=== PATIENT | female | born 1960 | race African-American/Black ===

== ENCOUNTER 2017-09-14 09:40 | Inpatient (IN) | payer OTHER ==
[2017-09-14 10:24] VITALS: BMI 33.5
[2017-09-14] MEDS ORDERED: MENTHOL/PHENOL 1 EACH UD MM PRN (11:03)
[2017-09-14] MEDS ORDERED: MAGNESIUM HYDROX 2400MG/30ML ORAL SUSPENSION 30 ML CUP PO PRN (11:03)
[2017-09-14] MEDS ORDERED: MAGNESIUM CITRATE 300 ML BOTTLE PO PRN (11:03)
[2017-09-14] MEDS ORDERED: LOPERAMIDE HCL 2 MG CAPSULE PO PRN (11:03)
[2017-09-14] MEDS ORDERED: MAG HYDROX/AL HYDROX/SIMETH 30 ML UNIT-DOSE CUP PO PRN (11:03)
[2017-09-14] MEDS ORDERED: guaiFENesin/D-METHORPHAN HB 10 ML UNIT-DOSE CUPS PO PRN (11:03)
[2017-09-14] MEDS ORDERED: P-EPHED 60MG/TRIPROLIDI 2.5MG TABLET PO PRN (11:03)
[2017-09-14] MEDS ORDERED: ALBUTEROL SO4 18 GM HFA INHALER IH PRN (11:06)
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
[2017-09-14] MEDS: DIVALPROEX SODIUM 500 MG TABLET E.C. PO SCH (21:57)
[2017-09-14] MEDS: risperiDONE 1 MG TABLET (FP) PO SCH (21:57)
[2017-09-14] MEDS: THIAMINE HCL 100 MG TABLET (FP) PO SCH (21:57)
[2017-09-14] MEDS: diphenhydrAMINE HCL 25 MG CAPSULE (FP) PO SCH (21:57)
[2017-09-14] MEDS: traZODone HCL 50 MG TABLET (FP) PO SCH (21:58)
[2017-09-15] MEDS: DIVALPROEX SODIUM 500 MG TABLET E.C. PO SCH ×2 (10:02→22:03)
[2017-09-15] MEDS: risperiDONE 1 MG TABLET (FP) PO SCH ×2 (10:02→22:03)
[2017-09-15] MEDS: diphenhydrAMINE HCL 25 MG CAPSULE (FP) PO SCH ×2 (10:02→22:03)
[2017-09-15] MEDS: PRENATAL VITAMINS W/ FOLIC ACID TABLET (FP) PO SCH (10:02)
[2017-09-15] MEDS: NICOTINE 21 MG/24 HOURS TOPICAL PATCH TD SCH (10:03)
[2017-09-15] MEDS: EMTRICITAB/RILPIVIRI/TENOF ALA (ODEFSEY) TABLET PO SCH (10:04)
[2017-09-15] MEDS: traZODone HCL 50 MG TABLET (FP) PO SCH (22:03)
[2017-09-15] MEDS: THIAMINE HCL 100 MG TABLET (FP) PO SCH (22:03)
[2017-09-16] MEDS: NICOTINE 21 MG/24 HOURS TOPICAL PATCH TD SCH (10:21)
[2017-09-16] MEDS: risperiDONE 1 MG TABLET (FP) PO SCH ×2 (10:22→21:58)
[2017-09-16] MEDS: EMTRICITAB/RILPIVIRI/TENOF ALA (ODEFSEY) TABLET PO SCH (10:22)
[2017-09-16] MEDS: diphenhydrAMINE HCL 25 MG CAPSULE (FP) PO SCH ×2 (10:22→21:58)
[2017-09-16] MEDS: DIVALPROEX SODIUM 500 MG TABLET E.C. PO SCH ×2 (10:22→21:58)
[2017-09-16] MEDS: PRENATAL VITAMINS W/ FOLIC ACID TABLET (FP) PO SCH (10:22)
[2017-09-16] MEDS: ACETAMINOPHEN 325 MG TABLET (FP) PO PRN (11:38)
--- NOTE | 2017-09-16 12:42 | PN ---
[facility] Progress Note Note: PATIENT REPORTED TO NURSE THAT SHE HAD UNWITNESSED FALL ON Sunday09/14/17 BETWEEN 6 PM TO 7 PM NO HEAD INJURY COMPLAINT OF PAIN IN THE LOWER BACK ALERT,NO HEAD INJURY,AMBULATION WITHOUT DIFFICULTY NO NECK PAIN HEENT NORMAL HEAT NORMAL HEART SOUND LUNG CLEAR ABDOMEN NO PAIN OR TENDERNESS PAIN IN THE LOWER BACK WITH PAIN ON DEEP PALPATION EXTREMITIES NO PAIN OR TENDERNESS IMPRESSION UNWITNESSED FALL LOWER BACK PAIN ALCOHOL DEPENDENCE COCAINE DEPENDENCE HIV ASTHMA SCHIZOAFFECTIVE DISORDER BIPOLAR DISODER TREATMENT INITIATE FALL PROTOCOL 1 FALL PRECAUTION TO ER FOR EVALUATION AND TREATMENT ,SPOKE WITH DR HARRISON, TO BE TRANSPORTED BY [facility] BP 109/75,P91,R17,T 98
[2017-09-16] MEDS: traZODone HCL 50 MG TABLET (FP) PO SCH (21:58)
[2017-09-16] MEDS: THIAMINE HCL 100 MG TABLET (FP) PO SCH (21:58)
[2017-09-17] MEDS ORDERED: PT OWN MED DRAWER 7, Y5N ONE (08:55)
[2017-09-17] MEDS: EMTRICITAB/RILPIVIRI/TENOF ALA (ODEFSEY) TABLET PO SCH (10:30)
[2017-09-17] MEDS: diphenhydrAMINE HCL 25 MG CAPSULE (FP) PO SCH ×2 (10:30→21:37)
[2017-09-17] MEDS: PRENATAL VITAMINS W/ FOLIC ACID TABLET (FP) PO SCH (10:30)
[2017-09-17] MEDS: DIVALPROEX SODIUM 500 MG TABLET E.C. PO SCH ×2 (10:30→21:37)
[2017-09-17] MEDS: risperiDONE 1 MG TABLET (FP) PO SCH ×2 (10:30→21:37)
[2017-09-17] MEDS: NICOTINE 21 MG/24 HOURS TOPICAL PATCH TD SCH (10:30)
[2017-09-17] MEDS: traZODone HCL 50 MG TABLET (FP) PO SCH (21:37)
[2017-09-17] MEDS: THIAMINE HCL 100 MG TABLET (FP) PO SCH (21:37)
[2017-09-18] MEDS: ACETAMINOPHEN 325 MG TABLET (FP) PO PRN (02:06)
[2017-09-18] MEDS: DIVALPROEX SODIUM 500 MG TABLET E.C. PO SCH ×2 (10:13→21:41)
[2017-09-18] MEDS: EMTRICITAB/RILPIVIRI/TENOF ALA (ODEFSEY) TABLET PO SCH (10:13)
[2017-09-18] MEDS: risperiDONE 1 MG TABLET (FP) PO SCH ×2 (10:14→21:41)
[2017-09-18] MEDS: PRENATAL VITAMINS W/ FOLIC ACID TABLET (FP) PO SCH (10:14)
[2017-09-18] MEDS: diphenhydrAMINE HCL 25 MG CAPSULE (FP) PO SCH ×2 (10:14→21:41)
[2017-09-18] MEDS: NICOTINE 21 MG/24 HOURS TOPICAL PATCH TD SCH (10:14)
[2017-09-18] MEDS: traZODone HCL 50 MG TABLET (FP) PO SCH (21:41)
[2017-09-18] MEDS: THIAMINE HCL 100 MG TABLET (FP) PO SCH (21:41)
[2017-09-19] MEDS ORDERED: PT OWN MED DRAWER 7, Y5N ONE (08:50)
[2017-09-19] MEDS: PRENATAL VITAMINS W/ FOLIC ACID TABLET (FP) PO SCH (09:58)
[2017-09-19] MEDS: EMTRICITAB/RILPIVIRI/TENOF ALA (ODEFSEY) TABLET PO SCH (09:58)
[2017-09-19] MEDS: DIVALPROEX SODIUM 500 MG TABLET E.C. PO SCH ×2 (09:58→21:54)
[2017-09-19] MEDS: diphenhydrAMINE HCL 25 MG CAPSULE (FP) PO SCH ×2 (09:58→21:31)
[2017-09-19] MEDS: risperiDONE 1 MG TABLET (FP) PO SCH ×2 (09:58→21:31)
[2017-09-19] MEDS: NICOTINE 21 MG/24 HOURS TOPICAL PATCH TD SCH (09:59)
[2017-09-19] MEDS: NICOTINE POLACRILEX 4 MG GUM BUC PRN ×2 (09:59→21:32)
--- NOTE | 2017-09-19 11:01 | PN ---
Psychiatric Progress Note Vital Signs: Vital Signs Period Temp Pulse Resp BP Sys/Taylor Pulse Ox Last 24 Hr 97.9 F 96 18-18 89/62 Date of Session: 09/19/17 Chief Complaint:: Propgress update. HPI: Patient addressed Alcohol ,Cocaine dependence comorbid with Schizoalffective disorder. ROS: Significant for HIV+,AIDS,BA,Seizures. Current Medications: Active Medications Generic Name Dose Route Start Last Admin Trade Name Freq PRN Reason Stop Dose Admin Acetaminophen 650 mg 09/14/17 11:03 09/18/17 02:06 Tylenol - PO 650 mg Q4H PRN Administration FEVER Al Hydroxide/Mg Hydroxide 30 ml 09/14/17 11:03 Mylanta Oral Suspension - PO Q6H PRN DYSPEPSIA Albuterol Sulfate 2 puff 09/14/17 11:06 Ventolin Hfa Inhaler - IH Q4H PRN ASTHMA Diphenhydramine HCl 25 mg 09/14/17 22:00 09/19/17 09:58 Benadryl - PO 25 mg BID CHRISTAL Administration Divalproex Sodium 500 mg 09/14/17 22:00 09/19/17 09:58 Depakote - PO 500 mg BID CHRISTAL Administration Eucalyptus/Menthol/Phenol/Sorbitol 1 each 09/14/17 11:03 Cepastat Lozenge - MM Q4H PRN SORE THROAT Guaifenesin 10 ml 09/14/17 11:03 Robitussin Dm - PO Q6H PRN COUGH Loperamide HCl 4 mg 09/14/17 11:03 Imodium - PO Q6H PRN DIARRHEA Magnesium Citrate 300 ml 09/14/17 11:03 Citroma - PO Q48H PRN CONSTIPATION Magnesium Hydroxide 30 ml 09/14/17 11:03 Milk Of Magnesia - PO DAILY PRN CONSTIPATION Nicotine 21 mg 09/15/17 10:00 09/19/17 09:59 Nicoderm Patch - TD Not Given DAILY CHRISTAL Nicotine Polacrilex 4 mg 09/14/17 11:03 09/19/17 09:59 Nicorette Gum - BUC 4 mg Q2H PRN Administration NICOTINE REPLACEMENT RX Multivit/Folic Acid/Iron 1 tab 09/15/17 10:00 09/19/17 09:58 Vitamins (Sjr) - PO 1 tab DAILY CHRISTAL Administration Pseudoephedrine/Triprolidine 1 combo 09/14/17 11:03 Actifed - PO TID PRN NASAL CONGESTION Risperidone 1 mg 09/14/17 22:00 09/19/17 09:58 Risperdal - PO 1 mg BID CHRISTAL Administration Thiamine HCl 100 mg 09/14/17 22:00 09/18/17 21:41 Vitamin B1 - PO 100 mg HS CHRISTAL Administration Trazodone HCl 50 mg 09/14/17 22:00 09/18/17 21:41 Desyrel - PO 50 mg HS CHRISTAL Administration Current Side Effect: No Lab tests ordered: No Lab tests reviewed: Yes Provider note:: Patient decided to sign out today,stating that she wants to get high.Patient was seen by senior underwriter,then by counselour and nurse to convince her to continue stablization in inpatient .Patient changed her mond and decided to stay and use the opportunity to maintain recovery while in our facility.Supportive therapy provided focusing on coping skills,support utilization as well as other resourses for relapse prevention. Continue current medications as per plan. Total face to face time:: 35 Mental Status Exam - Mental Status Exam Alert and Oriented to: Time, Place, Person Cognitive Function: Grossly Intact Patient Appearance: Unkempt Mood: Euthymic Affect: Mood Congruent Patient Behavior: Passive Speech Pattern: Clear Voice Loudness: Normal Thought Process: Goal Oriented Thought Disorder: Not Present Hallucinations: Denies Suicidal Ideation: Denies Homicidal Ideation: Denies Insight/Judgement: Fair Sleep: Fair Appetite: Good Muscle strength/Tone: Normal Gait/Station: Normal Psychiatric Treatment Plan - Problem List (1) Alcohol dependence Current Visit: Yes (2) Nicotine dependence Current Visit: Yes Qualifiers: Nicotine product type: cigarettes Substance use status: uncomplicated Qualified Code(s): F17.210 - Nicotine dependence, cigarettes, uncomplicated (3) Acquired immune deficiency syndrome (AIDS) Current Visit: Yes (4) Asthma Current Visit: Yes (5) Cocaine dependence Current Visit: Yes Qualifiers: Substance use status: uncomplicated Qualified Code(s): F14.20 - Cocaine dependence, uncomplicated (6) HIV (human immunodeficiency virus infection) Current Visit: Yes (7) Schizoaffective disorder, bipolar type Current Visit: Yes (8) Seizure Current Visit: Yes
[2017-09-19] MEDS: THIAMINE HCL 100 MG TABLET (FP) PO SCH (21:31)
[2017-09-19] MEDS: traZODone HCL 50 MG TABLET (FP) PO SCH (21:31)
[2017-09-20 06:48] VITALS: BP 106/74; PULSE 94; TEMP 97.5
[2017-09-20] MEDS ORDERED: PT OWN MED DRAWER 7, Y5N ONE (08:39)
[2017-09-20] MEDS: diphenhydrAMINE HCL 25 MG CAPSULE (FP) PO SCH (09:53)
[2017-09-20] MEDS: EMTRICITAB/RILPIVIRI/TENOF ALA (ODEFSEY) TABLET PO SCH (09:53)
[2017-09-20] MEDS: NICOTINE 21 MG/24 HOURS TOPICAL PATCH TD SCH (09:53)
[2017-09-20] MEDS: DIVALPROEX SODIUM 500 MG TABLET E.C. PO SCH (09:53)
[2017-09-20] MEDS: risperiDONE 1 MG TABLET (FP) PO SCH (09:54)
[2017-09-20] MEDS: NICOTINE POLACRILEX 4 MG GUM BUC PRN (09:54)
[2017-09-20] MEDS: PRENATAL VITAMINS W/ FOLIC ACID TABLET (FP) PO SCH (09:54)
== END 2017-09-20 15:00 | disposition left against medical advice (07) | DRG 770 ==
LOC: YASAS 09:40 → Y3E 09:41
PROVIDERS: ADMIT Psychiatry & Neurology Psychiatry; ATTEND Psychiatry & Neurology Psychiatry
PROC: HZ42ZZZ Group Counseling for Substance Abuse Treatment, Cognitive-Behavioral (ICD-10-PCS; principal; 2017-09-14)
DX: F10.20 Alcohol dependence, uncomplicated (principal); F14.20 Cocaine dependence, uncomplicated; F17.210 Nicotine dependence, cigarettes, uncomplicated; F25.0 Schizoaffective disorder, bipolar type; B20 Human immunodeficiency virus [HIV] disease; R56.9 Unspecified convulsions
CPT/HCPCS: J2794

== ENCOUNTER 2018-03-13 14:11 | Inpatient (IN) | payer OTHER ==
[2018-03-13 14:56] VITALS: BMI 33.7
--- NOTE | 2018-03-13 15:40 | HP ---
CIWA Score - CIWA Score Nausea/Vomitin Muscle Tremors: 3 Anxiety: 2 Agitation: 2 Paroxysmal Sweats: 2 Orientation: 0-Oriented Tacttile Disturbances: 2-Mild Itch/Numbness/Burn Auditory Disturbances: 0-None Visual Disturbances: 0-None Headache: 0-None Present CIWA-Ar Total Score: 13 Admission ROS S - HPI Chief Complaint: I am drinking too much and need detox and rehab . Allergies/Adverse Reactions: Allergies Allergy/AdvReac Type Severity Reaction Status Date / Time benztropine mesylate Allergy Severe Hives Verified 03/13/18 14:57 [From Cogentin] ibuprofen Allergy Severe Hives Verified 03/13/18 14:57 Penicillins Allergy Severe Swelling Verified 03/13/18 14:57 prednisone Allergy Severe Hives Verified 03/13/18 14:57 tomato Allergy Severe Hives Verified 03/13/18 14:57 haloperidol [From Haldol] Allergy Hives Verified 03/13/18 14:57 aripiprazole [From Abilify] AdvReac Severe Swelling Verified 03/13/18 14:57 History of Present Illness: 57 y/o f pt who has been using alcohol since age 23 seeking detox. - Ebola screening Have you traveled outside of the country in the last 21 days: No Have you had contact with anyone from an Ebola affected area: No Have you been sick,other than usual withdrawal symptoms: No Do you have a fever: No - Review of Systems Constitutional: Night Sweats EENT: reports: Other (reading glasses not with pt.) Respiratory: reports: No Symptoms reported Cardiac: reports: Palpitations, Other (murmur) GI: reports: Nausea : reports: Frequency Musculoskeletal: reports: Muscle Pain Integumentary: reports: No Symptoms Reported Neuro: reports: Numbness, Paresthesia (feet - neuropathy.), Tingling Endocrine: reports: No Symptoms Reported Hematology: reports: No Symptoms Reported Psychiatric: reports: Agitated, Anxious, Depressed Other Systems: Reviewed and Negative Patient History - Patient Medical History Hx Anemia: Yes (Not on medication) Hx Asthma: Yes Hx Chronic Obstructive Pulmonary Disease (COPD): No Hx Cancer: No Hx Cardiac Disorders: No Hx Congestive Heart Failure: No Hx Hypertension: No Hx Hypercholesterolemia: No Hx Pacemaker: No HX Cerebrovascular Accident: No Hx Seizures: No Hx Dementia: No Hx Diabetes: No Hx Gastrointestinal Disorders: No Hx Liver Disease: No Hx Genitourinary Disorders: No Hx Sexually Transmitted Disorders: No Hx Renal Disease (ESRD): No Hx Thyroid Disease: No Hx Human Immunodeficiency Virus (HIV): Yes (On [place]. Diagnosed 1985 ) Hx Hepatitis C: No Hx Depression: Yes Hx Suicide Attempt: Yes (last attempt in 2002. ) Hx Bipolar Disorder: Yes Hx Schizophrenia: Yes - Patient Surgical History Past Surgical History: Yes Hx Neurologic Surgery: No Hx Cataract Extraction: No Hx Cardiac Surgery: No Hx Lung Surgery: No Hx Breast Surgery: No Hx Breast Biopsy: No Hx Abdominal Surgery: No Hx Appendectomy: No Hx Cholecystectomy: No Hx Genitourinary Surgery: No Hx Section: No Hx Orthopedic Surgery: Yes (fx of left forearm in 1991) Hx Hysterectomy: No Other Surgical History: rt ear surgery, cut ear lobe Anesthesia Reaction: No - PPD History Previous Implant?: Yes Documented Results: Positive w/proof Implanted On Prior [facility] Admission?: No PPD to be Administered?: No - Reproductive History Patient is a Female of Child Bearing Age (11 -55 yrs old): No Last Menstrual Period: 08/20/14 Patient : No - Smoking Cessation Smoking history: Current every day smoker Have you smoked in the past 12 months: Yes Aproximately how many cigarettes per day: 5 If you are a former smoker, when did you quit?: 09/14/17 Cigars Per Day: 0 Hx Chewing Tobacco Use: No Initiated information on smoking cessation: Yes 'Breaking Loose' booklet given: 03/13/18 - Substance & Tx. History Hx Alcohol Use: Yes Hx Substance Use: Yes Substance Use Type: Alcohol, Cocaine Hx Substance Use Treatment: Yes ( [facility]) - Substances Abused Alcohol Route: Oral Frequency: Daily Amount used: 1 PINT 6PK BEER Age of first use: 23 Date of Last Use: 03/13/18 Crack Route: Smoking Frequency: Daily Amount used: $50 Age of first use: 23 Date of Last Use: 03/13/18 Family Disease History - Family Disease History Family Disease History: Heart Disease: Mother (SCHIZOPHRENIA, asthma,etoh/ cocaine), Other: Father (TB), Mother, Brother (SEIZURE), Sister (cocaine, crack) Admission Physical Exam [facility] - Vital Signs Vital Signs: Vital Signs - 24 hr 03/13/18 14:54 Temperature 98.4 F Pulse Rate 98 H Respiratory 20 Rate Blood Pressure 102/70 57 y/o f pt aox3 in nad ambulating and cooperative with exam. - Physical General Appearance: Yes: No Apparent Distress, Disheveled, Alcohol on Breath, Obese, Tremorous HEENTM: Yes: EOMI, Hearing grossly Normal, JUANITO (pt with larhe pupils) Respiratory: Yes: Chest Non-Tender, Lungs Clear, Normal Breath Sounds, No Respiratory Distress Neck: Yes: Supple, Trachea in good position Breast: Yes: Breast Exam Deferred Cardiology: Yes: Regular Rhythm, Regular Rate, S1, S2 Abdominal: Yes: Non Tender, Soft, Increased Bowel Sounds, Protuberent Genitourinary: Yes: Within Normal Limits Back: Yes: Decreased Range of Motion Musculoskeletal: Yes: Back pain Extremities: Yes: Tremors, Other (left forearm scar) 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 NML intact, Fully Oriented, Alert, Normal Response Integumentary: Yes: Moist Lymphatic: Yes: Within Normal Limits - Diagnostic (1) Cocaine dependence in remission Current Visit: No Status: Chronic (2) Schizophrenia Current Visit: No Status: Chronic Qualifiers: Schizophrenia type: unspecified Qualified Code(s): F20.9 - Schizophrenia, unspecified (3) Acquired immune deficiency syndrome (AIDS) Current Visit: Yes Status: Chronic (4) Alcohol dependence with uncomplicated withdrawal Current Visit: Yes Status: Chronic (5) Asthma Current Visit: No Status: Chronic Cleared for Admission [facility] - Detox or Rehab [facility] Level of Care: Medically Managed Detox Regimen/Protocol: Librium [facility] Breath Alcohol Content Breath Alcohol Content: 0.065 Urine Pregancy Test - Result Urine Test Results: Negative- NO Line Present Urine Drug Screen - Results Drug Screen Negative: No Urine Drug Screen Results: XENIA-Cocaine
[2018-03-13] MEDS ORDERED: MAGNESIUM HYDROX 2400MG/30ML ORAL SUSPENSION 30 ML CUP PO PRN (15:57)
[2018-03-13] MEDS ORDERED: IBUPROFEN 400 MG TABLET (FP) PO PRN (15:57)
[2018-03-13] MEDS ORDERED: ACETAMINOPHEN 325 MG TABLET (FP) PO PRN (15:57)
[2018-03-13] MEDS ORDERED: hydrOXYzine PAMOATE 25 MG CAPSULE (FP) PO PRN (15:57)
[2018-03-13] MEDS ORDERED: MAGNESIUM CITRATE 300 ML BOTTLE PO PRN (15:57)
[2018-03-13] MEDS ORDERED: chlordiazePOXIDE HCL 25 MG CAPSULE PO PRN (15:57)
[2018-03-13] MEDS ORDERED: MAG HYDROX/AL HYDROX/SIMETH 30 ML UNIT-DOSE CUP PO PRN (15:57)
[2018-03-13] MEDS ORDERED: P-EPHED 60MG/TRIPROLIDI 2.5MG TABLET PO PRN (15:57)
[2018-03-13] MEDS ORDERED: LOPERAMIDE HCL 2 MG CAPSULE PO PRN (15:57)
[2018-03-13] MEDS ORDERED: NICOTINE POLACRILEX 2 MG GUM BUC PRN (16:03)
--- NOTE | 2018-03-13 17:52 | PN ---
[facility] Progress Note Note: Vital Signs Temperature 96.3 F L 03/13/18 17:40 Pulse Rate 72 03/13/18 17:40 Respiratory Rate 18 03/13/18 17:40 Blood Pressure 110/68 03/13/18 17:40 O2 Sat by Pulse Oximetry (%) asthmatic with ongoing cough duo neb prn singualr hs increase fluids continue to monitor
[2018-03-13] MEDS: ALBUTEROL SO4 2.5/IPRATROPIUM 0.5 INH SOL 3 ML VIAL.NEB. NEB PRN (18:07)
[2018-03-13] MEDS: guaiFENesin/D-METHORPHAN HB 10 ML UNIT-DOSE CUPS PO PRN (18:46)
[2018-03-13] MEDS: MENTHOL/PHENOL 1 EACH UD MM PRN (18:47)
[2018-03-13] MEDS ORDERED: MELATONIN 5 MG TABLETS PO PRN (22:00)
[2018-03-13] MEDS: THIAMINE HCL 100 MG TABLET (FP) PO SCH (22:34)
[2018-03-13] MEDS: DIVALPROEX SODIUM 250 MG TABLET E.C. PO SCH (22:35)
[2018-03-13] MEDS: chlordiazePOXIDE HCL 25 MG CAPSULE PO SCH (22:35)
[2018-03-13] MEDS: MONTELUKAST NA 10 MG TABLET PO SCH (22:35)
[2018-03-14 00:04] LABS: URINE APPEARANCE CLEAR; URINE BILIRUBIN NEGATIVE (<2.0 mg/dL); URINE COLOR STRAW; URINE GLUCOSE (UA) NEGATIVE (NEGATIVE); URINE KETONE NEGATIVE (NEGATIVE); URINE NITRITE NEGATIVE (NEGATIVE); URINE PROTEIN NEGATIVE (NEGATIVE); URINE UROBILINOGEN NEGATIVE mg/dL (0.2-1.0)
[2018-03-14 00:28] LABS: URINE LEUK ESTERASE 2+ (NEGATIVE)
[2018-03-14] MEDS: ALBUTEROL SO4 2.5/IPRATROPIUM 0.5 INH SOL 3 ML VIAL.NEB. NEB PRN ×3 (00:33→20:09)
[2018-03-14 00:57] LABS: EPI CELLS RARE /HPF (FEW); URINE BACTERIA RARE /hpf (NONE SEEN); URINE MUCUS RARE
[2018-03-14] MEDS: chlordiazePOXIDE HCL 25 MG CAPSULE PO SCH ×4 (06:15→22:52)
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
[2018-03-14] MEDS ORDERED: DIVALPROEX SODIUM 250 MG TABLET E.C. PO SCH (10:00)
[2018-03-14 10:36] LABS: HEMATOCRIT 41.8 % (32.4-45.2); HEMOGLOBIN 13.6 GM/dL (10.7-15.3); MCH 29.1 pg (25.7-33.7); MCHC 32.5 g/dl (32.0-36.0); MEAN CELL VOLUME 89.6 fl (80-96); MEAN PLT VOLUME 12.1 fl (7.5-11.1); PLATELET COUNT 215 K/MM3 (134-434); RBC 4.66 M/mm3 (3.60-5.2); RDW 18.6 % (11.6-15.6); WHITE BLOOD COUNT 7.4 K/mm3 (4.0-10.0)
[2018-03-14 10:48] LABS: ALBUMIN 3.4 g/dl (3.4-5.0); ANION GAP 10 MMOL/L (8-16); BILIRUBIN,TOTAL 0.2 mg/dL (0.2-1.0); BLOOD UREA NITROGEN 10 mg/dL (7-18); CALCIUM 8.9 mg/dL (8.5-10.1); CHLORIDE 107 mmol/L (98-107); CO2 29 mmol/L (21-32); CREATININE 1.2 mg/dL (0.55-1.02); GLUCOSE,RANDOM 66 mg/dL (74-106); SGOT/AST 11 U/L (15-37); SGPT/ALT 14 U/L (13-61); SODIUM 146 mmol/L (136-145); TOT PROT 7.4 g/dl (6.4-8.2)
[2018-03-14 10:49] LABS: ALK PHOS 88 U/L (45-117)
[2018-03-14] MEDS: DIVALPROEX SODIUM 250 MG TABLET E.C. PO SCH ×2 (11:03→22:50)
[2018-03-14] MEDS: NICOTINE 7 MG/24 HOURS TOPICAL PATCH TD SCH (11:04)
[2018-03-14] MEDS: PRENATAL VITAMINS W/ FOLIC ACID TABLET (FP) PO SCH (11:04)
[2018-03-14] MEDS: risperiDONE 2 MG TABLET PO SCH ×2 (11:04→22:52)
[2018-03-14 11:39] LABS: RPR REACTIVE 1:1 (NONREACTIVE)
[2018-03-14 11:40] LABS: TREPONEMA ANTIBODY PREVIOUSLY REACTIVE (NONREACTIVE)
--- NOTE | 2018-03-14 12:54 | PN ---
S CIWA - CIWA Score Nausea/Vomitin-Mild Nausea/No Vomiting Muscle Tremors: 3 Anxiety: 2 Agitation: 3 Paroxysmal Sweats: 1-Minimal Palms Moist Orientation: 0-Oriented Tacttile Disturbances: 1-Very Mild Itch/Numbness Auditory Disturbances: 1-Very Mild Visual Disturbances: 0-None Headache: 1-Very Mild CIWA-Ar Total Score: 13 [facility] Progress Note (SOAP) Subjective: sweat tremor restlessness anxiety trouble sleep at night Vital Signs Temperature 98.1 F 03/14/18 09:14 Pulse Rate 83 03/14/18 09:14 Respiratory Rate 16 03/14/18 09:14 Blood Pressure 99/60 03/14/18 09:14 O2 Sat by Pulse Oximetry (%) Laboratory Last Values WBC 7.4 K/mm3 (4.0-10.0) 03/14/18 05:50 RBC 4.66 M/mm3 (3.60-5.2) 03/14/18 05:50 Hgb 13.6 GM/dL (10.7-15.3) 03/14/18 05:50 Hct 41.8 % (32.4-45.2) 03/14/18 05:50 MCV 89.6 fl (80-96) 03/14/18 05:50 MCH 29.1 pg (25.7-33.7) 03/14/18 05:50 MCHC 32.5 g/dl (32.0-36.0) 03/14/18 05:50 RDW 18.6 % (11.6-15.6) H 03/14/18 05:50 Plt Count 215 K/MM3 (134-434) 03/14/18 05:50 MPV 12.1 fl (7.5-11.1) H D 03/14/18 05:50 Sodium 146 mmol/L (136-145) H 03/14/18 05:50 Potassium 4.0 mmol/L (3.5-5.1) 03/14/18 05:50 Chloride 107 mmol/L (98-107) 03/14/18 05:50 Carbon Dioxide 29 mmol/L (21-32) 03/14/18 05:50 Anion Gap 10 MMOL/L (8-16) 03/14/18 05:50 BUN 10 mg/dL (7-18) 03/14/18 05:50 Creatinine 1.2 mg/dL (0.55-1.02) H 03/14/18 05:50 Creat Clearance w eGFR 46.64 (>60) 03/14/18 05:50 Random Glucose 66 mg/dL (74-106) L 03/14/18 05:50 Calcium 8.9 mg/dL (8.5-10.1) 03/14/18 05:50 Total Bilirubin 0.2 mg/dL (0.2-1.0) 03/14/18 05:50 AST 11 U/L (15-37) L 03/14/18 05:50 ALT 14 U/L (13-61) 03/14/18 05:50 Alkaline Phosphatase 88 U/L (45-117) 03/14/18 05:50 Total Protein 7.4 g/dl (6.4-8.2) 03/14/18 05:50 Albumin 3.4 g/dl (3.4-5.0) 03/14/18 05:50 Urine Color Straw 03/13/18 Unknown Urine Appearance Clear 03/13/18 Unknown Urine pH 6.0 (5.0-8.0) 03/13/18 Unknown Ur Specific [place] 1.005 (1.001-1.035) 03/13/18 Unknown Urine Protein Negative (NEGATIVE) 03/13/18 Unknown Urine Glucose (UA) Negative (NEGATIVE) 03/13/18 Unknown Urine Ketones Negative (NEGATIVE) 03/13/18 Unknown Urine Blood Negative (NEGATIVE) 03/13/18 Unknown Urine Nitrite Negative (NEGATIVE) 03/13/18 Unknown Urine Bilirubin Negative (<2.0 mg/dL) 03/13/18 Unknown Urine Urobilinogen Negative mg/dL (0.2-1.0) 03/13/18 Unknown Ur Leukocyte Esterase 2+ (NEGATIVE) H 03/13/18 Unknown Urine WBC (Auto) 15 /hpf (3-5) 03/13/18 Unknown Urine RBC (Auto) 1 /hpf (0-3) 03/13/18 Unknown Ur Epithelial Cells Rare /HPF (FEW) 03/13/18 Unknown Urine Bacteria Rare /hpf (NONE SEEN) 03/13/18 Unknown Urine Mucus Rare 03/13/18 Unknown RPR Titer Reactive 1:1 (NONREACTIVE) H 03/14/18 05:50 T.pallidum Ab (MHA) Previously reactive (NONREACTIVE) 03/14/18 05:50 repeat camp lab noted Objective: 03/14/18 12:56 Vital Signs Temperature 98.1 F 03/14/18 09:14 Pulse Rate 83 03/14/18 09:14 Respiratory Rate 16 03/14/18 09:14 Blood Pressure 99/60 03/14/18 09:14 O2 Sat by Pulse Oximetry (%) Laboratory Last Values WBC 7.4 K/mm3 (4.0-10.0) 03/14/18 05:50 RBC 4.66 M/mm3 (3.60-5.2) 03/14/18 05:50 Hgb 13.6 GM/dL (10.7-15.3) 03/14/18 05:50 Hct 41.8 % (32.4-45.2) 03/14/18 05:50 MCV 89.6 fl (80-96) 03/14/18 05:50 MCH 29.1 pg (25.7-33.7) 03/14/18 05:50 MCHC 32.5 g/dl (32.0-36.0) 03/14/18 05:50 RDW 18.6 % (11.6-15.6) H 03/14/18 05:50 Plt Count 215 K/MM3 (134-434) 03/14/18 05:50 MPV 12.1 fl (7.5-11.1) H D 03/14/18 05:50 Sodium 146 mmol/L (136-145) H 03/14/18 05:50 Potassium 4.0 mmol/L (3.5-5.1) 03/14/18 05:50 Chloride 107 mmol/L (98-107) 03/14/18 05:50 Carbon Dioxide 29 mmol/L (21-32) 03/14/18 05:50 Anion Gap 10 MMOL/L (8-16) 03/14/18 05:50 BUN 10 mg/dL (7-18) 03/14/18 05:50 Creatinine 1.2 mg/dL (0.55-1.02) H 03/14/18 05:50 Creat Clearance w eGFR 46.64 (>60) 03/14/18 05:50 Random Glucose 66 mg/dL (74-106) L 03/14/18 05:50 Calcium 8.9 mg/dL (8.5-10.1) 03/14/18 05:50 Total Bilirubin 0.2 mg/dL (0.2-1.0) 03/14/18 05:50 AST 11 U/L (15-37) L 03/14/18 05:50 ALT 14 U/L (13-61) 03/14/18 05:50 Alkaline Phosphatase 88 U/L (45-117) 03/14/18 05:50 Total Protein 7.4 g/dl (6.4-8.2) 03/14/18 05:50 Albumin 3.4 g/dl (3.4-5.0) 03/14/18 05:50 Urine Color Straw 03/13/18 Unknown Urine Appearance Clear 03/13/18 Unknown Urine pH 6.0 (5.0-8.0) 03/13/18 Unknown Ur Specific [place] 1.005 (1.001-1.035) 03/13/18 Unknown Urine Protein Negative (NEGATIVE) 03/13/18 Unknown Urine Glucose (UA) Negative (NEGATIVE) 03/13/18 Unknown Urine Ketones Negative (NEGATIVE) 03/13/18 Unknown Urine Blood Negative (NEGATIVE) 03/13/18 Unknown Urine Nitrite Negative (NEGATIVE) 03/13/18 Unknown Urine Bilirubin Negative (<2.0 mg/dL) 03/13/18 Unknown Urine Urobilinogen Negative mg/dL (0.2-1.0) 03/13/18 Unknown Ur Leukocyte Esterase 2+ (NEGATIVE) H 03/13/18 Unknown Urine WBC (Auto) 15 /hpf (3-5) 03/13/18 Unknown Urine RBC (Auto) 1 /hpf (0-3) 03/13/18 Unknown Ur Epithelial Cells Rare /HPF (FEW) 03/13/18 Unknown Urine Bacteria Rare /hpf (NONE SEEN) 03/13/18 Unknown Urine Mucus Rare 03/13/18 Unknown RPR Titer Reactive 1:1 (NONREACTIVE) H 03/14/18 05:50 T.pallidum Ab (MHA) Previously reactive (NONREACTIVE) 03/14/18 05:50 lab noted syphilis previously treated Assessment: 03/14/18 12:57 withdrawal sx Plan: continue detox
--- NOTE | 2018-03-14 15:41 | EKG ---
Test Reason : Blood Pressure : / mmHG Vent. Rate : 090 BPM Atrial Rate : 090 BPM P-R Int : 162 ms QRS Dur : 084 ms QT Int : 366 ms P-R-T Axes : 059 058 072 degrees QTc Int : 447 ms NORMAL SINUS RHYTHM MINIMAL VOLTAGE CRITERIA FOR LVH, MAY BE NORMAL VARIANT BORDERLINE ECG WHEN COMPARED WITH ECG OF 10-SEP-2017 22:43, NO SIGNIFICANT CHANGE WAS FOUND Confirmed by IVÁN HAYES, BRIELLE ([id number]) on 03/14/2018 3:41:37 PM Referred By: Confirmed By:BRIELLE MINOR MD
[2018-03-14] MEDS: guaiFENesin/D-METHORPHAN HB 10 ML UNIT-DOSE CUPS PO PRN (17:43)
[2018-03-14] MEDS: traZODone HCL 100 MG TABLET (FP) PO SCH (22:51)
[2018-03-14] MEDS: MONTELUKAST NA 10 MG TABLET PO SCH (22:52)
[2018-03-14] MEDS: ALBUTEROL SO4 8 GM HFA INHALER IH PRN (22:53)
[2018-03-14] MEDS: THIAMINE HCL 100 MG TABLET (FP) PO SCH (22:53)
[2018-03-15] MEDS: guaiFENesin/D-METHORPHAN HB 10 ML UNIT-DOSE CUPS PO PRN ×2 (04:30→14:52)
[2018-03-15] MEDS: MENTHOL/PHENOL 1 EACH UD MM PRN (04:30)
[2018-03-15] MEDS: chlordiazePOXIDE HCL 25 MG CAPSULE PO SCH ×3 (05:23→17:19)
[2018-03-15] MEDS: risperiDONE 2 MG TABLET PO SCH ×2 (10:55→22:59)
[2018-03-15] MEDS: PRENATAL VITAMINS W/ FOLIC ACID TABLET (FP) PO SCH (10:55)
[2018-03-15] MEDS: NICOTINE 7 MG/24 HOURS TOPICAL PATCH TD SCH (10:57)
[2018-03-15] MEDS: DIVALPROEX SODIUM 250 MG TABLET E.C. PO SCH ×2 (11:13→22:59)
--- NOTE | 2018-03-15 11:25 | PN ---
S CIWA - CIWA Score Nausea/Vomitin-No Nausea/No Vomiting Muscle Tremors: 4-Moderate,w/Arms Extend Anxiety: 3 Agitation: 3 Paroxysmal Sweats: 2 Orientation: 0-Oriented Tacttile Disturbances: 0-None Auditory Disturbances: 0-None Visual Disturbances: 0-None Headache: 0-None Present CIWA-Ar Total Score: 12 S Progress Note (SOAP) Subjective: agitation anxiety sweats interrupted sleep body aches Objective: 03/15/18 11:24 Vital Signs Temperature 97.3 F L 03/15/18 10:16 Pulse Rate 101 H 03/15/18 10:16 Respiratory Rate 16 03/15/18 10:16 Blood Pressure 109/74 03/15/18 10:16 O2 Sat by Pulse Oximetry (%) Laboratory Tests 03/13/18 03/14/18 03/14/18 Unknown 05:50 05:50 WBC 7.4 RBC 4.66 Hgb 13.6 Hct 41.8 MCV 89.6 MCH 29.1 MCHC 32.5 RDW 18.6 H Plt Count 215 MPV 12.1 H D Sodium 146 H Potassium 4.0 Chloride 107 Carbon Dioxide 29 Anion Gap 10 BUN 10 Creatinine 1.2 H Creat Clearance w eGFR 46.64 Random Glucose 66 L Calcium 8.9 Total Bilirubin 0.2 AST 11 L ALT 14 Alkaline Phosphatase 88 Total Protein 7.4 Albumin 3.4 Urine Color Straw Urine Appearance Clear Urine pH 6.0 Ur Specific [place] 1.005 Urine Protein Negative Urine Glucose (UA) Negative Urine Ketones Negative Urine Blood Negative Urine Nitrite Negative Urine Bilirubin Negative Urine Urobilinogen Negative Ur Leukocyte Esterase 2+ H Urine WBC (Auto) 15 Urine RBC (Auto) 1 Ur Epithelial Cells Rare Urine Bacteria Rare Urine Mucus Rare Valproic Acid RPR Titer T.pallidum Ab ([facility]) 03/14/18 03/14/18 05:50 09:40 WBC RBC Hgb Hct MCV MCH MCHC RDW Plt Count MPV Sodium Potassium Chloride Carbon Dioxide Anion Gap BUN Creatinine Creat Clearance w eGFR Random Glucose Calcium Total Bilirubin AST ALT Alkaline Phosphatase Total Protein Albumin Urine Color Urine Appearance Urine pH Ur Specific [place] Urine Protein Urine Glucose (UA) Urine Ketones Urine Blood Urine Nitrite Urine Bilirubin Urine Urobilinogen Ur Leukocyte Esterase Urine WBC (Auto) Urine RBC (Auto) Ur Epithelial Cells Urine Bacteria Urine Mucus Valproic Acid 7.6 L RPR Titer Reactive 1:1 H T.pallidum Ab ([facility]) Previously reactive aaox3 ambulating no acute distress Assessment: 03/15/18 11:25 withdrawal sx Plan: continue detox increase fluids
[2018-03-15] MEDS: ALBUTEROL SO4 2.5/IPRATROPIUM 0.5 INH SOL 3 ML VIAL.NEB. NEB PRN ×2 (14:52→20:40)
[2018-03-15 15:36] LABS: CHLORIDE 106 mmol/L (98-107); POTASSIUM 4.6 mmol/L (3.5-5.1); SODIUM 146 mmol/L (136-145)
[2018-03-15 15:56] LABS: ALK PHOS 81 U/L (45-117); ANION GAP 10 MMOL/L (8-16); BILIRUBIN,TOTAL 0.2 mg/dL (0.2-1.0); BLOOD UREA NITROGEN 6 mg/dL (7-18); CALCIUM 9.2 mg/dL (8.5-10.1); CO2 30 mmol/L (21-32); GLUCOSE,RANDOM 115 mg/dL (74-106); SGOT/AST 7 U/L (15-37); SGPT/ALT 13 U/L (13-61)
[2018-03-15] MEDS: MONTELUKAST NA 10 MG TABLET PO SCH (22:59)
[2018-03-15] MEDS: traZODone HCL 100 MG TABLET (FP) PO SCH (22:59)
[2018-03-15] MEDS: chlordiazePOXIDE 5 MG CAPSULE PO SCH (22:59)
[2018-03-15] MEDS: THIAMINE HCL 100 MG TABLET (FP) PO SCH (22:59)
[2018-03-16] MEDS: guaiFENesin/D-METHORPHAN HB 10 ML UNIT-DOSE CUPS PO PRN (03:48)
[2018-03-16] MEDS: ALBUTEROL SO4 8 GM HFA INHALER IH PRN (03:49)
[2018-03-16] MEDS: MENTHOL/PHENOL 1 EACH UD MM PRN (03:50)
[2018-03-16] MEDS: chlordiazePOXIDE 5 MG CAPSULE PO SCH ×3 (06:00→18:26)
[2018-03-16] MEDS: risperiDONE 2 MG TABLET PO SCH ×2 (10:58→23:52)
[2018-03-16] MEDS: PRENATAL VITAMINS W/ FOLIC ACID TABLET (FP) PO SCH (10:58)
[2018-03-16] MEDS: DIVALPROEX SODIUM 250 MG TABLET E.C. PO SCH ×2 (10:58→23:51)
[2018-03-16] MEDS: NICOTINE 7 MG/24 HOURS TOPICAL PATCH TD SCH (11:00)
--- NOTE | 2018-03-16 16:36 | PN ---
[facility] Progress Note (SOAP) Subjective: pt without complaints today O: Vital Signs - 24 hr 03/15/18 03/15/18 03/16/18 18:26 22:36 00:30 Temperature 97.5 F L 97.9 F Pulse Rate 105 H 99 H Respiratory 20 18 18 Rate Blood Pressure 104/62 118/78 03/16/18 03/16/18 03/16/18 03:30 06:30 07:58 Temperature 96.1 F L Pulse Rate 90 Respiratory 18 18 20 Rate Blood Pressure 121/76 03/16/18 03/16/18 09:01 13:52 Temperature 97.3 F L 98.2 F Pulse Rate 97 H 99 H Respiratory 16 16 Rate Blood Pressure 97/68 105/83 Laboratory Tests 03/13/18 03/14/18 03/14/18 Unknown 05:50 05:50 WBC 7.4 RBC 4.66 Hgb 13.6 Hct 41.8 MCV 89.6 MCH 29.1 MCHC 32.5 RDW 18.6 H Plt Count 215 MPV 12.1 H D Sodium 146 H Potassium 4.0 Chloride 107 Carbon Dioxide 29 Anion Gap 10 BUN 10 Creatinine 1.2 H Creat Clearance w eGFR 46.64 Random Glucose 66 L Calcium 8.9 Total Bilirubin 0.2 AST 11 L ALT 14 Alkaline Phosphatase 88 Total Protein 7.4 Albumin 3.4 Urine Color Straw Urine Appearance Clear Urine pH 6.0 Ur Specific [place] 1.005 Urine Protein Negative Urine Glucose (UA) Negative Urine Ketones Negative Urine Blood Negative Urine Nitrite Negative Urine Bilirubin Negative Urine Urobilinogen Negative Ur Leukocyte Esterase 2+ H Urine WBC (Auto) 15 Urine RBC (Auto) 1 Ur Epithelial Cells Rare Urine Bacteria Rare Urine Mucus Rare Valproic Acid RPR Titer T.pallidum Ab ([facility]) 03/14/18 03/14/18 03/15/18 05:50 09:40 07:20 WBC RBC Hgb Hct MCV MCH MCHC RDW Plt Count MPV Sodium Cancelled Potassium Cancelled Chloride Cancelled Carbon Dioxide Cancelled Anion Gap Cancelled BUN Cancelled Creatinine Cancelled Creat Clearance w eGFR Cancelled Random Glucose Cancelled Calcium Cancelled Total Bilirubin Cancelled AST Cancelled ALT Cancelled Alkaline Phosphatase Cancelled Total Protein Cancelled Albumin Cancelled Urine Color Urine Appearance Urine pH Ur Specific [place] Urine Protein Urine Glucose (UA) Urine Ketones Urine Blood Urine Nitrite Urine Bilirubin Urine Urobilinogen Ur Leukocyte Esterase Urine WBC (Auto) Urine RBC (Auto) Ur Epithelial Cells Urine Bacteria Urine Mucus Valproic Acid 7.6 L RPR Titer Reactive 1:1 H T.pallidum Ab ([facility]) Previously reactive 03/15/18 12:27 WBC RBC Hgb Hct MCV MCH MCHC RDW Plt Count MPV Sodium 146 H Potassium 4.6 Chloride 106 Carbon Dioxide 30 Anion Gap 10 BUN 6 L Creatinine 1.0 Creat Clearance w eGFR 57.56 Random Glucose 115 H Calcium 9.2 Total Bilirubin 0.2 AST 7 L ALT 13 Alkaline Phosphatase 81 Total Protein 7.0 Albumin 3.0 L Urine Color Urine Appearance Urine pH Ur Specific [place] Urine Protein Urine Glucose (UA) Urine Ketones Urine Blood Urine Nitrite Urine Bilirubin Urine Urobilinogen Ur Leukocyte Esterase Urine WBC (Auto) Urine RBC (Auto) Ur Epithelial Cells Urine Bacteria Urine Mucus Valproic Acid RPR Titer T.pallidum Ab ([facility]) increased Cr, decreased GFR a/p: continue alcohol detox protocol
[2018-03-16] MEDS: MONTELUKAST NA 10 MG TABLET PO SCH (23:52)
[2018-03-16] MEDS: traZODone HCL 100 MG TABLET (FP) PO SCH (23:52)
[2018-03-16] MEDS: THIAMINE HCL 100 MG TABLET (FP) PO SCH (23:52)
[2018-03-16] MEDS: chlordiazePOXIDE HCL 10 MG CAPSULE PO SCH (23:52)
[2018-03-17] MEDS: chlordiazePOXIDE HCL 10 MG CAPSULE PO SCH ×2 (05:43→10:27)
--- NOTE | 2018-03-17 08:50 | DS ---
[facility] Detox Discharge Summary Admission Date: 03/13/18 Discharge Date: 03/17/18 - History Present History: Alcohol Dependence Additional Comments: 57 years old female admitted on 03/13/18 for alcohol withdrawal sx completed alcohol detox regimen tolerated well denies alcohol withdrawal sx alert oriented x 3 no acute distress aftercare revelation patient agrees to return to [facility] for rehab admission on Pertinent Past History: patient agrees to follow up with infectious disease provider for medical mental and addiction issues - Physical Exam Results Vital Signs: Vital Signs Temperature 97.7 F 03/17/18 07:33 Pulse Rate 100 H 03/17/18 07:33 Respiratory Rate 20 03/17/18 07:33 Blood Pressure 117/71 03/17/18 07:33 O2 Sat by Pulse Oximetry (%) Pertinent Admission Physical Exam Findings: alcohol withdrawal sx Vital Signs Temperature 99.1 F 03/17/18 09:40 Pulse Rate 98 H 03/17/18 09:40 Respiratory Rate 20 03/17/18 09:40 Blood Pressure 110/57 03/17/18 09:40 O2 Sat by Pulse Oximetry (%) Laboratory Last Values WBC 7.4 K/mm3 (4.0-10.0) 03/14/18 05:50 RBC 4.66 M/mm3 (3.60-5.2) 03/14/18 05:50 Hgb 13.6 GM/dL (10.7-15.3) 03/14/18 05:50 Hct 41.8 % (32.4-45.2) 03/14/18 05:50 MCV 89.6 fl (80-96) 03/14/18 05:50 MCH 29.1 pg (25.7-33.7) 03/14/18 05:50 MCHC 32.5 g/dl (32.0-36.0) 03/14/18 05:50 RDW 18.6 % (11.6-15.6) H 03/14/18 05:50 Plt Count 215 K/MM3 (134-434) 03/14/18 05:50 MPV 12.1 fl (7.5-11.1) H D 03/14/18 05:50 Sodium 146 mmol/L (136-145) H 03/15/18 12:27 Potassium 4.6 mmol/L (3.5-5.1) 03/15/18 12:27 Chloride 106 mmol/L (98-107) 03/15/18 12:27 Carbon Dioxide 30 mmol/L (21-32) 03/15/18 12:27 Anion Gap 10 MMOL/L (8-16) 03/15/18 12:27 BUN 6 mg/dL (7-18) L 03/15/18 12:27 Creatinine 1.0 mg/dL (0.55-1.3) 03/15/18 12:27 Creat Clearance w eGFR 57.56 (>60) 03/15/18 12:27 Random Glucose 115 mg/dL (74-106) H 03/15/18 12:27 Calcium 9.2 mg/dL (8.5-10.1) 03/15/18 12:27 Total Bilirubin 0.2 mg/dL (0.2-1.0) 03/15/18 12:27 AST 7 U/L (15-37) L 03/15/18 12:27 ALT 13 U/L (13-61) 03/15/18 12:27 Alkaline Phosphatase 81 U/L (45-117) 03/15/18 12:27 Total Protein 7.0 g/dl (6.4-8.2) 03/15/18 12:27 Albumin 3.0 g/dl (3.4-5.0) L 03/15/18 12:27 Urine Color Straw 03/13/18 Unknown Urine Appearance Clear 03/13/18 Unknown Urine pH 6.0 (5.0-8.0) 03/13/18 Unknown Ur Specific [place] 1.005 (1.001-1.035) 03/13/18 Unknown Urine Protein Negative (NEGATIVE) 03/13/18 Unknown Urine Glucose (UA) Negative (NEGATIVE) 03/13/18 Unknown Urine Ketones Negative (NEGATIVE) 03/13/18 Unknown Urine Blood Negative (NEGATIVE) 03/13/18 Unknown Urine Nitrite Negative (NEGATIVE) 03/13/18 Unknown Urine Bilirubin Negative (<2.0 mg/dL) 03/13/18 Unknown Urine Urobilinogen Negative mg/dL (0.2-1.0) 03/13/18 Unknown Ur Leukocyte Esterase 2+ (NEGATIVE) H 03/13/18 Unknown Urine WBC (Auto) 15 /hpf (3-5) 03/13/18 Unknown Urine RBC (Auto) 1 /hpf (0-3) 03/13/18 Unknown Ur Epithelial Cells Rare /HPF (FEW) 03/13/18 Unknown Urine Bacteria Rare /hpf (NONE SEEN) 03/13/18 Unknown Urine Mucus Rare 03/13/18 Unknown Valproic Acid 7.6 ug/ml (50-100) L 03/14/18 09:40 RPR Titer Reactive 1:1 (NONREACTIVE) H 03/14/18 05:50 T.pallidum Ab ([facility]) Previously reactive (NONREACTIVE) 03/14/18 05:50 lab noted - Treatment Hospital Course: Detox Protocol Followed, Detoxed Safely, Responded well, Discharged Condition Good, Rehab Referral Accepted Patient has Accepted a Rehab Referral to: [facility] - Medication Discharge Medications: Ambulatory Orders Risperidone [Risperdal] 2 mg PO BID 09/10/17 Divalproex [Depakote -] 750 mg PO BID 03/13/18 Dolutegravir Sodium [Tivicay] 50 mg PO DAILY 03/13/18 Emtricitab/Rilpiviri/Tenof Ala [Odefsey Tablet] 1 each PO DAILY 03/13/18 traZODone HCL [Desyrel -] 100 mg PO HS 03/13/18 Albuterol Sulfate Inhaler - [Ventolin HFA Inhaler -] 2 inh IH Q4H PRN #1 inhaler 03/17/18 - Diagnosis (1) Syphilis Status: Chronic (2) Alcohol dependence with uncomplicated withdrawal Status: Acute (3) Asthma Status: Chronic (4) HIV (human immunodeficiency virus infection) Status: Chronic (5) Nicotine dependence Status: Acute Qualifiers: Nicotine product type: cigarettes Substance use status: in withdrawal Qualified Code(s): F17.213 - Nicotine dependence, cigarettes, with withdrawal (6) Schizophrenia Status: Suspected Qualifiers: Schizophrenia type: unspecified Qualified Code(s): F20.9 - Schizophrenia, unspecified (7) Seizure Status: Chronic - AMA Did Patient Leave Against Medical Advice: No
[2018-03-17 09:41] VITALS: BP 110/57; PULSE 98; TEMP 99.1
[2018-03-17] MEDS: PRENATAL VITAMINS W/ FOLIC ACID TABLET (FP) PO SCH (10:27)
[2018-03-17] MEDS: risperiDONE 2 MG TABLET PO SCH (10:27)
[2018-03-17] MEDS: DIVALPROEX SODIUM 250 MG TABLET E.C. PO SCH (10:27)
[2018-03-17] MEDS: NICOTINE 7 MG/24 HOURS TOPICAL PATCH TD SCH (10:28)
== END 2018-03-17 11:26 | disposition home or self-care (01) | DRG 774 ==
LOC: YASAS 14:11 → Y6N 16:40
PROC: HZ2ZZZZ Detoxification Services for Substance Abuse Treatment (ICD-10-PCS; principal; 2018-03-13)
DX: F10.230 Alcohol dependence with withdrawal, uncomplicated (principal); F14.20 Cocaine dependence, uncomplicated; F17.213 Nicotine dependence, cigarettes, with withdrawal; F20.9 Schizophrenia, unspecified; F31.9 Bipolar disorder, unspecified; B20 Human immunodeficiency virus [HIV] disease; J45.909 Unspecified asthma, uncomplicated; D64.9 Anemia, unspecified; Z86.19 Personal history of other infectious and parasitic diseases; Z86.69 Personal history of other diseases of the nervous system and sense organs; Z88.0 Allergy status to penicillin; Z88.8 Allergy status to other drugs, medicaments and biological substances; Z91.5 Personal history of self-harm
CPT/HCPCS: 36415; 80053; 80164; 81003; 81015; 85027; 86593; 86780; 93005; 93010; 94640; J7620

== ENCOUNTER 2018-04-17 10:56 | Inpatient (IN) | payer OTHER ==
[2018-04-17 11:40] VITALS: BMI 31.0
--- NOTE | 2018-04-17 13:47 | HP ---
CIWA Score - CIWA Score Nausea/Vomitin Muscle Tremors: 3 Anxiety: 2 Agitation: 2 Paroxysmal Sweats: 1-Minimal Palms Moist Orientation: 0-Oriented Tacttile Disturbances: 1-Very Mild Itch/Numbness Auditory Disturbances: 1-Very Mild Visual Disturbances: 1-Very Mild Sensitivity Headache: 2-Mild CIWA-Ar Total Score: 15 Admission ROS [facility] - HPI Chief Complaint: i need help to stop drinking alcohol and cocaine Allergies/Adverse Reactions: Allergies Allergy/AdvReac Type Severity Reaction Status Date / Time benztropine mesylate Allergy Severe Hives Verified 04/17/18 13:35 [From Cogentin] ibuprofen Allergy Severe Hives Verified 04/17/18 13:35 Penicillins Allergy Severe Swelling Verified 04/17/18 13:35 haloperidol [From Haldol] Allergy Hives Verified 04/17/18 13:35 aripiprazole [From Abilify] AdvReac Severe Swelling Verified 04/17/18 13:35 History of Present Illness: this 57 years old female with alcohol and cocaine dependence,seeking detox, withdrawal symptom,last detox 03/13/18 to 03/17/18 seizure last 3 months ago syncope hiv multiple admissions in detox,keep relapsing weight loss schizophrenia longest period of sobriety 18 moths history of syphilis Exam Limitations: No Limitations - Ebola screening Have you traveled outside of the country in the last 21 days: No (N) Have you had contact with anyone from an Ebola affected area: No Have you been sick,other than usual withdrawal symptoms: No Do you have a fever: No - Review of Systems Constitutional: Loss of Appetite, Malaise, Night Sweats, Changes in sleep, Weakness, Unintentional Wgt. Loss EENT: reports: Nose Congestion Respiratory: reports: No Symptoms reported Cardiac: reports: No Symptoms Reported GI: reports: Nausea, Poor Appetite, Abdominal cramping : reports: No Symptoms Reported Musculoskeletal: reports: Back Pain, Muscle Pain Integumentary: reports: Dryness Neuro: reports: Headache, Tremors Endocrine: reports: No Symptoms Reported Hematology: reports: Other (hiv) Psychiatric: reports: No Sypmtoms Reported, Judgement Intact, Mood/Affect Appropiate, Orientated x3 (schizophrenia) Patient History - Patient Medical History Hx Anemia: Yes (Not on medication) Hx Asthma: Yes (on albutrol inhaler) Hx Chronic Obstructive Pulmonary Disease (COPD): No Hx Cancer: No Hx Cardiac Disorders: No Hx Congestive Heart Failure: No Hx Hypertension: No Hx Hypercholesterolemia: No Hx Pacemaker: No HX Cerebrovascular Accident: No Hx Seizures: No Hx Dementia: No Hx Diabetes: No Hx Gastrointestinal Disorders: No Hx Liver Disease: No Hx Genitourinary Disorders: No Hx Sexually Transmitted Disorders: No Hx Renal Disease (ESRD): No Hx Thyroid Disease: No Hx Human Immunodeficiency Virus (HIV): Yes (On Odefsey. Diagnosed 1985 ,no medication with her) Hx Hepatitis C: No Hx Depression: Yes Hx Suicide Attempt: Yes (last attempt in 2002. ) Hx Bipolar Disorder: Yes Hx Schizophrenia: Yes Other Medical History: no suicidal,no homicidal - Patient Surgical History Past Surgical History: Yes Hx Neurologic Surgery: No Hx Cataract Extraction: No Hx Cardiac Surgery: No Hx Lung Surgery: No Hx Breast Surgery: No Hx Breast Biopsy: No Hx Abdominal Surgery: No Hx Appendectomy: No Hx Cholecystectomy: No Hx Genitourinary Surgery: No Hx Section: No Hx Orthopedic Surgery: Yes (fx of left forearm in 1991) Hx Hysterectomy: No Other Surgical History: rt ear surgery, cut ear lobe Anesthesia Reaction: No - PPD History Previous Implant?: Yes Documented Results: Positive w/o proof PPD to be Administered?: No - Reproductive History Patient is a Female of Child Bearing Age (11 -55 yrs old): Yes Last Menstrual Period: 08/20/14 Patient : No - Smoking Cessation Smoking history: Current every day smoker Have you smoked in the past 12 months: Yes Aproximately how many cigarettes per day: 5 If you are a former smoker, when did you quit?: 09/14/17 Cigars Per Day: 0 Hx Chewing Tobacco Use: No Initiated information on smoking cessation: Yes 'Breaking Loose' booklet given: 04/17/18 - Substance & Tx. History Hx Alcohol Use: Yes Hx Substance Use: Yes Substance Use Type: Alcohol, Cocaine Hx Substance Use Treatment: Yes ([facility] 03/13/18 to 03/17/18) - Substances Abused Alcohol Route: Oral Frequency: Daily Amount used: 6pk beer Age of first use: 23 Date of Last Use: 04/17/18 Cocaine Route: Smoking Frequency: Daily Amount used: $50 Age of first use: 23 Date of Last Use: 04/16/18 Family Disease History - Family Disease History Family Disease History: Heart Disease: Mother (SCHIZOPHRENIA, asthma,etoh/ cocaine), Other: Father (TB), Mother, Brother (SEIZURE), Sister (cocaine, crack) Admission Physical Exam [facility] - Vital Signs Vital Signs: Vital Signs - 24 hr 04/17/18 11:36 Temperature 98.2 F Pulse Rate 91 H Respiratory 18 Rate Blood Pressure 107/65 - Physical General Appearance: Yes: Moderate Distress, Tremorous, Irritable, Sweating, Anxious HEENTM: Yes: Normal ENT Inspection, JUANITO, Pharynx Normal (no teeth no denture) Respiratory: Yes: Lungs Clear, Normal Breath Sounds, No Respiratory Distress Neck: Yes: Supple, Trachea in good position, Thyroid tenderness Breast: Yes: Breast Exam Deferred Cardiology: Yes: Within Normal Limits, Regular Rhythm, Regular Rate, S1, S2 Abdominal: Yes: Within Normal Limits, Normal Bowel Sounds, Non Tender, Soft Genitourinary: Yes: Within Normal Limits Back: Yes: Muscle Spasm Extremities: Yes: Tremors 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: Yes: auto 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 II-XII NML intact, Fully Oriented, Alert, Motor Strength 5/5 Integumentary: Yes: Dry Lymphatic: Yes: Within Normal Limits - Diagnostic (1) Alcohol dependence with uncomplicated withdrawal Current Visit: No Status: Acute (2) Nicotine dependence Current Visit: No Status: Acute Qualifiers: Nicotine product type: cigarettes Substance use status: in withdrawal Qualified Code(s): F17.213 - Nicotine dependence, cigarettes, with withdrawal (3) Asthma Current Visit: No Status: Chronic (4) Schizophrenia Current Visit: Yes Status: Acute (5) Positive PPD Current Visit: Yes Status: Acute (6) Weight loss Current Visit: Yes Status: Acute (7) Seizure Current Visit: Yes Status: Acute (8) Cocaine dependence Current Visit: No Status: Chronic Qualifiers: Substance use status: uncomplicated Qualified Code(s): F14.20 - Cocaine dependence, uncomplicated Cleared for Admission [facility] - Detox or Rehab [facility] Level of Care: Medically Managed Detox Regimen/Protocol: Librium [facility] Breath Alcohol Content Breath Alcohol Content: 0 Urine Pregancy Test - Result Urine Test Results: Negative- NO Line Present Urine Drug Screen - Results Drug Screen Negative: No Urine Drug Screen Results: XENIA-Cocaine, BZO-Benzodiazepines
[2018-04-17] MEDS ORDERED: MAGNESIUM HYDROX 2400MG/30ML ORAL SUSPENSION 30 ML CUP PO PRN (13:57)
[2018-04-17] MEDS ORDERED: guaiFENesin/D-METHORPHAN HB 10 ML UNIT-DOSE CUPS PO PRN (13:57)
[2018-04-17] MEDS ORDERED: chlordiazePOXIDE HCL 25 MG CAPSULE PO PRN (13:57)
[2018-04-17] MEDS ORDERED: hydrOXYzine PAMOATE 25 MG CAPSULE (FP) PO PRN (13:57)
[2018-04-17] MEDS ORDERED: IBUPROFEN 400 MG TABLET (FP) PO PRN (13:57)
[2018-04-17] MEDS ORDERED: P-EPHED 60MG/TRIPROLIDI 2.5MG TABLET PO PRN (13:57)
[2018-04-17] MEDS ORDERED: ACETAMINOPHEN 325 MG TABLET (FP) PO PRN (13:57)
[2018-04-17] MEDS ORDERED: MENTHOL/PHENOL 1 EACH UD MM PRN (13:57)
[2018-04-17] MEDS ORDERED: MAG HYDROX/AL HYDROX/SIMETH 30 ML UNIT-DOSE CUP PO PRN (13:57)
[2018-04-17] MEDS ORDERED: MAGNESIUM CITRATE 300 ML BOTTLE PO PRN (13:57)
[2018-04-17] MEDS ORDERED: LOPERAMIDE HCL 2 MG CAPSULE PO PRN (13:57)
[2018-04-17] MEDS ORDERED: ALBUTEROL SO4 8 GM HFA INHALER IH PRN (14:02)
[2018-04-17] MEDS: chlordiazePOXIDE HCL 25 MG CAPSULE PO SCH (17:37)
[2018-04-17] MEDS ORDERED: MELATONIN 5 MG TABLETS PO PRN (22:00)
[2018-04-17] MEDS ORDERED: DIVALPROEX SODIUM 500 MG TABLET E.C. PO SCH (22:00)
[2018-04-17] MEDS ORDERED: DIVALPROEX 250 MG, DIVALPROEX 500 MG PO SCH (22:00)
[2018-04-17] MEDS ORDERED: DIVALPROEX SODIUM 500 MG TABLET E.C. ONE (23:08)
[2018-04-17] MEDS ORDERED: DIVALPROEX SODIUM 250 MG TABLET E.C. ONE (23:08)
[2018-04-18] MEDS: THIAMINE HCL 100 MG TABLET (FP) PO SCH ×2 (00:07→22:35)
[2018-04-18] MEDS: chlordiazePOXIDE HCL 25 MG CAPSULE PO SCH ×5 (00:07→22:35)
--- NOTE | 2018-04-18 07:34 | CONSULT ---
[facility] Psychiatric Consult - Data Date of interview: 04/18/18 Admission source: [facility] Identifying data: This is a 57 years old female, , mother of four, unemployed, living with family, on SSI support, with psychiatric hospitalization history, with history of Schizophrenia, PTSD, with Alcohol and Cocaine dependence, reporting withdrawal symptoms and seeking detox, last detox on 03/13/18 to 03/17/18. seizure last 3 months ago. syncope. hiv. multiple admissions in detox,keep relapsing. weight loss. schizophrenia. longest period of sobriety 18 moths. history of syphilis Substance Abuse History: Smoking history: Current every day smoker. Have you smoked in the past 12 months: Yes. Aproximately how many cigarettes per day: 5. If you are a former smoker, when did you quit?: 09/14/17. Cigars Per Day: 0. Hx Chewing Tobacco Use: No. Initiated information on smoking cessation: Yes. 'Breaking Loose' booklet given: 04/17/18. - Substance & Tx. History. Hx Alcohol Use: Yes. Hx Substance Use: Yes. Substance Use Type: Alcohol, Cocaine. Hx Substance Use Treatment: Yes ([facility] 03/13/18 to 03/17/18). - Substances Abused. Alcohol. Route: Oral. Frequency: Daily. Amount used: 6pk beer. Age of first use: 23. Date of Last Use: 04/17/18. Cocaine. Route: Smoking. Frequency: Daily. Amount used: $50. Age of first use: 23. Date of Last Use: 04/16/18 Medical History: Anemia, Asthma, HIV+, PPD+ history, Syphilishistory, Seizure, Syncope history, AIDs. Psychiatric History: Patient reports to carry Schizophrenia, PTSD, reports most recent psychiatric admission on 2017 at [facility] for safety, reports currently taking : Depakote 750mg po bid. Risperdal 2mg po bid. Trazodone 100mg po qhs. Denies suicidal, homicidal history. Physical/Sexual Abuse/Trauma History: Denies Additional Comment: Depakote 750mg po bid. Risperdal 2mg po bid. Trazodone 100mg po qhs Mental Status Exam - Mental Status Exam Alert and Oriented to: Person Cognitive Function: Fair Patient Appearance: Unkempt Mood: Suspicious Affect: Flat Patient Behavior: Guarded Speech Pattern: Delayed Voice Loudness: Mildly Soft/Quiet Thought Process: Circumstantial Thought Disorder: Being Controlled Hallucinations: Denies Suicidal Ideation: Denies Homicidal Ideation: Denies Insight/Judgement: Fair Sleep: Difficulty falling asleep Appetite: Weight gain Muscle strength/Tone: Mild Hypotonicity Gait/Station: Shuffling Additional Comments: Depakote 500 mg po bid. Risperdal 2mg po bid. Trazodone 100mg po qhs. Blood Dep[akote levcel Psychiatric Findings - Problem List ([place] 1, 2,3) (1) Schizophrenia Current Visit: Yes Status: Acute (2) Alcohol dependence with uncomplicated withdrawal Current Visit: No Status: Acute (3) Nicotine dependence Current Visit: No Status: Acute Qualifiers: Nicotine product type: cigarettes Substance use status: in withdrawal Qualified Code(s): F17.213 - Nicotine dependence, cigarettes, with withdrawal (4) Cocaine dependence Current Visit: No Status: Chronic Qualifiers: Substance use status: uncomplicated Qualified Code(s): F14.20 - Cocaine dependence, uncomplicated (5) Cocaine dependence in remission Current Visit: No Status: Chronic (6) Cocaine withdrawal Current Visit: No Status: Chronic (7) HIV (human immunodeficiency virus infection) Current Visit: No Status: Chronic (8) PTSD (post-traumatic stress disorder) Current Visit: No Status: Chronic (9) Seizure Current Visit: No Status: Chronic (10) Syphilis Current Visit: No Status: Chronic
--- NOTE | 2018-04-18 09:24 | EKG ---
Test Reason : Blood Pressure : / mmHG Vent. Rate : 082 BPM Atrial Rate : 082 BPM P-R Int : 170 ms QRS Dur : 082 ms QT Int : 388 ms P-R-T Axes : 050 048 065 degrees QTc Int : 453 ms NORMAL SINUS RHYTHM NORMAL ECG WHEN COMPARED WITH ECG OF 13-MAR-2018 17:08, NO SIGNIFICANT CHANGE WAS FOUND Confirmed by BRIELLE MINOR MD ([id number]) on 04/18/2018 9:23:27 AM Referred By: Confirmed By:BRIELLE MINOR MD
[2018-04-18 10:45] LABS: HEMOGLOBIN 13.7 GM/dL (10.7-15.3); MCH 28.9 pg (25.7-33.7); MCHC 31.8 g/dl (32.0-36.0); MEAN CELL VOLUME 90.7 fl (80-96); MEAN PLT VOLUME 11.6 fl (7.5-11.1); PLATELET COUNT 244 K/MM3 (134-434); RBC 4.74 M/mm3 (3.60-5.2); RDW 18.2 % (11.6-15.6)
[2018-04-18] MEDS: risperiDONE 2 MG TABLET PO SCH ×2 (10:45→22:35)
[2018-04-18] MEDS: DIVALPROEX SODIUM 500 MG TABLET E.C. PO SCH ×2 (10:45→22:35)
[2018-04-18] MEDS: PRENATAL VITAMINS W/ FOLIC ACID TABLET (FP) PO SCH (10:45)
[2018-04-18] MEDS: NICOTINE 14 MG/24 HOURS TOPICAL PATCH TD SCH (10:47)
[2018-04-18 11:21] LABS: ALBUMIN 3.5 g/dl (3.4-5.0); ALK PHOS 101 U/L (45-117); ANION GAP 9 MMOL/L (8-16); BILIRUBIN,TOTAL 0.3 mg/dL (0.2-1); BLOOD UREA NITROGEN 12 mg/dL (7-18); CALCIUM 9.2 mg/dL (8.5-10.1); CHLORIDE 105 mmol/L (98-107); CO2 27 mmol/L (21-32); CREATININE 0.9 mg/dL (0.55-1.3); GLUCOSE,RANDOM 132 mg/dL (74-106); POTASSIUM 4.1 mmol/L (3.5-5.1); SGOT/AST 13 U/L (15-37); SGPT/ALT 17 U/L (13-61); SODIUM 141 mmol/L (136-145); TOT PROT 7.6 g/dl (6.4-8.2)
--- NOTE | 2018-04-18 11:24 | PN ---
S CIWA - CIWA Score Nausea/Vomitin-No Nausea/No Vomiting Muscle Tremors: 4-Moderate,w/Arms Extend Anxiety: 3 Agitation: 3 Paroxysmal Sweats: 3 Orientation: 0-Oriented Tacttile Disturbances: 0-None Auditory Disturbances: 0-None Visual Disturbances: 0-None Headache: 0-None Present CIWA-Ar Total Score: 13 [facility] Progress Note (SOAP) Subjective: sweats shakes interrupted sleep body aches Objective: 04/18/18 11:22 Vital Signs Temperature 99.1 F 04/18/18 08:17 Pulse Rate 76 04/18/18 08:17 Respiratory Rate 18 04/18/18 08:17 Blood Pressure 105/71 04/18/18 08:17 O2 Sat by Pulse Oximetry (%) Laboratory Tests 04/18/18 04/18/18 04/18/18 05:36 06:00 06:00 WBC 5.0 RBC 4.74 Hgb 13.7 Hct 43.0 MCV 90.7 MCH 28.9 MCHC 31.8 L RDW 18.2 H Plt Count 244 MPV 11.6 H Sodium 141 Potassium 4.1 Chloride 105 Carbon Dioxide 27 Anion Gap 9 BUN 12 Creatinine 0.9 Creat Clearance w eGFR > 60 POC Glucometer 116 Random Glucose 132 H Calcium 9.2 Total Bilirubin 0.3 AST 13 L ALT 17 Alkaline Phosphatase 101 Total Protein 7.6 Albumin 3.5 aaox3 ambulating no acute distress Assessment: 04/18/18 11:23 withdrawal sx Plan: continue detox increase fluids labs pending
[2018-04-18 14:13] LABS: RPR REACTIVE 1:1 (NONREACTIVE)
[2018-04-18 14:14] LABS: TREPONEMA ANTIBODY PREVIOUSLY REACTIVE (NONREACTIVE)
[2018-04-18 14:46] LABS: URINE APPEARANCE CLOUDY; URINE BILIRUBIN NEGATIVE (<2.0 mg/dL); URINE COLOR YELLOW; URINE GLUCOSE (UA) NEGATIVE (NEGATIVE); URINE KETONE NEGATIVE (NEGATIVE); URINE LEUK ESTERASE 3+ (NEGATIVE); URINE NITRITE NEGATIVE (NEGATIVE); URINE PROTEIN NEGATIVE (NEGATIVE); URINE UROBILINOGEN NEGATIVE mg/dL (0.2-1.0)
[2018-04-18 15:10] LABS: EPI CELLS MODERATE /HPF (FEW)
[2018-04-18] MEDS: traZODone HCL 100 MG TABLET (FP) PO SCH (22:36)
[2018-04-19] MEDS: chlordiazePOXIDE HCL 25 MG CAPSULE PO SCH ×2 (06:45→10:08)
[2018-04-19] MEDS: DIVALPROEX SODIUM 500 MG TABLET E.C. PO SCH ×2 (10:07→22:24)
[2018-04-19] MEDS: NICOTINE 14 MG/24 HOURS TOPICAL PATCH TD SCH (10:07)
[2018-04-19] MEDS: PRENATAL VITAMINS W/ FOLIC ACID TABLET (FP) PO SCH (10:07)
[2018-04-19] MEDS: risperiDONE 2 MG TABLET PO SCH ×2 (10:08→22:25)
--- NOTE | 2018-04-19 11:09 | PN ---
[facility] CIWA - CIWA Score Nausea/Vomitin-No Nausea/No Vomiting Muscle Tremors: 3 Anxiety: 2 Agitation: 3 Paroxysmal Sweats: 3 Orientation: 0-Oriented Tacttile Disturbances: 0-None Auditory Disturbances: 0-None Visual Disturbances: 0-None Headache: 0-None Present CIWA-Ar Total Score: 11 S Progress Note (SOAP) Subjective: agitation anxiety sweats irritable Objective: 04/19/18 11:09 Vital Signs Temperature 97.9 F 04/19/18 09:21 Pulse Rate 91 H 04/19/18 09:21 Respiratory Rate 16 04/19/18 09:21 Blood Pressure 104/70 04/19/18 09:21 O2 Sat by Pulse Oximetry (%) Laboratory Tests 04/18/18 04/18/18 04/18/18 05:36 06:00 06:00 WBC 5.0 RBC 4.74 Hgb 13.7 Hct 43.0 MCV 90.7 MCH 28.9 MCHC 31.8 L RDW 18.2 H Plt Count 244 MPV 11.6 H Sodium 141 Potassium 4.1 Chloride 105 Carbon Dioxide 27 Anion Gap 9 BUN 12 Creatinine 0.9 Creat Clearance w eGFR > 60 POC Glucometer 116 Random Glucose 132 H Calcium 9.2 Total Bilirubin 0.3 AST 13 L ALT 17 Alkaline Phosphatase 101 Total Protein 7.6 Albumin 3.5 Urine Color Urine Appearance Urine pH Ur Specific [place] Urine Protein Urine Glucose (UA) Urine Ketones Urine Blood Urine Nitrite Urine Bilirubin Urine Urobilinogen Ur Leukocyte Esterase Urine WBC (Auto) Urine RBC (Auto) Ur Epithelial Cells Valproic Acid RPR Titer T.pallidum Ab ([facility]) 04/18/18 04/18/18 04/19/18 06:00 11:40 06:00 WBC RBC Hgb Hct MCV MCH MCHC RDW Plt Count MPV Sodium Potassium Chloride Carbon Dioxide Anion Gap BUN Creatinine Creat Clearance w eGFR POC Glucometer Random Glucose Calcium Total Bilirubin AST ALT Alkaline Phosphatase Total Protein Albumin Urine Color Yellow Urine Appearance Cloudy Urine pH 5.0 Ur Specific [place] 1.024 Urine Protein Negative Urine Glucose (UA) Negative Urine Ketones Negative Urine Blood Negative Urine Nitrite Negative Urine Bilirubin Negative Urine Urobilinogen Negative Ur Leukocyte Esterase 3+ H Urine WBC (Auto) 81 Urine RBC (Auto) 4 Ur Epithelial Cells Moderate Valproic Acid 25.6 L RPR Titer Reactive 1:1 H T.pallidum Ab ([facility]) Previously reactive rpr noted aaox3 ambulating no acute distress Assessment: 04/19/18 11:10 withdrawal sx Plan: continue detox increase fluids
[2018-04-19] MEDS: chlordiazePOXIDE 5 MG CAPSULE PO SCH ×2 (17:20→22:25)
[2018-04-19] MEDS: ALBUTEROL SO4 0.083% IH SOL 2.5 MG/3 ML VIAL.NEB. NEB PRN (18:01)
--- NOTE | 2018-04-19 20:34 | PN ---
[facility] Progress Note Note: Patient requesting to be started on prednisone. States always started on prednisone when has exacerbations at home. Explained that she is not smoking at this time, which is a trigger and irritant for asthma. Denies SOB at this time. Requesting Vital Signs 04/19/18 04/19/18 13:35 18:35 Temperature 97.9 F 98.2 F Pulse Rate 103 H 101 H Respiratory 18 18 Rate Blood Pressure 110/71 103/68 Oxygen Sat = 96% Post albuterol neb: Lungs CTA. Continue albuterol neb treatments instead of MDI. Encourage continuation of smoking upon discharge. Singulair 10 mg PO HS Continue detox.
[2018-04-19] MEDS: THIAMINE HCL 100 MG TABLET (FP) PO SCH (22:25)
[2018-04-19] MEDS: traZODone HCL 100 MG TABLET (FP) PO SCH (22:25)
[2018-04-20] MEDS: chlordiazePOXIDE 5 MG CAPSULE PO SCH ×2 (07:52→10:25)
[2018-04-20] MEDS: NICOTINE 14 MG/24 HOURS TOPICAL PATCH TD SCH (10:25)
[2018-04-20] MEDS: DIVALPROEX SODIUM 500 MG TABLET E.C. PO SCH ×2 (10:25→22:30)
[2018-04-20] MEDS: risperiDONE 2 MG TABLET PO SCH ×2 (10:25→22:30)
[2018-04-20] MEDS: PRENATAL VITAMINS W/ FOLIC ACID TABLET (FP) PO SCH (10:25)
[2018-04-20] MEDS: chlordiazePOXIDE HCL 10 MG CAPSULE PO SCH ×2 (17:49→22:30)
[2018-04-20] MEDS: ALBUTEROL SO4 0.083% IH SOL 2.5 MG/3 ML VIAL.NEB. NEB PRN (19:20)
[2018-04-20] MEDS ORDERED: MONTELUKAST NA 10 MG TABLET PO SCH (22:00)
--- NOTE | 2018-04-20 22:22 | PN ---
[facility] Progress Note (SOAP) Subjective: sleep disturbance Objective: 04/20/18 22:21 A & O x 3 In bed No acute distress Vital Signs - 8 hr 04/20/18 04/20/18 18:31 22:09 Temperature 96.3 F L 96.9 F L Pulse Rate 103 H 106 H Respiratory 20 16 Rate Blood Pressure 114/69 115/78 Assessment: 04/20/18 22:22 withdrawal sx Plan: continue detox
[2018-04-20] MEDS: THIAMINE HCL 100 MG TABLET (FP) PO SCH (22:30)
[2018-04-20] MEDS: traZODone HCL 100 MG TABLET (FP) PO SCH (22:30)
[2018-04-21] MEDS: chlordiazePOXIDE HCL 10 MG CAPSULE PO SCH (05:48)
--- NOTE | 2018-04-21 08:54 | DS ---
[facility] Detox Discharge Summary Admission Date: 04/17/18 Discharge Date: 04/21/18 - History Present History: Alcohol Dependence Additional Comments: 57 years old female admitted on 04/17/18 for alcohol withdrawal sx completed alcohol detox regimen tolerated well denies alcohol withdrawal sx alert oriented x 3 no acute distress aftercare revelation - Physical Exam Results Vital Signs: Vital Signs Temperature 97.7 F 04/21/18 06:00 Pulse Rate 82 04/21/18 06:00 Respiratory Rate 18 04/21/18 06:00 Blood Pressure 92/67 04/21/18 06:00 O2 Sat by Pulse Oximetry (%) Pertinent Admission Physical Exam Findings: alcohol withdrawal sx Vital Signs Temperature 97.2 F L 04/21/18 09:43 Pulse Rate 86 04/21/18 09:43 Respiratory Rate 16 04/21/18 09:43 Blood Pressure 107/64 04/21/18 09:43 O2 Sat by Pulse Oximetry (%) Laboratory Last Values WBC 5.0 K/mm3 (4.0-10.0) 04/18/18 06:00 RBC 4.74 M/mm3 (3.60-5.2) 04/18/18 06:00 Hgb 13.7 GM/dL (10.7-15.3) 04/18/18 06:00 Hct 43.0 % (32.4-45.2) 04/18/18 06:00 MCV 90.7 fl (80-96) 04/18/18 06:00 MCH 28.9 pg (25.7-33.7) 04/18/18 06:00 MCHC 31.8 g/dl (32.0-36.0) L 04/18/18 06:00 RDW 18.2 % (11.6-15.6) H 04/18/18 06:00 Plt Count 244 K/MM3 (134-434) 04/18/18 06:00 MPV 11.6 fl (7.5-11.1) H 04/18/18 06:00 Sodium 141 mmol/L (136-145) 04/18/18 06:00 Potassium 4.1 mmol/L (3.5-5.1) 04/18/18 06:00 Chloride 105 mmol/L (98-107) 04/18/18 06:00 Carbon Dioxide 27 mmol/L (21-32) 04/18/18 06:00 Anion Gap 9 MMOL/L (8-16) 04/18/18 06:00 BUN 12 mg/dL (7-18) 04/18/18 06:00 Creatinine 0.9 mg/dL (0.55-1.3) 04/18/18 06:00 Creat Clearance w eGFR > 60 (>60) 04/18/18 06:00 POC Glucometer 151 UNITS (80-120) 04/21/18 05:50 Random Glucose 132 mg/dL (74-106) H 04/18/18 06:00 Calcium 9.2 mg/dL (8.5-10.1) 04/18/18 06:00 Total Bilirubin 0.3 mg/dL (0.2-1) 04/18/18 06:00 AST 13 U/L (15-37) L 04/18/18 06:00 ALT 17 U/L (13-61) 04/18/18 06:00 Alkaline Phosphatase 101 U/L (45-117) 04/18/18 06:00 Total Protein 7.6 g/dl (6.4-8.2) 04/18/18 06:00 Albumin 3.5 g/dl (3.4-5.0) 04/18/18 06:00 Urine Color Yellow 04/18/18 11:40 Urine Appearance Cloudy 04/18/18 11:40 Urine pH 5.0 (5.0-8.0) 04/18/18 11:40 Ur Specific [place] 1.024 (1.010-1.035) 04/18/18 11:40 Urine Protein Negative (NEGATIVE) 04/18/18 11:40 Urine Glucose (UA) Negative (NEGATIVE) 04/18/18 11:40 Urine Ketones Negative (NEGATIVE) 04/18/18 11:40 Urine Blood Negative (NEGATIVE) 04/18/18 11:40 Urine Nitrite Negative (NEGATIVE) 04/18/18 11:40 Urine Bilirubin Negative (<2.0 mg/dL) 04/18/18 11:40 Urine Urobilinogen Negative mg/dL (0.2-1.0) 04/18/18 11:40 Ur Leukocyte Esterase 3+ (NEGATIVE) H 04/18/18 11:40 Urine WBC (Auto) 81 /hpf (3-5) 04/18/18 11:40 Urine RBC (Auto) 4 /hpf (0-3) 04/18/18 11:40 Ur Epithelial Cells Moderate /HPF (FEW) 04/18/18 11:40 Valproic Acid 25.6 ug/ml (50-100) L 04/19/18 06:00 RPR Titer Reactive 1:1 (NONREACTIVE) H 04/18/18 06:00 T.pallidum Ab (MHA) Previously reactive (NONREACTIVE) 04/18/18 06:00 lab noted - Treatment Hospital Course: Detox Protocol Followed, Detoxed Safely, Responded well, Discharged Condition Good, Rehab Referral Accepted Patient has Accepted a Rehab Referral to: formerly [facility] - Medication Discharge Medications: Ambulatory Orders Risperidone [Risperdal] 2 mg PO BID 09/10/17 Divalproex [Depakote -] 750 mg PO BID 03/13/18 Dolutegravir Sodium [Tivicay] 50 mg PO DAILY 03/13/18 Emtricitab/Rilpiviri/Tenof Ala [Odefsey Tablet] 1 each PO DAILY 03/13/18 traZODone HCL [Desyrel -] 100 mg PO HS 03/13/18 Divalproex [Depakote -] 500 mg PO BID #60 tablet.ec 04/18/18 Divalproex [Depakote -] 500 mg PO BID #60 tablet.ec 04/18/18 Risperidone [Risperdal -] 2 mg PO BID #60 tablet 04/18/18 traZODone HCL [Desyrel -] 100 mg PO HS #100 tablet 04/18/18 Albuterol Sulfate Inhaler - [Ventolin HFA Inhaler -] 2 inh IH Q4H PRN #1 inhaler 04/21/18 Montelukast Na [Singulair -] 10 mg PO HS #30 tablet 04/21/18 - Diagnosis (1) Alcohol dependence with uncomplicated withdrawal Current Visit: Yes Status: Acute (2) Asthma Current Visit: Yes Status: Chronic (3) HIV (human immunodeficiency virus infection) Current Visit: Yes Status: Chronic (4) Positive PPD Current Visit: Yes Status: Resolved (5) Schizophrenia Current Visit: Yes Status: Suspected Qualifiers: Schizophrenia type: unspecified Qualified Code(s): F20.9 - Schizophrenia, unspecified (6) Nicotine dependence Current Visit: Yes Status: Acute Qualifiers: Nicotine product type: cigarettes Substance use status: in withdrawal Qualified Code(s): F17.213 - Nicotine dependence, cigarettes, with withdrawal (7) Seizure Current Visit: Yes Status: Chronic - AMA Did Patient Leave Against Medical Advice: No
[2018-04-21 09:43] VITALS: BP 107/64; PULSE 86; TEMP 97.2
== END 2018-04-21 11:07 | disposition other institution (70) | DRG 774 ==
LOC: YASAS 10:56 → Y6N 13:57
PROC: HZ2ZZZZ Detoxification Services for Substance Abuse Treatment (ICD-10-PCS; principal; 2018-04-17)
DX: F10.230 Alcohol dependence with withdrawal, uncomplicated (principal); F14.20 Cocaine dependence, uncomplicated; F17.213 Nicotine dependence, cigarettes, with withdrawal; F31.9 Bipolar disorder, unspecified; F20.9 Schizophrenia, unspecified; F43.10 Post-traumatic stress disorder, unspecified; Z21 Asymptomatic human immunodeficiency virus [HIV] infection status; R56.9 Unspecified convulsions; J45.909 Unspecified asthma, uncomplicated; D64.9 Anemia, unspecified; R76.11 Nonspecific reaction to tuberculin skin test without active tuberculosis; R63.4 Abnormal weight loss; Z68.31 Body mass index [BMI] 31.0-31.9, adult; Z86.19 Personal history of other infectious and parasitic diseases; Z88.0 Allergy status to penicillin; Z88.8 Allergy status to other drugs, medicaments and biological substances; Z91.5 Personal history of self-harm
CPT/HCPCS: 36415; 80053; 80164; 81003; 81015; 82962; 85027; 86593; 86780; 93005; 93010; 94640

== ENCOUNTER 2018-04-21 11:14 | Inpatient (IN) | payer OTHER ==
--- NOTE | 2018-04-21 11:15 | HP ---
[facility] Rehab Assess/Revision - Admission History Admitted to Rehab from: [facility] [place] Date of Admission to Rehab: 04/21/18 - Findings Detox History & Physical reviewed: Yes Concur with findings: Yes Comments/Additional Findings: transferred from detox to rehab admission as per protocol Inpatient Rehab Admission - Initial Determination Are CD services needed?: Yes Free of communicable disease: Yes Not in need of hospitalization: Yes - Rehab Admission Criteria Previous failed treatment: Yes Poor recovery environment: Yes Comorbidities: Yes Lacks judgement: No Patient is meeting Inpatient Rehab admission criteria:: Yes
[2018-04-21] MEDS ORDERED: LOPERAMIDE HCL 2 MG CAPSULE PO PRN (11:16)
[2018-04-21] MEDS ORDERED: MAGNESIUM HYDROX 2400MG/30ML ORAL SUSPENSION 30 ML CUP PO PRN (11:16)
[2018-04-21] MEDS ORDERED: P-EPHED 60MG/TRIPROLIDI 2.5MG TABLET PO PRN (11:16)
[2018-04-21] MEDS ORDERED: ACETAMINOPHEN 325 MG TABLET (FP) PO PRN (11:16)
[2018-04-21] MEDS ORDERED: guaiFENesin/D-METHORPHAN HB 10 ML UNIT-DOSE CUPS PO PRN (11:16)
[2018-04-21] MEDS ORDERED: MAGNESIUM CITRATE 300 ML BOTTLE PO PRN (11:16)
[2018-04-21] MEDS ORDERED: MENTHOL/PHENOL 1 EACH UD MM PRN (11:16)
[2018-04-21] MEDS ORDERED: MAG HYDROX/AL HYDROX/SIMETH 30 ML UNIT-DOSE CUP PO PRN (11:16)
[2018-04-21] MEDS ORDERED: NICOTINE POLACRILEX 2 MG GUM BUC PRN (11:16)
[2018-04-21] MEDS ORDERED: IBUPROFEN 400 MG TABLET (FP) PO PRN (11:16)
[2018-04-21 11:29] VITALS: BMI 33.2
--- NOTE | 2018-04-21 12:33 | PN ---
[facility] Progress Note Note: Psychiatrist hog confinement system manager note: Called by nursing staff to order medications for newly admitted patient from detox. Medication reconciliation done, Risperdal 2 mg po BID and Trazadone 100 mg po HS ordered for patient
[2018-04-21] MEDS: DIVALPROEX SODIUM 250 MG TABLET E.C. PO SCH ×2 (14:34→21:03)
[2018-04-21] MEDS ORDERED: PT OWN MED DRAWER 7, Y5N ONE (16:01)
[2018-04-21] MEDS: ALBUTEROL SO4 8 GM HFA INHALER IH PRN (18:00)
[2018-04-21] MEDS ORDERED: ALBUTEROL SO4 2.5/IPRATROPIUM 0.5 INH SOL 3 ML VIAL.NEB. NEB PRN (18:16)
--- NOTE | 2018-04-21 18:18 | PN ---
[facility] Progress Note Note: Neb tx ordered for pt's asthma. She is wheezing at this time
[2018-04-21] MEDS: MONTELUKAST NA 10 MG TABLET PO SCH (21:03)
[2018-04-21] MEDS: risperiDONE 2 MG TABLET PO SCH (21:03)
[2018-04-21] MEDS: THIAMINE HCL 100 MG TABLET (FP) PO SCH (21:03)
[2018-04-21] MEDS: traZODone HCL 100 MG TABLET (FP) PO SCH (21:03)
[2018-04-21] MEDS ORDERED: MELATONIN 5 MG TABLETS PO PRN (22:00)
[2018-04-22] MEDS: PRENATAL VITAMINS W/ FOLIC ACID TABLET (FP) PO SCH (09:51)
[2018-04-22] MEDS: risperiDONE 2 MG TABLET PO SCH ×2 (09:51→22:01)
[2018-04-22] MEDS: DIVALPROEX SODIUM 250 MG TABLET E.C. PO SCH ×2 (09:52→22:01)
--- NOTE | 2018-04-22 10:56 | PN ---
[facility] Progress Note Note: CALLED TO SEE PATIENT WHO C/O DIZZINESS AND FELL HITTING HER HEAD ON THE SIDE OF BED. PT SEEN LAYING IN BED AND REPORTS SHE WAS TRYING TO GET OUT OF BED TO THROW OUT A BANANA PEEL AND FELT DIZZY BEFORE GETTING TO THE CAN AND FELL HITTING HEAD ON SIDE OF HER BED. SHE DENIES LOC, HEADACHE, NAUSEA OR VOMITING. PT COMPLETED DETOX YESTERDAY AT [address] AND STARTED REHAB SAME DAY ON . PT HAS A HX OF ASTHMA, ANEMIA, HIV+,SEIZURES(LAST EPISODE 2 MONTHS AGO AND ON DEPAKOTE 750 MG PO BID ), SYNCOPE AND SCHIZOPHRENIA. ALERT O X 3 Vital Signs 04/22/18 04/22/18 04/22/18 03:30 07:01 10:05 Temperature 97.3 F L 97.2 F L Pulse Rate 110 H 93 H Respiratory 18 16 18 Rate Blood Pressure 103/72 107/98 HEAD: NO REDNESS, SWELLING NOTED TO RIGHT SIDE OF HEAD; SLIGHT PAIN ON PALPATION. LUNGS: CTAP CARDIAC: S1 S2, NO MURMUR IMPRESSION:FALL PLAN:FALL PRECAUTIONS POST FALL MONITORING PROTOCOL #1 TRANSFER TO [facility] VIA AMBULANCE FOR EVALUATION AND POSSIBLE TREATMENT. PT MAY RETURN TO CONTINUE REHAB AFTER MEDICALLY CLEARED AT [facility]. REPORT GIVEN TO DR MONTANEZ AT THE ER.
[2018-04-22] MEDS: THIAMINE HCL 100 MG TABLET (FP) PO SCH (22:00)
[2018-04-22] MEDS: traZODone HCL 100 MG TABLET (FP) PO SCH (22:01)
[2018-04-22] MEDS: MONTELUKAST NA 10 MG TABLET PO SCH (22:01)
[2018-04-23] MEDS: risperiDONE 2 MG TABLET PO SCH ×2 (09:28→21:33)
[2018-04-23] MEDS: PRENATAL VITAMINS W/ FOLIC ACID TABLET (FP) PO SCH (09:28)
[2018-04-23] MEDS: DIVALPROEX SODIUM 500 MG TABLET E.C. PO SCH ×2 (10:20→21:33)
[2018-04-23] MEDS ORDERED: PT OWN MED DRAWER 7, Y5N ONE (10:25)
--- NOTE | 2018-04-23 15:04 | PN ---
[facility] Progress Note Note: PT RETURNED FROM [facility] LAST EVENING. NO FURTHER COMPLAINTS REPORTED. CT SCAN NO INTERCRANIAL HEMORRHAGE NOTED IN REPORT. Vital Signs - 24 hr 04/22/18 04/22/18 04/23/18 20:05 22:05 00:30 Temperature 97.8 F 97.6 F Pulse Rate 121 H 85 Respiratory 18 18 18 Rate Blood Pressure 95/68 101/70 04/23/18 04/23/18 04/23/18 02:05 03:30 06:05 Temperature 98.0 F 98.0 F Pulse Rate 82 88 Respiratory 18 18 16 Rate Blood Pressure 118/68 132/72 04/23/18 10:05 Temperature 98 F Pulse Rate 92 H Respiratory 17 Rate Blood Pressure 99/69 PLAN:CONTINUE TO MONITOR PT. ARMANI SANCHES
[2018-04-23] MEDS: THIAMINE HCL 100 MG TABLET (FP) PO SCH (21:33)
[2018-04-23] MEDS: traZODone HCL 100 MG TABLET (FP) PO SCH (21:33)
[2018-04-23] MEDS: MONTELUKAST NA 10 MG TABLET PO SCH (21:33)
[2018-04-24] MEDS: PRENATAL VITAMINS W/ FOLIC ACID TABLET (FP) PO SCH (10:16)
[2018-04-24] MEDS: DIVALPROEX SODIUM 500 MG TABLET E.C. PO SCH ×2 (10:16→21:18)
[2018-04-24] MEDS: risperiDONE 2 MG TABLET PO SCH ×2 (10:16→21:19)
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
[2018-04-24] MEDS ORDERED: PT OWN MED DRAWER 7, Y5N ONE (14:07)
[2018-04-24] MEDS: THIAMINE HCL 100 MG TABLET (FP) PO SCH (21:18)
[2018-04-24] MEDS: traZODone HCL 100 MG TABLET (FP) PO SCH (21:19)
[2018-04-24] MEDS: MONTELUKAST NA 10 MG TABLET PO SCH (21:19)
[2018-04-24] MEDS: diphenhydrAMINE HCL 25 MG CAPSULE (FP) PO SCH (21:20)
[2018-04-25] MEDS: ALBUTEROL SO4 8 GM HFA INHALER IH PRN (10:35)
[2018-04-25] MEDS: DIVALPROEX SODIUM 500 MG TABLET E.C. PO SCH ×2 (10:35→21:32)
[2018-04-25] MEDS: PRENATAL VITAMINS W/ FOLIC ACID TABLET (FP) PO SCH (10:35)
[2018-04-25] MEDS: risperiDONE 2 MG TABLET PO SCH ×2 (10:35→21:32)
[2018-04-25] MEDS: THIAMINE HCL 100 MG TABLET (FP) PO SCH (21:32)
[2018-04-25] MEDS: traZODone HCL 100 MG TABLET (FP) PO SCH (21:32)
[2018-04-25] MEDS: MONTELUKAST NA 10 MG TABLET PO SCH (21:32)
[2018-04-25] MEDS: diphenhydrAMINE HCL 25 MG CAPSULE (FP) PO SCH (21:32)
[2018-04-26] MEDS: DIVALPROEX SODIUM 500 MG TABLET E.C. PO SCH ×2 (10:04→21:45)
[2018-04-26] MEDS: PRENATAL VITAMINS W/ FOLIC ACID TABLET (FP) PO SCH (10:04)
[2018-04-26] MEDS: risperiDONE 2 MG TABLET PO SCH ×2 (10:04→21:45)
--- NOTE | 2018-04-26 15:16 | PN ---
S Progress Note Note: REPEAT LAB RESULT IMPROVED BELOW WNL. Laboratory Tests 04/22/18 04/25/18 07:00 07:15 Valproic Acid 102.2 H 78.3
[2018-04-26] MEDS ORDERED: PT OWN MED DRAWER 7, Y5N ONE ×2 (15:46→15:55)
[2018-04-26] MEDS: traZODone HCL 100 MG TABLET (FP) PO SCH (21:45)
[2018-04-26] MEDS: THIAMINE HCL 100 MG TABLET (FP) PO SCH (21:45)
[2018-04-26] MEDS: MONTELUKAST NA 10 MG TABLET PO SCH (21:46)
[2018-04-26] MEDS: diphenhydrAMINE HCL 25 MG CAPSULE (FP) PO SCH (21:46)
[2018-04-27] MEDS: DIVALPROEX SODIUM 500 MG TABLET E.C. PO SCH ×2 (10:06→21:43)
[2018-04-27] MEDS: risperiDONE 2 MG TABLET PO SCH ×2 (10:06→21:43)
[2018-04-27] MEDS: PRENATAL VITAMINS W/ FOLIC ACID TABLET (FP) PO SCH (10:06)
[2018-04-27] MEDS: diphenhydrAMINE HCL 25 MG CAPSULE (FP) PO SCH (21:43)
[2018-04-27] MEDS: THIAMINE HCL 100 MG TABLET (FP) PO SCH (21:43)
[2018-04-27] MEDS: traZODone HCL 100 MG TABLET (FP) PO SCH (21:44)
[2018-04-27] MEDS: MONTELUKAST NA 10 MG TABLET PO SCH (21:45)
[2018-04-28] MEDS: risperiDONE 2 MG TABLET PO SCH ×2 (10:15→21:30)
[2018-04-28] MEDS: PRENATAL VITAMINS W/ FOLIC ACID TABLET (FP) PO SCH (10:15)
[2018-04-28] MEDS: DIVALPROEX SODIUM 500 MG TABLET E.C. PO SCH ×2 (10:15→21:30)
[2018-04-28] MEDS: THIAMINE HCL 100 MG TABLET (FP) PO SCH (21:30)
[2018-04-28] MEDS: diphenhydrAMINE HCL 25 MG CAPSULE (FP) PO SCH (21:30)
[2018-04-28] MEDS: MONTELUKAST NA 10 MG TABLET PO SCH (21:31)
[2018-04-28] MEDS: traZODone HCL 100 MG TABLET (FP) PO SCH (21:31)
[2018-04-29] MEDS: DIVALPROEX SODIUM 500 MG TABLET E.C. PO SCH ×2 (10:08→21:05)
[2018-04-29] MEDS: PRENATAL VITAMINS W/ FOLIC ACID TABLET (FP) PO SCH (10:08)
[2018-04-29] MEDS: risperiDONE 2 MG TABLET PO SCH ×2 (10:08→21:05)
[2018-04-29] MEDS ORDERED: PT OWN MED DRAWER 7, Y5N ONE (15:42)
[2018-04-29] MEDS: THIAMINE HCL 100 MG TABLET (FP) PO SCH (21:05)
[2018-04-29] MEDS: diphenhydrAMINE HCL 25 MG CAPSULE (FP) PO SCH (21:05)
[2018-04-29] MEDS: MONTELUKAST NA 10 MG TABLET PO SCH (21:05)
[2018-04-29] MEDS: traZODone HCL 100 MG TABLET (FP) PO SCH (21:06)
[2018-04-30] MEDS: PRENATAL VITAMINS W/ FOLIC ACID TABLET (FP) PO SCH (10:13)
[2018-04-30] MEDS: risperiDONE 2 MG TABLET PO SCH ×2 (10:13→21:24)
[2018-04-30] MEDS: DIVALPROEX SODIUM 500 MG TABLET E.C. PO SCH ×2 (10:13→21:24)
[2018-04-30] MEDS: NICOTINE 14 MG/24 HOURS TOPICAL PATCH TD PRN (10:14)
[2018-04-30] MEDS: traZODone HCL 100 MG TABLET (FP) PO SCH (21:24)
[2018-04-30] MEDS: THIAMINE HCL 100 MG TABLET (FP) PO SCH (21:24)
[2018-04-30] MEDS: diphenhydrAMINE HCL 25 MG CAPSULE (FP) PO SCH (21:24)
[2018-04-30] MEDS: MONTELUKAST NA 10 MG TABLET PO SCH (21:24)
[2018-05-01] MEDS: PRENATAL VITAMINS W/ FOLIC ACID TABLET (FP) PO SCH (09:53)
[2018-05-01] MEDS: DIVALPROEX SODIUM 500 MG TABLET E.C. PO SCH ×2 (09:53→21:32)
[2018-05-01] MEDS: risperiDONE 2 MG TABLET PO SCH ×2 (09:54→21:32)
[2018-05-01] MEDS: NICOTINE 14 MG/24 HOURS TOPICAL PATCH TD PRN (10:15)
[2018-05-01] MEDS: THIAMINE HCL 100 MG TABLET (FP) PO SCH (21:31)
[2018-05-01] MEDS: MONTELUKAST NA 10 MG TABLET PO SCH (21:32)
[2018-05-01] MEDS: traZODone HCL 100 MG TABLET (FP) PO SCH (21:32)
[2018-05-01] MEDS: diphenhydrAMINE HCL 25 MG CAPSULE (FP) PO SCH (21:32)
[2018-05-02 07:00] VITALS: BP 90/56; PULSE 91; TEMP 98.3
--- NOTE | 2018-05-02 08:38 | PN ---
[facility] Progress Note Note: Patient completed this program today.she has met her treatment goals and will continue to address her issues on outpatient basispatient will continue urrent medicarions as per plan.scripts for 30 days provided.Patient is stable for discharge today.
[2018-05-02] MEDS: PRENATAL VITAMINS W/ FOLIC ACID TABLET (FP) PO SCH (09:16)
[2018-05-02] MEDS: risperiDONE 2 MG TABLET PO SCH (09:16)
[2018-05-02] MEDS: DIVALPROEX SODIUM 500 MG TABLET E.C. PO SCH (09:16)
[2018-05-02] MEDS ORDERED: PT OWN MED DRAWER 7, Y5N ONE (09:17)
== END 2018-05-02 09:25 | disposition home or self-care (01) | DRG 772 ==
LOC: YASAS 11:14 → Y3E 11:15
PROVIDERS: ADMIT Psychiatry & Neurology Psychiatry; ATTEND Psychiatry & Neurology Psychiatry
PROC: HZ42ZZZ Group Counseling for Substance Abuse Treatment, Cognitive-Behavioral (ICD-10-PCS; principal; 2018-04-21)
DX: F10.20 Alcohol dependence, uncomplicated (principal); F17.213 Nicotine dependence, cigarettes, with withdrawal; F25.9 Schizoaffective disorder, unspecified; B20 Human immunodeficiency virus [HIV] disease; G40.909 Epilepsy, unspecified, not intractable, without status epilepticus; J45.909 Unspecified asthma, uncomplicated; R76.11 Nonspecific reaction to tuberculin skin test without active tuberculosis; Z87.42 Personal history of other diseases of the female genital tract; W18.39XA Other fall on same level, initial encounter; Y93.89 Activity, other specified; Y92.230 Patient room in hospital as the place of occurrence of the external cause
CPT/HCPCS: 36415; 80164; 82962; 94640

== ENCOUNTER 2018-04-22 11:51 | Emergency (ER) | payer OTHER ==
[2018-04-22 12:08] VITALS: TEMP 97.9; BMI 33.2
[2018-04-22 13:34] LABS: URINE APPEARANCE SLCLOUDY; URINE BILIRUBIN NEGATIVE (<2.0 mg/dL); URINE COLOR YELLOW; URINE GLUCOSE (UA) NEGATIVE (NEGATIVE); URINE KETONE NEGATIVE (NEGATIVE); URINE LEUK ESTERASE 2+ (NEGATIVE); URINE NITRITE NEGATIVE (NEGATIVE); URINE PROTEIN NEGATIVE (NEGATIVE); URINE UROBILINOGEN NEGATIVE mg/dL (0.2-1.0)
[2018-04-22 13:40] LABS: EPI CELLS MANY /HPF (FEW)
[2018-04-22 14:16] LABS: BASO % 0.7 % (0-2.0); EOS % 5.8 % (0-4.5); HEMATOCRIT 42.4 % (32.4-45.2); HEMOGLOBIN 13.4 GM/dL (10.7-15.3); LYMPH % 40.4 % (8-40); MCH 28.6 pg (25.7-33.7); MCHC 31.6 g/dl (32.0-36.0); MEAN CELL VOLUME 90.8 fl (80-96); MEAN PLT VOLUME 10.6 fl (7.5-11.1); MONO % 15.3 % (3.8-10.2); NEUT % 37.8 % (42.8-82.8); PLATELET COUNT 168 K/MM3 (134-434); RBC 4.67 M/mm3 (3.60-5.2); RDW 18.5 % (11.6-15.6); WHITE BLOOD COUNT 4.4 K/mm3 (4.0-10.0)
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
[2018-04-22 14:24] LABS: ALBUMIN 3.6 g/dl (3.4-5.0); ALK PHOS 104 U/L (45-117); ANION GAP 8 MMOL/L (8-16); BILIRUBIN,TOTAL 0.2 mg/dL (0.2-1); BLOOD UREA NITROGEN 12 mg/dL (7-18); CALCIUM 9.1 mg/dL (8.5-10.1); CHLORIDE 102 mmol/L (98-107); CO2 31 mmol/L (21-32); CREATININE 0.8 mg/dL (0.55-1.3); GLUCOSE,RANDOM 105 mg/dL (74-106); POTASSIUM 5.4 mmol/L (3.5-5.1); SGOT/AST 12 U/L (15-37); SGPT/ALT 14 U/L (13-61); SODIUM 141 mmol/L (136-145); TOT PROT 7.9 g/dl (6.4-8.2)
[2018-04-22 16:23] VITALS: BP 98/75; PULSE 83
--- NOTE | 2018-04-23 12:56 | EKG ---
Test Reason : Blood Pressure : / mmHG Vent. Rate : 082 BPM Atrial Rate : 082 BPM P-R Int : 158 ms QRS Dur : 080 ms QT Int : 374 ms P-R-T Axes : 005 009 -13 degrees QTc Int : 436 ms NORMAL SINUS RHYTHM NONSPECIFIC T WAVE ABNORMALITY Confirmed by MD WILTON, THAIS ([id number]) on 04/23/2018 12:55:37 PM Referred By: Confirmed By:THAIS NÚÑEZ MD
== END 2018-04-22 18:30 | disposition home or self-care (01) ==
LOC: JER 11:51
DX: S09.8XXA Other specified injuries of head, initial encounter (principal); W01.0XXA Fall on same level from slipping, tripping and stumbling without subsequent striking against object, initial encounter; Y93.89 Activity, other specified; Y92.230 Patient room in hospital as the place of occurrence of the external cause; Y99.8 Other external cause status; J44.9 Chronic obstructive pulmonary disease, unspecified; J45.909 Unspecified asthma, uncomplicated; F20.9 Schizophrenia, unspecified; F31.9 Bipolar disorder, unspecified; Z21 Asymptomatic human immunodeficiency virus [HIV] infection status; Z86.69 Personal history of other diseases of the nervous system and sense organs
CPT/HCPCS: 36415; 70450-TC; 71046-TC-FY; 80053; 81003; 81015; 82550; 84484; 85025; 93005; 93010; 99282-25

== ENCOUNTER 2018-07-25 12:22 | Inpatient (IN) | payer OTHER ==
[2018-07-25 13:21] VITALS: BMI 32.8
--- NOTE | 2018-07-25 14:18 | HP ---
CIWA Score Nausea/Vomitin Muscle Tremors: 2 Anxiety: 2 Agitation: 1-Slight > Activity Paroxysmal Sweats: 2 Orientation: 0-Oriented Tacttile Disturbances: 0-None Auditory Disturbances: 0-None Visual Disturbances: 0-None Headache: 3-Moderate CIWA-Ar Total Score: 12 - Admission Criteria [facility] Guidelines: Admission for Medically Managed Detox: Requires at least one of the followin. CIWA greater than 12 2. Seizures within the past 24 hours 3. Delirium tremens within the past 24 hours 4. Hallucinations within the past 24 hours 5. Acute intervention needed for co occurring medical disorder 6. Acute intervention needed for co occurring psychiatric disorder 7. Severe withdrawal that cannot be handled at a lower level of care (continued vomiting, continued diarrhea, abnormal vital signs) requiring intravenous medication and/or fluids 8. Admission ROS [facility] Chief Complaint: ETOH WITHDRAWAL SX AND COCAINE DEPENDENCE. Allergies/Adverse Reactions: Allergies Allergy/AdvReac Type Severity Reaction Status Date / Time benztropine mesylate Allergy Severe Hives Verified 04/22/18 12:09 [From Cogentin] ibuprofen Allergy Severe Hives Verified 04/22/18 12:09 Penicillins Allergy Severe Swelling Verified 04/22/18 12:09 haloperidol [From Haldol] Allergy Hives Verified 04/22/18 12:09 aripiprazole [From Abilify] AdvReac Severe Swelling Verified 04/22/18 12:09 History of Present Illness: PATIENT PRESENTS WITH ETOH WITHDRAWAL SX AND COCAINE DEPENDENCE. PATIENT IS KNOWN TO PROGRAM. LAST DETOX ADMISSION 04/2018. PATIENT REPORTS SHE STARTED DRINKING AT AGE 23, DRINKS 5 CANS OF BEER, 2 PINTS OF BACARDI AND 2 PINTS OF SHAUNNA DAILY. LAST DRINK THIS MORNING. PATIENT REPORTS SHE DRINKS WHEN SHE AWAKENS TO STEADY HER NERVES, +SEIZURES DUE TO EPILEPSY (NONCOMPLIANT WITH DEPAKOTE), + BLACKOUTS AND BINGE DRINKING. DENIES FALLS. PATIENT ALSO SMOKES CRACK/COCAINE SINCE AGE 23 AND SMOKES 80 DOLLARS DAILY. LAST TIME SHE SMOKED WAS YESTERDAY. PMH INCLUDES HIV (COMPLIANT WITH MEDS AND HAS ALL MEDS), BIPOLAR DISORDER, EPILEPSY, COPD AND SCHIZOPHRENIA. DENIES SI/HI AND SUICIDE ATTEMPTS. Exam Limitations: No Limitations - Ebola screening Have you traveled outside of the country in the last 21 days: No Have you had contact with anyone from an Ebola affected area: No Have you been sick,other than usual withdrawal symptoms: No Do you have a fever: No - Review of Systems Constitutional: Night Sweats, Changes in sleep EENT: reports: Nose Congestion Respiratory: reports: Cough (DRY COUGH), Shortness of Breath (OCCASIONAL SOB) Cardiac: reports: No Symptoms Reported GI: reports: Diarrhea, Nausea, Poor Fluid Intake : reports: No Symptoms Reported Musculoskeletal: reports: No Symptoms Reported Integumentary: reports: Sweating (night sweats) Neuro: reports: Headache, Tremors Endocrine: reports: No Symptoms Reported, Unexplained Weight Loss Psychiatric: reports: Orientated x3, Anxious, Depressed Patient History - Patient Medical History Hx Anemia: Yes (Not on medication) Hx Asthma: Yes (Pt is on MDI) Hx Chronic Obstructive Pulmonary Disease (COPD): No Hx Cancer: No Hx Cardiac Disorders: Yes (heart murmur) Hx Congestive Heart Failure: No Hx Hypertension: No Hx Hypercholesterolemia: No Hx Pacemaker: No HX Cerebrovascular Accident: No Hx Seizures: No Hx Dementia: No Hx Diabetes: No Hx Gastrointestinal Disorders: No Hx Liver Disease: No Hx Genitourinary Disorders: No Hx Sexually Transmitted Disorders: No Hx Renal Disease (ESRD): No Hx Thyroid Disease: No Hx Human Immunodeficiency Virus (HIV): Yes (On [place]. Diagnosed 1985 , has medication with her) Hx Hepatitis C: No Hx Depression: Yes Hx Suicide Attempt: No Hx Bipolar Disorder: Yes Hx Schizophrenia: Yes - Patient Surgical History Past Surgical History: Yes Hx Neurologic Surgery: No Hx Cataract Extraction: No Hx Cardiac Surgery: No Hx Lung Surgery: No Hx Breast Surgery: No Hx Breast Biopsy: No Hx Abdominal Surgery: No Hx Appendectomy: No Hx Cholecystectomy: No Hx Genitourinary Surgery: No Hx Orthopedic Surgery: Yes (fx of left forearm in 1991) Hx Hysterectomy: No Other Surgical History: rt ear surgery, cut ear lobe Anesthesia Reaction: No - PPD History Previous Implant?: Yes Documented Results: Positive w/proof Implanted On Prior [facility] Admission?: No Results: CXR negative PPD to be Administered?: No - Reproductive History Last Menstrual Period: 10/04/13 Patient : No - Smoking Cessation Smoking history: Current every day smoker Have you smoked in the past 12 months: Yes Aproximately how many cigarettes per day: 3 If you are a former smoker, when did you quit?: 09/14/17 Cigars Per Day: 0 Hx Chewing Tobacco Use: No Initiated information on smoking cessation: Yes 'Breaking Loose' booklet given: 07/25/18 - Substance & Tx. History Hx Alcohol Use: Yes Hx Substance Use: Yes Substance Use Type: Alcohol, Cocaine Hx Substance Use Treatment: Yes - Substances Abused Alcohol Route: Oral Frequency: Daily Amount used: 5 beers/ 2 pints cognac Age of first use: 23 Date of Last Use: 07/25/18 Crack Route: Smoking Frequency: 1-2 times per week Amount used: $60 Age of first use: 23 Date of Last Use: 07/24/18 Family Disease History - Family Disease History Family Disease History: Heart Disease: Mother (SCHIZOPHRENIA, asthma,etoh/ cocaine), Other: Father (TB), Mother, Brother (SEIZURE), Sister (cocaine, crack) Admission Physical Exam S - Vital Signs Vital Signs: Vital Signs - 24 hr 07/25/18 13:17 Temperature 98.5 F Pulse Rate 105 H Respiratory 19 Rate Blood Pressure 90/80 - Physical General Appearance: Yes: Appropriately Dressed, Disheveled, Tremorous, Anxious HEENTM: Yes: EOMI, Hearing grossly Normal, Normal ENT Inspection, Normocephalic , Normal Voice, JUANITO (pinpoint pupils), Pharynx Normal Respiratory: Yes: Chest Non-Tender, Lungs Clear, No Respiratory Distress, No Accessory Muscle Use, Wheezing Neck: Yes: No masses,lesions,Nodules, Supple, Trachea in good position Breast: Yes: Breast Exam Deferred Cardiology: Yes: Regular Rhythm, Regular Rate, S1, S2 Abdominal: Yes: Normal Bowel Sounds, Non Tender, Soft Genitourinary: Yes: Within Normal Limits Back: Yes: Normal Inspection Musculoskeletal: Yes: full range of Motion, Gait Steady Extremities: Yes: Normal Inspection, Normal Range of Motion, Non-Tender, Tremors , Swelling, Other (trace edema bilateral ankles) 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: 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: 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 NML intact, Fully Oriented, Alert, Motor Strength 5/5, Normal Response, Depressed Affect Integumentary: Yes: Normal Color, Dry, Warm Lymphatic: Yes: Within Normal Limits - Diagnostic (1) Alcohol dependence with uncomplicated withdrawal Current Visit: Yes Status: Acute (2) Nicotine dependence Current Visit: Yes Status: Chronic Qualifiers: Nicotine product type: cigarettes Substance use status: in withdrawal Qualified Code(s): F17.213 - Nicotine dependence, cigarettes, with withdrawal (3) Asthma Current Visit: Yes Status: Chronic (4) Cocaine dependence Current Visit: Yes Status: Chronic Qualifiers: Substance use status: uncomplicated Qualified Code(s): F14.20 - Cocaine dependence, uncomplicated (5) HIV (human immunodeficiency virus infection) Current Visit: Yes Status: Chronic Qualifiers: HIV symptom status: unspecified Qualified Code(s): B20 - Human immunodeficiency virus [HIV] disease (6) Schizoaffective disorder Current Visit: Yes Status: Chronic Qualifiers: Schizoaffective disorder type: unspecified Qualified Code(s): F25.9 - Schizoaffective disorder, unspecified Comment: History. (7) Seizure Current Visit: Yes Status: Chronic (8) Positive PPD Current Visit: Yes Status: Resolved Cleared for Admission [facility] - Detox or Rehab [facility] Level of Care: Medically Managed Detox Regimen/Protocol: Librium S Breath Alcohol Content Breath Alcohol Content: 0.020 Urine Pregancy Test - Result Urine Test Results: Negative- NO Line Present Urine Drug Screen - Results Drug Screen Negative: No Urine Drug Screen Results: XENIA-Cocaine
[2018-07-25] MEDS ORDERED: MENTHOL/PHENOL 1 EACH UD MM PRN (14:25)
[2018-07-25] MEDS ORDERED: hydrOXYzine PAMOATE 50 MG CAPSULE (FP) PO PRN (14:25)
[2018-07-25] MEDS ORDERED: NICOTINE POLACRILEX 2 MG GUM BC PRN (14:25)
[2018-07-25] MEDS ORDERED: ACETAMINOPHEN 325 MG TABLET (FP) PO PRN (14:25)
[2018-07-25] MEDS ORDERED: IBUPROFEN 400 MG TABLET (FP) PO PRN (14:25)
[2018-07-25] MEDS ORDERED: MAGNESIUM CITRATE 300 ML BOTTLE PO PRN (14:25)
[2018-07-25] MEDS ORDERED: P-EPHED 60MG/TRIPROLIDI 2.5MG TABLET PO PRN (14:25)
[2018-07-25] MEDS ORDERED: MAGNESIUM HYDROX 2400MG/30ML ORAL SUSPENSION 30 ML CUP PO PRN (14:25)
[2018-07-25] MEDS ORDERED: LOPERAMIDE HCL 2 MG CAPSULE PO PRN (14:25)
[2018-07-25] MEDS ORDERED: MAG HYDROX/AL HYDROX/SIMETH 30 ML UNIT-DOSE CUP PO PRN (14:25)
[2018-07-25] MEDS ORDERED: chlordiazePOXIDE HCL 25 MG CAPSULE PO PRN (14:29)
[2018-07-25] MEDS: chlordiazePOXIDE HCL 25 MG CAPSULE PO SCH ×2 (18:39→22:22)
[2018-07-25] MEDS: ALBUTEROL SO4 8 GM HFA INHALER IH PRN (19:14)
[2018-07-25] MEDS: guaiFENesin/D-METHORPHAN HB 10 ML UNIT-DOSE CUPS PO PRN (19:17)
[2018-07-25] MEDS: ALBUTEROL SO4 0.083% IH SOL 2.5 MG/3 ML VIAL.NEB. NEB PRN (19:27)
[2018-07-25] MEDS ORDERED: MELATONIN 5 MG TABLETS PO PRN (22:00)
[2018-07-25] MEDS: THIAMINE HCL 100 MG TABLET (FP) PO SCH (22:22)
[2018-07-25] MEDS: MONTELUKAST NA 10 MG TABLET PO SCH (22:22)
[2018-07-26 03:33] LABS: URINE APPEARANCE SLCLOUDY; URINE BILIRUBIN NEGATIVE (<2.0 mg/dL); URINE COLOR YELLOW; URINE GLUCOSE (UA) NEGATIVE (NEGATIVE); URINE KETONE NEGATIVE (NEGATIVE); URINE LEUK ESTERASE TRACE (NEGATIVE); URINE NITRITE POSITIVE (NEGATIVE); URINE PROTEIN NEGATIVE (NEGATIVE); URINE UROBILINOGEN NEGATIVE mg/dL (0.2-1.0)
[2018-07-26 03:38] LABS: EPI CELLS RARE /HPF (FEW); URINE BACTERIA FEW /hpf (NONE SEEN)
[2018-07-26] MEDS: ALBUTEROL SO4 0.083% IH SOL 2.5 MG/3 ML VIAL.NEB. NEB PRN ×3 (05:36→19:45)
[2018-07-26] MEDS: chlordiazePOXIDE HCL 25 MG CAPSULE PO SCH ×4 (05:50→22:10)
[2018-07-26] MEDS: PRENATAL VITAMINS W/ FOLIC ACID TABLET (FP) PO SCH (10:16)
[2018-07-26] MEDS: PATIENT'S OWN MEDICATION (NON-FORMULARY) (Dolutegravir Sodium [Tivicay] 50 MG) PO SCH (10:16)
[2018-07-26] MEDS: NICOTINE 7 MG/24 HOURS TOPICAL PATCH TD SCH (10:16)
[2018-07-26 10:31] LABS: ALBUMIN 3.3 g/dl (3.4-5.0); ALK PHOS 86 U/L (45-117); ANION GAP 7 MMOL/L (8-16); BILIRUBIN,TOTAL 0.2 mg/dL (0.2-1); BLOOD UREA NITROGEN 12 mg/dL (7-18); CALCIUM 8.3 mg/dL (8.5-10.1); CHLORIDE 106 mmol/L (98-107); CO2 30 mmol/L (21-32); GLUCOSE,RANDOM 113 mg/dL (74-106); POTASSIUM 3.9 mmol/L (3.5-5.1); SGOT/AST 10 U/L (15-37); SGPT/ALT 16 U/L (13-61); SODIUM 143 mmol/L (136-145); TOT PROT 7.1 g/dl (6.4-8.2)
[2018-07-26 10:42] LABS: HEMOGLOBIN 13.6 GM/dL (10.7-15.3); MCH 29.9 pg (25.7-33.7); MCHC 33.3 g/dl (32.0-36.0); MEAN CELL VOLUME 89.9 fl (80-96); MEAN PLT VOLUME 10.6 fl (7.5-11.1); PLATELET COUNT 189 K/MM3 (134-434); RBC 4.56 M/mm3 (3.60-5.2); RDW 15.9 % (11.6-15.6); WHITE BLOOD COUNT 4.6 K/mm3 (4.0-10.0)
--- NOTE | 2018-07-26 11:51 | EKG ---
Test Reason : Blood Pressure : / mmHG Vent. Rate : 081 BPM Atrial Rate : 081 BPM P-R Int : 166 ms QRS Dur : 082 ms QT Int : 380 ms P-R-T Axes : 056 048 054 degrees QTc Int : 441 ms NORMAL SINUS RHYTHM NORMAL ECG WHEN COMPARED WITH ECG OF 22-APR-2018 15:35, T WAVE INVERSION NO LONGER EVIDENT IN INFERIOR LEADS Confirmed by VIVEK HAYES, TONYA ([id number]) on 07/26/2018 11:50:54 AM Referred By: Confirmed By:TONYA DOYLE MD
[2018-07-26] MEDS: guaiFENesin/D-METHORPHAN HB 10 ML UNIT-DOSE CUPS PO PRN ×2 (12:08→20:41)
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
--- NOTE | 2018-07-26 17:16 | PN ---
S CIWA - CIWA Score Nausea/Vomitin-No Nausea/No Vomiting Muscle Tremors: 3 Anxiety: 2 Agitation: 0-Normal Activity Paroxysmal Sweats: 3 Orientation: 0-Oriented Tacttile Disturbances: 2-Mild Itch/Numbness/Burn Auditory Disturbances: 0-None Visual Disturbances: 2-Mild Sensitivity Headache: 2-Mild CIWA-Ar Total Score: 14 [facility] Progress Note (SOAP) Subjective: Sweating, Tremors, Body Aches, H/A, Interrupted Sleep, Fatigue. Objective: PATIENT A & O X 3, OBSERVED AMBULATING ON UNIT. IN NO ACUTE DISTRESS. 07/26/18 17:15 Vital Signs Temperature 97.4 F L 07/26/18 10:34 Pulse Rate 68 07/26/18 10:34 Respiratory Rate 18 07/26/18 10:34 Blood Pressure 110/70 07/26/18 10:34 O2 Sat by Pulse Oximetry (%) Laboratory Tests 07/25/18 07/26/18 07/26/18 23:00 07:00 07:00 WBC 4.6 RBC 4.56 Hgb 13.6 Hct 41.0 MCV 89.9 MCH 29.9 MCHC 33.3 RDW 15.9 H D Plt Count 189 MPV 10.6 Sodium Potassium Chloride Carbon Dioxide Anion Gap BUN Creatinine Creat Clearance w eGFR Random Glucose Calcium Total Bilirubin AST ALT Alkaline Phosphatase Total Protein Albumin Urine Color Yellow Urine Appearance Slcloudy Urine pH 6.0 D Ur Specific [place] 1.009 L Urine Protein Negative Urine Glucose (UA) Negative Urine Ketones Negative Urine Blood Negative Urine Nitrite Positive Urine Bilirubin Negative Urine Urobilinogen Negative Ur Leukocyte Esterase Trace Urine WBC (Auto) <1 Urine RBC (Auto) <1 Ur Epithelial Cells Rare Urine Bacteria Few Valproic Acid 9.8 L 07/26/18 07:00 WBC RBC Hgb Hct MCV MCH MCHC RDW Plt Count MPV Sodium 143 Potassium 3.9 Chloride 106 Carbon Dioxide 30 Anion Gap 7 L BUN 12 Creatinine 1.0 Creat Clearance w eGFR 57.56 Random Glucose 113 H Calcium 8.3 L Total Bilirubin 0.2 AST 10 L ALT 16 Alkaline Phosphatase 86 Total Protein 7.1 Albumin 3.3 L Urine Color Urine Appearance Urine pH Ur Specific [place] Urine Protein Urine Glucose (UA) Urine Ketones Urine Blood Urine Nitrite Urine Bilirubin Urine Urobilinogen Ur Leukocyte Esterase Urine WBC (Auto) Urine RBC (Auto) Ur Epithelial Cells Urine Bacteria Valproic Acid LABS NOTED. RPR RESULT PENDING. 07/26/18 17:17 Assessment: 07/26/18 17:17 WITHDRAWAL SYMPTOMS. Plan: CONTINUE DETOX. INCREASE DAILY PO FLUID INTAKE. REPEAT UA FOR ADMISSION ABNORMALITIES.
[2018-07-26] MEDS: ALBUTEROL SO4 8 GM HFA INHALER IH PRN (20:41)
[2018-07-26] MEDS: THIAMINE HCL 100 MG TABLET (FP) PO SCH (22:10)
[2018-07-26] MEDS: traZODone HCL 100 MG TABLET (FP) PO SCH (22:10)
[2018-07-26] MEDS: DIVALPROEX SODIUM 500 MG TABLET E.C. PO SCH (22:11)
[2018-07-26] MEDS: risperiDONE 2 MG TABLET PO SCH (22:11)
[2018-07-26] MEDS: MONTELUKAST NA 10 MG TABLET PO SCH (22:11)
[2018-07-26] MEDS ORDERED: ALBUTEROL SO4 0.083% IH SOL 2.5 MG/3 ML VIAL.NEB. NEB ONE (22:15)
[2018-07-26] MEDS ORDERED: ALBUTEROL SO4 2.5/IPRATROPIUM 0.5 INH SOL 3 ML VIAL.NEB. NEB ONE (22:29)
--- NOTE | 2018-07-26 22:55 | PN ---
[facility] Progress Note Note: SEEN FOR C/O SOB NOT RELIEVED AFTER NEB TXMENT. CLIENT REPORTS SOB, COUGH, . DENIES CHEST PAIN, Vital Signs Temperature 98.6 F 07/26/18 21:37 Pulse Rate 98 H 07/26/18 21:37 Respiratory Rate 18 07/26/18 21:37 Blood Pressure 102/79 07/26/18 21:37 O2 Sat by Pulse Oximetry (%) SEEN SEATED IN CHAIR AWAKE/ ALERT/NAD. TALKING IN FULL SENTENCES W/O INTERRUPTION, ABLE TO AMBULATE W/O DIFFICULTY CV- RR-TACHY LUNGS- MODERATE INSP/EXP WHEEZING NOTED O2 sat 97 % ra ASTHMA EXACERBATION P- DUONEB NOW CLIENT WAS REEVALUATED 15 MIN LATER. REPORTS SHE FEELS BETTER. LUNGS STILL WITH MODERATE AMOUNT OF WHEEZING CHANGE ALBUTEROL NEB TO DUONEB Q4 HOURS RESTART ON SYMBICORT START PREDNISONE 20 MG PO BID X 5DAYS CONT TO MONITOR CLINICALLY
[2018-07-26] MEDS: predniSONE 20 MG TABLET (UD) PO SCH (23:25)
[2018-07-26] MEDS: BUDESONIDE/FORMETEROL FUMARATE 160/4.5 mcg INHALER IH SCH (23:25)
[2018-07-27] MEDS: ALBUTEROL SO4 0.083% IH SOL 2.5 MG/3 ML VIAL.NEB. NEB PRN ×4 (03:37→18:08)
[2018-07-27] MEDS: chlordiazePOXIDE HCL 25 MG CAPSULE PO SCH ×2 (07:18→12:19)
[2018-07-27] MEDS: BUDESONIDE/FORMETEROL FUMARATE 160/4.5 mcg INHALER IH SCH ×2 (10:23→21:53)
[2018-07-27] MEDS: predniSONE 20 MG TABLET (UD) PO SCH ×2 (10:24→21:53)
[2018-07-27] MEDS: PATIENT'S OWN MEDICATION (NON-FORMULARY) (Dolutegravir Sodium [Tivicay] 50 MG) PO SCH (10:24)
[2018-07-27] MEDS: risperiDONE 2 MG TABLET PO SCH ×2 (10:24→21:53)
[2018-07-27] MEDS: NICOTINE 7 MG/24 HOURS TOPICAL PATCH TD SCH (10:24)
[2018-07-27] MEDS: PRENATAL VITAMINS W/ FOLIC ACID TABLET (FP) PO SCH (10:24)
[2018-07-27] MEDS: DIVALPROEX SODIUM 500 MG TABLET E.C. PO SCH ×2 (10:24→21:53)
[2018-07-27] MEDS: guaiFENesin/D-METHORPHAN HB 10 ML UNIT-DOSE CUPS PO PRN (10:50)
[2018-07-27 12:39] LABS: RPR REACTIVE 1:1 (NONREACTIVE)
[2018-07-27 12:48] LABS: TREPONEMA ANTIBODY PREVIOUSLY REACTIVE (NONREACTIVE)
--- NOTE | 2018-07-27 16:24 | PN ---
[facility] CIWA - CIWA Score Nausea/Vomitin-No Nausea/No Vomiting Muscle Tremors: None Anxiety: 2 Agitation: 0-Normal Activity Paroxysmal Sweats: 3 Orientation: 0-Oriented Tacttile Disturbances: 2-Mild Itch/Numbness/Burn Auditory Disturbances: 1-Very Mild Visual Disturbances: 2-Mild Sensitivity Headache: 0-None Present CIWA-Ar Total Score: 10 S Progress Note (SOAP) Subjective: Diarrhea, Fatigue, Sweating. Objective: PATIENT A & O X 3, OBSERVED AMBULATING ON UNIT. IN NO ACUTE DISTRESS. 07/27/18 16:25 Vital Signs Temperature 97.9 F 07/27/18 13:40 Pulse Rate 120 H 07/27/18 13:40 Respiratory Rate 20 07/27/18 13:40 Blood Pressure 133/80 07/27/18 13:40 O2 Sat by Pulse Oximetry (%) Laboratory Tests 07/25/18 07/26/18 07/26/18 23:00 07:00 07:00 WBC 4.6 RBC 4.56 Hgb 13.6 Hct 41.0 MCV 89.9 MCH 29.9 MCHC 33.3 RDW 15.9 H D Plt Count 189 MPV 10.6 Sodium Potassium Chloride Carbon Dioxide Anion Gap BUN Creatinine Creat Clearance w eGFR Random Glucose Calcium Total Bilirubin AST ALT Alkaline Phosphatase Total Protein Albumin Urine Color Yellow Urine Appearance Slcloudy Urine pH 6.0 D Ur Specific [place] 1.009 L Urine Protein Negative Urine Glucose (UA) Negative Urine Ketones Negative Urine Blood Negative Urine Nitrite Positive Urine Bilirubin Negative Urine Urobilinogen Negative Ur Leukocyte Esterase Trace Urine WBC (Auto) <1 Urine RBC (Auto) <1 Ur Epithelial Cells Rare Urine Bacteria Few Valproic Acid 9.8 L RPR Titer T.pallidum Ab (A) 07/26/18 07/26/18 07:00 07:00 WBC RBC Hgb Hct MCV MCH MCHC RDW Plt Count MPV Sodium 143 Potassium 3.9 Chloride 106 Carbon Dioxide 30 Anion Gap 7 L BUN 12 Creatinine 1.0 Creat Clearance w eGFR 57.56 Random Glucose 113 H Calcium 8.3 L Total Bilirubin 0.2 AST 10 L ALT 16 Alkaline Phosphatase 86 Total Protein 7.1 Albumin 3.3 L Urine Color Urine Appearance Urine pH Ur Specific [place] Urine Protein Urine Glucose (UA) Urine Ketones Urine Blood Urine Nitrite Urine Bilirubin Urine Urobilinogen Ur Leukocyte Esterase Urine WBC (Auto) Urine RBC (Auto) Ur Epithelial Cells Urine Bacteria Valproic Acid RPR Titer Reactive 1:1 H T.pallidum Ab (MHA) Previously reactive LABS NOTED. RESULTS OF REPEAT UA PENDING. RPR RESULT NOTED TO BE 1:1, MHATP PREVIOUSLY REACTIVE. 07/27/18 16:26 Assessment: 07/27/18 16:25 WITHDRAWAL SYMPTOMS. Plan: CONTINUE DETOX. INCREASE DAILY PO FLUID INTAKE. PRN IMMODIUM PO FOR DIARRHEA.
[2018-07-27 16:25] LABS: URINE APPEARANCE CLEAR; URINE BILIRUBIN NEGATIVE (<2.0 mg/dL); URINE COLOR COLORLESS; URINE GLUCOSE (UA) 3+ (NEGATIVE); URINE KETONE NEGATIVE (NEGATIVE); URINE LEUK ESTERASE TRACE (NEGATIVE); URINE NITRITE NEGATIVE (NEGATIVE); URINE PROTEIN NEGATIVE (NEGATIVE); URINE UROBILINOGEN NEGATIVE mg/dL (0.2-1.0)
[2018-07-27] MEDS: chlordiazePOXIDE 5 MG CAPSULE PO SCH ×2 (17:37→23:12)
[2018-07-27] MEDS ORDERED: ALBUTEROL SO4 2.5/IPRATROPIUM 0.5 INH SOL 3 ML VIAL.NEB. NEB ONE (18:41)
--- NOTE | 2018-07-27 18:44 | PN ---
[facility] Progress Note Note: Patient complains of wheezing and shortness of breath Vital Signs Temperature 97.2 F L 07/27/18 17:37 Pulse Rate 117 H 07/27/18 17:37 Respiratory Rate 18 07/27/18 17:37 Blood Pressure 122/80 07/27/18 17:37 O2 Sat by Pulse Oximetry (%) Action: Duoneb nebulizer treatment ordered
[2018-07-27] MEDS: traZODone HCL 100 MG TABLET (FP) PO SCH (21:53)
[2018-07-27] MEDS: MONTELUKAST NA 10 MG TABLET PO SCH (21:53)
[2018-07-27] MEDS: ALBUTEROL SO4 8 GM HFA INHALER IH PRN (21:58)
--- NOTE | 2018-07-27 22:16 | PN ---
[facility] Progress Note Note: seen for c/o worsening sob. client states she feels her chest getting tighter. Unrelieved after nebulizer txment. denies c.p. Vital Signs Temperature 97.2 F L 07/27/18 21:45 Pulse Rate 117 H 07/27/18 17:37 Respiratory Rate 18 07/27/18 21:45 Blood Pressure 117/81 07/27/18 21:45 O2 Sat by Pulse Oximetry (%) Laboratory Tests 07/25/18 07/26/18 07/26/18 23:00 07:00 07:00 WBC 4.6 RBC 4.56 Hgb 13.6 Hct 41.0 MCV 89.9 MCH 29.9 MCHC 33.3 RDW 15.9 H D Plt Count 189 MPV 10.6 Sodium Potassium Chloride Carbon Dioxide Anion Gap BUN Creatinine Creat Clearance w eGFR Random Glucose Calcium Total Bilirubin AST ALT Alkaline Phosphatase Total Protein Albumin Urine Color Yellow Urine Appearance Slcloudy Urine pH 6.0 D Ur Specific [place] 1.009 L Urine Protein Negative Urine Glucose (UA) Negative Urine Ketones Negative Urine Blood Negative Urine Nitrite Positive Urine Bilirubin Negative Urine Urobilinogen Negative Ur Leukocyte Esterase Trace Urine WBC (Auto) <1 Urine RBC (Auto) <1 Ur Epithelial Cells Rare Urine Bacteria Few Valproic Acid 9.8 L RPR Titer T.pallidum Ab (A) 07/26/18 07/26/18 07/27/18 07:00 07:00 14:15 WBC RBC Hgb Hct MCV MCH MCHC RDW Plt Count MPV Sodium 143 Potassium 3.9 Chloride 106 Carbon Dioxide 30 Anion Gap 7 L BUN 12 Creatinine 1.0 Creat Clearance w eGFR 57.56 Random Glucose 113 H Calcium 8.3 L Total Bilirubin 0.2 AST 10 L ALT 16 Alkaline Phosphatase 86 Total Protein 7.1 Albumin 3.3 L Urine Color Colorless Urine Appearance Clear Urine pH 9.0 H D Ur Specific [place] 1.006 L Urine Protein Negative Urine Glucose (UA) 3+ H Urine Ketones Negative Urine Blood Negative Urine Nitrite Negative Urine Bilirubin Negative Urine Urobilinogen Negative Ur Leukocyte Esterase Trace Urine WBC (Auto) 2 Urine RBC (Auto) <1 Ur Epithelial Cells Urine Bacteria Valproic Acid RPR Titer Reactive 1:1 H T.pallidum Ab (A) Previously reactive seen seated at bedside a/o x3 with nasal canula on connected to oxygen tank. sob but able to speak full sentences w/o interruption cv rrr lungs mild exp wheezing 02 sat 97% ra asthma exacerbation p- 57 y.o. female admitted 07/25/2018 for alcohol detox with crack cocaine dependence c/o sob x 2 days not relieved with neb txment and po prednisone. pmhx - hiv, asthma, cardiac murmur, depression, schizophrenia, bipolar. will transfer to [facility] er for further eval case endorsed to Dr. Jorgensen
[2018-07-27] MEDS: THIAMINE HCL 100 MG TABLET (FP) PO SCH (23:06)
[2018-07-28] MEDS: chlordiazePOXIDE 5 MG CAPSULE PO SCH ×2 (06:14→11:27)
--- NOTE | 2018-07-28 06:41 | PN ---
S Progress Note Note: RECEIVED ENDORSEMENT FROM DR. ALLEN ER CLIENT HAS BEEN CLEARED TO RETURN AFTER SEVERAL HOURS OF MONITORING CXR- NO ACUTE PATHOLOGY-COPD; MAITIANING O2 LEVELS ABOVE 94% STARTED ON Z PACK FOR PROPHYLAXIS P- CONT Z PACK DUONEB Q6 HOURS X24 THEN PRN
[2018-07-28] MEDS ORDERED: ALBUTEROL SO4 2.5/IPRATROPIUM 0.5 INH SOL 3 ML VIAL.NEB. NEB ONE (08:56)
[2018-07-28] MEDS: DIVALPROEX SODIUM 500 MG TABLET E.C. PO SCH ×2 (11:27→23:16)
[2018-07-28] MEDS: risperiDONE 2 MG TABLET PO SCH ×2 (11:27→23:17)
[2018-07-28] MEDS: PATIENT'S OWN MEDICATION (NON-FORMULARY) (Dolutegravir Sodium [Tivicay] 50 MG) PO SCH (12:53)
[2018-07-28] MEDS: ALBUTEROL SO4 2.5/IPRATROPIUM 0.5 INH SOL 3 ML VIAL.NEB. NEB SCH ×3 (12:53→22:16)
[2018-07-28] MEDS: predniSONE 20 MG TABLET (UD) PO SCH ×2 (12:54→22:13)
[2018-07-28] MEDS: PRENATAL VITAMINS W/ FOLIC ACID TABLET (FP) PO SCH (12:54)
[2018-07-28] MEDS: NICOTINE 7 MG/24 HOURS TOPICAL PATCH TD SCH (12:54)
[2018-07-28] MEDS: BUDESONIDE/FORMETEROL FUMARATE 160/4.5 mcg INHALER IH SCH ×2 (12:55→22:16)
--- NOTE | 2018-07-28 14:46 | PN ---
[facility] Progress Note (SOAP) Subjective: feeling better continue taking zithromax triple mary two more days mild tremor less sweating admitted smoking cigrettes and cocaine discuss negative consequences of nicotine and cocaine smoking with current pulmonary problems of asthma and copd Objective: 07/28/18 14:49 Vital Signs Temperature 96.7 F L 07/28/18 13:36 Pulse Rate 112 H 07/28/18 13:36 Respiratory Rate 18 07/28/18 13:36 Blood Pressure 100/61 07/28/18 13:36 O2 Sat by Pulse Oximetry (%) Laboratory Last Values WBC 4.6 K/mm3 (4.0-10.0) 07/26/18 07:00 RBC 4.56 M/mm3 (3.60-5.2) 07/26/18 07:00 Hgb 13.6 GM/dL (10.7-15.3) 07/26/18 07:00 Hct 41.0 % (32.4-45.2) 07/26/18 07:00 MCV 89.9 fl (80-96) 07/26/18 07:00 MCH 29.9 pg (25.7-33.7) 07/26/18 07:00 MCHC 33.3 g/dl (32.0-36.0) 07/26/18 07:00 RDW 15.9 % (11.6-15.6) H D 07/26/18 07:00 Plt Count 189 K/MM3 (134-434) 07/26/18 07:00 MPV 10.6 fl (7.5-11.1) 07/26/18 07:00 Sodium 143 mmol/L (136-145) 07/26/18 07:00 Potassium 3.9 mmol/L (3.5-5.1) 07/26/18 07:00 Chloride 106 mmol/L (98-107) 07/26/18 07:00 Carbon Dioxide 30 mmol/L (21-32) 07/26/18 07:00 Anion Gap 7 MMOL/L (8-16) L 07/26/18 07:00 BUN 12 mg/dL (7-18) 07/26/18 07:00 Creatinine 1.0 mg/dL (0.55-1.3) 07/26/18 07:00 Creat Clearance w eGFR 57.56 (>60) 07/26/18 07:00 Random Glucose 113 mg/dL (74-106) H 07/26/18 07:00 Calcium 8.3 mg/dL (8.5-10.1) L 07/26/18 07:00 Total Bilirubin 0.2 mg/dL (0.2-1) 07/26/18 07:00 AST 10 U/L (15-37) L 07/26/18 07:00 ALT 16 U/L (13-61) 07/26/18 07:00 Alkaline Phosphatase 86 U/L (45-117) 07/26/18 07:00 Total Protein 7.1 g/dl (6.4-8.2) 07/26/18 07:00 Albumin 3.3 g/dl (3.4-5.0) L 07/26/18 07:00 Urine Color Colorless 07/27/18 14:15 Urine Appearance Clear 07/27/18 14:15 Urine pH 9.0 (5.0-8.0) H D 07/27/18 14:15 Ur Specific [place] 1.006 (1.010-1.035) L 07/27/18 14:15 Urine Protein Negative (NEGATIVE) 07/27/18 14:15 Urine Glucose (UA) 3+ (NEGATIVE) H 07/27/18 14:15 Urine Ketones Negative (NEGATIVE) 07/27/18 14:15 Urine Blood Negative (NEGATIVE) 07/27/18 14:15 Urine Nitrite Negative (NEGATIVE) 07/27/18 14:15 Urine Bilirubin Negative (<2.0 mg/dL) 07/27/18 14:15 Urine Urobilinogen Negative mg/dL (0.2-1.0) 07/27/18 14:15 Ur Leukocyte Esterase Trace (NEGATIVE) 07/27/18 14:15 Urine WBC (Auto) 2 /hpf (3-5) 07/27/18 14:15 Urine RBC (Auto) <1 /hpf (0-3) 07/27/18 14:15 Ur Epithelial Cells Rare /HPF (FEW) 07/25/18 23:00 Urine Bacteria Few /hpf (NONE SEEN) 07/25/18 23:00 Valproic Acid 9.8 ug/ml (50-100) L 07/26/18 07:00 RPR Titer Reactive 1:1 (NONREACTIVE) H 07/26/18 07:00 T.pallidum Ab (MHA) Previously reactive (NONREACTIVE) 07/26/18 07:00 lab noted patient refuses x 1 nebulizer due to "I do not need it" ambulate to bathroom and eating meals independently Assessment: 07/28/18 14:50 mild withdrawal sx copd asthma 07/28/18 14:51 hiv 07/28/18 14:57 wheezing on expiration breathing ease and even no coughing no shortness of breath at this time Plan: continue detox continue zithromax two more days 500 mg patient [facility]
[2018-07-28] MEDS: guaiFENesin/D-METHORPHAN HB 10 ML UNIT-DOSE CUPS PO PRN (15:58)
[2018-07-28] MEDS: ALBUTEROL SO4 8 GM HFA INHALER IH PRN (15:59)
[2018-07-28] MEDS: chlordiazePOXIDE HCL 10 MG CAPSULE PO SCH ×2 (17:39→22:16)
[2018-07-28] MEDS: THIAMINE HCL 100 MG TABLET (FP) PO SCH (22:16)
[2018-07-28] MEDS: traZODone HCL 100 MG TABLET (FP) PO SCH (23:17)
[2018-07-28] MEDS: MONTELUKAST NA 10 MG TABLET PO SCH (23:18)
[2018-07-29] MEDS: chlordiazePOXIDE HCL 10 MG CAPSULE PO SCH (06:00)
[2018-07-29] MEDS: ALBUTEROL SO4 2.5/IPRATROPIUM 0.5 INH SOL 3 ML VIAL.NEB. NEB SCH (07:42)
[2018-07-29 09:17] VITALS: BP 122/80; PULSE 101; TEMP 97.9
[2018-07-29] MEDS ORDERED: AZITHROMYCIN 500 MG TABLET PO SCH (10:00)
--- NOTE | 2018-07-29 11:49 | DS ---
[facility] Detox Discharge Summary Admission Date: 07/25/18 Discharge Date: 07/29/18 - History Present History: Alcohol Dependence Additional Comments: 57 years old female admitted on 07/25/18 for alcohol withdrawal sx completed detox regimen after[facility] Pertinent Past History: patient insists to go home strong recommend 12 step community self help group - Physical Exam Results Vital Signs: Vital Signs Temperature 97.9 F 07/29/18 09:16 Pulse Rate 101 H 07/29/18 09:16 Respiratory Rate 17 07/29/18 09:16 Blood Pressure 122/80 07/29/18 09:16 O2 Sat by Pulse Oximetry (%) Pertinent Admission Physical Exam Findings: alcohol withdrawal sx Laboratory Last Values WBC 4.6 K/mm3 (4.0-10.0) 07/26/18 07:00 RBC 4.56 M/mm3 (3.60-5.2) 07/26/18 07:00 Hgb 13.6 GM/dL (10.7-15.3) 07/26/18 07:00 Hct 41.0 % (32.4-45.2) 07/26/18 07:00 MCV 89.9 fl (80-96) 07/26/18 07:00 MCH 29.9 pg (25.7-33.7) 07/26/18 07:00 MCHC 33.3 g/dl (32.0-36.0) 07/26/18 07:00 RDW 15.9 % (11.6-15.6) H D 07/26/18 07:00 Plt Count 189 K/MM3 (134-434) 07/26/18 07:00 MPV 10.6 fl (7.5-11.1) 07/26/18 07:00 Sodium 143 mmol/L (136-145) 07/26/18 07:00 Potassium 3.9 mmol/L (3.5-5.1) 07/26/18 07:00 Chloride 106 mmol/L (98-107) 07/26/18 07:00 Carbon Dioxide 30 mmol/L (21-32) 07/26/18 07:00 Anion Gap 7 MMOL/L (8-16) L 07/26/18 07:00 BUN 12 mg/dL (7-18) 07/26/18 07:00 Creatinine 1.0 mg/dL (0.55-1.3) 07/26/18 07:00 Creat Clearance w eGFR 57.56 (>60) 07/26/18 07:00 Random Glucose 113 mg/dL (74-106) H 07/26/18 07:00 Calcium 8.3 mg/dL (8.5-10.1) L 07/26/18 07:00 Total Bilirubin 0.2 mg/dL (0.2-1) 07/26/18 07:00 AST 10 U/L (15-37) L 07/26/18 07:00 ALT 16 U/L (13-61) 07/26/18 07:00 Alkaline Phosphatase 86 U/L (45-117) 07/26/18 07:00 Total Protein 7.1 g/dl (6.4-8.2) 07/26/18 07:00 Albumin 3.3 g/dl (3.4-5.0) L 07/26/18 07:00 Urine Color Colorless 07/27/18 14:15 Urine Appearance Clear 07/27/18 14:15 Urine pH 9.0 (5.0-8.0) H D 07/27/18 14:15 Ur Specific [place] 1.006 (1.010-1.035) L 07/27/18 14:15 Urine Protein Negative (NEGATIVE) 07/27/18 14:15 Urine Glucose (UA) 3+ (NEGATIVE) H 07/27/18 14:15 Urine Ketones Negative (NEGATIVE) 07/27/18 14:15 Urine Blood Negative (NEGATIVE) 07/27/18 14:15 Urine Nitrite Negative (NEGATIVE) 07/27/18 14:15 Urine Bilirubin Negative (<2.0 mg/dL) 07/27/18 14:15 Urine Urobilinogen Negative mg/dL (0.2-1.0) 07/27/18 14:15 Ur Leukocyte Esterase Trace (NEGATIVE) 07/27/18 14:15 Urine WBC (Auto) 2 /hpf (3-5) 07/27/18 14:15 Urine RBC (Auto) <1 /hpf (0-3) 07/27/18 14:15 Ur Epithelial Cells Rare /HPF (FEW) 07/25/18 23:00 Urine Bacteria Few /hpf (NONE SEEN) 07/25/18 23:00 Valproic Acid 9.8 ug/ml (50-100) L 07/26/18 07:00 RPR Titer Reactive 1:1 (NONREACTIVE) H 07/26/18 07:00 T.pallidum Ab (MHA) Previously reactive (NONREACTIVE) 07/26/18 07:00 lab noted - Treatment Hospital Course: Detox Protocol Followed, Detoxed Safely, Responded well, Discharged Condition Good, Rehab Referral Accepted Patient has Accepted a Rehab Referral to: [facility] - Medication Discharge Medications: Ambulatory Orders Divalproex [Depakote -] 500 mg PO BID #60 tablet.ec 05/02/18 Risperidone [Risperdal -] 2 mg PO BID #60 tablet 05/02/18 traZODone HCL [Desyrel -] 100 mg PO HS #30 tablet 05/02/18 Dolutegravir Sodium [Tivicay] 50 mg PO DAILY 07/25/18 Emtricitab/Rilpiviri/Tenof Ala [Odefsey Tablet] 1 each PO DAILY 07/25/18 Albuterol Sulfate Inhaler - [Ventolin HFA Inhaler -] 2 inh IH Q4H PRN #1 inhaler 07/28/18 Azithromycin [Zithromax] 500 mg PO DAILY #1 tablet 07/28/18 Budesonide/Formeterol Fumarate [SYMBICORT 160/4.5mcg -] 1 inh PO BID #1 inhaler 07/28/18 Montelukast Na [Singulair -] 10 mg PO HS #14 tablet 07/28/18 predniSONE [Deltasone -] 20 mg PO BID #7 tablet 07/28/18 - Diagnosis (1) Alcohol dependence with uncomplicated withdrawal Current Visit: Yes Status: Acute (2) HIV (human immunodeficiency virus infection) Current Visit: Yes Status: Chronic Qualifiers: HIV symptom status: unspecified Qualified Code(s): B20 - Human immunodeficiency virus [HIV] disease (3) Nicotine dependence Current Visit: Yes Status: Acute Qualifiers: Nicotine product type: cigarettes Substance use status: in withdrawal Qualified Code(s): F17.213 - Nicotine dependence, cigarettes, with withdrawal (4) Positive PPD Current Visit: Yes Status: Resolved (5) HIV (human immunodeficiency virus infection) Current Visit: Yes Status: Chronic Qualifiers: HIV symptom status: asymptomatic Qualified Code(s): Z21 - Asymptomatic human immunodeficiency virus [HIV] infection status (6) Syphilis Current Visit: Yes Status: Resolved - AMA Did Patient Leave Against Medical Advice: No
== END 2018-07-29 09:33 | disposition home or self-care (01) | DRG 774 ==
LOC: YASAS 12:22 → UNDOADMIN 13:30 → Y6N 13:30 → Y3N 17:10
PROVIDERS: ADMIT Neuromusculoskeletal Medicine & OMM; ATTEND Neuromusculoskeletal Medicine & OMM
PROC: HZ2ZZZZ Detoxification Services for Substance Abuse Treatment (ICD-10-PCS; principal; 2018-07-25)
DX: F10.230 Alcohol dependence with withdrawal, uncomplicated (principal); F14.20 Cocaine dependence, uncomplicated; F17.213 Nicotine dependence, cigarettes, with withdrawal; F25.9 Schizoaffective disorder, unspecified; B20 Human immunodeficiency virus [HIV] disease; J45.901 Unspecified asthma with (acute) exacerbation; J44.9 Chronic obstructive pulmonary disease, unspecified; R76.11 Nonspecific reaction to tuberculin skin test without active tuberculosis; Z86.19 Personal history of other infectious and parasitic diseases; Z86.69 Personal history of other diseases of the nervous system and sense organs
CPT/HCPCS: 36415; 80053; 80164; 81003; 81015; 85027; 86593; 86780; 93005; 93010; 94640

== ENCOUNTER 2018-07-27 23:42 | Emergency (ER) | payer OTHER ==
--- NOTE | 2018-07-28 00:29 | PDOC ---
History of Present Illness - General History Source: Patient Exam Limitations: No Limitations - History of Present Illness Initial Comments: 07/28/18 00:24 57 yr old woman current smoker of cigs, recent cocaine use (smoking 3 days ago) , etoh abuse(last use 3 days ago), schizophrenia, bipolar d/o, hx of syphilis, HIV+, transferred from [facility] for wheezing. She has been having "hot flashes", productive cough with white sputum and diarrhea. pt says she is compliant with her hiv meds, follows with maryanne mendieta at [facility], gets her viral load and cd4 tested q3mo, last time it was in may and she recalls the viral load to be undectable. not currently on any prophyactic antibiotics received the flu shot for this season, and has had the pna shot 4.5 yrs ago. denies chest pain, abdominal pain, chills, visual changes, headache. lives in an apartment with he [id number]. pt denies sick contacts. <Lilli Pitts - Last Filed: 07/28/18 03:42> <Leatha Yañez - Last Filed: 07/28/18 04:44> - General Chief Complaint: Wheezing Stated Complaint: WHEEZING Time Seen by Provider: 07/28/18 00:04 Past History - Past Medical History Anemia: Yes (Not on medication) Asthma: Yes (Pt is on MDI) Cancer: No Cardiac Disorders: Yes (heart murmur) CVA: No COPD: No CHF: No Dementia: No Diabetes: No GI Disorders: No Disorders: No HTN: No Hypercholesterolemia: No Kidney Stones: No Liver Disease: No Seizures: No Thyroid Disease: No - Surgical History Abdominal Surgery: No Appendectomy: No Cardiac Surgery: No Cholecystectomy: No Lung Surgery: No Neurologic Surgery: No Orthopedic Surgery: Yes (fx of left forearm in 1991) - Reproductive History PID: No - Suicide/Smoking/Psychosocial Hx Smoking History: Never smoked Have you smoked in the past 12 months: No Number of Cigarettes Smoked Daily: 3 If you are a former smoker, when did you quit?: 09/14/17 Cigars Per Day: 0 Information on smoking cessation initiated: No 'Breaking Loose' booklet given: 07/25/18 Hx Alcohol Use: No Drug/Substance Use Hx: No Substance Use Type: Alcohol, Cocaine Hx Substance Use Treatment: Yes <Lilli Pitts - Last Filed: 07/28/18 03:42> <YañezLeatha - Last Filed: 07/28/18 04:44> - Past Medical History Allergies/Adverse Reactions: Allergies Allergy/AdvReac Type Severity Reaction Status Date / Time benztropine mesylate Allergy Severe Hives Verified 07/27/18 23:53 [From Cogentin] ibuprofen Allergy Severe Hives Verified 07/27/18 23:53 Penicillins Allergy Severe Swelling Verified 07/27/18 23:53 haloperidol [From Haldol] Allergy Hives Verified 07/27/18 23:53 aripiprazole [From Abilify] AdvReac Severe Swelling Verified 07/27/18 23:53 Home Medications: Ambulatory Orders Albuterol Sulfate Inhaler - [Ventolin HFA Inhaler -] 2 inh IH Q4H PRN #1 inhaler 04/21/18 Montelukast Na [Singulair -] 10 mg PO HS #30 tablet 04/21/18 Divalproex [Depakote -] 500 mg PO BID #60 tablet.ec 05/02/18 Risperidone [Risperdal -] 2 mg PO BID #60 tablet 05/02/18 traZODone HCL [Desyrel -] 100 mg PO HS #30 tablet 05/02/18 Dolutegravir Sodium [Tivicay] 50 mg PO DAILY 07/25/18 Emtricitab/Rilpiviri/Tenof Ala [Odefsey Tablet] 1 each PO DAILY 07/25/18 Budesonide/Formeterol Fumarate [SYMBICORT 160/4.5mcg -] 1 inh PO BID 07/26/18 Respiratory Specific PMHX - Complaint Specific PMHX TB (Tuberculosis): No <Lilli Pitts - Last Filed: 07/28/18 03:42> Review of Systems - Review of Systems Constitutional: Yes: Other (intermittent hot flashes). No: Chills, Loss of Appetite, Malaise, Night Sweats, Weakness, Unintentional Wgt. Loss HEENTM: No: Throat Pain, Throat Swelling, Difficulty Swallowing, Mouth Swelling Respiratory: Yes: Cough, SOB with Exertion, Wheezing, Productive cough. No: Hemoptysis Cardiac (ROS): Yes: Symptoms Reported ABD/GI: Yes: Diarrhea. No: Difficulty Swallowing, Nausea, Poor Appetite, Poor Fluid Intake 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: Yes: Symptoms reported Endocrine: Yes: Symptoms Reported <Lilli Pitts - Last Filed: 07/28/18 03:42> *Physical Exam - Vital Signs Last Vital Signs Temp Pulse Resp BP Pulse Ox 97.7 F 104 H 20 109/70 95 07/27/18 23:53 07/27/18 23:53 07/27/18 23:53 07/27/18 23:53 07/27/18 23:53 - Physical Exam HEENT: positive: EOMI, JUANITO, Normal Voice, Pharynx Normal. negative: Pharyngeal Erythema, Tonsillar Erythema, Nasal Congestion, Rhinorrhea, Sinus Tenderness, Thrush Neck: positive: Supple. negative: Tender, Trachea midline, Stridor Respiratory/Chest: positive: Wheezing (b/l, worse on the right). negative: Chest Tender, Accessory Muscle Use Cardiovascular: positive: Regular Rhythm, Regular Rate. negative: Murmur Gastrointestinal/Abdominal: positive: Normal Bowel Sounds, Soft, Distended. 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 and b/l hip extension) <Lilli Pitts - Last Filed: 07/28/18 03:42> - Vital Signs Last Vital Signs Temp Pulse Resp BP Pulse Ox 98.1 F 107 H 18 117/89 96 07/28/18 04:05 07/28/18 04:05 07/28/18 04:05 07/28/18 04:05 07/28/18 04:05 <Leatha Yañez - Last Filed: 07/28/18 04:44> Moderate Sedation - Procedure Monitoring Vital Signs: Procedure Monitoring Vital Signs Temperature 97.7 F 07/27/18 23:53 Pulse Rate 104 H 07/27/18 23:53 Respiratory Rate 20 07/27/18 23:53 Blood Pressure 109/70 07/27/18 23:53 O2 Sat by Pulse Oximetry (%) 95 07/27/18 23:53 <Lilli Pitts - Last Filed: 07/28/18 03:42> - Procedure Monitoring Vital Signs: Procedure Monitoring Vital Signs Temperature 98.1 F 07/28/18 04:05 Pulse Rate 107 H 07/28/18 04:05 Respiratory Rate 18 07/28/18 04:05 Blood Pressure 117/89 07/28/18 04:05 O2 Sat by Pulse Oximetry (%) 96 07/28/18 04:05 <YañezLeatha - Last Filed: 07/28/18 04:44> ED Treatment Course - LABORATORY CBC & Chemistry Diagram: 07/28/18 02:58 07/28/18 02:58 - RADIOLOGY Radiology Studies Ordered: Category Date Time Status CHEST X-RAY PORTABLE* [RAD] Stat Radiology 07/28/18 00:08 Ordered <Lilli Pitts - Last Filed: 07/28/18 03:42> - LABORATORY CBC & Chemistry Diagram: 07/28/18 02:58 07/28/18 02:58 - ADDITIONAL ORDERS Additional order review: Laboratory Results 07/28/18 02:58 Sodium 137 Potassium 5.1 Chloride 100 Carbon Dioxide 28 Anion Gap 9 BUN 9 Creatinine 1.4 H Creat Clearance w eGFR 39.04 Random Glucose 398 H* Calcium 9.6 Phosphorus 1.6 L Magnesium 1.9 Total Bilirubin 0.1 L AST < 3 L ALT 17 Alkaline Phosphatase 96 Total Protein 7.9 Albumin 3.5 07/28/18 02:58 RBC 4.54 MCV 90.8 MCHC 34.0 RDW 16.0 H MPV 11.3 H Neutrophils % 84.6 H D Lymphocytes % 10.3 D Monocytes % 4.6 Eosinophils % 0.0 D Basophils % 0.5 - Medications Given in the ED: ED Medications Discontinued Medications Generic Name Dose Route Start Last Admin Trade Name Maggie PRN Reason Stop Dose Admin Albuterol/Ipratropium 1 amp 07/28/18 00:45 07/28/18 02:03 Duoneb - NEB 07/28/18 01:16 1 amp Q15M CHRISTAL Administration Azithromycin 500 mg/ Dextrose 250 mls @ 250 mls/hr 07/28/18 01:03 07/28/18 01 :05 IVPB 07/28/18 02:02 250 mls/hr ONCE ONE Administration Magnesium Sulfate 2 gm 07/28/18 01:05 07/28/18 01:05 Magnesium Sulfate IVPB 07/28/18 01:06 2 gm ONCE ONE Administration Methylprednisolone Sodium Succinate 60 mg 07/28/18 01:05 07/28/18 01:06 Solu-Medrol - IVPB 07/28/18 01:06 60 mg ONCE ONE Administration <Leatha Yañez - Last Filed: 07/28/18 04:44> Medical Decision Making - Medical Decision Making 07/28/18 00:29 57 yr old polysubstance user with current use, immunocompromised individual presenting with wheezing. she received prednisone and albuterol and singular at [facility] with some symptom relief but no full resolution. possible COPD exacerbation vs infection check chest xray for infiltrate/effusion radiographic finding of infectious process. r/o influenza currently 94% on room air, comfortably able to speak in full sentences has received 20mg prednisone po BID since 07/26/2018 07/28/18 00:42 duonebs x3 [id number] 07/28/18 01:08 as per pt when she has this much wheezing she always requires an admission with inpatient treatment, since she has not improved with current outpatient treatment, will treat with prednisone 60mg, magnesium 2gm, and azithromycin( last ekg 07/26/2018 with QTc 441) check cbc, cmp, mag, phos levels to work-up/evaluate symptoms once work-up returns, will microblog medsurg for admission 07/28/18 02:58 pt showed mild improvement with 1 tx of duonebs, will check cbc, mg, phos, cmp labs and place pt on ED obs to complete full treatment. potentially be tramsferred back to [facility] to complete z-mary if pulse ox improves with ordered treatment 07/28/18 03:43 pt will be placed under ED-Obs to complete treatment and re-evaluation post- txment, mircoblog sent to admitting [facility] to make aware of pt's status in ED. added 15mg po of librium at 5am to continue librium detox protocol pt can return to [facility] with z-mary <Lilli Pitts - Last Filed: 07/28/18 03:42> *DC/Admit/Observation/Transfer <Lilli Pitts - Last Filed: 07/28/18 03:42> - Discharge Dispostion Decision to Admit order: Yes <Leatha Yañez - Last Filed: 07/28/18 04:44> Diagnosis at time of Disposition: Acquired immune deficiency syndrome (AIDS) - Discharge Dispostion Condition at time of disposition: Stable
[2018-07-28] MEDS ORDERED: AZITHROMYCIN IVPB 500 MG in DEXTROSE 5%-WATER - 250 ML IVPB ONE (01:03)
[2018-07-28] MEDS ORDERED: MAGNESIUM SULF 50% (8.12 MEQ/2 ML-1 GM VIAL) IVPB ONE (01:05)
[2018-07-28] MEDS ORDERED: methylPREDNISolone NA SUCC 125 MG/2 ML VIAL IVPB ONE (01:05)
--- NOTE | 2018-07-28 01:16 | PDOC ---
Attending Attestation - Resident Resident Name: Lilli Pitts - ED Attending Attestation I have performed the following: I have examined & evaluated the patient, The case was reviewed & discussed with the resident, I agree w/resident's findings & plan, Exceptions are as noted - HPI HPI: 07/28/18 01:14 57-year-old female patient with history polysubstance abuse, schizophrenia, bipolar disorder, HIV sent from [address] [place] [address] for asthma exacerbation. The patient reports that she's been ill for a week. Patient has been taken prednisone since yesterday but has not noted any improvement symptoms. She reports that she still feeling wheezing. Typically she reports no she feels this way, she requires admission to the hospital. - Physicial Exam PE: 07/28/18 01:14 GENERAL: Awake, alert, and fully oriented, in no acute distress HEAD: No signs of trauma EYES: EOMI, sclera anicteric, conjunctiva clear ENT: Auricles normal inspection, hearing grossly normal, nares patent, Moist mucosa NECK: Normal ROM, supple LUNGS: Diffuse expiratory wheezing bilaterally. HEART: Regular rate and rhythm, normal S1 and S2, no murmurs, rubs or gallops ABDOMEN: Soft, nontender, normoactive bowel sounds. No guarding, no rebound. No masses EXTREMITIES: Normal range of motion, no edema. No clubbing or cyanosis. No cords, erythema, or tenderness NEUROLOGICAL: Cranial nerves II through XII grossly intact. Normal speech SKIN: Warm, Dry, normal turgor, no rashes or lesions noted. - Medical Decision Making 07/28/18 01:15 Vital Signs Temp Pulse Resp BP Pulse Ox 97.7 F 104 H 20 109/70 95 07/27/18 23:53 07/27/18 23:53 07/27/18 23:53 07/27/18 23:53 07/27/18 23:53 Patient is likely with asthma COPD exacerbation. Would likely with bronchitis. We'll obtain chest she will pneumonia. Labs, duonebs, steroids. Likely will need to initiate antibiotics. Admit.
[2018-07-28] MEDS ORDERED: ALBUTEROL SO4 2.5/IPRATROPIUM 0.5 INH SOL 3 ML VIAL.NEB. NEB ONE ×2 (01:24→01:51)
[2018-07-28] MEDS: ALBUTEROL SO4 2.5/IPRATROPIUM 0.5 INH SOL 3 ML VIAL.NEB. NEB SCH ×3 (01:41→02:03)
[2018-07-28] MEDS ORDERED: MAGNESIUM 1GM/D5W - 2 GM/200 ML IVPB IVPB ONE (01:52)
[2018-07-28] MEDS ORDERED: AZITHROMYCIN IVPB 500 MG/250 ML BAG IVPB ONE (01:52)
[2018-07-28] MEDS ORDERED: methylPREDNISolone NA SUCC 40 MG/1 ML VIAL ONE ×2 (01:52→01:53)
--- NOTE | 2018-07-28 02:22 | PDOC ---
*Physical Exam - Vital Signs Last Vital Signs Temp Pulse Resp BP Pulse Ox 97.7 F 104 H 20 109/70 95 07/27/18 23:53 07/27/18 23:53 07/27/18 23:53 07/27/18 23:53 07/27/18 23:53 ED Treatment Course - LABORATORY CBC & Chemistry Diagram: 07/28/18 02:58 07/28/18 02:58 - Medications Given in the ED: ED Medications Discontinued Medications Generic Name Dose Route Start Last Admin Trade Name Maggie PRN Reason Stop Dose Admin Albuterol/Ipratropium 1 amp 07/28/18 00:45 07/28/18 02:03 Duoneb - NEB 07/28/18 01:16 1 amp Q15M CHRSITAL Administration Medical Decision Making - Medical Decision Making 07/28/18 02:22 Pt signed out to me. She is here for cough and wheeze 07/28/18 02:47 Pt was sent from [facility]. She just got an IVand can finally get her IV meds and she will have basic labs sent. Pt will be evaluated throughout the night. She will be admitted to ED obs. 07/28/18 03:05 FLU NEGATIVE CXR LOOKS NORMAL 07/28/18 03:11 WBC normal; slight left shift 07/28/18 04:32 Pt will be admitted for 24 hrs obs, or until she turns a corner and starts sounding better and breathing easier. *DC/Admit/Observation/Transfer Diagnosis at time of Disposition: Acquired immune deficiency syndrome (AIDS) - Discharge Dispostion Condition at time of disposition: Stable - Referrals - Patient Instructions - Post Discharge Activity
[2018-07-28 03:06] LABS: BASO % 0.5 % (0-2.0); HEMATOCRIT 41.3 % (32.4-45.2); LYMPH % 10.3 % (8-40); MCH 30.9 pg (25.7-33.7); MEAN CELL VOLUME 90.8 fl (80-96); MEAN PLT VOLUME 11.3 fl (7.5-11.1); MONO % 4.6 % (3.8-10.2); NEUT % 84.6 % (42.8-82.8); PLATELET COUNT 227 K/MM3 (134-434); RBC 4.54 M/mm3 (3.60-5.2); WHITE BLOOD COUNT 8.5 K/mm3 (4.0-10.0)
[2018-07-28 03:48] LABS: ALBUMIN 3.5 g/dl (3.4-5.0); ALK PHOS 96 U/L (45-117); ANION GAP 9 MMOL/L (8-16); BILIRUBIN,TOTAL 0.1 mg/dL (0.2-1); BLOOD UREA NITROGEN 9 mg/dL (7-18); CALCIUM 9.6 mg/dL (8.5-10.1); CHLORIDE 100 mmol/L (98-107); CO2 28 mmol/L (21-32); CREATININE 1.4 mg/dL (0.55-1.3); MAGNESIUM 1.9 mg/dL (1.8-2.4); PHOSPHOROUS 1.6 mg/dL (2.5-4.9); POTASSIUM 5.1 mmol/L (3.5-5.1); SGOT/AST < 3 U/L (15-37); SGPT/ALT 17 U/L (13-61); SODIUM 137 mmol/L (136-145); TOT PROT 7.9 g/dl (6.4-8.2)
[2018-07-28 03:51] LABS: GLUCOSE,RANDOM 398 mg/dL (74-106)
[2018-07-28 04:06] VITALS: BP 117/89; PULSE 107; TEMP 98.1
[2018-07-28] MEDS ORDERED: chlordiazePOXIDE 5 MG CAPSULE ONE (04:34)
[2018-07-28] MEDS ORDERED: chlordiazePOXIDE 5 MG CAPSULE PO ONE (05:00)
[2018-07-28] MEDS ORDERED: ALBUTEROL SO4 2.5/IPRATROPIUM 0.5 INH SOL 3 ML VIAL.NEB. NEB PRN (05:12)
[2018-07-28] MEDS ORDERED: ALBUTEROL SO4 8 GM HFA INHALER IH PRN (05:12)
--- NOTE | 2018-07-28 05:28 | HP ---
CHIEF COMPLAINT: SOB/wheezing PCP: PCP at [facility] HISTORY OF PRESENT ILLNESS: 57 year old female hx of polysubstance abuse (cocaine, etoh, last use 3 days ago ), schizophrenia, bipolar disease, and HIV was brought to the hospital from [facility] detox for shortness of breath and wheezing noticed at their facility. Patient reports 3 day history of nonproductive and non-bloody diarrhea. Does not recall any other triggers. Received duonebs and steroids in the ED, feels a little better but reports that she does not feel well enough to return to [facility]. Reports midsternal chest tightness, worse when laying down and improved when sitting. Denies being intubated in the past but states that she has had asthma exacerbations in the past without any known triggers. Denies chest pain, abdominal pain, nausea, vomiting, fevers, chills. States that she is compliant with her HIV meds and that her viral load is undetectable last time she checked. ER course was notable for: (1) duonebs/steroids given (2) CXR clear (3) PAST MEDICAL HISTORY: as stated above PAST SURGICAL HISTORY: denies Social History: Smoking: every day Alcohol: frequent, last drink 3 days ago Drugs: cocaine use Family History: unknown Allergies benztropine mesylate [From Cogentin] Allergy (Severe, Verified 07/27/18 23:53) Hives ibuprofen Allergy (Severe, Verified 07/27/18 23:53) Hives Penicillins Allergy (Severe, Verified 07/27/18 23:53) Swelling haloperidol [From Haldol] Allergy (Verified 07/27/18 23:53) Hives aripiprazole [From Abilify] Adverse Reaction (Severe, Verified 07/27/18 23:53) Swelling HOME MEDICATIONS: Home Medications Medication Instructions Recorded Albuterol Sulfate Inhaler - 2 inh IH Q4H PRN #1 inhaler 04/21/18 [Ventolin HFA Inhaler -] Montelukast Na [Singulair -] 10 mg PO HS #30 tablet 04/21/18 Divalproex [Depakote -] 500 mg PO BID #60 tablet.ec 05/02/18 Risperidone [Risperdal -] 2 mg PO BID #60 tablet 05/02/18 traZODone HCL [Desyrel -] 100 mg PO HS #30 tablet 05/02/18 Dolutegravir Sodium [Tivicay] 50 mg PO DAILY 07/25/18 Emtricitab/Rilpiviri/Tenof Ala 1 each PO DAILY 07/25/18 [Odefsey Tablet] Budesonide/Formeterol Fumarate 1 inh PO BID 07/26/18 [SYMBICORT 160/4.5mcg -] REVIEW OF SYSTEMS CONSTITUTIONAL: Absent: fever, chills, diaphoresis, generalized weakness, malaise, loss of appetite, weight change HEENT: Absent: rhinorrhea, nasal congestion, throat pain, throat swelling, difficulty swallowing, mouth swelling, ear pain, eye pain, visual changes CARDIOVASCULAR: Absent: chest pain, syncope, palpitations, irregular heart rate, lightheadedness , peripheral edema RESPIRATORY: cough, shortness of breath Absent: dyspnea with exertion, orthopnea, wheezing, stridor, hemoptysis GASTROINTESTINAL: Absent: abdominal pain, abdominal distension, nausea, vomiting, diarrhea, constipation, melena, hematochezia GENITOURINARY: Absent: dysuria, frequency, urgency, hesitancy, hematuria, flank pain, genital pain MUSCULOSKELETAL: Absent: myalgia, arthralgia, joint swelling, back pain, neck pain SKIN: Absent: rash, itching, pallor HEMATOLOGIC/IMMUNOLOGIC: Absent: easy bleeding, easy bruising, lymphadenopathy, frequent infections ENDOCRINE: Absent: unexplained weight gain, unexplained weight loss, heat intolerance, cold intolerance NEUROLOGIC: Absent: headache, focal weakness or paresthesias, dizziness, unsteady gait, seizure, mental status changes, bladder or bowel incontinence PSYCHIATRIC: Absent: anxiety, depression, suicidal or homicidal ideation, hallucinations. PHYSICAL EXAMINATION Vital Signs - 24 hr 07/27/18 07/28/18 07/28/18 23:53 00:10 04:05 Temperature 97.7 F 98.0 F 98.1 F Pulse Rate 104 H Pulse Rate [ 102 H 107 H Left Radial] Respiratory 20 20 18 Rate Blood Pressure 109/70 Blood Pressure 110/72 117/89 [Right Arm] O2 Sat by Pulse 95 96 96 Oximetry (%) GENERAL: A&Ox3, no acute distress EYES: PERRLA, EOMI ENT: Moist mucus membranes NECK: No JVD LUNGS: CTA, mild expiratory wheezes noted on exam, poor air entry and poor inspiratory effort HEART: RRR, no murmurs ABDOMEN: Soft, nontender, BS present MUSCULOSKELETAL: No CVA Tenderness EXTREMITIES: 2+ pulses, no edema. NEUROLOGICAL: Cranial nerves II-XII intact. Laboratory Results - last 24 hr 07/28/18 07/28/18 07/28/18 02:14 02:58 02:58 WBC 8.5 RBC 4.54 Hgb 14.0 Hct 41.3 MCV 90.8 MCH 30.9 MCHC 34.0 RDW 16.0 H Plt Count 227 D MPV 11.3 H Absolute Neuts (auto) 7.1 Neutrophils % 84.6 H D Lymphocytes % 10.3 D Monocytes % 4.6 Eosinophils % 0.0 D Basophils % 0.5 Nucleated RBC % 0 Sodium 137 Potassium 5.1 Chloride 100 Carbon Dioxide 28 Anion Gap 9 BUN 9 Creatinine 1.4 H Creat Clearance w eGFR 39.04 Random Glucose 398 H* Calcium 9.6 Phosphorus 1.6 L Magnesium 1.9 Total Bilirubin 0.1 L AST < 3 L ALT 17 Alkaline Phosphatase 96 Total Protein 7.9 Albumin 3.5 Influenza A (Rapid) Negative Influenza B (Rapid) Negative ASSESSMENT/PLAN: 57 year old female hx of polysubstance abuse (cocaine, etoh, last use 3 days ago ), schizophrenia, bipolar disease, and HIV was brought to the hospital from [facility] detox for shortness of breath and wheezing #Shortness of breath: likely 2/2 asthma exacerbation -duonebs -prednisone 40mg likely 5 days and stop -continue home symbicort -continue home singulair -continue home ventolin PRN -CXR clear #EtOH abuse: patient was actively being detoxed at [facility] -continue librium 15mg for 2 doses -then start librium 10mg for 4 doses #Hyperglycemia: BG 398, could be in part steroid induced, but will treat with low dose SS - likely new DM diagnosis -patient insulin naive -BGM, ISS with low dose sliding scale -patient informed me that she would refuse insulin if offered, however for now will leave order placed -A1C ordered for this AM #Schizophrenia: chronic -continue risperidone #Bipolar dz: chronic -continue trazodone #FEN no standing fluids lytes normal diabetic diet #Prophylaxis heparin prophylaxis #Disposition admit obs, anticipate DC back to [facility] later today pending patient clinically improves Visit type - Emergency Visit Emergency Visit: Yes Care time: The patient presented to the Emergency Department on the above date and was hospitalized for further evaluation of their emergent condition. - New Patient This patient is new to me today: Yes Date on this admission: 07/28/18 - Critical Care Critical Care patient: No
[2018-07-28] MEDS ORDERED: chlordiazePOXIDE 5 MG CAPSULE PO SCH (06:00)
[2018-07-28] MEDS ORDERED: HEPARIN NA (PORCINE) 5,000 UNITS/ML 1ML VIAL SQ SCH ×2 (06:00→10:00)
[2018-07-28] MEDS ORDERED: SODIUM CHLORIDE 1,000 ML IV SCH (06:00)
--- NOTE | 2018-07-28 06:04 | PN ---
Teaching Attending Note Name of Resident: Cameron Foley ATTENDING PHYSICIAN STATEMENT I saw and evaluated the patient. I reviewed the resident's note and discussed the case with the resident. I agree with the resident's findings and plan as documented. SUBJECTIVE: patient is agitated and wants to leave refuses to stay, saying she feels fine OBJECTIVE: Lungs CTA good air entry tachycardic ASSESSMENT AND PLAN: 57 y/o f with HIV, chronic alcohol intake and newly diagnosed DM presented to the hospital with SOB and dyspnea associated with wheezing plan admit to observation managed for Asthma exacerbation patient is tachycardic with wheezing c/w prednisone 40mg daily c/w duonebs HIV - c/w ART patient is admitted to EDobs and wants to sign AMA CIWA - with librium protocol
--- NOTE | 2018-07-28 06:20 | PDOC ---
*Physical Exam - Vital Signs Last Vital Signs Temp Pulse Resp BP Pulse Ox 98.1 F 107 H 18 117/89 96 07/28/18 04:05 07/28/18 04:05 07/28/18 04:05 07/28/18 04:05 07/28/18 04:05 ED Treatment Course - LABORATORY CBC & Chemistry Diagram: 07/28/18 02:58 07/28/18 02:58 - ADDITIONAL ORDERS Additional order review: Laboratory Results 07/28/18 02:58 Sodium 137 Potassium 5.1 Chloride 100 Carbon Dioxide 28 Anion Gap 9 BUN 9 Creatinine 1.4 H Creat Clearance w eGFR 39.04 Random Glucose 398 H* Calcium 9.6 Phosphorus 1.6 L Magnesium 1.9 Total Bilirubin 0.1 L AST < 3 L ALT 17 Alkaline Phosphatase 96 Total Protein 7.9 Albumin 3.5 07/28/18 02:58 RBC 4.54 MCV 90.8 MCHC 34.0 RDW 16.0 H MPV 11.3 H Neutrophils % 84.6 H D Lymphocytes % 10.3 D Monocytes % 4.6 Eosinophils % 0.0 D Basophils % 0.5 - Medications Given in the ED: ED Medications Discontinued Medications Generic Name Dose Route Start Last Admin Trade Name Freq PRN Reason Stop Dose Admin Albuterol/Ipratropium 1 amp 07/28/18 00:45 07/28/18 02:03 Duoneb - NEB 07/28/18 01:16 1 amp Q15M CHRISTAL Administration Chlordiazepoxide HCl 15 mg 07/28/18 05:00 07/28/18 04:38 Librium - PO 07/28/18 05:01 15 mg ONCE ONE Administration Azithromycin 500 mg/ Dextrose 250 mls @ 250 mls/hr 07/28/18 01:03 07/28/18 01 :05 IVPB 07/28/18 02:02 250 mls/hr ONCE ONE Administration Magnesium Sulfate 2 gm 07/28/18 01:05 07/28/18 01:05 Magnesium Sulfate IVPB 07/28/18 01:06 2 gm ONCE ONE Administration Methylprednisolone Sodium Succinate 60 mg 07/28/18 01:05 07/28/18 01:06 Solu-Medrol - IVPB 07/28/18 01:06 60 mg ONCE ONE Administration Medical Decision Making - Medical Decision Making 07/28/18 06:19 Pt's pulsox is 94% on RA and she is feeling better and ambulating about the ER. She is medically cleared to return to [facility]. 07/28/18 06:20 Pt will need to continue Zpak. She received 1 dose of zithromax 500mg. She needs 2 more days of 500 zithromax to complete the tri pack. *DC/Admit/Observation/Transfer Diagnosis at time of Disposition: Acquired immune deficiency syndrome (AIDS), COPD exacerbation - Discharge Dispostion Disposition: HOME Condition at time of disposition: Stable Decision to Admit order: No Decision to Admit order Date/Time: Decision to Admit Order Category Date Time Status Decision to Admit to Hospital Routine Admission 07/28/18 04:44 Active - Referrals - Patient Instructions - Post Discharge Activity
[2018-07-28] MEDS ORDERED: INSULIN SLIDING SCALE (NOVOLOG) 1 VIAL SQ SCH (07:00)
[2018-07-28] MEDS ORDERED: DIVALPROEX SODIUM 500 MG TABLET E.C. PO SCH (10:00)
[2018-07-28] MEDS ORDERED: BUDESONIDE/FORMETEROL FUMARATE 160/4.5 mcg INHALER IH SCH (10:00)
[2018-07-28] MEDS ORDERED: ENOXAPARIN NA (PORCINE) 40 MG/0.4 ML DISP.SYRIN SQ SCH (10:00)
[2018-07-28] MEDS ORDERED: EMTRICITAB/RILPIVIRI/TENOF ALA (ODEFSEY) TABLET PO SCH (10:00)
[2018-07-28] MEDS ORDERED: predniSONE 20 MG TABLET (UD) PO SCH (10:00)
[2018-07-28] MEDS ORDERED: risperiDONE 2 MG TABLET PO SCH (10:00)
[2018-07-28] MEDS ORDERED: DOLUTEGRAVIR SODIUM 50 MG TABLET (NON-FORMULARY) PO SCH (10:00)
[2018-07-28] MEDS ORDERED: chlordiazePOXIDE HCL 10 MG CAPSULE PO SCH (17:00)
[2018-07-28] MEDS ORDERED: traZODone HCL 100 MG TABLET (FP) PO SCH (22:00)
[2018-07-28] MEDS ORDERED: MONTELUKAST NA 10 MG TABLET PO SCH (22:00)
== END 2018-07-28 06:49 | disposition home or self-care (01) ==
LOC: JER 23:42
PROC: 3E0F7GC Introduction of Other Therapeutic Substance into Respiratory Tract, Via Natural or Artificial Opening (ICD-10-PCS; principal; 2018-07-27)
PROC: 3E03329 Introduction of Other Anti-infective into Peripheral Vein, Percutaneous Approach (ICD-10-PCS; 2018-07-27)
PROC: 3E033GC Introduction of Other Therapeutic Substance into Peripheral Vein, Percutaneous Approach (ICD-10-PCS; 2018-07-27)
DX: B20 Human immunodeficiency virus [HIV] disease (principal); F10.10 Alcohol abuse, uncomplicated; F14.90 Cocaine use, unspecified, uncomplicated; F20.9 Schizophrenia, unspecified; A53.9 Syphilis, unspecified; F17.210 Nicotine dependence, cigarettes, uncomplicated
CPT/HCPCS: 36415; 71045-TC-FY; 80053; 83036; 83735; 84100; 85025; 87804; 99282-25

== ENCOUNTER 2018-10-01 09:56 | Inpatient (IN) | payer OTHER ==
--- NOTE | 2018-10-01 11:38 | HP ---
CIWA Score Nausea/Vomitin Muscle Tremors: 2 Anxiety: 2 Agitation: 2 Paroxysmal Sweats: 1-Minimal Palms Moist Orientation: 0-Oriented Tacttile Disturbances: 1-Very Mild Itch/Numbness Auditory Disturbances: 1-Very Mild Visual Disturbances: 0-None Headache: 2-Mild CIWA-Ar Total Score: 13 - Admission Criteria OASAS Guidelines: Admission for Medically Managed Detox: Requires at least one of the followin. CIWA greater than 12 2. Seizures within the past 24 hours 3. Delirium tremens within the past 24 hours 4. Hallucinations within the past 24 hours 5. Acute intervention needed for co occurring medical disorder 6. Acute intervention needed for co occurring psychiatric disorder 7. Severe withdrawal that cannot be handled at a lower level of care (continued vomiting, continued diarrhea, abnormal vital signs) requiring intravenous medication and/or fluids 8. Admission ROS S - HPI Chief Complaint: i need help to stop drinking alcohol and cocaine Allergies/Adverse Reactions: Allergies Allergy/AdvReac Type Severity Reaction Status Date / Time benztropine mesylate Allergy Severe Hives Verified 10/01/18 10:16 [From Cogentin] Penicillins Allergy Severe Swelling Verified 10/01/18 10:16 haloperidol [From Haldol] Allergy Hives Verified 10/01/18 10:16 aripiprazole [From Abilify] AdvReac Severe Swelling Verified 10/01/18 10:16 History of Present Illness: this 58 years old female with alcohol and cocaine dependence,seeking detox, withdrawal symptom, multiple admissions in detox,last treatment in [facility] 07/25/18 to 07/29/18 keep relapsing nicotine 3 cigarette would like nicotine patch 7 mgs/day hiv since 1985 on meds no medication with her asthma,copd longest sobriety 18 months plan to go to rehab after detox Exam Limitations: No Limitations - Ebola screening Have you traveled outside of the country in the last 21 days: No Have you had contact with anyone from an Ebola affected area: No Do you have a fever: No - Review of Systems Constitutional: Loss of Appetite, Malaise, Night Sweats, Changes in sleep, Weakness EENT: reports: Nose Congestion Respiratory: reports: No Symptoms reported, Other (asthma) Cardiac: reports: No Symptoms Reported GI: reports: Diarrhea, Nausea, Abdominal cramping : reports: No Symptoms Reported Musculoskeletal: reports: Back Pain, Muscle Pain Neuro: reports: Headache, Tremors Endocrine: reports: No Symptoms Reported Hematology: reports: No Symptoms Reported Psychiatric: reports: No Sypmtoms Reported, Judgement Intact, Mood/Affect Appropiate, Orientated x3, other (schizophrenia) Patient History - Patient Medical History Hx Anemia: Yes (Not on medication) Hx Asthma: Yes (Pt is on MDI) Hx Chronic Obstructive Pulmonary Disease (COPD): Yes (also on nebulizer) Hx Cancer: No Hx Cardiac Disorders: Yes (heart murmur) Hx Congestive Heart Failure: No Hx Hypertension: No Hx Hypercholesterolemia: No Hx Pacemaker: No HX Cerebrovascular Accident: No Hx Seizures: Yes (last 09/17) Hx Dementia: No Hx Diabetes: No Hx Gastrointestinal Disorders: No Hx Liver Disease: No Hx Genitourinary Disorders: No Hx Sexually Transmitted Disorders: No Hx Renal Disease (ESRD): No Hx Thyroid Disease: No Hx Human Immunodeficiency Virus (HIV): Yes (On Odefsey. Diagnosed 1985 , has no medication with her) Hx Hepatitis C: No Hx Depression: Yes Hx Suicide Attempt: No Hx Bipolar Disorder: Yes Hx Schizophrenia: Yes Other Medical History: no suicidal,no homicidal - Patient Surgical History Past Surgical History: Yes Hx Neurologic Surgery: No Hx Cataract Extraction: No Hx Cardiac Surgery: No Hx Lung Surgery: No Hx Breast Surgery: No Hx Breast Biopsy: No Hx Abdominal Surgery: No Hx Appendectomy: No Hx Cholecystectomy: No Hx Genitourinary Surgery: No Hx Section: No Hx Orthopedic Surgery: Yes (fx of left forearm in 1991) Hx Hysterectomy: No Other Surgical History: rt ear surgery, cut ear lobe Anesthesia Reaction: No - PPD History Previous Implant?: Yes Results: CXR negative - Reproductive History Patient is a Female of Child Bearing Age (11 -55 yrs old): No Last Menstrual Period: 10/04/13 Patient : No - Smoking Cessation Smoking history: Never smoked Have you smoked in the past 12 months: No Aproximately how many cigarettes per day: 3 If you are a former smoker, when did you quit?: 09/14/17 Cigars Per Day: 0 Hx Chewing Tobacco Use: No Initiated information on smoking cessation: Yes 'Breaking Loose' booklet given: 10/01/18 - Substance & Tx. History Hx Alcohol Use: Yes Hx Substance Use: Yes Substance Use Type: Alcohol, Cocaine Hx Substance Use Treatment: Yes ([facility] 07/25/18 to 07/29/18) - Substances abused Alcohol Substance route: Oral Frequency: Daily Amount used: 1 pt. vodka, 1 pt. bacardi, 8(16oz) beers Age of first use: 23 Date of last use: 10/01/18 Crack Substance route: Smoking Frequency: 1-2 times per week Amount used: $70 Age of first use: 23 Date of last use: 09/30/18 Family Disease History - Family Disease History Family Disease History: Heart Disease: Mother (SCHIZOPHRENIA, asthma,etoh/ cocaine), Other: Father (TB), Mother, Brother (SEIZURE), Sister (cocaine, crack) Admission Physical Exam S - Vital Signs Vital Signs: Vital Signs Temperature 98.7 F 10/01/18 11:46 Pulse Rate 90 10/01/18 11:46 Respiratory Rate 18 10/01/18 11:46 Blood Pressure 86/68 L 10/01/18 11:46 O2 Sat by Pulse Oximetry (%) - Physical General Appearance: Yes: Moderate Distress, Tremorous, Irritable, Sweating, Anxious HEENTM: Yes: Normal ENT Inspection, JUANITO, Pharynx Normal Respiratory: Yes: Lungs Clear, Normal Breath Sounds, No Respiratory Distress Neck: Yes: Within Normal Limits, Supple, Trachea in good position Breast: Yes: Within Normal Limits Cardiology: Yes: Within Normal Limits, Regular Rhythm, Regular Rate, S1, S2 Abdominal: Yes: Within Normal Limits, Normal Bowel Sounds, Non Tender, Flat Genitourinary: Yes: Within Normal Limits Back: Yes: Muscle Spasm Extremities: Yes: Tremors 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: Yes: supply coordinator II-XII NML intact, Fully Oriented, Alert, Motor Strength 5/5 Integumentary: Yes: Dry Lymphatic: Yes: Within Normal Limits - Diagnostic (1) Alcohol dependence with uncomplicated withdrawal Current Visit: No Status: Acute (2) Nicotine dependence Current Visit: No Status: Acute Qualifiers: Nicotine product type: cigarettes Substance use status: in withdrawal Qualified Code(s): F17.213 - Nicotine dependence, cigarettes, with withdrawal (3) Cocaine dependence Current Visit: No Status: Chronic Qualifiers: Substance use status: uncomplicated Qualified Code(s): F14.20 - Cocaine dependence, uncomplicated (4) HIV (human immunodeficiency virus infection) Current Visit: No Status: Chronic Qualifiers: HIV symptom status: unspecified Qualified Code(s): B20 - Human immunodeficiency virus [HIV] disease (5) Seizure Current Visit: No Status: Chronic (6) Syncope Current Visit: No Status: Suspected (7) Positive PPD Current Visit: No Status: Resolved (8) Schizophrenia Current Visit: No Status: Suspected Qualifiers: Schizophrenia type: unspecified Qualified Code(s): F20.9 - Schizophrenia, unspecified (9) Arthritis Current Visit: Yes Status: Acute (10) History of syphilis Current Visit: Yes Status: Acute Cleared for Admission S - Detox or Rehab [facility] Level of Care: Medically Managed Detox Regimen/Protocol: Librium Inpatient Rehab Admission - Rehab Decision to Admit Inpatient rehab admission?: No
[2018-10-01] MEDS ORDERED: METHOCARBAMOL 500 MG TABLET PO PRN (11:54)
[2018-10-01] MEDS ORDERED: MAG HYDROX/AL HYDROX/SIMETH 30 ML UNIT-DOSE CUP PO PRN (11:54)
[2018-10-01] MEDS ORDERED: MELATONIN 5 MG TABLETS PO PRN (11:54)
[2018-10-01] MEDS ORDERED: ACETAMINOPHEN 325 MG TABLET (FP) PO PRN ×2 (11:54)
[2018-10-01] MEDS ORDERED: hydrOXYzine PAMOATE 25 MG CAPSULE (FP) PO PRN (11:54)
[2018-10-01] MEDS ORDERED: MAGNESIUM HYDROX 2400MG/30ML ORAL SUSPENSION 30 ML CUP PO PRN (11:54)
[2018-10-01] MEDS ORDERED: BISMUTH SUBSALICYLATE 524 MG/30 ML UD PO PRN (11:54)
[2018-10-01] MEDS ORDERED: IBUPROFEN 400 MG TABLET (FP) PO PRN (11:54)
[2018-10-01] MEDS ORDERED: MENTHOL/PHENOL 1 EACH UD MM PRN (11:54)
[2018-10-01] MEDS ORDERED: chlordiazePOXIDE HCL 25 MG CAPSULE PO PRN (11:54)
[2018-10-01] MEDS ORDERED: MAGNESIUM CITRATE 300 ML BOTTLE PO PRN (11:54)
[2018-10-01] MEDS: chlordiazePOXIDE HCL 25 MG CAPSULE PO SCH ×2 (17:38→22:20)
[2018-10-01] MEDS: THIAMINE HCL 100 MG TABLET (FP) PO SCH (22:20)
[2018-10-01] MEDS: MONTELUKAST NA 10 MG TABLET PO SCH (22:20)
[2018-10-01] MEDS: BUDESONIDE/FORMETEROL FUMARATE 160/4.5 mcg INHALER IH SCH (22:20)
[2018-10-01] MEDS: DIVALPROEX SODIUM 500 MG TABLET E.C. PO SCH (22:20)
[2018-10-02] MEDS: chlordiazePOXIDE HCL 25 MG CAPSULE PO SCH ×4 (05:52→22:30)
[2018-10-02] MEDS ORDERED: NICOTINE 7 MG/24 HOURS TOPICAL PATCH TD SCH (10:00)
[2018-10-02] MEDS ORDERED: PRENATAL VITAMINS W/ FOLIC ACID TABLET (FP) PO SCH (10:00)
[2018-10-02] MEDS: DIVALPROEX SODIUM 500 MG TABLET E.C. PO SCH ×2 (10:45→22:30)
[2018-10-02] MEDS: BUDESONIDE/FORMETEROL FUMARATE 160/4.5 mcg INHALER IH SCH ×2 (10:46→22:29)
[2018-10-02 12:29] LABS: HEMATOCRIT 40.2 % (32.4-45.2); MCH 29.1 pg (25.7-33.7); MCHC 32.2 g/dl (32.0-36.0); MEAN CELL VOLUME 90.5 fl (80-96); MEAN PLT VOLUME 10.6 fl (7.5-11.1); PLATELET COUNT 315 K/MM3 (134-434); RBC 4.45 M/mm3 (3.60-5.2); WHITE BLOOD COUNT 4.8 K/mm3 (4.0-10.0)
[2018-10-02 12:47] LABS: ALK PHOS 95 U/L (45-117); ANION GAP 6 MMOL/L (8-16); BILIRUBIN,TOTAL 0.2 mg/dL (0.2-1); BLOOD UREA NITROGEN 13 mg/dL (7-18); CALCIUM 7.8 mg/dL (8.5-10.1); CHLORIDE 105 mmol/L (98-107); CO2 28 mmol/L (21-32); GLUCOSE,RANDOM 103 mg/dL (74-106); POTASSIUM 4.4 mmol/L (3.5-5.1); SGOT/AST 7 U/L (15-37); SGPT/ALT 9 U/L (13-61); SODIUM 140 mmol/L (136-145); TOT PROT 6.6 g/dl (6.4-8.2)
--- NOTE | 2018-10-02 12:57 | CONSULT ---
[facility] Psychiatric Consult - Data Date of interview: 10/02/18 Admission source: [facility] Identifying data: This is one of multiple admissions to [facility] for this 58 y/ o AA female self-referred for detoxification treatment (alcohol, crack/cocaine) . Examined at [address] [place] [address]. patient is , a mother of four, domiciled, unemployed and supported on SSI benefits. Substance Abuse History: Confirmed by the patient in this interview, Details in current [facility] report vas follows : Smoking history: Never smoked. Have you smoked in the past 12 months: No. Aproximately how many cigarettes per day: 3. If you are a former smoker, when did you quit?: 09/14/17. Cigars Per Day: 0. Hx Chewing Tobacco Use: No. Initiated information on smoking cessation: Yes. ' Breaking Loose' booklet given: 10/01/18. - Substance & Tx. History. Hx Alcohol Use: Yes. Hx Substance Use: Yes. Substance Use Type: Alcohol, Cocaine. Hx Substance Use Treatment: Yes ([facility] 07/25/18 to 07/29/18). - Substances abused. Alcohol. Substance route: Oral. Frequency: Daily. Amount used: 1 pt. vodka, 1 pt. bacardi, 8(16oz) beers. Age of first use: 23. Date of last use: 10/01/18. Crack. Substance route: Smoking. Frequency: 1- 2 times per week. Amount used: $70. Age of first use: 23. Date of last use: 09/30/18 Medical History: Consistent with HIV infection since 1985 (on ART medications), obesity, bronchial asthma, COPD, withdrawal-related seizures, anemia, heart murmur and a history of orthosurgery (left forearm in 1991 + right arm in 1986) and surgical repair of laceration of right ear lobe. Additional history of syphilis. Psychiatric History: Patient endorses a history of multiple psychiatric hospitalizations since onset of emotional disturbance at age 17 and first psychiatric meltdown at age 27 (which led to first commitment to a psychiatric inpatient service). Patient is known to several institutions ([facility], [facility], [facility]). Diagnosed with Schizoaffective Disorder. Ms Biswas sees a psychiatrist, on a monthly basis, at the [facility] clinic. Current psychotropic medications consist of risperidone 2 mg/day + depakote 500 mg/bid + trazodone 100 mg/hs. Patient denies history of suicide attempts. Physical/Sexual Abuse/Trauma History: Trauma : witnessed the sudden of biological father, victim of myocardial infarction (patient was a child at the time). Additional Comment: Toxicology not available. Mental Status Exam - Mental Status Exam Alert and Oriented to: Time, Place, Person Cognitive Function: Good Patient Appearance: Well Groomed (short stature, obese, edentulous) Mood: Hopeful Affect: Appropriate, Normal Range Patient Behavior: Fatigued, Talkative, Appropriate, Cooperative Speech Pattern: Clear, Appropriate Voice Loudness: Normal Thought Process: Intact, Goal Oriented Thought Disorder: Not Present Hallucinations: Denies Suicidal Ideation: Denies Homicidal Ideation: Denies Insight/Judgement: Poor Sleep: Poorly, Difficulty falling asleep Appetite: Good Muscle strength/Tone: Normal Gait/Station: Normal Psychiatric Findings - Problem List ([place] 1, 2,3) (1) Alcohol dependence with uncomplicated withdrawal Status: Acute (2) Cocaine dependence Status: Chronic Qualifiers: Substance use status: uncomplicated Qualified Code(s): F14.20 - Cocaine dependence, uncomplicated (3) Nicotine dependence Status: Chronic Qualifiers: Nicotine product type: cigarettes Substance use status: in withdrawal Qualified Code(s): F17.213 - Nicotine dependence, cigarettes, with withdrawal (4) Schizoaffective disorder Status: Chronic Qualifiers: Schizoaffective disorder type: unspecified Qualified Code(s): F25.9 - Schizoaffective disorder, unspecified Comment: History. (5) Insomnia Status: Chronic Qualifiers: Insomnia type: unspecified Qualified Code(s): G47.00 - Insomnia, unspecified - Initial Treatment Plan Initial Treatment Plan: Psychiatric evaluation is conducted with medical students in attendance. Psychoeducation. Sleep hygiene. Support. Groups. AA meetings. Relapse prevention (MAT) : discussed with the patient. Contact made with pharmacist (Amada Ramirez at [phone]) for verification of medications. Confirmed depakote 500 mg po bid + trazodone 100 mg po hs but risperdal (2 mg po daily) has not been picked up since June 2018. Will resume depakote and trazodone as previously indicated; risperdal will be prescribed as 1 mg po bid. Side effects/benefits of these three formulations are discussed with the patient. Ms Biswas is made aware of the risk of liver dysfunction, blood dyscrasias, hair loss, polycystic ovary syndrome, EPS, cardiovascular adverse events, dyskinesias, akathisia and neuroleptic malignant syndrome. She endorses hsitory of good tolerability to this regimen and she insists on its inclusion in the current protocol. Consent (verbal) granted to MD. Will obtain valproic acid level. Observation.
--- NOTE | 2018-10-02 13:40 | PN ---
S CIWA - CIWA Score Nausea/Vomitin-Mild Nausea/No Vomiting Muscle Tremors: 1-None Visible, but [place] Agitation: 1-Slight > Activity Paroxysmal Sweats: No Perspiration Orientation: 0-Oriented Tacttile Disturbances: 0-None Auditory Disturbances: 0-None Visual Disturbances: 0-None Headache: 0-None Present S Progress Note (SOAP) Subjective: pt states she is fine- on alcohol detox protocol day #3 to be last dose tomorrow O Vital Signs - 24 hr 10/01/18 10/01/18 10/02/18 18:08 21:41 00:30 Temperature 99 F 97.9 F Pulse Rate 96 H 84 Respiratory 18 18 18 Rate Blood Pressure 105/75 86/59 L 10/02/18 10/02/18 10/02/18 03:30 06:18 06:30 Temperature 98.2 F Pulse Rate 56 L Respiratory 18 18 18 Rate Blood Pressure 91/67 10/02/18 11:07 Temperature 97.4 F L Pulse Rate 89 Respiratory 18 Rate Blood Pressure 122/90 Laboratory Tests 10/02/18 10/02/18 07:00 07:00 WBC 4.8 RBC 4.45 Hgb 13.0 Hct 40.2 MCV 90.5 MCH 29.1 MCHC 32.2 RDW 17.0 H Plt Count 315 D MPV 10.6 Sodium 140 Potassium 4.4 Chloride 105 Carbon Dioxide 28 Anion Gap 6 L BUN 13 Creatinine 1.0 Creat Clearance w eGFR 57.35 Random Glucose 103 Calcium 7.8 L Total Bilirubin 0.2 AST 7 L ALT 9 L Alkaline Phosphatase 95 Total Protein 6.6 Albumin 3.0 L a/p: alcohol detox protocol- pt doing well, continue this protocol
[2018-10-02] MEDS: ALBUTEROL SO4 8 GM HFA INHALER IH PRN (20:24)
[2018-10-02] MEDS ORDERED: risperiDONE 1 MG TABLET (FP) PO SCH (22:00)
[2018-10-02] MEDS ORDERED: traZODone HCL 100 MG TABLET (FP) PO SCH (22:00)
[2018-10-02] MEDS: THIAMINE HCL 100 MG TABLET (FP) PO SCH (22:29)
[2018-10-02] MEDS: MONTELUKAST NA 10 MG TABLET PO SCH (22:30)
[2018-10-03] MEDS ORDERED: guaiFENesin/D-METHORPHAN HB 10 ML UNIT-DOSE CUPS PO PRN (01:02)
[2018-10-03] MEDS: ALBUTEROL SO4 8 GM HFA INHALER IH PRN (01:06)
[2018-10-03] MEDS: chlordiazePOXIDE HCL 25 MG CAPSULE PO SCH (05:44)
[2018-10-03 06:22] VITALS: BP 100/73; PULSE 89; TEMP 97.8
[2018-10-03 10:03] LABS: RPR REACTIVE 1:1 (NONREACTIVE)
[2018-10-03 10:04] LABS: TREPONEMA ANTIBODY PREVIOUSLY REACTIVE (NONREACTIVE)
[2018-10-03] MEDS ORDERED: chlordiazePOXIDE HCL 10 MG CAPSULE PO SCH (17:00)
[2018-10-03] MEDS ORDERED: chlordiazePOXIDE HCL 10 MG CAPSULE PO PRN (17:00)
--- NOTE | 2018-10-03 20:29 | PN ---
S CIWA - CIWA Score Nausea/Vomitin-No Nausea/No Vomiting Muscle Tremors: 3 Anxiety: 3 Agitation: 2 Paroxysmal Sweats: 2 Orientation: 0-Oriented Tacttile Disturbances: 0-None Auditory Disturbances: 1-Very Mild Visual Disturbances: 0-None Headache: 0-None Present CIWA-Ar Total Score: 11 [facility] Progress Note (SOAP) Subjective: Tremors, Anxious, Sweating. Objective: PATIENT A & O X 3, OBSERVED AMBULATING ON UNIT. IN NO ACUTE DISTRESS. Vital Signs Temperature 97.8 F 10/03/18 06:22 Pulse Rate 89 10/03/18 06:22 Respiratory Rate 20 10/03/18 06:22 Blood Pressure 100/73 10/03/18 06:22 O2 Sat by Pulse Oximetry (%) Laboratory Tests 10/02/18 10/02/18 10/02/18 07:00 07:00 07:00 WBC 4.8 RBC 4.45 Hgb 13.0 Hct 40.2 MCV 90.5 MCH 29.1 MCHC 32.2 RDW 17.0 H Plt Count 315 D MPV 10.6 Sodium 140 Potassium 4.4 Chloride 105 Carbon Dioxide 28 Anion Gap 6 L BUN 13 Creatinine 1.0 Creat Clearance w eGFR 57.35 Random Glucose 103 Calcium 7.8 L Total Bilirubin 0.2 AST 7 L ALT 9 L Alkaline Phosphatase 95 Total Protein 6.6 Albumin 3.0 L RPR Titer Reactive 1:1 H T.pallidum Ab (MHA) Previously reactive LABS NOTED. 10/03/18 20:26 Assessment: 10/03/18 20:28 WITHDRAWAL SYMPTOMS. HYPOCALCEMIA. 10/03/18 20:29 Plan: CONTINUE DETOX.
--- NOTE | 2018-10-03 20:32 | DS ---
[facility] Detox Discharge Summary Admission Date: 10/01/18 Discharge Date: 10/03/18 - History Present History: Alcohol Dependence, Cocaine Dependence Additional Comments: PATIENT REPORTS THAT SHE HAS A FAMILY EMERGENCY AND THAT SHE DOES NOT WISH TO REMAIN TO COMPLETE DETOX REGIMEN. RISKS OF LEAVING DETOX UNIT AGAINST MEDICAL ADVICE AND PRIOR TO COMPLETION OF DETOX REGIMEN EXPLAINED TO PATIENT. PATIENT ADVISED TO GO IMMEDIATELY TO NEAREST ER SHOULD ANY INTOLERABLE WITHDRAWAL / DETOX SYMPTOMS DEVELOP AT ANY TIME. PATIENT VERBALIZED UNDERSTANDING OF ALL INFORMATION / RECOMMENDATIONS PRESENTED TO HIM PRIOR TO DEPARTURE FROM DETOX UNIT. PATIENT DECLINED OFFER OF MEDICATION PRESCRIPTION FOR HOME MEDICATION AT TIME IN WHICH SHE LEFT DETOX, NOTING THAT HE CURRENTLY HAS ADEQUATE SUPPLIES OF ALL PRESCRIBED HOME MEDICATIONS AT HOME. PATIENT LEFT DETOX UNIT IN STABLE MEDICAL CONDITION. Pertinent Past History: History Of Anemia, Asthma, C.O.P.D., History of Heart Murmur, History of Seizures, H.I.V., Depression, Bipolar Disorder, Schizoaffective Disorder, Insomnia, History of Syphilis, Arthritis, History of Positive PPD, History Of Syncope, Nicotine Dependence. Admission RPR Noted To Be REACTIVE 1:1; [facility]-TP: PREVIOUSLY REACTIVE. Patient Reported History of Syphilis on Admission. - Physical Exam Results Vital Signs: Vital Signs Temperature 97.8 F 10/03/18 06:22 Pulse Rate 89 10/03/18 06:22 Respiratory Rate 20 10/03/18 06:22 Blood Pressure 100/73 10/03/18 06:22 O2 Sat by Pulse Oximetry (%) Pertinent Admission Physical Exam Findings: WITHDRAWAL SYMPTOMS. Laboratory Tests 10/02/18 10/02/18 10/02/18 07:00 07:00 07:00 WBC 4.8 RBC 4.45 Hgb 13.0 Hct 40.2 MCV 90.5 MCH 29.1 MCHC 32.2 RDW 17.0 H Plt Count 315 D MPV 10.6 Sodium 140 Potassium 4.4 Chloride 105 Carbon Dioxide 28 Anion Gap 6 L BUN 13 Creatinine 1.0 Creat Clearance w eGFR 57.35 Random Glucose 103 Calcium 7.8 L Total Bilirubin 0.2 AST 7 L ALT 9 L Alkaline Phosphatase 95 Total Protein 6.6 Albumin 3.0 L RPR Titer Reactive 1:1 H T.pallidum Ab ([facility]) Previously reactive LABS NOTED. - Treatment Hospital Course: Detox Protocol Followed, Detoxed Safely - Medication Discharge Medications: Ambulatory Orders Divalproex [Depakote -] 500 mg PO BID #60 tablet.ec 05/02/18 Risperidone [Risperdal -] 2 mg PO BID #60 tablet 05/02/18 traZODone HCL [Desyrel -] 100 mg PO HS #30 tablet 05/02/18 Dolutegravir Sodium [Tivicay] 50 mg PO DAILY 07/25/18 Emtricitab/Rilpiviri/Tenof Ala [Odefsey Tablet] 1 each PO DAILY 07/25/18 Albuterol Sulfate Inhaler - [Ventolin HFA Inhaler -] 2 inh IH Q4H PRN #1 inhaler 07/28/18 Budesonide/Formeterol Fumarate [SYMBICORT 160/4.5mcg -] 1 inh PO BID #1 inhaler 07/28/18 Montelukast Na [Singulair -] 10 mg PO HS #14 tablet 07/28/18 predniSONE [Deltasone -] 20 mg PO BID #7 tablet 07/28/18 - Diagnosis (1) Alcohol dependence with uncomplicated withdrawal Status: Acute (2) Arthritis Status: Acute (3) History of syphilis Status: Acute (4) HIV (human immunodeficiency virus infection) Status: Chronic Qualifiers: HIV symptom status: unspecified Qualified Code(s): B20 - Human immunodeficiency virus [HIV] disease (5) Nicotine dependence Status: Chronic Qualifiers: Nicotine product type: cigarettes Substance use status: in withdrawal Qualified Code(s): F17.213 - Nicotine dependence, cigarettes, with withdrawal (6) Seizure Status: Chronic (7) Schizophrenia Status: Suspected Qualifiers: Schizophrenia type: unspecified Qualified Code(s): F20.9 - Schizophrenia, unspecified (8) Syncope Status: Suspected (9) Positive PPD Status: Resolved (10) Insomnia Status: Chronic Qualifiers: Insomnia type: unspecified Qualified Code(s): G47.00 - Insomnia, unspecified (11) Schizoaffective disorder Status: Chronic Qualifiers: Schizoaffective disorder type: unspecified Qualified Code(s): F25.9 - Schizoaffective disorder, unspecified (12) Cocaine dependence Status: Chronic Qualifiers: Substance use status: uncomplicated Qualified Code(s): F14.20 - Cocaine dependence, uncomplicated - AMA Did Patient Leave Against Medical Advice: Yes (PT HAD FAMILY EMERGENCY AND DI NOT WISH TO COMPLETE DETOX REGIMEN.)
[2018-10-04] MEDS ORDERED: chlordiazePOXIDE HCL 10 MG CAPSULE PO SCH (17:00)
== END 2018-10-03 09:00 | disposition left against medical advice (07) | DRG 770 ==
LOC: YASAS 09:56 → Y3N 12:13
PROVIDERS: ADMIT Surgery; ATTEND Surgery
PROC: HZ2ZZZZ Detoxification Services for Substance Abuse Treatment (ICD-10-PCS; principal; 2018-10-01)
DX: F10.230 Alcohol dependence with withdrawal, uncomplicated (principal); F14.20 Cocaine dependence, uncomplicated; F17.213 Nicotine dependence, cigarettes, with withdrawal; F20.9 Schizophrenia, unspecified; F25.9 Schizoaffective disorder, unspecified; B20 Human immunodeficiency virus [HIV] disease; M19.90 Unspecified osteoarthritis, unspecified site; J44.9 Chronic obstructive pulmonary disease, unspecified; R76.11 Nonspecific reaction to tuberculin skin test without active tuberculosis; G47.00 Insomnia, unspecified; E83.51 Hypocalcemia; R01.1 Cardiac murmur, unspecified; E66.9 Obesity, unspecified; Z68.32 Body mass index [BMI] 32.0-32.9, adult; Z87.42 Personal history of other diseases of the female genital tract; Z86.69 Personal history of other diseases of the nervous system and sense organs; Z88.0 Allergy status to penicillin; Z88.8 Allergy status to other drugs, medicaments and biological substances
CPT/HCPCS: 36415; 80053; 85027; 86593; 86780; J2794

== ENCOUNTER 2018-11-05 13:27 | Inpatient (IN) | payer OTHER ==
[2018-11-05 17:33] VITALS: BMI 34.0
--- NOTE | 2018-11-05 18:37 | HP ---
CIWA Score Nausea/Vomitin Muscle Tremors: 3 Anxiety: 3 Agitation: 2 Paroxysmal Sweats: 1-Minimal Palms Moist Orientation: 0-Oriented Tacttile Disturbances: 0-None Auditory Disturbances: 0-None Visual Disturbances: 0-None Headache: 1-Very Mild CIWA-Ar Total Score: 12 - Admission Criteria OASAS Guidelines: Admission for Medically Managed Detox: Requires at least one of the followin. CIWA greater than 12 2. Seizures within the past 24 hours 3. Delirium tremens within the past 24 hours 4. Hallucinations within the past 24 hours 5. Acute intervention needed for co occurring medical disorder 6. Acute intervention needed for co occurring psychiatric disorder 7. Severe withdrawal that cannot be handled at a lower level of care (continued vomiting, continued diarrhea, abnormal vital signs) requiring intravenous medication and/or fluids 8. Patient presents the following: CIWA greater than 12 Admission Criteria Met: Admission criteria met Admission ROS [facility] Chief Complaint: alcohol detox 58 yo with h/o asthma/COPD, epilepsy, HIV, schizophrenia, bipolar. Pt was here for detox last month- pt left early b/c of in family. Pt states she relapsed within the week. Meds: odefsey, tivicay, depakote, respiradol, benadryl and trazodone for sleep. alcohol- 1 pint/day of vodka, beer- 6 pack 16 oz cocaine- $70/day denies BZO use Utox- pos for narendra, BZO DUR- no meds Allergies/Adverse Reactions: Allergies Allergy/AdvReac Type Severity Reaction Status Date / Time benztropine mesylate Allergy Severe Hives Verified 11/05/18 17:17 [From Cogentin] Penicillins Allergy Severe Swelling Verified 11/05/18 17:17 haloperidol [From Haldol] Allergy Hives Verified 11/05/18 17:17 aripiprazole [From Abilify] AdvReac Severe Swelling Verified 11/05/18 17:17 Exam Limitations: No Limitations - Ebola screening Have you traveled outside of the country in the last 21 days: No Have you had contact with anyone from an Ebola affected area: No Patient History - Patient Medical History Hx Anemia: Yes (Not on medication) Hx Asthma: Yes (Pt is on MDI) Hx Chronic Obstructive Pulmonary Disease (COPD): Yes (also on nebulizer) Hx Cancer: No Hx Cardiac Disorders: Yes (heart murmur) Hx Congestive Heart Failure: No Hx Hypertension: No Hx Hypercholesterolemia: No Hx Pacemaker: No HX Cerebrovascular Accident: No Hx Seizures: Yes (last 09/17) Hx Dementia: No Hx Diabetes: No Hx Gastrointestinal Disorders: No Hx Liver Disease: No Hx Genitourinary Disorders: No Hx Sexually Transmitted Disorders: No Hx Renal Disease (ESRD): No Hx Thyroid Disease: No Hx Human Immunodeficiency Virus (HIV): Yes (On Odefsey. Diagnosed 1985 , has no medication with her) Hx Hepatitis C: No Hx Depression: Yes Hx Suicide Attempt: No Hx Bipolar Disorder: Yes Hx Schizophrenia: Yes - Patient Surgical History Past Surgical History: Yes Hx Neurologic Surgery: No Hx Cataract Extraction: No Hx Cardiac Surgery: No Hx Lung Surgery: No Hx Breast Surgery: No Hx Breast Biopsy: No Hx Abdominal Surgery: No Hx Appendectomy: No Hx Cholecystectomy: No Hx Genitourinary Surgery: No Hx Section: No Hx Orthopedic Surgery: Yes (fx of left forearm in 1991) Hx Hysterectomy: No Other Surgical History: rt ear surgery, cut ear lobe Anesthesia Reaction: No - PPD History Documented Results: Positive w/o proof Results: CXR negative - Reproductive History Last Menstrual Period: 10/04/13 - Smoking Cessation Smoking history: Current every day smoker Have you smoked in the past 12 months: Yes Aproximately how many cigarettes per day: 3 Cigars Per Day: 0 Hx Chewing Tobacco Use: No Initiated information on smoking cessation: Yes 'Breaking Loose' booklet given: 11/05/18 - Substance & Tx. History Hx Alcohol Use: Yes Hx Substance Use: Yes Substance Use Type: Alcohol, Cocaine Hx Substance Use Treatment: Yes - Substances abused Alcohol Substance route: Oral Frequency: Daily Amount used: 1 pt. vodka, 1 pt. bacardi, 8(16oz) beers Age of first use: 23 Date of last use: 11/04/18 Crack Substance route: Smoking Frequency: 1-3 times last 30 days Amount used: $70 Age of first use: 23 Date of last use: 11/04/18 Family Disease History - Family Disease History Family Disease History: Heart Disease: Mother (SCHIZOPHRENIA, asthma,etoh/ cocaine), Other: Father (TB), Mother, Brother (SEIZURE), Sister (cocaine, crack) Admission Physical Exam BHS - Vital Signs Vital Signs: Vital Signs - 24 hr 11/05/18 17:29 Temperature 98.1 F Pulse Rate 78 Respiratory 16 Rate Blood Pressure 123/77 - Physical General Appearance: Yes: Within Normal Limits, Mild Distress, Intoxicated HEENTM: Yes: Within Normal Limits, Hearing grossly Normal, Normocephalic Respiratory: Yes: Within Normal Limits, Lungs Clear Neck: Yes: Within Normal Limits Cardiology: Yes: Within Normal Limits, Regular Rhythm, S1, S2 Abdominal: Yes: Within Normal Limits Back: Yes: Within Normal Limits Musculoskeletal: Yes: Within Normal Limits Extremities: Yes: Within Normal Limits - Diagnostic (1) Alcohol dependence with uncomplicated withdrawal Current Visit: No Status: Acute (2) COPD exacerbation Current Visit: No Status: Acute (3) Acquired immune deficiency syndrome (AIDS) Current Visit: No Status: Chronic (4) Seizure Current Visit: No Status: Chronic (5) Schizophrenia Current Visit: No Status: Suspected Qualifiers: Schizophrenia type: unspecified Qualified Code(s): F20.9 - Schizophrenia, unspecified (6) Positive PPD Current Visit: No Status: Resolved Breathalyzer - Breathalyzer Breathalyzer: 0.009 POC Urine test - Test device test lot number: [id number] Expiration date: 03/01/20 - Control test control: Yes Urine Drug Screen - Test Device Lot number: [id number] Expiration date: 05/31/20 - Control Is test valid?: Yes - Results Drug screen NEGATIVE: No Urine drug screen results: NARENDRA-Cocaine, BZO-Benzodiazepines Inpatient Rehab Admission - Rehab Decision to Admit Inpatient rehab admission?: No
[2018-11-05] MEDS ORDERED: IBUPROFEN 400 MG TABLET (FP) PO PRN (18:43)
[2018-11-05] MEDS ORDERED: BISMUTH SUBSALICYLATE 524 MG/30 ML UD PO PRN (18:43)
[2018-11-05] MEDS ORDERED: METHOCARBAMOL 500 MG TABLET PO PRN (18:43)
[2018-11-05] MEDS ORDERED: MAGNESIUM CITRATE 300 ML BOTTLE PO PRN (18:43)
[2018-11-05] MEDS ORDERED: MAG HYDROX/AL HYDROX/SIMETH 30 ML UNIT-DOSE CUP PO PRN (18:43)
[2018-11-05] MEDS ORDERED: MENTHOL/PHENOL 1 EACH UD MM PRN (18:43)
[2018-11-05] MEDS ORDERED: MAGNESIUM HYDROX 2400MG/30ML ORAL SUSPENSION 30 ML CUP PO PRN (18:43)
[2018-11-05] MEDS ORDERED: hydrOXYzine PAMOATE 25 MG CAPSULE (FP) PO PRN (18:43)
[2018-11-05] MEDS ORDERED: ACETAMINOPHEN 325 MG TABLET (FP) PO PRN ×2 (18:43)
[2018-11-05] MEDS ORDERED: chlordiazePOXIDE HCL 10 MG CAPSULE PO PRN (18:44)
[2018-11-05] MEDS ORDERED: ALBUTEROL SO4 8 GM HFA INHALER IH PRN (18:45)
[2018-11-05] MEDS ORDERED: chlordiazePOXIDE HCL 25 MG CAPSULE PO ONE (19:15)
[2018-11-05] MEDS ORDERED: DIVALPROEX SODIUM 250 MG TABLET E.C. ONE (21:47)
[2018-11-05] MEDS ORDERED: DIVALPROEX SODIUM 500 MG TABLET E.C. ONE (21:47)
[2018-11-05] MEDS ORDERED: MELATONIN 5 MG TABLETS PO PRN (22:00)
[2018-11-05] MEDS ORDERED: DIVALPROEX PO SCH (22:00)
[2018-11-05] MEDS: traZODone HCL 100 MG TABLET (FP) PO SCH (22:39)
[2018-11-05] MEDS: chlordiazePOXIDE HCL 25 MG CAPSULE PO SCH (22:39)
[2018-11-05] MEDS: diphenhydrAMINE HCL 25 MG CAPSULE (FP) PO SCH (22:39)
[2018-11-05] MEDS: DIVALPROEX 500 MG, DIVALPROEX 250 MG PO SCH (22:39)
[2018-11-05] MEDS: risperiDONE 2 MG TABLET PO SCH (22:40)
[2018-11-05] MEDS: THIAMINE HCL 100 MG TABLET (FP) PO SCH (22:40)
[2018-11-05] MEDS: BUDESONIDE/FORMETEROL FUMARATE 160/4.5 mcg INHALER IH SCH (22:41)
[2018-11-06] MEDS: chlordiazePOXIDE HCL 25 MG CAPSULE PO SCH ×2 (07:24→13:38)
[2018-11-06] MEDS ORDERED: DIVALPROEX SODIUM 500 MG TABLET E.C. ONE ×2 (09:38→21:34)
[2018-11-06] MEDS ORDERED: DIVALPROEX SODIUM 250 MG TABLET E.C. ONE ×2 (09:38→21:34)
--- NOTE | 2018-11-06 10:24 | PN ---
S CIWA - CIWA Score Nausea/Vomitin-No Nausea/No Vomiting Muscle Tremors: 3 Anxiety: 2 Agitation: 3 Paroxysmal Sweats: 3 Orientation: 0-Oriented Tacttile Disturbances: 0-None Auditory Disturbances: 0-None Visual Disturbances: 0-None Headache: 0-None Present CIWA-Ar Total Score: 11 BHS Progress Note (SOAP) Subjective: sweats shakes interrupted sleep tired Objective: 11/06/18 10:23 Vital Signs Temperature 98.2 F 11/06/18 10:02 Pulse Rate 100 H 11/06/18 10:02 Respiratory Rate 20 11/06/18 10:02 Blood Pressure 91/74 11/06/18 10:02 O2 Sat by Pulse Oximetry (%) labs pending aaox3 ambulating no acute distress Assessment: 11/06/18 10:23 withdrawal sx Plan: continue detox increase fluids pending labs
[2018-11-06] MEDS: BUDESONIDE/FORMETEROL FUMARATE 160/4.5 mcg INHALER IH SCH ×2 (10:44→22:52)
[2018-11-06] MEDS: risperiDONE 2 MG TABLET PO SCH ×2 (10:44→22:50)
[2018-11-06] MEDS: NICOTINE 7 MG/24 HOURS TOPICAL PATCH TD SCH (10:44)
[2018-11-06] MEDS: DIVALPROEX 500 MG, DIVALPROEX 250 MG PO SCH ×2 (10:44→22:49)
[2018-11-06] MEDS: PRENATAL VITAMINS W/ FOLIC ACID TABLET (FP) PO SCH (10:44)
[2018-11-06 12:36] LABS: ALBUMIN 3.3 g/dl (3.4-5.0); BILIRUBIN,TOTAL 0.4 mg/dL (0.2-1); CALCIUM 8.9 mg/dL (8.5-10.1); POTASSIUM 4.3 mmol/L (3.5-5.1); TOT PROT 7.2 g/dl (6.4-8.2)
[2018-11-06 12:46] LABS: HEMATOCRIT 43.6 % (32.4-45.2); HEMOGLOBIN 14.3 GM/dL (10.7-15.3); MCH 29.3 pg (25.7-33.7); MCHC 32.8 g/dl (32.0-36.0); MEAN CELL VOLUME 89.1 fl (80-96); MEAN PLT VOLUME 11.7 fl (7.5-11.1); PLATELET COUNT 281 K/MM3 (134-434); RBC 4.89 M/mm3 (3.60-5.2); RDW 18.1 % (11.6-15.6); WHITE BLOOD COUNT 4.5 K/mm3 (4.0-10.0)
[2018-11-06] MEDS: EMTRICITAB/RILPIVIRI/TENOF ALA (ODEFSEY) TABLET PO SCH (15:29)
[2018-11-06] MEDS: DOLUTEGRAVIR SODIUM 50 MG TABLET (NON-FORMULARY) PO SCH (15:30)
[2018-11-06 15:35] LABS: EPI CELLS 4.3 /HPF (0-5/HPF); URINE APPEARANCE CLOUDY; URINE BACTERIA 91.3 /hpf (NEGATIVE); URINE BILIRUBIN NEGATIVE (NEGATIVE); URINE CASTS 14 /lpf (0-8); URINE COLOR YELLOW; URINE GLUCOSE (UA) NEGATIVE (NEGATIVE); URINE KETONE NEGATIVE (NEGATIVE); URINE LEUK ESTERASE TRACE (NEGATIVE); URINE NITRITE NEGATIVE (NEGATIVE); URINE PROTEIN NEGATIVE (NEGATIVE); URINE RBC 2 /hpf (0-4); URINE UROBILINOGEN 0.2 mg/dL (0.2-1.0); URINE WBC 6 /hpf (0-5)
[2018-11-06 16:58] LABS: YEAST FEW (NEGATIVE)
--- NOTE | 2018-11-06 18:08 | CONSULT ---
[facility] Psychiatric Consult - Data Date of interview: 11/06/18 Admission source: [facility] Identifying data: Two visits at bedside. Patient refuses psychiatric interview. Nursing staff made aware.
[2018-11-06] MEDS: chlordiazePOXIDE 5 MG CAPSULE PO SCH (22:49)
[2018-11-06] MEDS: THIAMINE HCL 100 MG TABLET (FP) PO SCH (22:50)
[2018-11-06] MEDS: traZODone HCL 100 MG TABLET (FP) PO SCH (22:50)
[2018-11-06] MEDS: diphenhydrAMINE HCL 25 MG CAPSULE (FP) PO SCH (22:50)
[2018-11-07] MEDS: chlordiazePOXIDE 5 MG CAPSULE PO SCH ×2 (06:37→13:57)
[2018-11-07] MEDS ORDERED: DIVALPROEX SODIUM 500 MG TABLET E.C. ONE ×2 (09:15→21:12)
[2018-11-07] MEDS ORDERED: DIVALPROEX SODIUM 250 MG TABLET E.C. ONE ×2 (09:16→21:12)
[2018-11-07 09:39] LABS: RPR REACTIVE 1:1 (NONREACTIVE)
[2018-11-07 09:44] LABS: TREPONEMA ANTIBODY PREVIOUSLY REACTIVE (NONREACTIVE)
[2018-11-07] MEDS: DIVALPROEX 500 MG, DIVALPROEX 250 MG PO SCH ×2 (10:35→21:51)
[2018-11-07] MEDS: NICOTINE 7 MG/24 HOURS TOPICAL PATCH TD SCH (10:35)
[2018-11-07] MEDS: EMTRICITAB/RILPIVIRI/TENOF ALA (ODEFSEY) TABLET PO SCH (10:35)
[2018-11-07] MEDS: risperiDONE 2 MG TABLET PO SCH ×2 (10:35→21:51)
[2018-11-07] MEDS: PRENATAL VITAMINS W/ FOLIC ACID TABLET (FP) PO SCH (10:35)
[2018-11-07] MEDS: BUDESONIDE/FORMETEROL FUMARATE 160/4.5 mcg INHALER IH SCH ×2 (10:36→21:52)
[2018-11-07] MEDS: DOLUTEGRAVIR SODIUM 50 MG TABLET (NON-FORMULARY) PO SCH (10:36)
[2018-11-07 11:43] LABS: CREATININE 1.3 mg/dL (0.55-1.3)
[2018-11-07] MEDS ORDERED: traZODone HCL 50 MG TABLET (FP) PO PRN (12:03)
--- NOTE | 2018-11-07 12:08 | PN ---
S CIWA - CIWA Score Nausea/Vomitin-No Nausea/No Vomiting Muscle Tremors: 1-None Visible, but [place] Anxiety: 1-Mildly Anxious Agitation: 1-Slight > Activity Paroxysmal Sweats: 1-Minimal Palms Moist Orientation: 0-Oriented Tacttile Disturbances: 0-None Auditory Disturbances: 0-None Visual Disturbances: 0-None Headache: 0-None Present CIWA-Ar Total Score: 4 BHS Progress Note (SOAP) Subjective: sleepy tired i dont want to take anymore librium Objective: 11/07/18 12:06 Vital Signs Temperature 97.7 F 11/07/18 09:23 Pulse Rate 97 H 11/07/18 09:23 Respiratory Rate 18 11/07/18 09:23 Blood Pressure 121/73 11/07/18 09:23 O2 Sat by Pulse Oximetry (%) Laboratory Tests 11/05/18 11/06/18 11/06/18 18:06 07:30 07:30 WBC 4.5 RBC 4.89 Hgb 14.3 Hct 43.6 MCV 89.1 MCH 29.3 MCHC 32.8 RDW 18.1 H Plt Count 281 MPV 11.7 H D Sodium 138 Potassium 4.3 Chloride 103 Carbon Dioxide 28 Anion Gap 8 BUN 10 Creatinine 1.3 Creat Clearance w eGFR 42.37 Est GFR (CKD-EPI)AfAm 53.11 Est GFR (CKD-EPI)NonAf 45.82 Random Glucose 137 H Calcium 8.9 Total Bilirubin 0.4 AST 17 ALT 20 Alkaline Phosphatase 76 Total Protein 7.2 Albumin 3.3 L Urine Color Urine Appearance Urine pH Ur Specific [place] Urine Protein Urine Glucose (UA) Urine Ketones Urine Blood Urine Nitrite Urine Bilirubin Urine Urobilinogen Ur Leukocyte Esterase Urine WBC (Auto) Urine RBC (Auto) Urine Casts (Auto) U Epithel Cells (Auto) Urine Bacteria (Auto) Urine Yeast (Auto) POC Urine HCG, Qual Negative RPR Titer T.pallidum Ab ([facility]) 11/06/18 11/06/18 07:30 10:00 WBC RBC Hgb Hct MCV MCH MCHC RDW Plt Count MPV Sodium Potassium Chloride Carbon Dioxide Anion Gap BUN Creatinine Creat Clearance w eGFR Est GFR (CKD-EPI)AfAm Est GFR (CKD-EPI)NonAf Random Glucose Calcium Total Bilirubin AST ALT Alkaline Phosphatase Total Protein Albumin Urine Color Yellow Urine Appearance Cloudy Urine pH 5.0 D Ur Specific [place] 1.015 Urine Protein Negative Urine Glucose (UA) Negative Urine Ketones Negative Urine Blood Negative Urine Nitrite Negative Urine Bilirubin Negative Urine Urobilinogen 0.2 Ur Leukocyte Esterase Trace Urine WBC (Auto) 6 Urine RBC (Auto) 2 Urine Casts (Auto) 14 U Epithel Cells (Auto) 4.3 Urine Bacteria (Auto) 91.3 Urine Yeast (Auto) Few POC Urine HCG, Qual RPR Titer Reactive 1:1 H T.pallidum Ab ([facility]) Previously reactive aaox3 lying in bed no acute distress Assessment: 11/07/18 12:07 mild withdrawal sx Plan: librium decreased trazadone decreased from 100mg to 50mg prn qhs increase fluids d/c in am
[2018-11-07] MEDS ORDERED: chlordiazePOXIDE HCL 10 MG CAPSULE PO PRN (21:00)
[2018-11-07] MEDS: THIAMINE HCL 100 MG TABLET (FP) PO SCH (21:51)
[2018-11-07] MEDS: chlordiazePOXIDE HCL 10 MG CAPSULE PO SCH (21:51)
[2018-11-07] MEDS: diphenhydrAMINE HCL 25 MG CAPSULE (FP) PO SCH (21:51)
[2018-11-08] MEDS: chlordiazePOXIDE HCL 10 MG CAPSULE PO SCH (05:53)
[2018-11-08 06:23] VITALS: BP 116/75; PULSE 100; TEMP 97.7
--- NOTE | 2018-11-08 08:25 | DS ---
[facility] Detox Discharge Summary Admission Date: 11/05/18 Discharge Date: 11/08/18 - History Present History: Alcohol Dependence, Cocaine Dependence - Physical Exam Results Vital Signs: Vital Signs Temperature 97.7 F 11/08/18 06:22 Pulse Rate 100 H 11/08/18 06:22 Respiratory Rate 18 11/08/18 06:22 Blood Pressure 116/75 11/08/18 06:22 O2 Sat by Pulse Oximetry (%) - Treatment Hospital Course: Detox Protocol Followed, Detoxed Safely, Responded well, Discharged Condition Good, Rehab Referral Accepted - Medication Discharge Medications: Ambulatory Orders Risperidone [Risperdal -] 2 mg PO BID #60 tablet 05/02/18 traZODone HCL [Desyrel -] 100 mg PO HS #30 tablet 05/02/18 Dolutegravir Sodium [Tivicay] 50 mg PO DAILY 07/25/18 Emtricitab/Rilpiviri/Tenof Ala [Odefsey Tablet] 1 each PO DAILY 07/25/18 Albuterol Sulfate Inhaler - [Ventolin HFA Inhaler -] 2 inh IH Q4H PRN #1 inhaler 07/28/18 Budesonide/Formeterol Fumarate [SYMBICORT 160/4.5mcg -] 1 inh PO BID #1 inhaler 07/28/18 Depakote 750 mg PO BID 11/05/18 Diphenhydramine [Benadryl -] 50 mg PO DAILY 11/05/18 - Diagnosis (1) Alcohol dependence with uncomplicated withdrawal Status: Chronic (2) Arthritis Status: Chronic (3) COPD exacerbation Status: Acute (4) Fall Status: Acute Qualifiers: (5) History of syphilis Status: Acute (6) Weight loss Status: Acute (7) Acquired immune deficiency syndrome (AIDS) Status: Chronic (8) Asthma Status: Chronic (9) Cocaine dependence in remission Status: Chronic (10) HIV (human immunodeficiency virus infection) Status: Chronic Qualifiers: HIV symptom status: asymptomatic Qualified Code(s): Z21 - Asymptomatic human immunodeficiency virus [HIV] infection status (11) Insomnia Status: Chronic Qualifiers: Insomnia type: unspecified Qualified Code(s): G47.00 - Insomnia, unspecified (12) Nicotine dependence Status: Chronic Qualifiers: Nicotine product type: cigarettes Substance use status: uncomplicated Qualified Code(s): F17.210 - Nicotine dependence, cigarettes, uncomplicated (13) PTSD (post-traumatic stress disorder) Status: Chronic (14) Paranoid schizophrenia Status: Chronic (15) Schizoaffective disorder, bipolar type Status: Chronic (16) Seizure Status: Chronic (17) Syncope Status: Suspected (18) Positive PPD Status: Resolved - AMA Did Patient Leave Against Medical Advice: No (pt declined rehab; pt went home.)
== END 2018-11-08 07:05 | disposition home or self-care (01) | DRG 774 ==
LOC: YASAS 13:27 → Y6N 18:58
PROVIDERS: ADMIT Surgery; ATTEND Surgery
PROC: HZ2ZZZZ Detoxification Services for Substance Abuse Treatment (ICD-10-PCS; principal; 2018-11-05)
DX: F10.220 Alcohol dependence with intoxication, uncomplicated (principal); F14.21 Cocaine dependence, in remission; F17.210 Nicotine dependence, cigarettes, uncomplicated; F20.0 Paranoid schizophrenia; F25.0 Schizoaffective disorder, bipolar type; F43.10 Post-traumatic stress disorder, unspecified; B20 Human immunodeficiency virus [HIV] disease; G47.00 Insomnia, unspecified; M19.90 Unspecified osteoarthritis, unspecified site; J44.9 Chronic obstructive pulmonary disease, unspecified; R76.11 Nonspecific reaction to tuberculin skin test without active tuberculosis; G40.909 Epilepsy, unspecified, not intractable, without status epilepticus; R01.1 Cardiac murmur, unspecified; Z88.0 Allergy status to penicillin; Z88.8 Allergy status to other drugs, medicaments and biological substances; Z87.42 Personal history of other diseases of the female genital tract
CPT/HCPCS: 36415; 80053; 81003; 81025; 85027; 86593; 86780

== ENCOUNTER 2018-12-24 14:53 | Inpatient (IN) | payer OTHER ==
[2018-12-24 18:19] VITALS: BMI 35.9
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
[2018-12-24] MEDS ORDERED: ALBUTEROL SO4 8 GM HFA INHALER IH PRN (20:06)
[2018-12-24] MEDS ORDERED: MENTHOL/PHENOL 1 EACH UD MM PRN (20:14)
[2018-12-24] MEDS ORDERED: MAGNESIUM HYDROX 2400MG/30ML ORAL SUSPENSION 30 ML CUP PO PRN (20:14)
[2018-12-24] MEDS ORDERED: ACETAMINOPHEN 325 MG TABLET (FP) PO PRN ×2 (20:14)
[2018-12-24] MEDS ORDERED: MELATONIN 5 MG TABLETS PO PRN (20:14)
[2018-12-24] MEDS ORDERED: BISMUTH SUBSALICYLATE 524 MG/30 ML UD PO PRN (20:14)
[2018-12-24] MEDS ORDERED: IBUPROFEN 400 MG TABLET (FP) PO PRN (20:14)
[2018-12-24] MEDS ORDERED: MAGNESIUM CITRATE 300 ML BOTTLE PO PRN (20:14)
[2018-12-24] MEDS ORDERED: MAG HYDROX/AL HYDROX/SIMETH 30 ML UNIT-DOSE CUP PO PRN (20:14)
[2018-12-24] MEDS ORDERED: chlordiazePOXIDE HCL 25 MG CAPSULE PO PRN (20:16)
[2018-12-24] MEDS ORDERED: diphenhydrAMINE HCL 25 MG CAPSULE (FP) PO ONE (21:14)
[2018-12-24] MEDS: diphenhydrAMINE HCL 50 MG CAPSULE PO SCH (21:21)
[2018-12-24] MEDS: THIAMINE HCL 100 MG TABLET (FP) PO SCH (21:21)
[2018-12-24] MEDS: DIVALPROEX SODIUM 250 MG TABLET E.C. PO SCH (21:21)
[2018-12-24] MEDS: BUDESONIDE/FORMETEROL FUMARATE 160/4.5 mcg INHALER IH SCH (21:22)
[2018-12-24] MEDS ORDERED: risperiDONE 2 MG TABLET PO ONE (22:00)
[2018-12-24] MEDS: chlordiazePOXIDE HCL 25 MG CAPSULE PO SCH (22:00)
[2018-12-24] MEDS ORDERED: traZODone HCL 100 MG TABLET (FP) PO ONE (22:00)
[2018-12-24] MEDS: BACITRACIN/POLYMYXIN B SULFATE 15 GM TUBE TP SCH (22:23)
[2018-12-25] MEDS: chlordiazePOXIDE HCL 25 MG CAPSULE PO SCH ×2 (05:35→10:34)
[2018-12-25 10:06] LABS: HEMATOCRIT 39.4 % (32.4-45.2); HEMOGLOBIN 12.7 GM/dL (10.7-15.3); MCH 29.9 pg (25.7-33.7); MCHC 32.3 g/dl (32.0-36.0); MEAN CELL VOLUME 92.3 fl (80-96); MEAN PLT VOLUME 11.1 fl (7.5-11.1); PLATELET COUNT 185 K/MM3 (134-434); RBC 4.27 M/mm3 (3.60-5.2); RDW 17.8 % (11.6-15.6); WHITE BLOOD COUNT 5.9 K/mm3 (4.0-10.0)
[2018-12-25 10:12] LABS: BILIRUBIN,TOTAL 0.5 mg/dL (0.2-1); BLOOD UREA NITROGEN 8.3 mg/dL (7-18); CALCIUM 8.7 mg/dL (8.5-10.1); POTASSIUM 4.3 mmol/L (3.5-5.1); TOT PROT 6.5 g/dl (6.4-8.2)
[2018-12-25] MEDS: BUDESONIDE/FORMETEROL FUMARATE 160/4.5 mcg INHALER IH SCH ×2 (10:32→22:11)
[2018-12-25] MEDS: DIVALPROEX SODIUM 250 MG TABLET E.C. PO SCH ×2 (10:32→22:12)
[2018-12-25] MEDS: PRENATAL VITAMINS W/ FOLIC ACID TABLET (FP) PO SCH (10:32)
[2018-12-25] MEDS: NICOTINE 7 MG/24 HOURS TOPICAL PATCH TD SCH (10:32)
[2018-12-25] MEDS: BACITRACIN/POLYMYXIN B SULFATE 15 GM TUBE TP SCH ×2 (10:32→22:12)
[2018-12-25] MEDS: DOLUTEGRAVIR SODIUM 50 MG TABLET (NON-FORMULARY) PO SCH (11:35)
[2018-12-25] MEDS: EMTRICITAB/RILPIVIRI/TENOF ALA (ODEFSEY) TABLET PO SCH (11:35)
[2018-12-25] MEDS ORDERED: chlordiazePOXIDE 5 MG CAPSULE PO PRN (12:26)
--- NOTE | 2018-12-25 12:59 | PN ---
S CIWA - CIWA Score Nausea/Vomitin-Mild Nausea/No Vomiting Muscle Tremors: 1-None Visible, but [place] Anxiety: 0-No Anxiety, at Ease Agitation: 1-Slight > Activity Paroxysmal Sweats: No Perspiration Orientation: 0-Oriented Tacttile Disturbances: 0-None Auditory Disturbances: 0-None Visual Disturbances: 0-None Headache: 0-None Present CIWA-Ar Total Score: 3 BHS Progress Note (SOAP) Subjective: pt is sleeping, easily arousable O: Vital Signs - 24 hr 12/24/18 12/24/18 12/25/18 18:06 21:41 00:30 Temperature 96.9 F L 97 F L Pulse Rate 82 Respiratory 16 18 18 Rate Blood Pressure 95/63 12/25/18 12/25/18 12/25/18 03:30 06:13 06:30 Temperature 99.0 F Pulse Rate 86 Respiratory 18 18 18 Rate Blood Pressure 106/77 12/25/18 09:09 Temperature 96.9 F L Pulse Rate 82 Respiratory 18 Rate Blood Pressure 105/65 Laboratory Tests 12/24/18 12/25/18 12/25/18 19:41 07:00 07:00 WBC 5.9 RBC 4.27 Hgb 12.7 Hct 39.4 MCV 92.3 MCH 29.9 MCHC 32.3 RDW 17.8 H Plt Count 185 D MPV 11.1 Sodium 142 Potassium 4.3 Chloride 107 Carbon Dioxide 29 Anion Gap 6 L BUN 8.3 Creatinine 1.0 Est GFR (CKD-EPI)AfAm 72.93 Est GFR (CKD-EPI)NonAf 62.93 Random Glucose 133 H Calcium 8.7 Total Bilirubin 0.5 AST 8 L ALT 10 L Alkaline Phosphatase 97 Total Protein 6.5 Albumin 3.0 L POC Urine HCG, Qual Negative low albumin a/p: will decrease dose of librium- with the combo of meds pt is currently taking- increased sleepiness, monitor
[2018-12-25 13:33] LABS: RPR REACTIVE 1:1 (NONREACTIVE)
--- NOTE | 2018-12-25 13:33 | CONSULT ---
[facility] Psychiatric Consult - Data Date of interview: 12/25/18 Admission source: [facility] Identifying data: Readmission to [facility] for this 58 y/o AA female self- referred for detoxification treatment (alcohol, crack/cocaine). Interviewed at [address] [place] [address]. Patient introduces self as being engaged, a mother of four, domiciled, unemployed and supported on SSI benefits. Substance Abuse History: Taken from [facility] report. Patient is moderately sedated. Details of substance abuse as follows : Smoking history: Current every day smoker. Have you smoked in the past 12 months: Yes. Aproximately how many cigarettes per day: 3. If you are a former smoker, when did you quit?: . Cigars Per Day: 0. Hx Chewing Tobacco Use: No. Initiated information on smoking cessation: No. - Substances abused. Alcohol. Substance route: Oral. Frequency: Daily. Amount used: 1 pt. vodka, 1 pt. bacardi, 8(16oz) beers. Age of first use: 23. Date of last use: 12/24/18. Crack. Substance route: Smoking. Frequency: 1-3 times last 30 days. Amount used: 50 dollars. Age of first use: 23. Date of last use: 12/23/18 Medical History: Remarkable for HIV infection since 1985 (on ART medications), obesity, bronchial asthma, COPD, withdrawal-related seizures, anemia, heart murmur and a history of orthosurgery (left forearm in 1991 + right arm in 1986) and surgical repair of laceration of right ear lobe. Additional history of syphilis. Information is extracted from records. Psychiatric History: Patient is moderately sedated. Able to provide basic information. 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 Presents with a history of multiple psychiatric hospitalizations. Onset of emotional disturbances : age 17. First psychiatric hospitalization occurred at age 27. Patient is known to several institutions ([facility], [facility], [facility]). Diagnosed with Schizoaffective Disorder. Ms Biswas is followed, on a monthly basis, at the [facility] OPD clinic (self-report). Managed on a regimen of risperidone + depakote + trazodone 100 mg/hs. No reported history of suicide attempts. Physical/Sexual Abuse/Trauma History: According to records, the patient was exposed, as a child, to the trauma of witnessing the of biological father from myocardial infarction. Additional Comment: Urine drug screen results: XENIA-Cocaine. Noted. Mental Status Exam - Mental Status Exam Alert and Oriented to: Place, Person Cognitive Function: Impaired Patient Appearance: Well Groomed Mood: Withdrawn Affect: Constricted Patient Behavior: Sedated, Fatigued, Cooperative (able to follow simple commands such as getting in the sitting position for the interview) Speech Pattern: Delayed, Slurred Voice Loudness: Moderately Soft/Quiet Thought Process: Disoriented (to time but oriented to place and person) Thought Disorder: Not Present (not elicited) Hallucinations: Denies (able to report absence of hallucinations) Suicidal Ideation: Denies Homicidal Ideation: Denies Insight/Judgement: Poor Sleep: Well Appetite: Good (as evidenced by empty foodtray at bedside) Gait/Station: Other (not observed; supine during interview ;) Psychiatric Findings - Problem List ([place] 1, 2,3) (1) Sedated due to medication Current Visit: Yes Status: Acute (2) Alcohol dependence with uncomplicated withdrawal Current Visit: Yes Status: Acute (3) Cocaine dependence Current Visit: Yes Status: Chronic Qualifiers: Substance use status: uncomplicated Qualified Code(s): F14.20 - Cocaine dependence, uncomplicated (4) Nicotine dependence Current Visit: Yes Status: Chronic Qualifiers: Nicotine product type: cigarettes Substance use status: uncomplicated Qualified Code(s): F17.210 - Nicotine dependence, cigarettes, uncomplicated (5) Schizoaffective disorder, bipolar type Current Visit: Yes Status: Chronic Comment: By history. - Initial Treatment Plan Initial Treatment Plan: Valproic acid level requested. Falls precautions. Close observation. Hold risperdal and trazodone. Will follow.
[2018-12-25 13:34] LABS: TREPONEMA ANTIBODY PREVIOUSLY REACTIVE (NONREACTIVE)
[2018-12-25] MEDS ORDERED: chlordiazePOXIDE HCL 25 MG CAPSULE PO SCH ×2 (17:00→23:00)
[2018-12-25] MEDS ORDERED: diphenhydrAMINE HCL 25 MG CAPSULE (FP) PO ONE (20:52)
[2018-12-25] MEDS: chlordiazePOXIDE 5 MG CAPSULE PO SCH (22:12)
[2018-12-25] MEDS: THIAMINE HCL 100 MG TABLET (FP) PO SCH (22:12)
[2018-12-25] MEDS: diphenhydrAMINE HCL 50 MG CAPSULE PO SCH (22:13)
[2018-12-26] MEDS: chlordiazePOXIDE 5 MG CAPSULE PO SCH ×3 (06:47→17:39)
[2018-12-26] MEDS: DIVALPROEX SODIUM 250 MG TABLET E.C. PO SCH ×2 (10:26→22:04)
[2018-12-26] MEDS: BUDESONIDE/FORMETEROL FUMARATE 160/4.5 mcg INHALER IH SCH ×2 (10:26→22:04)
[2018-12-26] MEDS: PRENATAL VITAMINS W/ FOLIC ACID TABLET (FP) PO SCH (10:26)
[2018-12-26] MEDS: DOLUTEGRAVIR SODIUM 50 MG TABLET (NON-FORMULARY) PO SCH (10:27)
[2018-12-26] MEDS: BACITRACIN/POLYMYXIN B SULFATE 15 GM TUBE TP SCH ×2 (10:27→22:05)
[2018-12-26] MEDS: EMTRICITAB/RILPIVIRI/TENOF ALA (ODEFSEY) TABLET PO SCH (10:27)
[2018-12-26] MEDS: NICOTINE 7 MG/24 HOURS TOPICAL PATCH TD SCH (10:30)
--- NOTE | 2018-12-26 16:00 | PN ---
[facility] CIWA - CIWA Score Nausea/Vomitin-No Nausea/No Vomiting Muscle Tremors: 3 Anxiety: 2 Agitation: 2 Paroxysmal Sweats: No Perspiration Orientation: 2-Disoriented Date<2 days Tacttile Disturbances: 0-None Auditory Disturbances: 0-None Visual Disturbances: 2-Mild Sensitivity Headache: 0-None Present CIWA-Ar Total Score: 11 S Progress Note (SOAP) Subjective: Diarrhea, Tremors, fatigue. Objective: PATIENT A & O X 2 (UNCERTAIN ABOUT CURRENT DAY / DATE). PATIENT OBSERVED AMBULATING ON UNIT UNASSISTED. IN NO ACUTE DISTRESS. 12/26/18 15:59 Vital Signs Temperature 98.7 F 12/26/18 13:13 Pulse Rate 72 12/26/18 13:13 Respiratory Rate 16 12/26/18 13:13 Blood Pressure 138/82 12/26/18 13:13 O2 Sat by Pulse Oximetry (%) Laboratory Tests 12/24/18 12/25/18 12/25/18 19:41 07:00 07:00 WBC 5.9 RBC 4.27 Hgb 12.7 Hct 39.4 MCV 92.3 MCH 29.9 MCHC 32.3 RDW 17.8 H Plt Count 185 D MPV 11.1 Sodium 142 Potassium 4.3 Chloride 107 Carbon Dioxide 29 Anion Gap 6 L BUN 8.3 Creatinine 1.0 Est GFR (CKD-EPI)AfAm 72.93 Est GFR (CKD-EPI)NonAf 62.93 Random Glucose 133 H Calcium 8.7 Total Bilirubin 0.5 AST 8 L ALT 10 L Alkaline Phosphatase 97 Total Protein 6.5 Albumin 3.0 L POC Urine HCG, Qual Negative Valproic Acid RPR Titer T.pallidum Ab (MHA) 12/25/18 12/26/18 07:00 06:00 WBC RBC Hgb Hct MCV MCH MCHC RDW Plt Count MPV Sodium Potassium Chloride Carbon Dioxide Anion Gap BUN Creatinine Est GFR (CKD-EPI)AfAm Est GFR (CKD-EPI)NonAf Random Glucose Calcium Total Bilirubin AST ALT Alkaline Phosphatase Total Protein Albumin POC Urine HCG, Qual Valproic Acid 76.5 RPR Titer Reactive 1:1 H T.pallidum Ab (MHA) Previously reactive LABS NOTED. Assessment: 12/26/18 15:59 WITHDRAWAL SYMPTOMS. HYPERGLYCEMIA. 12/26/18 15:59 Plan: CONTINUE DETOX. INCREASE DAILY PO WATER INTAKE. BGM ACBK FOR ELEVATED ADMISSION RANDOM GLUCOSE LEVEL.
[2018-12-26] MEDS ORDERED: diphenhydrAMINE HCL 25 MG CAPSULE (FP) PO ONE (21:21)
[2018-12-26] MEDS: THIAMINE HCL 100 MG TABLET (FP) PO SCH (22:04)
[2018-12-26] MEDS: chlordiazePOXIDE HCL 10 MG CAPSULE PO SCH (22:04)
[2018-12-26] MEDS: diphenhydrAMINE HCL 50 MG CAPSULE PO SCH (22:05)
[2018-12-26] MEDS ORDERED: chlordiazePOXIDE HCL 10 MG CAPSULE PO PRN (23:00)
[2018-12-27] MEDS: chlordiazePOXIDE HCL 10 MG CAPSULE PO SCH ×2 (06:15→10:13)
[2018-12-27 09:20] VITALS: BP 136/73; PULSE 78; TEMP 98.1
[2018-12-27] MEDS: EMTRICITAB/RILPIVIRI/TENOF ALA (ODEFSEY) TABLET PO SCH (10:13)
[2018-12-27] MEDS: BUDESONIDE/FORMETEROL FUMARATE 160/4.5 mcg INHALER IH SCH (10:13)
[2018-12-27] MEDS: PRENATAL VITAMINS W/ FOLIC ACID TABLET (FP) PO SCH (10:13)
[2018-12-27] MEDS: NICOTINE 7 MG/24 HOURS TOPICAL PATCH TD SCH (10:13)
[2018-12-27] MEDS: DOLUTEGRAVIR SODIUM 50 MG TABLET (NON-FORMULARY) PO SCH (10:13)
[2018-12-27] MEDS: DIVALPROEX SODIUM 250 MG TABLET E.C. PO SCH (10:13)
[2018-12-27] MEDS: BACITRACIN/POLYMYXIN B SULFATE 15 GM TUBE TP SCH (10:14)
--- NOTE | 2018-12-27 10:47 | DS ---
[facility] Detox Discharge Summary Admission Date: 12/24/18 Discharge Date: 12/27/18 - History Present History: Alcohol Dependence, Cocaine Dependence Additional Comments: Patient stable, follow up with primary care provider. - Physical Exam Results Vital Signs: Vital Signs Temperature 98.1 F 12/27/18 09:20 Pulse Rate 78 12/27/18 09:20 Respiratory Rate 18 12/27/18 09:20 Blood Pressure 136/73 12/27/18 09:20 O2 Sat by Pulse Oximetry (%) - Medication Discharge Medications: Ambulatory Orders Risperidone [Risperdal -] 2 mg PO BID #60 tablet 05/02/18 traZODone HCL [Desyrel -] 100 mg PO HS #30 tablet 05/02/18 Dolutegravir Sodium [Tivicay] 50 mg PO DAILY 07/25/18 Emtricitab/Rilpiviri/Tenof Ala [Odefsey Tablet] 1 each PO DAILY 07/25/18 Albuterol Sulfate Inhaler - [Ventolin HFA Inhaler -] 2 inh IH Q4H PRN #1 inhaler 07/28/18 Budesonide/Formeterol Fumarate [SYMBICORT 160/4.5mcg -] 1 inh PO BID #1 inhaler 07/28/18 Depakote 750 mg PO BID 11/05/18 Diphenhydramine [Benadryl -] 50 mg PO DAILY 11/05/18 - Diagnosis (1) Alcohol dependence with uncomplicated withdrawal Current Visit: Yes Status: Acute (2) Cocaine dependence Current Visit: Yes Status: Chronic Qualifiers: Substance use status: uncomplicated Qualified Code(s): F14.20 - Cocaine dependence, uncomplicated (3) Nicotine dependence Current Visit: Yes Status: Chronic Qualifiers: Nicotine product type: cigarettes Substance use status: uncomplicated Qualified Code(s): F17.210 - Nicotine dependence, cigarettes, uncomplicated (4) Arthritis Current Visit: No Status: Chronic (5) Asthma Current Visit: No Status: Chronic (6) HIV (human immunodeficiency virus infection) Current Visit: No Status: Chronic Qualifiers: HIV symptom status: asymptomatic Qualified Code(s): Z21 - Asymptomatic human immunodeficiency virus [HIV] infection status - AMA Did Patient Leave Against Medical Advice: Yes
[2018-12-27] MEDS ORDERED: chlordiazePOXIDE HCL 10 MG CAPSULE PO SCH (23:00)
== END 2018-12-27 11:00 | disposition left against medical advice (07) | DRG 770 ==
LOC: YASAS 14:53 → Y3N 20:42
PROVIDERS: ADMIT Surgery; ATTEND Surgery
PROC: HZ2ZZZZ Detoxification Services for Substance Abuse Treatment (ICD-10-PCS; principal; 2018-12-24)
DX: F10.230 Alcohol dependence with withdrawal, uncomplicated (principal); F14.20 Cocaine dependence, uncomplicated; F17.210 Nicotine dependence, cigarettes, uncomplicated; Z21 Asymptomatic human immunodeficiency virus [HIV] infection status; M12.9 Arthropathy, unspecified; D64.9 Anemia, unspecified; J44.9 Chronic obstructive pulmonary disease, unspecified; F25.0 Schizoaffective disorder, bipolar type; R40.4 Transient alteration of awareness; R73.9 Hyperglycemia, unspecified; Z86.19 Personal history of other infectious and parasitic diseases; Z88.0 Allergy status to penicillin; Z88.8 Allergy status to other drugs, medicaments and biological substances
CPT/HCPCS: 36415; 80053; 80164; 81025; 82962; 85027; 86593; 86780

== ENCOUNTER 2019-07-09 14:35 | Inpatient (IN) | payer OTHER ==
[2019-07-09 18:42] VITALS: BMI 32.8
--- NOTE | 2019-07-09 21:40 | HP ---
CIWA Score - Admission Criteria OASAS Guidelines: Admission for Medically Managed Detox: Requires at least one of the followin. CIWA greater than 12 2. Seizures within the past 24 hours 3. Delirium tremens within the past 24 hours 4. Hallucinations within the past 24 hours 5. Acute intervention needed for co occurring medical disorder 6. Acute intervention needed for co occurring psychiatric disorder 7. Severe withdrawal that cannot be handled at a lower level of care (continued vomiting, continued diarrhea, abnormal vital signs) requiring intravenous medication and/or fluids 8. Admitting History and Physical - Past Medical History ...LMP: 10/04/13 - Smoking History Smoking history: Current every day smoker Have you smoked in the past 12 months: Yes Aproximately how many cigarettes per day: 3 If you are a former smoker, when did you quit?: 09/14/17 - Alcohol/Substance Use Hx Alcohol Use: Yes Admission ROS S - HPI Chief Complaint: Here to change my lifestyle around. I'm tired of getting high. Allergies/Adverse Reactions: Allergies Allergy/AdvReac Type Severity Reaction Status Date / Time benztropine mesylate Allergy Severe Hives Verified 07/09/19 18:30 [From Cogentin] Penicillins Allergy Severe Swelling Verified 07/09/19 18:30 haloperidol [From Haldol] Allergy Hives Verified 07/09/19 18:30 aripiprazole [From Abilify] AdvReac Severe Swelling Verified 07/09/19 18:30 History of Present Illness: 58 yo referred for rehab from [facility] (). Seen in CPAP for c/o ' hearing voices' and discharged today and referred [facility]. Seen for suicidal ideation which she states was r/t combination of alcohol and cocaine. Called CPAP and spoke w/ Dr. Morgan who reports that EKG, done on 07/08/19 was NSR and that Valproic Acid Level was 16.0 No CD4 done. Medication recommendation from [facility]. ED/CPAP unit placed in chart. Hx: Seizures since .Last 6 months ago. Denies blackouts or overdoses Alcohol use since age 23. States has been drinking 1 pint liquor from 07/01/19 to 3 days ago. Last drink 3 day ago. Denies use today, despite elevated EVA. Cocaine use since age 23. Currently using $100 q3days. Last use 3 days ago. Nicotine use since age 18. : 2-3 cigs/day PMHx: HIV+; Asthma; COPD; (Last asthma exacerbation 2 weeks ago) PPD+; Heart murmur; Heart burn;Seizures (grand mal - States "gets a flashing light aura 5- 10 minutes before seizure") Has not take HIV meds for about 1 month. Encouraged to f/u w/ HIV/PCP upon discharge for revaluation of HIV status and medication needs. Patient verbalizes an understanding. . MHHx: Bipolar; Schizophrenia.Denies current thoughts of harming self or others. SHx: Lives w/ family. Unemployed. Denies legal issues. Search Terms: Abeba Biswas, 1960 Search Date: 07/09/2019 09:30:48 PM The Drug Utilization Report below displays all of the controlled substance prescriptions, if any, that your patient has filled in the last twelve months. The information displayed on this report is compiled from pharmacy submissions to the Department, and accurately reflects the information as submitted by the pharmacies. This report was requested by: Emiliana Maldonado | Reference #: [id number] There are no results for the search terms that you entered. Exam Limitations: No Limitations - Ebola screening Have you traveled outside of the country in the last 21 days: No (N) Have you had contact with anyone from an Ebola affected area: No Have you been sick,other than usual withdrawal symptoms: No Do you have a fever: No - Review of Systems Constitutional: Changes in sleep (Difficulty fallin asleep.) EENT: reports: Blurred Vision, Dental Problems (No teeth. Chews and swallows ok. ) Respiratory: reports: No Symptoms reported Cardiac: reports: Palpitations, Other (Heart murmur) GI: reports: Indigestion (Heart burn - not on meds) : reports: No Symptoms Reported Musculoskeletal: reports: Back Pain (Intermittent sharp low back pain. triggered by bending over or moving to fast, lifting heavy objects. Improves w/ [place], resting. No pain at this time.), Joint Pain (Achiness in all joints r/t arthritis.) Integumentary: reports: No Symptoms Reported Neuro: reports: No Symptoms reported, Seizure (Last seizure 6 months ago) Endocrine: reports: No Symptoms Reported Hematology: reports: Anemia (HIV+) Psychiatric: reports: Mood/Affect Appropiate, Orientated x3, Anxious, Depressed (Denies thought of harming self or others) Patient History - Patient Medical History Hx Anemia: Yes (Not on medication) Hx Asthma: No Hx Chronic Obstructive Pulmonary Disease (COPD): Yes Hx Cancer: No Hx Cardiac Disorders: No Hx Congestive Heart Failure: No Hx Hypertension: No Hx Hypercholesterolemia: No Hx Pacemaker: No HX Cerebrovascular Accident: No Hx Seizures: Yes (LAST ONE 08/20) Hx Dementia: No Hx Diabetes: No Hx Gastrointestinal Disorders: No Hx Liver Disease: No Hx Genitourinary Disorders: No Hx Sexually Transmitted Disorders: No Hx Renal Disease (ESRD): No Hx Thyroid Disease: No Hx Human Immunodeficiency Virus (HIV): Yes (On Odefsey. Diagnosed 1985 , has no medication with her) Hx Hepatitis C: No Hx Depression: No Hx Suicide Attempt: No Hx Bipolar Disorder: Yes Hx Schizophrenia: Yes - Patient Surgical History Past Surgical History: Yes Hx Neurologic Surgery: No Hx Cataract Extraction: No Hx Cardiac Surgery: No Hx Lung Surgery: No Hx Breast Surgery: No Hx Breast Biopsy: No Hx Abdominal Surgery: No Hx Appendectomy: No Hx Cholecystectomy: No Hx Genitourinary Surgery: No Hx Section: No Hx Orthopedic Surgery: Yes (fx of left forearm in 1991) Hx Hysterectomy: No Other Surgical History: rt ear surgery, cut ear lobe Anesthesia Reaction: No - PPD History Previous Implant?: Yes (Hx PPD + . Not medicated) Documented Results: Positive w/o proof Results: CXR negative PPD to be Administered?: No - Reproductive History Last Menstrual Period: 10/04/13 - Smoking Cessation Smoking history: Current every day smoker Have you smoked in the past 12 months: Yes Aproximately how many cigarettes per day: 3 Cigars Per Day: 0 Hx Chewing Tobacco Use: No Initiated information on smoking cessation: Yes 'Breaking Loose' booklet given: 07/09/19 - Substance & Tx. History Hx Alcohol Use: Yes Hx Substance Use: Yes Substance Use Type: Alcohol, Cocaine Hx Substance Use Treatment: Yes (detox, rehab, outpatient(not completed)) - Substances abused Alcohol Substance route: Oral Frequency: Daily Amount used: 1 pt. vodka, 1 pt. bacardi, 8(16oz) beers Age of first use: 23 Date of last use: 07/06/19 Crack Substance route: Smoking Frequency: 1-3 times last 30 days Amount used: 50 dollars Age of first use: 23 Date of last use: 07/06/19 Admission Physical Exam S - Vital Signs Vital Signs: Vital Signs - 24 hr 07/09/19 07/09/19 18:30 20:36 Temperature 98.9 F 98.9 F Pulse Rate 95 H 95 H Respiratory 18 18 Rate Blood Pressure 109/76 109/76 - Physical General Appearance: Yes: Nourished HEENTM: Yes: EOMI, Hearing grossly Normal, Normal ENT Inspection, Normocephalic , Normal Voice, JUANITO, Pharynx Normal Respiratory: Yes: Lungs Clear (Pulse Ox = 98 %), Normal Breath Sounds, No Respiratory Distress Neck: Yes: No masses,lesions,Nodules, Supple Breast: Yes: Breast Exam Deferred Cardiology: Yes: Regular Rhythm, Regular Rate, S1, S2, Murmur Abdominal: Yes: Non Tender, Soft, Increased Bowel Sounds, Protuberent ( Increased abd adiposity) Genitourinary: Yes: Within Normal Limits Back: Yes: Normal Inspection Musculoskeletal: Yes: full range of Motion, Gait Steady Extremities: Yes: Normal Capillary Refill, Tremors (Very mild) 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: Yes: 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 II-XII NML intact, Fully Oriented, Alert, Motor Strength 5/5 Integumentary: Yes: Normal Color, Dry, Warm Lymphatic: Yes: Within Normal Limits - Diagnostic (1) Alcohol use disorder, moderate, in early remission Current Visit: Yes Status: Acute (2) Cocaine use disorder, moderate, in early remission Current Visit: Yes Status: Acute (3) Nicotine dependence, unspecified, uncomplicated Current Visit: Yes Status: Chronic Qualifiers: Nicotine product type: cigarettes Qualified Code(s): F17.210 - Nicotine dependence, cigarettes, uncomplicated (4) Cardiac murmur Current Visit: Yes Status: Chronic (5) History of positive PPD, untreated Current Visit: Yes Status: Chronic (6) History of HIV infection Current Visit: Yes Status: Chronic Comment: Non-compliant w/ meds (7) History of seizure Current Visit: Yes Status: Chronic (8) History of asthma Current Visit: Yes Status: Chronic (9) History of arthritis Current Visit: Yes Status: Chronic (10) COPD (chronic obstructive pulmonary disease) Current Visit: Yes Status: Chronic Qualifiers: COPD type: unspecified COPD Qualified Code(s): J44.9 - Chronic obstructive pulmonary disease, unspecified (11) Obesity (BMI 30.0-34.9) Current Visit: Yes Status: Chronic (12) Heart burn Current Visit: Yes Status: Chronic Cleared for Admission [facility] - Detox or Rehab Claeared for Rehab Admission: Yes Breathalyzer - Breathalyzer Breathalyzer: 0.33 POC Urine test - Test device test lot number: [id number] Expiration date: 03/01/20 - Control test control: Yes Urine Drug Screen - Test Device Lot number: [id number] Expiration date: 01/28/21 - Control Is test valid?: Yes - Results Drug screen NEGATIVE: No Urine drug screen results: XENIA-Cocaine, BZO-Benzodiazepines Inpatient Rehab Admission - Rehab Decision to Admit Inpatient rehab admission?: Yes - Initial Determination Are CD services needed?: Yes Free of communicable disease: Yes Not in need of hospitalization: Yes - Rehab Admission Criteria Previous failed treatment: Yes Poor recovery environment: Yes Comorbidities: Yes Lacks judgement: No Patient is meeting Inpatient Rehab admission criteria:: Yes
[2019-07-09] MEDS ORDERED: NICOTINE POLACRILEX 2 MG GUM BUC PRN (22:14)
[2019-07-09] MEDS ORDERED: ACETAMINOPHEN 325 MG TABLET (FP) PO PRN (22:14)
[2019-07-09] MEDS ORDERED: MAGNESIUM HYDROX 2400MG/30ML ORAL SUSPENSION 30 ML CUP PO PRN (22:14)
[2019-07-09] MEDS ORDERED: P-EPHED 60MG/TRIPROLIDI 2.5MG TABLET PO PRN (22:14)
[2019-07-09] MEDS ORDERED: IBUPROFEN 400 MG TABLET (FP) PO PRN (22:14)
[2019-07-09] MEDS ORDERED: guaiFENesin 200 MG/10 ML 10 ML UNIT-DOSE CUPS PO PRN (22:14)
[2019-07-09] MEDS ORDERED: MAG HYDROX/AL HYDROX/SIMETH 30 ML UNIT-DOSE CUP PO PRN (22:14)
[2019-07-09] MEDS ORDERED: MENTHOL/PHENOL 1 EACH UD MM PRN (22:14)
[2019-07-09] MEDS ORDERED: LOPERAMIDE HCL 2 MG CAPSULE PO PRN (22:14)
[2019-07-09] MEDS ORDERED: MAGNESIUM CITRATE 300 ML BOTTLE PO PRN (22:14)
[2019-07-09] MEDS ORDERED: ALBUTEROL SO4 HFA INHALER IH PRN (22:17)
[2019-07-09] MEDS ORDERED: traZODone HCL 50 MG TABLET (FP) PO ONE (22:18)
[2019-07-10] MEDS: PANTOPRAZOLE 40 MG TABLET PO SCH (09:39)
[2019-07-10] MEDS: BUDESONIDE/FORMETEROL FUMARATE 160/4.5 mcg INHALER IH SCH ×2 (09:39→21:37)
[2019-07-10] MEDS: PRENATAL VITAMINS W/ FOLIC ACID TABLET (FP) PO SCH (09:39)
--- NOTE | 2019-07-10 10:33 | CONSULT ---
[facility] Psychiatric Consult - Data Date of interview: 07/10/19 Admission source: [facility] CPEP Identifying data: Ms Biswas is a 58 years old Black female, mother of 4 children, unemployed receiving SSI, domiciled referred from [facility] on for inpatient rehabilitation for alcohol and cocaine Substance Abuse History: Reports history of alcohol and cocaine use. Refer to addiction counselor's summary for further information Medical History: Significant for HIV infection since 1985, bronchial asthma/COPD , heart murmur, obesity, history of alcohol related seizure, anemia, treatment for syphilis, surgical repair for laceration of right ear lobe and orthosurgery for fracture left forearm in 1991). Smokes 3 cigarettes daily Psychiatric History: Patient is well known to this facility from multiple previous admissions. Historical narrative with exception of number of suicidal attempts remains fairly consistent. She reports that her first psychiatric contact was at age 8 precipitated by witnessing the of her father from a heart attack at age 7. Then she saw an outpatient psychiatrist at [facility], diagnosed with Schizoaffective and started on psychotropic medications. Reports multiple psychiatric hospitalizations to various facilities since. She is known to [facility], [facility] and most recently in 2019 to [facility]. Reports currently receiving outpatient psychiatric treatment at [facility] and she is prescribed Depakote 750 mg/bid, Risperdal 2 mg/bid, Trazadone 100 mg/hs and Benadryl 50 mg/ hs. Reports one previous suicidal attempt at age 17 via overdose on her psychotropic medications. During this interview, she reports one suicidal attempt. In past interview with copywriter, she reported two and none most recent encounters with other providers. At present, denies experiencing psychotic, manic or depressive symptoms, S/H ideations. However, reports sleeping poorly. Physical/Sexual Abuse/Trauma History: According to records, the patient was exposed, as a child, to the trauma of witnessing the of biological father from myocardial infarction. Mental Status Exam - Mental Status Exam Alert and Oriented to: Time, Place, Person Cognitive Function: Fair Patient Appearance: Well Groomed Mood: Hopeful, Euthymic Patient Behavior: Cooperative Speech Pattern: Clear Voice Loudness: Normal Thought Process: Intact, Goal Oriented Hallucinations: Denies Suicidal Ideation: Denies Homicidal Ideation: Denies Insight/Judgement: Fair Sleep: Poorly Appetite: Good Muscle strength/Tone: Normal Psychiatric Findings - Problem List ([place] 1, 2,3) (1) Schizoaffective disorder, bipolar type Current Visit: No Status: Chronic Comment: By history. (2) Substance-induced sleep disorder Current Visit: Yes Status: Acute (3) Alcohol dependence Current Visit: Yes Status: Acute (4) Cocaine dependence Current Visit: Yes Status: Acute (5) Nicotine dependence Current Visit: No Status: Chronic Qualifiers: Nicotine product type: cigarettes Substance use status: uncomplicated Qualified Code(s): F17.210 - Nicotine dependence, cigarettes, uncomplicated (6) COPD (chronic obstructive pulmonary disease) Current Visit: Yes Status: Chronic Qualifiers: COPD type: unspecified COPD Qualified Code(s): J44.9 - Chronic obstructive pulmonary disease, unspecified (7) History of asthma Current Visit: Yes Status: Chronic (8) Cardiac murmur Current Visit: Yes Status: Chronic (9) History of HIV infection Current Visit: Yes Status: Chronic Comment: Non-compliant w/ meds (10) History of arthritis Current Visit: Yes Status: Chronic (11) History of positive PPD, untreated Current Visit: Yes Status: Chronic (12) History of seizure Current Visit: Yes Status: Chronic (13) Obesity (BMI 30.0-34.9) Current Visit: Yes Status: Chronic - Initial Treatment Plan Initial Treatment Plan: 1) Continue Depakote 750 mg po BID, Risperdal 2 mg po BID and Trazadone 100 mg po HS. 2) Continue inpatient rehabilitation
[2019-07-10] MEDS ORDERED: DIVALPROEX SODIUM 250 MG TABLET E.C. PO SCH (11:30)
--- NOTE | 2019-07-10 11:34 | PN ---
[facility] Progress Note Note: Pt is a 58 y/o female with a hx of ANDREI admitted to rehab from [facility]. Pt is known to this facility and has multiple admission episodes in the past. PMHx of Asthma,COPD,HIV+(no meds),Seizure disorder since ,Psych Hx of Bipolar and Schizophrenia. Pt reports hx of elevated blood sugar but states "I'm not Diabetic and i have nothing to worry" Pt states her doctor is aware and says to watch it. Pt reports she has a primary care provider Dr. Dodie Jacobs at [address] [place] [address]. Vital Signs - 24 hr 07/09/19 07/09/19 07/10/19 18:30 20:36 00:30 Temperature 98.9 F 98.9 F Pulse Rate 95 H 95 H Respiratory 18 18 18 Rate Blood Pressure 109/76 109/76 07/10/19 07/10/19 03:30 07:25 Temperature 98.3 F Pulse Rate 96 H Respiratory 18 18 Rate Blood Pressure 85/59 L Laboratory Tests 07/09/19 21:22 POC Urine HCG, Qual Negative Laboratory Tests 07/09/19 07/10/19 07/10/19 21:22 08:15 08:35 WBC 6.2 RBC 4.61 Hgb 13.9 Hct 43.0 MCV 93.3 MCH 30.1 MCHC 32.2 RDW 17.4 H Plt Count 210 MPV 11.9 H Sodium Potassium Chloride Carbon Dioxide Anion Gap BUN Creatinine Est GFR (CKD-EPI)AfAm Est GFR (CKD-EPI)NonAf Random Glucose Calcium Total Bilirubin AST ALT Alkaline Phosphatase Total Protein Albumin Urine Color Yellow Urine Appearance Clear Urine pH 6.5 D Ur Specific [place] 1.013 Urine Protein Negative Urine Glucose (UA) Negative Urine Ketones Negative Urine Blood Negative Urine Nitrite Negative Urine Bilirubin Negative Urine Urobilinogen 0.2 Ur Leukocyte Esterase Negative Urine WBC (Auto) 3 Urine RBC (Auto) 0 Urine Casts (Auto) 0 U Epithel Cells (Auto) 0.9 Urine Bacteria (Auto) 13.1 POC Urine HCG, Qual Negative Valproic Acid 07/10/19 07/10/19 08:35 11:20 WBC RBC Hgb Hct MCV MCH MCHC RDW Plt Count MPV Sodium 140 Potassium 4.5 Chloride 105 Carbon Dioxide 30 Anion Gap 5 L BUN 13.8 Creatinine 1.2 Est GFR (CKD-EPI)AfAm 58.51 Est GFR (CKD-EPI)NonAf 50.48 Random Glucose 134 H Calcium 8.8 Total Bilirubin 0.3 AST 8 L ALT 16 Alkaline Phosphatase 78 Total Protein 6.4 Albumin 2.9 L Urine Color Urine Appearance Urine pH Ur Specific Geismar Urine Protein Urine Glucose (UA) Urine Ketones Urine Blood Urine Nitrite Urine Bilirubin Urine Urobilinogen Ur Leukocyte Esterase Urine WBC (Auto) Urine RBC (Auto) Urine Casts (Auto) U Epithel Cells (Auto) Urine Bacteria (Auto) POC Urine HCG, Qual Valproic Acid Cancelled Alert o x 3,denies s/h/i nad oob ambulating with steady gait extremities/skin:no edema/skin intact. A/P new rehab pt Maintain safety continue rehab BGM x 3 days D/w pt and Offered NCS diet but pt passionately/strongly declined and wants regular diet.
[2019-07-10] MEDS: DIVALPROEX 500 MG, DIVALPROEX 250 MG PO SCH ×2 (12:18→21:35)
[2019-07-10] MEDS: risperiDONE 2 MG TABLET PO SCH ×2 (12:18→21:35)
[2019-07-10 12:52] LABS: EPI CELLS 0.9 /HPF (0-5/HPF); HYALINE CASTS 0 /lpf (0-8); PH,URINE 6.5 (5.0-8.0); URINE APPEARANCE CLEAR; URINE BACTERIA 13.1 /hpf (NEGATIVE); URINE BILIRUBIN NEGATIVE (NEGATIVE); URINE COLOR YELLOW; URINE GLUCOSE (UA) NEGATIVE (NEGATIVE); URINE KETONE NEGATIVE (NEGATIVE); URINE LEUK ESTERASE NEGATIVE (NEGATIVE); URINE NITRITE NEGATIVE (NEGATIVE); URINE PROTEIN NEGATIVE (NEGATIVE); URINE RBC 0 /hpf (0-4); URINE UROBILINOGEN 0.2 mg/dL (0.2-1.0); URINE WBC 3 /hpf (0-5)
[2019-07-10] MEDS: hydrOXYzine PAMOATE 25 MG CAPSULE (FP) PO PRN ×2 (13:03→21:36)
[2019-07-10 14:03] LABS: HEMOGLOBIN 13.9 GM/dL (10.7-15.3); MCH 30.1 pg (25.7-33.7); MCHC 32.2 g/dl (32.0-36.0); MEAN CELL VOLUME 93.3 fl (80-96); MEAN PLT VOLUME 11.9 fl (7.5-11.1); PLATELET COUNT 210 K/MM3 (134-434); RBC 4.61 M/mm3 (3.60-5.2); RDW 17.4 % (11.6-15.6); WHITE BLOOD COUNT 6.2 K/mm3 (4.0-10.0)
[2019-07-10 14:14] LABS: ALBUMIN 2.9 g/dl (3.4-5.0); BILIRUBIN,TOTAL 0.3 mg/dL (0.2-1); BLOOD UREA NITROGEN 13.8 mg/dL (7-18); CALCIUM 8.8 mg/dL (8.5-10.1); CREATININE 1.2 mg/dL (0.55-1.3); POTASSIUM 4.5 mmol/L (3.5-5.1); TOT PROT 6.4 g/dl (6.4-8.2)
[2019-07-10 15:09] LABS: RPR REACTIVE 1:1 (NONREACTIVE)
[2019-07-10 15:10] LABS: TREPONEMA ANTIBODY PREVIOUSLY REACTIVE (NONREACTIVE)
[2019-07-10] MEDS ORDERED: DIVALPROEX SODIUM 250 MG TABLET E.C. ONE (19:28)
[2019-07-10] MEDS ORDERED: DIVALPROEX SODIUM 500 MG TABLET E.C. ONE (19:28)
[2019-07-10] MEDS: THIAMINE HCL 100 MG TABLET (FP) PO SCH (21:35)
[2019-07-10] MEDS: traZODone HCL 100 MG TABLET (FP) PO SCH (21:36)
[2019-07-11] MEDS ORDERED: DIVALPROEX SODIUM 250 MG TABLET E.C. ONE ×2 (08:38→19:29)
[2019-07-11] MEDS ORDERED: DIVALPROEX SODIUM 500 MG TABLET E.C. ONE ×2 (08:38→19:29)
[2019-07-11] MEDS ORDERED: PT OWN MED DRAWER 7, Y5N ONE (08:39)
[2019-07-11] MEDS: DIVALPROEX 500 MG, DIVALPROEX 250 MG PO SCH ×2 (09:56→21:31)
[2019-07-11] MEDS: PANTOPRAZOLE 40 MG TABLET PO SCH (09:56)
[2019-07-11] MEDS: PRENATAL VITAMINS W/ FOLIC ACID TABLET (FP) PO SCH (09:57)
[2019-07-11] MEDS: risperiDONE 2 MG TABLET PO SCH ×2 (09:57→21:31)
[2019-07-11] MEDS: BUDESONIDE/FORMETEROL FUMARATE 160/4.5 mcg INHALER IH SCH ×2 (09:57→21:31)
[2019-07-11] MEDS: traZODone HCL 100 MG TABLET (FP) PO SCH (21:31)
[2019-07-11] MEDS: THIAMINE HCL 100 MG TABLET (FP) PO SCH (21:31)
[2019-07-11] MEDS: hydrOXYzine PAMOATE 25 MG CAPSULE (FP) PO PRN (21:31)
[2019-07-12] MEDS ORDERED: DIVALPROEX SODIUM 250 MG TABLET E.C. ONE ×2 (08:17→18:48)
[2019-07-12] MEDS ORDERED: DIVALPROEX SODIUM 500 MG TABLET E.C. ONE ×2 (08:17→18:47)
[2019-07-12] MEDS: PRENATAL VITAMINS W/ FOLIC ACID TABLET (FP) PO SCH (09:43)
[2019-07-12] MEDS: risperiDONE 2 MG TABLET PO SCH ×2 (09:43→21:09)
[2019-07-12] MEDS: PANTOPRAZOLE 40 MG TABLET PO SCH (09:43)
[2019-07-12] MEDS: DIVALPROEX 500 MG, DIVALPROEX 250 MG PO SCH ×2 (09:43→21:09)
[2019-07-12] MEDS: BUDESONIDE/FORMETEROL FUMARATE 160/4.5 mcg INHALER IH SCH ×2 (09:44→21:08)
[2019-07-12] MEDS ORDERED: PT OWN MED DRAWER 7, Y5N ONE (18:50)
[2019-07-12] MEDS: THIAMINE HCL 100 MG TABLET (FP) PO SCH (21:09)
[2019-07-12] MEDS: traZODone HCL 100 MG TABLET (FP) PO SCH (21:09)
[2019-07-12] MEDS: hydrOXYzine PAMOATE 25 MG CAPSULE (FP) PO PRN (21:10)
[2019-07-13] MEDS ORDERED: DIVALPROEX SODIUM 250 MG TABLET E.C. ONE ×2 (08:11→19:55)
[2019-07-13] MEDS ORDERED: DIVALPROEX SODIUM 500 MG TABLET E.C. ONE ×2 (08:11→19:55)
[2019-07-13] MEDS: DIVALPROEX 500 MG, DIVALPROEX 250 MG PO SCH ×2 (09:31→21:11)
[2019-07-13] MEDS: PANTOPRAZOLE 40 MG TABLET PO SCH (09:32)
[2019-07-13] MEDS: BUDESONIDE/FORMETEROL FUMARATE 160/4.5 mcg INHALER IH SCH ×2 (09:32→22:44)
[2019-07-13] MEDS: PRENATAL VITAMINS W/ FOLIC ACID TABLET (FP) PO SCH (09:32)
[2019-07-13] MEDS: risperiDONE 2 MG TABLET PO SCH ×2 (09:32→21:11)
[2019-07-13] MEDS: THIAMINE HCL 100 MG TABLET (FP) PO SCH (21:11)
[2019-07-13] MEDS: traZODone HCL 100 MG TABLET (FP) PO SCH (21:11)
[2019-07-13] MEDS: MELATONIN 5 MG TABLETS PO PRN (21:11)
[2019-07-13] MEDS: hydrOXYzine PAMOATE 25 MG CAPSULE (FP) PO PRN (21:11)
[2019-07-14] MEDS ORDERED: PT OWN MED DRAWER 7, Y5N ONE (08:34)
[2019-07-14] MEDS ORDERED: DIVALPROEX SODIUM 500 MG TABLET E.C. ONE ×2 (08:34→19:40)
[2019-07-14] MEDS ORDERED: DIVALPROEX SODIUM 250 MG TABLET E.C. ONE ×2 (08:34→19:40)
[2019-07-14] MEDS: BUDESONIDE/FORMETEROL FUMARATE 160/4.5 mcg INHALER IH SCH ×2 (09:50→21:11)
[2019-07-14] MEDS: PRENATAL VITAMINS W/ FOLIC ACID TABLET (FP) PO SCH (09:51)
[2019-07-14] MEDS: DIVALPROEX 500 MG, DIVALPROEX 250 MG PO SCH ×2 (09:51→21:10)
[2019-07-14] MEDS: PANTOPRAZOLE 40 MG TABLET PO SCH (09:51)
[2019-07-14] MEDS: risperiDONE 2 MG TABLET PO SCH ×2 (09:51→21:11)
[2019-07-14] MEDS: THIAMINE HCL 100 MG TABLET (FP) PO SCH (21:10)
[2019-07-14] MEDS: traZODone HCL 100 MG TABLET (FP) PO SCH (21:11)
[2019-07-14] MEDS: hydrOXYzine PAMOATE 25 MG CAPSULE (FP) PO PRN (21:12)
[2019-07-15] MEDS ORDERED: DIVALPROEX SODIUM 500 MG TABLET E.C. ONE ×2 (09:04→18:33)
[2019-07-15] MEDS ORDERED: DIVALPROEX SODIUM 250 MG TABLET E.C. ONE ×2 (09:05→18:33)
[2019-07-15] MEDS: risperiDONE 2 MG TABLET PO SCH ×2 (10:02→21:43)
[2019-07-15] MEDS ORDERED: PT OWN MED DRAWER 7, Y5N ONE (10:02)
[2019-07-15] MEDS: PRENATAL VITAMINS W/ FOLIC ACID TABLET (FP) PO SCH (10:02)
[2019-07-15] MEDS: DIVALPROEX 500 MG, DIVALPROEX 250 MG PO SCH ×2 (10:02→21:42)
[2019-07-15] MEDS: PANTOPRAZOLE 40 MG TABLET PO SCH (10:02)
[2019-07-15] MEDS: BUDESONIDE/FORMETEROL FUMARATE 160/4.5 mcg INHALER IH SCH ×2 (10:03→21:44)
[2019-07-15] MEDS: hydrOXYzine PAMOATE 25 MG CAPSULE (FP) PO PRN (21:42)
[2019-07-15] MEDS: traZODone HCL 100 MG TABLET (FP) PO SCH (21:43)
[2019-07-15] MEDS: THIAMINE HCL 100 MG TABLET (FP) PO SCH (21:44)
[2019-07-16] MEDS ORDERED: DIVALPROEX SODIUM 250 MG TABLET E.C. ONE ×2 (09:07→21:32)
[2019-07-16] MEDS ORDERED: DIVALPROEX SODIUM 500 MG TABLET E.C. ONE ×2 (09:07→21:32)
[2019-07-16] MEDS ORDERED: PT OWN MED DRAWER 7, Y5N ONE (09:08)
[2019-07-16] MEDS: DIVALPROEX 500 MG, DIVALPROEX 250 MG PO SCH ×2 (09:51→21:32)
[2019-07-16] MEDS: BUDESONIDE/FORMETEROL FUMARATE 160/4.5 mcg INHALER IH SCH ×2 (09:51→21:33)
[2019-07-16] MEDS: PRENATAL VITAMINS W/ FOLIC ACID TABLET (FP) PO SCH (09:52)
[2019-07-16] MEDS: PANTOPRAZOLE 40 MG TABLET PO SCH (09:52)
[2019-07-16] MEDS: risperiDONE 2 MG TABLET PO SCH ×2 (09:52→21:31)
[2019-07-16] MEDS: hydrOXYzine PAMOATE 25 MG CAPSULE (FP) PO PRN (21:31)
[2019-07-16] MEDS: traZODone HCL 100 MG TABLET (FP) PO SCH (21:31)
[2019-07-16] MEDS: THIAMINE HCL 100 MG TABLET (FP) PO SCH (21:31)
[2019-07-17] MEDS ORDERED: DIVALPROEX SODIUM 250 MG TABLET E.C. ONE (08:38)
[2019-07-17] MEDS ORDERED: DIVALPROEX SODIUM 500 MG TABLET E.C. ONE (08:38)
[2019-07-17] MEDS: DIVALPROEX 500 MG, DIVALPROEX 250 MG PO SCH ×2 (09:51→21:23)
[2019-07-17] MEDS: PANTOPRAZOLE 40 MG TABLET PO SCH (09:51)
[2019-07-17] MEDS: PRENATAL VITAMINS W/ FOLIC ACID TABLET (FP) PO SCH (09:51)
[2019-07-17] MEDS: risperiDONE 2 MG TABLET PO SCH ×2 (09:51→21:22)
[2019-07-17] MEDS: BUDESONIDE/FORMETEROL FUMARATE 160/4.5 mcg INHALER IH SCH ×2 (09:52→21:57)
[2019-07-17] MEDS ORDERED: PT OWN MED DRAWER 7, Y5N ONE ×2 (20:41→21:23)
[2019-07-17] MEDS: THIAMINE HCL 100 MG TABLET (FP) PO SCH (21:22)
[2019-07-17] MEDS: traZODone HCL 100 MG TABLET (FP) PO SCH (21:22)
[2019-07-17] MEDS: hydrOXYzine PAMOATE 25 MG CAPSULE (FP) PO PRN (21:23)
[2019-07-18] MEDS ORDERED: DIVALPROEX SODIUM 500 MG TABLET E.C. ONE ×2 (08:35→19:36)
[2019-07-18] MEDS ORDERED: DIVALPROEX SODIUM 250 MG TABLET E.C. ONE ×2 (08:35→19:36)
[2019-07-18] MEDS: DIVALPROEX 500 MG, DIVALPROEX 250 MG PO SCH ×2 (09:35→21:16)
[2019-07-18] MEDS: PANTOPRAZOLE 40 MG TABLET PO SCH (09:36)
[2019-07-18] MEDS: risperiDONE 2 MG TABLET PO SCH ×2 (09:36→21:16)
[2019-07-18] MEDS: PRENATAL VITAMINS W/ FOLIC ACID TABLET (FP) PO SCH (09:36)
[2019-07-18] MEDS: BUDESONIDE/FORMETEROL FUMARATE 160/4.5 mcg INHALER IH SCH ×2 (09:36→21:17)
[2019-07-18] MEDS: hydrOXYzine PAMOATE 25 MG CAPSULE (FP) PO PRN ×2 (17:56→23:24)
[2019-07-18] MEDS ORDERED: PT OWN MED DRAWER 7, Y5N ONE (19:37)
[2019-07-18] MEDS: traZODone HCL 100 MG TABLET (FP) PO SCH (21:16)
[2019-07-18] MEDS: THIAMINE HCL 100 MG TABLET (FP) PO SCH (21:17)
[2019-07-19] MEDS ORDERED: DIVALPROEX SODIUM 250 MG TABLET E.C. ONE ×2 (09:04→19:29)
[2019-07-19] MEDS ORDERED: DIVALPROEX SODIUM 500 MG TABLET E.C. ONE ×2 (09:04→19:29)
[2019-07-19] MEDS: PANTOPRAZOLE 40 MG TABLET PO SCH (10:34)
[2019-07-19] MEDS: PRENATAL VITAMINS W/ FOLIC ACID TABLET (FP) PO SCH (10:35)
[2019-07-19] MEDS: BUDESONIDE/FORMETEROL FUMARATE 160/4.5 mcg INHALER IH SCH ×2 (10:35→21:12)
[2019-07-19] MEDS: DIVALPROEX 500 MG, DIVALPROEX 250 MG PO SCH ×2 (10:35→21:11)
[2019-07-19] MEDS: risperiDONE 2 MG TABLET PO SCH ×2 (10:35→21:11)
[2019-07-19] MEDS: traZODone HCL 100 MG TABLET (FP) PO SCH (21:11)
[2019-07-19] MEDS: THIAMINE HCL 100 MG TABLET (FP) PO SCH (21:11)
[2019-07-19] MEDS: hydrOXYzine PAMOATE 25 MG CAPSULE (FP) PO PRN (21:11)
[2019-07-20] MEDS ORDERED: DIVALPROEX SODIUM 500 MG TABLET E.C. ONE ×2 (08:56→20:23)
[2019-07-20] MEDS ORDERED: DIVALPROEX SODIUM 250 MG TABLET E.C. ONE ×2 (08:56→20:23)
[2019-07-20] MEDS: PRENATAL VITAMINS W/ FOLIC ACID TABLET (FP) PO SCH (10:04)
[2019-07-20] MEDS: BUDESONIDE/FORMETEROL FUMARATE 160/4.5 mcg INHALER IH SCH ×2 (10:04→23:19)
[2019-07-20] MEDS: risperiDONE 2 MG TABLET PO SCH ×2 (10:05→21:34)
[2019-07-20] MEDS: DIVALPROEX 500 MG, DIVALPROEX 250 MG PO SCH ×2 (10:05→21:33)
[2019-07-20] MEDS: PANTOPRAZOLE 40 MG TABLET PO SCH (10:05)
[2019-07-20] MEDS: THIAMINE HCL 100 MG TABLET (FP) PO SCH (21:34)
[2019-07-20] MEDS: MELATONIN 5 MG TABLETS PO PRN (21:34)
[2019-07-20] MEDS: traZODone HCL 100 MG TABLET (FP) PO SCH (21:34)
[2019-07-20] MEDS ORDERED: PT OWN MED DRAWER 7, Y5N ONE (21:37)
[2019-07-20] MEDS: hydrOXYzine PAMOATE 25 MG CAPSULE (FP) PO PRN (21:38)
[2019-07-21] MEDS ORDERED: DIVALPROEX SODIUM 250 MG TABLET E.C. ONE ×2 (08:39→19:02)
[2019-07-21] MEDS ORDERED: DIVALPROEX SODIUM 500 MG TABLET E.C. ONE ×2 (08:39→19:02)
[2019-07-21] MEDS ORDERED: PT OWN MED DRAWER 7, Y5N ONE (08:39)
[2019-07-21] MEDS: PRENATAL VITAMINS W/ FOLIC ACID TABLET (FP) PO SCH (09:54)
[2019-07-21] MEDS: risperiDONE 2 MG TABLET PO SCH ×2 (09:54→21:22)
[2019-07-21] MEDS: DIVALPROEX 500 MG, DIVALPROEX 250 MG PO SCH ×2 (09:54→21:22)
[2019-07-21] MEDS: PANTOPRAZOLE 40 MG TABLET PO SCH (09:55)
[2019-07-21] MEDS: BUDESONIDE/FORMETEROL FUMARATE 160/4.5 mcg INHALER IH SCH ×2 (09:56→21:23)
[2019-07-21] MEDS: THIAMINE HCL 100 MG TABLET (FP) PO SCH (21:21)
[2019-07-21] MEDS: traZODone HCL 100 MG TABLET (FP) PO SCH (21:22)
[2019-07-21] MEDS: hydrOXYzine PAMOATE 25 MG CAPSULE (FP) PO PRN (21:22)
[2019-07-22] MEDS ORDERED: DIVALPROEX SODIUM 250 MG TABLET E.C. ONE ×2 (08:27→21:19)
[2019-07-22] MEDS ORDERED: DIVALPROEX SODIUM 500 MG TABLET E.C. ONE ×2 (08:27→21:19)
[2019-07-22] MEDS ORDERED: PT OWN MED DRAWER 7, Y5N ONE (08:29)
[2019-07-22] MEDS: risperiDONE 2 MG TABLET PO SCH ×2 (09:27→21:20)
[2019-07-22] MEDS: PANTOPRAZOLE 40 MG TABLET PO SCH (09:27)
[2019-07-22] MEDS: PRENATAL VITAMINS W/ FOLIC ACID TABLET (FP) PO SCH (09:27)
[2019-07-22] MEDS: DIVALPROEX 500 MG, DIVALPROEX 250 MG PO SCH ×2 (09:27→21:20)
[2019-07-22] MEDS: BUDESONIDE/FORMETEROL FUMARATE 160/4.5 mcg INHALER IH SCH ×2 (09:28→23:37)
[2019-07-22] MEDS: MELATONIN 5 MG TABLETS PO PRN (21:20)
[2019-07-22] MEDS: THIAMINE HCL 100 MG TABLET (FP) PO SCH (21:20)
[2019-07-22] MEDS: traZODone HCL 100 MG TABLET (FP) PO SCH (21:21)
[2019-07-22] MEDS: hydrOXYzine PAMOATE 25 MG CAPSULE (FP) PO PRN (21:22)
[2019-07-23] MEDS ORDERED: DIVALPROEX SODIUM 500 MG TABLET E.C. ONE (09:03)
[2019-07-23] MEDS ORDERED: DIVALPROEX SODIUM 250 MG TABLET E.C. ONE (09:04)
[2019-07-23] MEDS: DIVALPROEX 500 MG, DIVALPROEX 250 MG PO SCH (10:08)
[2019-07-23] MEDS: risperiDONE 2 MG TABLET PO SCH (10:08)
[2019-07-23] MEDS: PANTOPRAZOLE 40 MG TABLET PO SCH (10:08)
[2019-07-23] MEDS: BUDESONIDE/FORMETEROL FUMARATE 160/4.5 mcg INHALER IH SCH (10:08)
[2019-07-23] MEDS: PRENATAL VITAMINS W/ FOLIC ACID TABLET (FP) PO SCH (10:08)
[2019-07-23] MEDS ORDERED: NICOTINE 7 MG/24 HOURS TOPICAL PATCH TD SCH (10:45)
[2019-07-23 10:55] VITALS: BP 91/66; PULSE 89
[2019-07-23 10:56] VITALS: TEMP 97.7
--- NOTE | 2019-07-23 14:02 | DS ---
[facility] Rehab Discharge Summary - [facility] Rehab Discharge Summary Admission Date: 07/09/19 Discharge Date: 07/23/19 - History Present History: Alcohol dependence, Cocaine dependence Pertinent Past History: 58 yo referred for rehab from [facility] (). Called CPAP and spoke w/ Dr. Morgan who reports that EKG, done on 07/08/19 was NSR and that Valproic Acid Level was 16.0 No CD4 done. Reports CD4 is ~900 and viral load is <20 copies Hx: Seizures since .Last 6 months ago. Denies blackouts or overdoses Alcohol use since age 23 Cocaine use since age 23. Currently using $100 q3days. Nicotine use since age 18. : 2-3 cigs/day PMHx: HIV+; Asthma; COPD;PPD+; Heart murmur; Heart burn;Seizures (grand mal - States "gets a flashing light aura 5-10 minutes before seizure") Has not take HIV meds for about 1 month. MHHx: Bipolar; Schizophrenia.Denies current thoughts of harming self or others. SHx: Lives w/ family. Unemployed. Denies legal issues. 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 - Treatment Discharge Condition: Outpatient referral accepted (medically stable for discharge. Patient will go to [facility] for aftercare.) Hospital Course: patient attended groups, had 1;1 with counselor, was seen by the psychiatric service. She had no significant medical issues while in rehab treatment. - Medication Discharge Medications: Ambulatory Orders Risperidone [Risperdal -] 2 mg PO BID #60 tablet 05/02/18 traZODone HCL [Desyrel -] 100 mg PO HS #30 tablet 05/02/18 Depakote 750 mg PO BID 11/05/18 Albuterol Sulfate Inhaler - [Ventolin HFA Inhaler -] 2 inh IH Q4H PRN #1 inhaler 07/23/19 Budesonide/Formeterol Fumarate [SYMBICORT 160/4.5mcg -] 1 inh PO BID #1 inhaler 07/23/19 Diphenhydramine [Benadryl Capsule -] 50 mg PO DAILY #14 capsule 07/23/19 Dolutegravir Sodium [Tivicay] 50 mg PO DAILY #30 tablet 07/23/19 Emtricitab/Rilpiviri/Tenof Ala [Odefsey Tablet] 1 each PO DAILY #30 tablet 07/23 - Medication-Assisted Treatment (MAT) Medication-Assisted Treatment (MAT): No - Discharge Instructions Diet, activity, other medical instructions: Diet: as tolerated Activity: as tolerated Other medical instructions: Please follow up with aftercare referral and HIV care. - Diagnosis (1) Alcohol dependence Current Visit: Yes Status: Chronic (2) Cocaine dependence Current Visit: Yes Status: Chronic (3) Cocaine dependence Current Visit: No Status: Chronic Qualifiers: Substance use status: uncomplicated Qualified Code(s): F14.20 - Cocaine dependence, uncomplicated - Follow-up Referral Minutes to complete discharge: 20 - AMA Did Patient Leave Against Medical Advice: No Additional Comments: Encouraged to f/u w/ HIV/PCP upon discharge for revaluation of HIV status and medication needs. Patient verbalizes an understanding.
--- NOTE | 2019-07-23 14:23 | PN ---
[facility] Progress Note Note: Patient is discharged today. Scripts for 30 days supply of medications(Depakote 750 mg/bid, Risperdal 2 mg/bid, Trazadone 100 mg/hs) [facility] [address] [place] [id number]
== END 2019-07-23 14:50 | disposition home or self-care (01) | DRG 772 ==
LOC: YASAS 14:35 → Y3E 21:54
PROVIDERS: ADMIT Neuromusculoskeletal Medicine & OMM; ATTEND Neuromusculoskeletal Medicine & OMM
PROC: HZ42ZZZ Group Counseling for Substance Abuse Treatment, Cognitive-Behavioral (ICD-10-PCS; principal; 2019-07-23)
DX: F10.20 Alcohol dependence, uncomplicated (principal); F14.20 Cocaine dependence, uncomplicated; F17.210 Nicotine dependence, cigarettes, uncomplicated; F25.0 Schizoaffective disorder, bipolar type; F31.9 Bipolar disorder, unspecified; F19.282 Other psychoactive substance dependence with psychoactive substance-induced sleep disorder; Z21 Asymptomatic human immunodeficiency virus [HIV] infection status; G40.909 Epilepsy, unspecified, not intractable, without status epilepticus; J45.998 Other asthma; J44.9 Chronic obstructive pulmonary disease, unspecified; R01.1 Cardiac murmur, unspecified; E66.9 Obesity, unspecified; Z68.32 Body mass index [BMI] 32.0-32.9, adult; R76.11 Nonspecific reaction to tuberculin skin test without active tuberculosis; Z86.19 Personal history of other infectious and parasitic diseases; Z88.0 Allergy status to penicillin; Z88.8 Allergy status to other drugs, medicaments and biological substances
CPT/HCPCS: 36415; 71046-TC-FY; 80053; 80164; 81003; 81025; 82962; 85027; 86593; 86780

== ENCOUNTER 2019-08-29 11:34 | Inpatient (IN) | payer OTHER ==
--- NOTE | 2019-08-29 11:55 | BHS.RME ---
Substance Use & Tx History - Substance Use History Alcohol Substance amount: 1 beer Frequency of use: Less than 3 times per week Substance route: Oral Date of Last Use: 08/25/19 Cocaine (Crack) Substance amount: $30 Frequency of use: Less than 3 times per week Substance route: Smoking Date of Last Use: 08/24/19 Nicotine Substance amount: 2-3 CIGGARETTES Frequency of use: Daily Substance route: Smoking Date of Last Use: 08/29/19 Physical/Psych/Mental Status - Behavior General Behavior: Decreased activity Eye Contact: Normal - Cooperativeness Cooperativeness: Cooperative - Thinking Thought Processes: Tight, Goal Directed - Physical Health Problems Is patient presently having any pain?: No Does patient presently have any injuries (include location): No Does patient currently have a fever: No Is patient : No CIWA Nausea/Vomitin-No Nausea/No Vomiting Muscle Tremors: None Anxiety: 0-No Anxiety, at Ease Agitation: 0-Normal Activity Paroxysmal Sweats: No Perspiration Orientation: 0-Oriented Tacttile Disturbances: 0-None Auditory Disturbances: 0-None Visual Disturbances: 0-None Headache: 0-None Present CIWA-Ar Total Score: 0
--- NOTE | 2019-08-29 12:18 | HP ---
CIWA Score Nausea/Vomitin-No Nausea/No Vomiting Muscle Tremors: None Anxiety: 0-No Anxiety, at Ease Agitation: 0-Normal Activity Paroxysmal Sweats: No Perspiration Orientation: 0-Oriented Tacttile Disturbances: 0-None Auditory Disturbances: 0-None Visual Disturbances: 0-None Headache: 0-None Present CIWA-Ar Total Score: 0 - Admission Criteria OASAS Guidelines: Admission for Medically Managed Detox: Requires at least one of the followin. CIWA greater than 12 2. Seizures within the past 24 hours 3. Delirium tremens within the past 24 hours 4. Hallucinations within the past 24 hours 5. Acute intervention needed for co occurring medical disorder 6. Acute intervention needed for co occurring psychiatric disorder 7. Severe withdrawal that cannot be handled at a lower level of care (continued vomiting, continued diarrhea, abnormal vital signs) requiring intravenous medication and/or fluids 8. Admitting History and Physical - Admission Chief Complaint: " I want to stop using drugs." History of Present Illness: Patient is a 59 year old female with history of alcohol dependence nicotine dependence, cocaine use disorder. She is here seeking rehab services. She had completed rehab here from 07/09- and was given a referral to [facility] which she did not follow through with. She has poor coping skills and poor judgment. She has Psychiatric Schizophrenia on depakote, risperdal and trazodone for which she was taking meds during her previous rehab stay here. She says she was compliant but did not take meds today. Nicotine 2-3 ciggs per day last soked today. Alcohol: one 16 oz beer three times per week, last used 4 days ago, first use at age 23. Denies blackout or withdrawal seizures. Cocaine: $30 once weekly first use age 23, last used 5 days ago. PMH: Seizures, HIV Disease, Adsthma Psych: Schizoaffective Disorder Patient requires rehab admission due to poor judgment, poor coping skills, needs CD services and long-term placement, and poor recovery environment. 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 Pulmonary: Yes: Asthma ...LMP: 10/04/13 Infectious Disease: Yes: HIV - Past Surgical History Past Surgical History: Yes: None - Smoking History Smoking history: Current every day smoker Have you smoked in the past 12 months: Yes Aproximately how many cigarettes per day: 3 If you are a former smoker, when did you quit?: 09/14/17 - Alcohol/Substance Use Hx Alcohol Use: Yes - Social History Usual Living Arrangement: Yes: Alone Do you think of yourself as: Straight/Heterosexual ADL: Independent History of Recent Travel: No Admission ROS S - HPI Allergies/Adverse Reactions: Allergies Allergy/AdvReac Type Severity Reaction Status Date / Time benztropine mesylate Allergy Severe Hives Verified 07/09/19 18:30 [From Cogentin] Penicillins Allergy Severe Swelling Verified 07/09/19 18:30 haloperidol [From Haldol] Allergy Hives Verified 07/09/19 18:30 aripiprazole [From Abilify] AdvReac Severe Swelling Verified 07/09/19 18:30 Exam Limitations: No Limitations - Ebola screening Have you traveled outside of the country in the last 21 days: No Have you had contact with anyone from an Ebola affected area: No Have you been sick,other than usual withdrawal symptoms: No Do you have a fever: No - Review of Systems Constitutional: No Symptoms Reported EENT: reports: No Symptoms Reported Respiratory: reports: No Symptoms reported Cardiac: reports: No Symptoms Reported GI: reports: No Symptoms Reported : reports: No Symptoms Reported Musculoskeletal: reports: No Symptoms Reported Integumentary: reports: No Symptoms Reported Neuro: reports: No Symptoms reported Endocrine: reports: No Symptoms Reported Hematology: reports: No Symptoms Reported Psychiatric: reports: Judgement Intact, Mood/Affect Appropiate, Orientated x3 Other Systems: Reviewed and Negative Patient History - Patient Medical History Hx Anemia: Yes (Not on medication) Hx Asthma: No Hx Chronic Obstructive Pulmonary Disease (COPD): Yes Hx Cancer: No Hx Cardiac Disorders: No Hx Congestive Heart Failure: No Hx Hypertension: No Hx Hypercholesterolemia: No Hx Pacemaker: No HX Cerebrovascular Accident: No Hx Seizures: Yes (LAST ONE 08/20) Hx Dementia: No Hx Diabetes: No Hx Gastrointestinal Disorders: No Hx Liver Disease: No Hx Genitourinary Disorders: No Hx Sexually Transmitted Disorders: No Hx Renal Disease (ESRD): No Hx Thyroid Disease: No Hx Human Immunodeficiency Virus (HIV): Yes (On Odefsey. Diagnosed 1985 , has no medication with her) Hx Hepatitis C: No Hx Depression: No Hx Suicide Attempt: No Hx Bipolar Disorder: Yes Hx Schizophrenia: Yes - Patient Surgical History Past Surgical History: Yes Hx Neurologic Surgery: No Hx Cataract Extraction: No Hx Cardiac Surgery: No Hx Lung Surgery: No Hx Breast Surgery: No Hx Breast Biopsy: No Hx Abdominal Surgery: No Hx Appendectomy: No Hx Cholecystectomy: No Hx Genitourinary Surgery: No Hx Section: No Hx Orthopedic Surgery: Yes (fx of left forearm in 1991) Hx Hysterectomy: No Other Surgical History: rt ear surgery, cut ear lobe Anesthesia Reaction: No - PPD History Results: CXR negative - Reproductive History Last Menstrual Period: 10/04/13 - Smoking Cessation Smoking history: Current every day smoker Have you smoked in the past 12 months: Yes Aproximately how many cigarettes per day: 3 If you are a former smoker, when did you quit?: 09/14/17 Cigars Per Day: 0 Hx Chewing Tobacco Use: No Initiated information on smoking cessation: Yes 'Breaking Loose' booklet given: 08/29/19 - Substances abused Alcohol Substance route: Oral Frequency: 3-6 times per week Amount used: 1 16 oz. beer Age of first use: 23 Date of last use: 08/25/19 Crack Other (specify): $30 Substance route: Smoking Frequency: 1-2 times per week Amount used: $30 Age of first use: 23 Date of last use: 08/24/19 Admission Physical Exam [facility] - Physical General Appearance: Yes: No Apparent Distress, Nourished, Appropriately Dressed , Mild Distress, Anxious HEENTM: Yes: EOMI, Hearing grossly Normal, Normal ENT Inspection, Normocephalic , Normal Voice, JUANITO, Pharynx Normal, Tm's normal Respiratory: Yes: Chest Non-Tender, Lungs Clear, Normal Breath Sounds, No Respiratory Distress, No Accessory Muscle Use Neck: Yes: No masses,lesions,Nodules, Supple, Trachea in good position Breast: Yes: Within Normal Limits Cardiology: Yes: Regular Rhythm, Regular Rate, S1, S2 Abdominal: Yes: Normal Bowel Sounds, Non Tender, Flat, Soft Genitourinary: Yes: Within Normal Limits Back: Yes: Normal Inspection Musculoskeletal: Yes: full range of Motion, Gait Steady, Pelvis Stable Extremities: Yes: Normal Capillary Refill, Normal Inspection, Normal Range of Motion, Non-Tender 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: 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: 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 NML intact, Fully Oriented, Alert, Motor Strength 5/5, Normal Mood/Affect, Normal Response Integumentary: Yes: Normal Color, Warm Lymphatic: Yes: Within Normal Limits - Diagnostic (1) Alcohol use disorder, moderate, in early remission Current Visit: Yes Status: Acute (2) COPD exacerbation Current Visit: Yes Status: Acute (3) Cocaine use disorder, moderate, in early remission Current Visit: Yes Status: Acute (4) Substance-induced sleep disorder Current Visit: Yes Status: Acute (5) Acquired immune deficiency syndrome (AIDS) Current Visit: Yes Status: Chronic (6) HIV (human immunodeficiency virus infection) Current Visit: Yes Status: Chronic Qualifiers: HIV symptom status: asymptomatic Qualified Code(s): Z21 - Asymptomatic human immunodeficiency virus [HIV] infection status (7) Heart burn Current Visit: Yes Status: Chronic Cleared for Admission S - Detox or Rehab [facility] Level of Care: Medically Supervised Detox Regimen/Protocol: Not Applicable Claeared for Rehab Admission: Yes Screened but not Admitted - Documentation of Visit Screened but not Admitted: No Breathalyzer - Breathalyzer Breathalyzer: 0.33 POC Urine test - Test device test lot number: [id number] Expiration date: 03/01/20 - Control test control: Yes Urine Drug Screen - Test Device Lot number: [id number] Expiration date: 01/28/21 - Control Is test valid?: Yes - Results Drug screen NEGATIVE: No Urine drug screen results: XENIA-Cocaine, BZO-Benzodiazepines Inpatient Rehab Admission - Rehab Decision to Admit Inpatient rehab admission?: Yes - Initial Determination Are CD services needed?: Yes Free of communicable disease: Yes Not in need of hospitalization: Yes - Rehab Admission Criteria Previous failed treatment: Yes Poor recovery environment: Yes Comorbidities: Yes Lacks judgement: Yes Patient is meeting Inpatient Rehab admission criteria:: Yes
[2019-08-29] MEDS ORDERED: guaiFENesin 200 MG/10 ML 10 ML UNIT-DOSE CUPS PO PRN ×2 (12:21→13:17)
[2019-08-29] MEDS ORDERED: MENTHOL/PHENOL 1 EACH UD MM PRN (12:21)
[2019-08-29] MEDS ORDERED: ACETAMINOPHEN 325 MG TABLET (FP) PO PRN (12:21)
[2019-08-29] MEDS ORDERED: MAGNESIUM HYDROX 2400MG/30ML ORAL SUSPENSION 30 ML CUP PO PRN (12:21)
[2019-08-29] MEDS ORDERED: LOPERAMIDE HCL 2 MG CAPSULE PO PRN (12:21)
[2019-08-29] MEDS ORDERED: MAGNESIUM CITRATE 300 ML BOTTLE PO PRN (12:21)
[2019-08-29] MEDS ORDERED: MAG HYDROX/AL HYDROX/SIMETH 30 ML UNIT-DOSE CUP PO PRN (12:21)
[2019-08-29] MEDS ORDERED: IBUPROFEN 400 MG TABLET (FP) PO PRN (12:21)
[2019-08-29] MEDS ORDERED: P-EPHED 60MG/TRIPROLIDI 2.5MG TABLET PO PRN (12:21)
[2019-08-29 14:04] VITALS: BMI 28.3
[2019-08-29] MEDS ORDERED: PT OWN MED DRAWER 7, Y5N ONE ×3 (14:46→21:06)
[2019-08-29] MEDS: NICOTINE 7 MG/24 HOURS TOPICAL PATCH TD SCH (14:47)
[2019-08-29] MEDS ORDERED: ALBUTEROL SO4 HFA INHALER IH PRN ×2 (15:30→15:45)
--- NOTE | 2019-08-29 15:36 | PN ---
[facility] Progress Note Note: Patient is a 59 year old female with history of alcohol dependence nicotine dependence, cocaine use disorder. She is here seeking rehab services. She has Psychiatric Schizophrenia on depakote, risperdal and trazodone. She says she was compliant but did not take meds today. Nicotine 2-3 ciggs per day last soked today. Alcohol: one 16 oz beer three times per week, last used 4 days ago, first use at age 23. Denies blackout or withdrawal seizures. Cocaine: $30 once weekly first use age 23, last used 5 days ago. PMH: Seizures, HIV Disease, Adsthma Psych: Schizoaffective Disorder Pharmacy [facility] called to verify medications: Albuterol INH and Symbicort 160/4.5mg bid-last ordered 07/23/2019 but not picked up) Odefsey/Tivacay (last picked up on 06/15/2020) These psych medications were all picked up at pharmacy 08/27/2019 Risperdal 2mg po bid Depakote 750mg po bid Trazodone 100mg hs Patient reports last dose of psych meds 08/28/2019. Valproic acid level ordered. a/p: alcohol dependence cocaine dependence nicotine dependence Patient to continue with rehab services
[2019-08-29 17:35] LABS: HEMATOCRIT 42.2 % (32.4-45.2); HEMOGLOBIN 13.7 GM/dL (10.7-15.3); MCH 30.2 pg (25.7-33.7); MCHC 32.5 g/dl (32.0-36.0); MEAN CELL VOLUME 92.9 fl (80-96); MEAN PLT VOLUME 11.1 fl (7.5-11.1); PLATELET COUNT 201 K/MM3 (134-434); RBC 4.54 M/mm3 (3.60-5.2); RDW 16.2 % (11.6-15.6); WHITE BLOOD COUNT 4.8 K/mm3 (4.0-10.0)
[2019-08-29 17:52] LABS: ALBUMIN 3.2 g/dl (3.4-5.0); BILIRUBIN,TOTAL 1.1 mg/dL (0.2-1); BLOOD UREA NITROGEN 10.8 mg/dL (7-18); CALCIUM 8.6 mg/dL (8.5-10.1); POTASSIUM 4.5 mmol/L (3.5-5.1); TOT PROT 7.5 g/dl (6.4-8.2)
[2019-08-29] MEDS: DIVALPROEX SODIUM 250 MG TABLET E.C. PO SCH (21:52)
[2019-08-29] MEDS: THIAMINE HCL 100 MG TABLET (FP) PO SCH (21:52)
[2019-08-29] MEDS: BUDESONIDE/FORMETEROL FUMARATE 160/4.5 mcg INHALER IH SCH (21:53)
[2019-08-29] MEDS ORDERED: MELATONIN 5 MG TABLETS PO PRN (22:00)
[2019-08-29] MEDS ORDERED: traZODone HCL 50 MG TABLET (FP) PO ONE (22:00)
[2019-08-29] MEDS ORDERED: BUDESONIDE/FORMETEROL FUMARATE 160/4.5 mcg INHALER IH SCH (22:00)
[2019-08-30 09:11] LABS: RPR REACTIVE 1:1 (NONREACTIVE)
[2019-08-30 09:15] LABS: TREPONEMA ANTIBODY PREVIOUSLY REACTIVE (NONREACTIVE)
[2019-08-30] MEDS: BUDESONIDE/FORMETEROL FUMARATE 160/4.5 mcg INHALER IH SCH ×2 (10:26→21:33)
[2019-08-30] MEDS: NICOTINE 7 MG/24 HOURS TOPICAL PATCH TD SCH (10:26)
[2019-08-30] MEDS: DIVALPROEX SODIUM 250 MG TABLET E.C. PO SCH ×2 (10:27→21:32)
[2019-08-30] MEDS: PRENATAL VITAMINS W/ FOLIC ACID TABLET (FP) PO SCH (10:27)
[2019-08-30 13:06] LABS: PH,URINE 7.5 (5.0-8.0); URINE APPEARANCE CLEAR; URINE BILIRUBIN NEGATIVE (NEGATIVE); URINE COLOR YELLOW; URINE GLUCOSE (UA) NEGATIVE (NEGATIVE); URINE KETONE NEGATIVE (NEGATIVE); URINE LEUK ESTERASE NEGATIVE (NEGATIVE); URINE NITRITE NEGATIVE (NEGATIVE); URINE PROTEIN NEGATIVE (NEGATIVE)
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
[2019-08-30] MEDS: THIAMINE HCL 100 MG TABLET (FP) PO SCH (21:32)
[2019-08-30] MEDS: diphenhydrAMINE HCL 50 MG CAPSULE PO SCH (21:32)
[2019-08-30] MEDS: risperiDONE 2 MG TABLET PO SCH (21:33)
[2019-08-30] MEDS: traZODone HCL 50 MG TABLET (FP) PO SCH (21:33)
[2019-08-31] MEDS ORDERED: PT OWN MED DRAWER 7, Y5N ONE (09:08)
[2019-08-31] MEDS: NICOTINE 7 MG/24 HOURS TOPICAL PATCH TD SCH (10:27)
[2019-08-31] MEDS: PRENATAL VITAMINS W/ FOLIC ACID TABLET (FP) PO SCH (10:27)
[2019-08-31] MEDS: DIVALPROEX SODIUM 250 MG TABLET E.C. PO SCH ×2 (10:27→21:41)
[2019-08-31] MEDS: risperiDONE 2 MG TABLET PO SCH ×2 (10:27→21:41)
[2019-08-31] MEDS: BUDESONIDE/FORMETEROL FUMARATE 160/4.5 mcg INHALER IH SCH ×2 (10:27→23:29)
[2019-08-31] MEDS: THIAMINE HCL 100 MG TABLET (FP) PO SCH (21:41)
[2019-08-31] MEDS: diphenhydrAMINE HCL 50 MG CAPSULE PO SCH (21:41)
[2019-08-31] MEDS: traZODone HCL 50 MG TABLET (FP) PO SCH (21:41)
[2019-09-01 07:13] VITALS: BP 87/58; PULSE 88; TEMP 97.5
--- NOTE | 2019-09-01 09:38 | PN ---
[facility] Progress Note Note: Patient reported to staff she wants to sign out AMA to address her section 8/ housing matters. Patient admitted 08/29/2019 to rehab for alcohol and cocaine dependence. PMH includes schizophrenia. Patient medically advised to stay in treatment and explained risk factors of reoccurrence/relapse with signing out AMA. Patient refused to stay in treatment despite intervention. She is medically stable at this time. Pt denies SI/HI. Recommended by telegraphic typewriter operator for patient to attend AA/NA group meetings to maintain sobriety. 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 Laboratory Tests 08/29/19 08/29/19 08/29/19 13:00 13:00 13:00 WBC 4.8 RBC 4.54 Hgb 13.7 Hct 42.2 MCV 92.9 MCH 30.2 MCHC 32.5 RDW 16.2 H Plt Count 201 MPV 11.1 Sodium 142 Potassium 4.5 Chloride 108 H Carbon Dioxide 29 Anion Gap 5 L BUN 10.8 Creatinine 1.0 Est GFR (CKD-EPI)AfAm 72.42 Est GFR (CKD-EPI)NonAf 62.49 Random Glucose 105 Calcium 8.6 Total Bilirubin 1.1 H AST 11 L ALT 13 Alkaline Phosphatase 85 Total Protein 7.5 Albumin 3.2 L Urine Color Urine Appearance Urine pH Ur Specific [place] Urine Protein Urine Glucose (UA) Urine Ketones Urine Blood Urine Nitrite Urine Bilirubin Urine Urobilinogen Ur Leukocyte Esterase Valproic Acid RPR Titer Reactive 1:1 H T.pallidum Ab (MHA) Previously reactive 08/30/19 08/30/19 05:40 08:25 WBC RBC Hgb Hct MCV MCH MCHC RDW Plt Count MPV Sodium Potassium Chloride Carbon Dioxide Anion Gap BUN Creatinine Est GFR (CKD-EPI)AfAm Est GFR (CKD-EPI)NonAf Random Glucose Calcium Total Bilirubin AST ALT Alkaline Phosphatase Total Protein Albumin Urine Color Yellow Urine Appearance Clear Urine pH 7.5 Ur Specific [place] 1.017 Urine Protein Negative Urine Glucose (UA) Negative Urine Ketones Negative Urine Blood Negative Urine Nitrite Negative Urine Bilirubin Negative Urine Urobilinogen 1.0 Ur Leukocyte Esterase Negative Valproic Acid 84.0 RPR Titer T.pallidum Ab (MHA) Vital Signs (72 hours) 08/29/19 08/29/19 08/30/19 14:01 15:06 00:32 Temperature 96 F L Pulse Rate 77 83 Respiratory 18 18 18 Rate Blood Pressure 111/79 132/92 08/30/19 08/30/19 08/30/19 03:32 07:56 09:58 Temperature 98.2 F Pulse Rate 92 H 92 H Respiratory 18 18 Rate Blood Pressure 96/68 100/60 08/31/19 08/31/19 08/31/19 00:34 03:35 06:50 Temperature 97.8 F Pulse Rate 98 H Respiratory 18 18 18 Rate Blood Pressure 105/73 08/31/19 09/01/19 09/01/19 09:20 00:25 03:30 Temperature Pulse Rate 90 Respiratory 18 18 Rate Blood Pressure 121/68 09/01/19 06:35 Temperature 97.5 F L Pulse Rate 88 Respiratory 18 Rate Blood Pressure 87/58 L Ambulatory Orders Albuterol Sulfate Inhaler - [Ventolin HFA Inhaler -] 2 inh IH Q4H PRN #1 inhaler 07/23/19 Budesonide/Formeterol Fumarate [SYMBICORT 160/4.5mcg -] 1 inh PO BID #1 inhaler 07/23/19 Dolutegravir Sodium [Tivicay] 50 mg PO DAILY #30 tablet 07/23/19 Emtricitab/Rilpiviri/Tenof Ala [Odefsey Tablet] 1 each PO DAILY #30 tablet 07/23 Risperidone [Risperdal -] 2 mg PO BID #60 tablet 07/23/19 traZODone HCL [Desyrel -] 100 mg PO HS #30 tablet 07/23/19 Diphenhydramine [Benadryl Capsule -] 50 mg PO BID 08/29/19 Divalproex [Depakote -] 750 mg PO BID 08/29/19 ROS: denies shakes, sweats, anxiety, chest pain and sob PE alert and oriented x 3 skin warm and dry in nad amb ad nina full rom, no tremors or edema noted A/P alcohol dependence cocaine dependence patient signed out ama
--- NOTE | 2019-09-01 09:44 | DS ---
[facility] Rehab Discharge Summary - [facility] Rehab Discharge Summary Admission Date: 08/29/19 Discharge Date: 09/01/19 - History Present History: Alcohol dependence, Cocaine dependence - Discharge Physical Exam Vital Signs: Vital Signs Temperature 97.5 F L 09/01/19 06:35 Pulse Rate 88 09/01/19 06:35 Respiratory Rate 18 09/01/19 06:35 Blood Pressure 87/58 L 09/01/19 06:35 O2 Sat by Pulse Oximetry (%) - Treatment Hospital Course: Patient reported to staff she wants to sign out AMA to address her section 8/ housing matters. Patient admitted 08/29/2019 to rehab for alcohol and cocaine dependence. PMH includes schizophrenia. Patient medically advised to stay in treatment and explained risk factors of reoccurrence/relapse with signing out AMA. Patient refused to stay in treatment despite intervention. She is medically stable at this time. Pt denies SI/HI. Recommended by newswriter for patient to attend AA/NA group meetings to maintain sobriety. 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 - Medication Discharge Medications: Ambulatory Orders Albuterol Sulfate Inhaler - [Ventolin HFA Inhaler -] 2 inh IH Q4H PRN #1 inhaler 07/23/19 Budesonide/Formeterol Fumarate [SYMBICORT 160/4.5mcg -] 1 inh PO BID #1 inhaler 07/23/19 Dolutegravir Sodium [Tivicay] 50 mg PO DAILY #30 tablet 07/23/19 Emtricitab/Rilpiviri/Tenof Ala [Odefsey Tablet] 1 each PO DAILY #30 tablet 07/23 Risperidone [Risperdal -] 2 mg PO BID #60 tablet 07/23/19 traZODone HCL [Desyrel -] 100 mg PO HS #30 tablet 07/23/19 Diphenhydramine [Benadryl Capsule -] 50 mg PO BID 08/29/19 Divalproex [Depakote -] 750 mg PO BID 08/29/19 - Medication-Assisted Treatment (MAT) Medication-Assisted Treatment (MAT): No - Discharge Instructions Diet, activity, other medical instructions: Diet: reg as tolerated Activity: as tolerated Other medical instructions: follow up with pcp as recommended. - Follow-up Referral Minutes to complete discharge: 35 - AMA Did Patient Leave Against Medical Advice: Yes
[2019-09-01] MEDS: NICOTINE 7 MG/24 HOURS TOPICAL PATCH TD SCH (10:15)
[2019-09-01] MEDS: PRENATAL VITAMINS W/ FOLIC ACID TABLET (FP) PO SCH (10:15)
[2019-09-01] MEDS: DIVALPROEX SODIUM 250 MG TABLET E.C. PO SCH (10:15)
[2019-09-01] MEDS: risperiDONE 2 MG TABLET PO SCH (10:15)
[2019-09-01] MEDS: BUDESONIDE/FORMETEROL FUMARATE 160/4.5 mcg INHALER IH SCH (10:16)
[2019-09-01] MEDS ORDERED: PT OWN MED DRAWER 7, Y5N ONE (10:29)
== END 2019-09-01 09:33 | disposition left against medical advice (07) | DRG 770 ==
LOC: YASAS 11:34 → Y3E 14:03
PROVIDERS: ADMIT Allergy & Immunology; ATTEND Allergy & Immunology
PROC: HZ42ZZZ Group Counseling for Substance Abuse Treatment, Cognitive-Behavioral (ICD-10-PCS; principal; 2019-08-29)
DX: F10.20 Alcohol dependence, uncomplicated (principal); F14.20 Cocaine dependence, uncomplicated; F17.210 Nicotine dependence, cigarettes, uncomplicated; F19.282 Other psychoactive substance dependence with psychoactive substance-induced sleep disorder; F25.0 Schizoaffective disorder, bipolar type; B20 Human immunodeficiency virus [HIV] disease; J44.1 Chronic obstructive pulmonary disease with (acute) exacerbation; G47.00 Insomnia, unspecified; J45.998 Other asthma; D64.9 Anemia, unspecified; G40.509 Epileptic seizures related to external causes, not intractable, without status epilepticus; R12 Heartburn; R01.1 Cardiac murmur, unspecified; Z56.0 Unemployment, unspecified; Z88.0 Allergy status to penicillin; Z88.8 Allergy status to other drugs, medicaments and biological substances; Z91.410 Personal history of adult physical and sexual abuse
CPT/HCPCS: 36415; 80053; 80164; 81003; 85027; 86593; 86780

== ENCOUNTER 2020-09-27 14:52 | Inpatient (IN) | payer OTHER ==
[2020-09-27 15:48] VITALS: BMI 23.0
[2020-09-27] MEDS ORDERED: METHOCARBAMOL 500 MG TABLET PO PRN (16:07)
[2020-09-27] MEDS ORDERED: MAG HYDROX/AL HYDROX/SIMETH 30 ML UNIT-DOSE CUP PO PRN (16:07)
[2020-09-27] MEDS ORDERED: ACETAMINOPHEN 325 MG TABLET (FP) PO PRN ×2 (16:07)
[2020-09-27] MEDS ORDERED: BISMUTH SUBSALICYLATE 524 MG/30 ML UD PO PRN (16:07)
[2020-09-27] MEDS ORDERED: MAGNESIUM HYDROX 2400MG/30ML ORAL SUSPENSION 30 ML CUP PO PRN (16:07)
[2020-09-27] MEDS ORDERED: MAGNESIUM CITRATE 300 ML BOTTLE PO PRN (16:07)
[2020-09-27] MEDS ORDERED: ONDANSETRON *ODT* 4 MG TABLET SL PRN (16:07)
[2020-09-27] MEDS ORDERED: IBUPROFEN 400 MG TABLET (FP) PO PRN (16:07)
[2020-09-27] MEDS ORDERED: MENTHOL/PHENOL 1 EACH UD MM PRN (16:07)
[2020-09-27] MEDS ORDERED: hydrOXYzine PAMOATE 25 MG CAPSULE (FP) PO SCH (18:00)
[2020-09-27] MEDS ORDERED: chlordiazePOXIDE HCL 25 MG CAPSULE PO PRN (21:06)
[2020-09-27] MEDS ORDERED: chlordiazePOXIDE HCL 25 MG CAPSULE PO ONE (21:06)
[2020-09-27] MEDS ORDERED: DIVALPROEX SODIUM 250 MG TABLET E.C. PO ONE (22:00)
[2020-09-27] MEDS: THIAMINE HCL 100 MG TABLET (FP) PO SCH (22:00)
[2020-09-27] MEDS: MELATONIN 5 MG TABLETS PO SCH (22:00)
[2020-09-28] MEDS: chlordiazePOXIDE HCL 25 MG CAPSULE PO SCH ×5 (00:18→22:27)
[2020-09-28] MEDS: diphenhydrAMINE HCL 25 MG CAPSULE (FP) PO SCH ×3 (00:18→23:51)
[2020-09-28 10:13] LABS: HEMATOCRIT 42.6 % (32.4-45.2); HEMOGLOBIN 14.2 GM/dL (10.7-15.3); MCH 30.7 pg (25.7-33.7); MCHC 33.3 g/dl (32.0-36.0); MEAN CELL VOLUME 92.2 fl (80-96); PLATELET COUNT 243 K/MM3 (134-434); RBC 4.62 M/mm3 (3.60-5.2); RDW 15.3 % (11.6-15.6); WHITE BLOOD COUNT 5.9 K/mm3 (4.0-10.0)
[2020-09-28 10:27] LABS: POTASSIUM 4.3 mmol/L (3.5-5.1)
[2020-09-28] MEDS: PRENATAL VITAMINS W/ FOLIC ACID TABLET (FP) PO SCH (10:28)
[2020-09-28 10:30] LABS: CALCIUM 9.1 mg/dL (8.5-10.1)
[2020-09-28 10:31] LABS: ALBUMIN 3.1 g/dl (3.4-5.0); BLOOD UREA NITROGEN 14.5 mg/dL (7-18)
[2020-09-28 10:33] LABS: CREATININE 0.9 mg/dL (0.55-1.3)
[2020-09-28 10:35] LABS: BILIRUBIN,TOTAL 0.3 mg/dL (0.2-1)
[2020-09-28] MEDS: DIVALPROEX SODIUM 250 MG TABLET E.C. PO SCH ×2 (11:21→22:28)
[2020-09-28] MEDS: risperiDONE 2 MG TABLET PO SCH ×2 (11:22→22:29)
[2020-09-28] MEDS: THIAMINE HCL 100 MG TABLET (FP) PO SCH (22:27)
[2020-09-28] MEDS: MELATONIN 5 MG TABLETS PO SCH (22:28)
[2020-09-28] MEDS: traZODone HCL 50 MG TABLET (FP) PO SCH (22:28)
[2020-09-29] MEDS: chlordiazePOXIDE HCL 10 MG CAPSULE PO SCH ×4 (05:54→22:13)
[2020-09-29] MEDS: DIVALPROEX SODIUM 250 MG TABLET E.C. PO SCH ×2 (10:04→22:11)
[2020-09-29] MEDS: diphenhydrAMINE HCL 25 MG CAPSULE (FP) PO SCH (10:04)
[2020-09-29] MEDS: PRENATAL VITAMINS W/ FOLIC ACID TABLET (FP) PO SCH (10:04)
[2020-09-29] MEDS: risperiDONE 2 MG TABLET PO SCH ×2 (10:05→22:11)
[2020-09-29] MEDS: MELATONIN 5 MG TABLETS PO SCH (22:11)
[2020-09-29] MEDS: THIAMINE HCL 100 MG TABLET (FP) PO SCH (22:11)
[2020-09-29] MEDS: traZODone HCL 50 MG TABLET (FP) PO SCH (22:11)
[2020-09-30] MEDS ORDERED: chlordiazePOXIDE HCL 10 MG CAPSULE PO PRN
[2020-09-30] MEDS: diphenhydrAMINE HCL 25 MG CAPSULE (FP) PO SCH ×2 (00:01→09:35)
[2020-09-30] MEDS ORDERED: chlordiazePOXIDE HCL 10 MG CAPSULE PO SCH (05:00)
[2020-09-30] MEDS: DIVALPROEX SODIUM 250 MG TABLET E.C. PO SCH (09:35)
[2020-09-30] MEDS: risperiDONE 2 MG TABLET PO SCH (09:36)
[2020-09-30] MEDS: PRENATAL VITAMINS W/ FOLIC ACID TABLET (FP) PO SCH (09:36)
[2020-09-30 13:13] VITALS: BP 96/61; PULSE 106; TEMP 97.5
[2020-10-01] MEDS ORDERED: chlordiazePOXIDE HCL 10 MG CAPSULE PO ONE (05:00)
== END 2020-09-30 16:12 | disposition home or self-care (01) | DRG 774 ==
LOC: YASAS 14:52 → Y6N 16:37
PROVIDERS: ADMIT Allergy & Immunology; ATTEND Allergy & Immunology
PROC: HZ2ZZZZ Detoxification Services for Substance Abuse Treatment (ICD-10-PCS; principal; 2020-09-27)
DX: F10.230 Alcohol dependence with withdrawal, uncomplicated (principal); F14.20 Cocaine dependence, uncomplicated; F17.210 Nicotine dependence, cigarettes, uncomplicated; F25.0 Schizoaffective disorder, bipolar type; F19.282 Other psychoactive substance dependence with psychoactive substance-induced sleep disorder; B20 Human immunodeficiency virus [HIV] disease; G40.89 Other seizures; J44.9 Chronic obstructive pulmonary disease, unspecified; J45.909 Unspecified asthma, uncomplicated; Z91.410 Personal history of adult physical and sexual abuse; Z86.19 Personal history of other infectious and parasitic diseases; Z87.81 Personal history of (healed) traumatic fracture; Z98.890 Other specified postprocedural states; Z88.0 Allergy status to penicillin; Z88.8 Allergy status to other drugs, medicaments and biological substances
CPT/HCPCS: 36415; 80053; 80164; 85027; 86593; 86780; C9803; U0003; U0005

== ENCOUNTER 2020-10-28 12:31 | Inpatient (IN) | payer OTHER ==
[2020-10-28 13:33] VITALS: BMI 28.5
[2020-10-28] MEDS ORDERED: METHOCARBAMOL 500 MG TABLET PO PRN (14:34)
[2020-10-28] MEDS ORDERED: MAGNESIUM CITRATE 300 ML BOTTLE PO PRN (14:34)
[2020-10-28] MEDS ORDERED: MAG HYDROX/AL HYDROX/SIMETH 30 ML UNIT-DOSE CUP PO PRN (14:34)
[2020-10-28] MEDS ORDERED: MAGNESIUM HYDROX 2400MG/30ML ORAL SUSPENSION 30 ML CUP PO PRN (14:34)
[2020-10-28] MEDS ORDERED: IBUPROFEN 400 MG TABLET (FP) PO PRN (14:34)
[2020-10-28] MEDS ORDERED: BISMUTH SUBSALICYLATE 524 MG/30 ML UD PO PRN (14:34)
[2020-10-28] MEDS ORDERED: ACETAMINOPHEN 325 MG TABLET (FP) PO PRN ×2 (14:34)
[2020-10-28] MEDS ORDERED: hydrOXYzine PAMOATE 25 MG CAPSULE (FP) PO PRN (14:34)
[2020-10-28] MEDS ORDERED: chlordiazePOXIDE HCL 25 MG CAPSULE PO PRN (14:34)
[2020-10-28] MEDS ORDERED: ONDANSETRON *ODT* 4 MG TABLET SL PRN (14:34)
[2020-10-28] MEDS ORDERED: MENTHOL/PHENOL 1 EACH UD MM PRN (14:34)
[2020-10-28 16:59] LABS: HEMATOCRIT 40.4 % (32.4-45.2); HEMOGLOBIN 13.3 GM/dL (10.7-15.3); MCH 30.4 pg (25.7-33.7); MEAN PLT VOLUME 11.2 fl (7.5-11.1); PLATELET COUNT 237 K/MM3 (134-434); RBC 4.39 M/mm3 (3.60-5.2); RDW 15.6 % (11.6-15.6); WHITE BLOOD COUNT 5.8 K/mm3 (4.0-10.0)
[2020-10-28 17:22] LABS: ALBUMIN 3.3 g/dl (3.4-5.0); BILIRUBIN,TOTAL 0.6 mg/dL (0.2-1); BLOOD UREA NITROGEN 19.3 mg/dL (7-18); CALCIUM 8.7 mg/dL (8.5-10.1); TOT PROT 7.3 g/dl (6.4-8.2)
[2020-10-28] MEDS: chlordiazePOXIDE HCL 25 MG CAPSULE PO SCH ×2 (18:26→23:47)
[2020-10-28] MEDS: MELATONIN 5 MG TABLETS PO SCH (23:48)
[2020-10-28] MEDS: THIAMINE HCL 100 MG TABLET (FP) PO SCH (23:48)
[2020-10-29] MEDS: chlordiazePOXIDE HCL 25 MG CAPSULE PO SCH ×4 (05:20→23:08)
[2020-10-29] MEDS ORDERED: diphenhydrAMINE HCL 25 MG CAPSULE (FP) PO ONE ×2 (09:26→21:36)
[2020-10-29] MEDS ORDERED: DIVALPROEX SODIUM 250 MG TABLET E.C. ONE ×2 (09:26→21:37)
[2020-10-29] MEDS ORDERED: DIVALPROEX SODIUM 500 MG TABLET E.C. ONE ×2 (09:27→21:37)
[2020-10-29] MEDS ORDERED: DIVALPROEX SODIUM 500 MG TABLET E.C. PO SCH (10:00)
[2020-10-29] MEDS: risperiDONE 2 MG TABLET PO SCH ×2 (10:21→23:05)
[2020-10-29] MEDS: PRENATAL VITAMINS W/ FOLIC ACID TABLET (FP) PO SCH (10:21)
[2020-10-29] MEDS: diphenhydrAMINE HCL 50 MG CAPSULE PO SCH ×2 (10:22→23:54)
[2020-10-29] MEDS: DIVALPROEX 250 MG, DIVALPROEX 500 MG PO SCH ×2 (10:22→23:05)
[2020-10-29] MEDS: NICOTINE 7 MG/24 HOURS TOPICAL PATCH TD SCH (10:23)
[2020-10-29] MEDS ORDERED: ALBUTEROL SO4 HFA INHALER IH PRN (13:12)
[2020-10-29] MEDS: EMTRICITAB/RILPIVIRI/TENOF ALA (ODEFSEY) TABLET PO SCH (14:41)
[2020-10-29] MEDS: DOLUTEGRAVIR SODIUM 50 MG TABLET (NON-FORMULARY) PO SCH (14:41)
[2020-10-29] MEDS: THIAMINE HCL 100 MG TABLET (FP) PO SCH (23:05)
[2020-10-29] MEDS: traZODone HCL 50 MG TABLET (FP) PO SCH (23:05)
[2020-10-29] MEDS: MELATONIN 5 MG TABLETS PO SCH (23:06)
[2020-10-29] MEDS: BUDESONIDE/FORMETEROL FUMARATE 160/4.5 mcg INHALER IH SCH (23:10)
[2020-10-30] MEDS: chlordiazePOXIDE HCL 25 MG CAPSULE PO SCH ×4 (05:49→22:17)
[2020-10-30] MEDS ORDERED: DIVALPROEX SODIUM 250 MG TABLET E.C. ONE ×2 (08:39→21:48)
[2020-10-30] MEDS ORDERED: diphenhydrAMINE HCL 25 MG CAPSULE (FP) PO ONE (08:39)
[2020-10-30] MEDS ORDERED: DIVALPROEX SODIUM 500 MG TABLET E.C. ONE ×2 (08:40→21:48)
[2020-10-30] MEDS: diphenhydrAMINE HCL 50 MG CAPSULE PO SCH ×2 (10:33→22:18)
[2020-10-30] MEDS: DIVALPROEX 250 MG, DIVALPROEX 500 MG PO SCH ×2 (10:33→22:17)
[2020-10-30] MEDS: DOLUTEGRAVIR SODIUM 50 MG TABLET (NON-FORMULARY) PO SCH (10:34)
[2020-10-30] MEDS: NICOTINE 7 MG/24 HOURS TOPICAL PATCH TD SCH (10:34)
[2020-10-30] MEDS: risperiDONE 2 MG TABLET PO SCH ×2 (10:34→22:17)
[2020-10-30] MEDS: BUDESONIDE/FORMETEROL FUMARATE 160/4.5 mcg INHALER IH SCH ×2 (10:34→22:17)
[2020-10-30] MEDS: EMTRICITAB/RILPIVIRI/TENOF ALA (ODEFSEY) TABLET PO SCH (10:34)
[2020-10-30] MEDS: PRENATAL VITAMINS W/ FOLIC ACID TABLET (FP) PO SCH (10:34)
[2020-10-30] MEDS: THIAMINE HCL 100 MG TABLET (FP) PO SCH (22:17)
[2020-10-30] MEDS: traZODone HCL 50 MG TABLET (FP) PO SCH (22:17)
[2020-10-30] MEDS: MELATONIN 5 MG TABLETS PO SCH (22:18)
[2020-10-31] MEDS ORDERED: chlordiazePOXIDE HCL 10 MG CAPSULE PO PRN
[2020-10-31] MEDS: chlordiazePOXIDE HCL 10 MG CAPSULE PO SCH ×4 (05:55→22:04)
[2020-10-31] MEDS: EMTRICITAB/RILPIVIRI/TENOF ALA (ODEFSEY) TABLET PO SCH (08:02)
[2020-10-31] MEDS ORDERED: DIVALPROEX SODIUM 250 MG TABLET E.C. ONE ×2 (08:30→21:55)
[2020-10-31] MEDS ORDERED: DIVALPROEX SODIUM 500 MG TABLET E.C. ONE ×2 (08:30→21:55)
[2020-10-31] MEDS: DIVALPROEX 250 MG, DIVALPROEX 500 MG PO SCH ×2 (10:16→22:04)
[2020-10-31] MEDS: diphenhydrAMINE HCL 50 MG CAPSULE PO SCH ×2 (10:16→22:05)
[2020-10-31] MEDS: NICOTINE 7 MG/24 HOURS TOPICAL PATCH TD SCH (10:16)
[2020-10-31] MEDS: risperiDONE 2 MG TABLET PO SCH ×2 (10:17→22:04)
[2020-10-31] MEDS: PRENATAL VITAMINS W/ FOLIC ACID TABLET (FP) PO SCH (10:17)
[2020-10-31] MEDS: DOLUTEGRAVIR SODIUM 50 MG TABLET (NON-FORMULARY) PO SCH (10:17)
[2020-10-31] MEDS: BUDESONIDE/FORMETEROL FUMARATE 160/4.5 mcg INHALER IH SCH ×2 (10:17→22:05)
[2020-10-31] MEDS: THIAMINE HCL 100 MG TABLET (FP) PO SCH (22:04)
[2020-10-31] MEDS: traZODone HCL 50 MG TABLET (FP) PO SCH (22:04)
[2020-10-31] MEDS: MELATONIN 5 MG TABLETS PO SCH (22:05)
[2020-11-01] MEDS ORDERED: chlordiazePOXIDE HCL 10 MG CAPSULE PO SCH (05:00)
[2020-11-01 06:06] LABS: SARS-CoV-2 NAA Not Detected (Not Detected)
[2020-11-01] MEDS ORDERED: DIVALPROEX SODIUM 250 MG TABLET E.C. ONE (08:29)
[2020-11-01] MEDS ORDERED: diphenhydrAMINE HCL 25 MG CAPSULE (FP) PO ONE (08:29)
[2020-11-01] MEDS ORDERED: DIVALPROEX SODIUM 500 MG TABLET E.C. ONE (08:30)
[2020-11-01 09:24] VITALS: BP 107/73; PULSE 79; TEMP 98.1
[2020-11-01] MEDS: diphenhydrAMINE HCL 50 MG CAPSULE PO SCH (10:03)
[2020-11-01] MEDS: risperiDONE 2 MG TABLET PO SCH (10:03)
[2020-11-01] MEDS: NICOTINE 7 MG/24 HOURS TOPICAL PATCH TD SCH (10:03)
[2020-11-01] MEDS: PRENATAL VITAMINS W/ FOLIC ACID TABLET (FP) PO SCH (10:03)
[2020-11-01] MEDS: BUDESONIDE/FORMETEROL FUMARATE 160/4.5 mcg INHALER IH SCH (10:03)
[2020-11-01] MEDS: DOLUTEGRAVIR SODIUM 50 MG TABLET (NON-FORMULARY) PO SCH (10:03)
[2020-11-01] MEDS: DIVALPROEX 250 MG, DIVALPROEX 500 MG PO SCH (10:03)
[2020-11-01] MEDS: EMTRICITAB/RILPIVIRI/TENOF ALA (ODEFSEY) TABLET PO SCH (10:03)
[2020-11-02] MEDS ORDERED: chlordiazePOXIDE HCL 10 MG CAPSULE PO ONE (05:00)
== END 2020-11-01 10:30 | disposition home or self-care (01) | DRG 774 ==
LOC: YASAS 12:31 → Y6N 16:17
PROVIDERS: ADMIT Allergy & Immunology; ATTEND Allergy & Immunology
PROC: HZ2ZZZZ Detoxification Services for Substance Abuse Treatment (ICD-10-PCS; principal; 2020-10-28)
DX: F10.230 Alcohol dependence with withdrawal, uncomplicated (principal); F14.20 Cocaine dependence, uncomplicated; F17.210 Nicotine dependence, cigarettes, uncomplicated; F10.282 Alcohol dependence with alcohol-induced sleep disorder; Z21 Asymptomatic human immunodeficiency virus [HIV] infection status; A53.0 Latent syphilis, unspecified as early or late; J43.8 Other emphysema; J45.909 Unspecified asthma, uncomplicated; D64.9 Anemia, unspecified; E78.5 Hyperlipidemia, unspecified; G40.509 Epileptic seizures related to external causes, not intractable, without status epilepticus; K21.9 Gastro-esophageal reflux disease without esophagitis; R76.11 Nonspecific reaction to tuberculin skin test without active tuberculosis; Z86.19 Personal history of other infectious and parasitic diseases; Z88.0 Allergy status to penicillin; Z88.8 Allergy status to other drugs, medicaments and biological substances
CPT/HCPCS: 36415; 80053; 85027; 86593; 86780; 93005; 93010; C9803; U0003; U0005

== ENCOUNTER 2020-12-16 12:38 | Inpatient (IN) | payer OTHER ==
[2020-12-16 13:29] VITALS: BMI 28.9
[2020-12-16] MEDS ORDERED: MAGNESIUM CITRATE 300 ML BOTTLE PO PRN (15:28)
[2020-12-16] MEDS ORDERED: BISMUTH SUBSALICYLATE 524 MG/30 ML PO PRN (15:28)
[2020-12-16] MEDS ORDERED: IBUPROFEN 400 MG TABLET (FP) PO PRN (15:28)
[2020-12-16] MEDS ORDERED: ACETAMINOPHEN 325 MG TABLET (FP) PO PRN ×2 (15:28)
[2020-12-16] MEDS ORDERED: NICOTINE POLACRILEX 2 MG GUM BUC PRN (15:28)
[2020-12-16] MEDS ORDERED: MAGNESIUM HYDROX 2400MG/30ML ORAL SUSPENSION 30 ML CUP PO PRN (15:28)
[2020-12-16] MEDS ORDERED: MAG HYDROX/AL HYDROX/SIMETH 30 ML UNIT-DOSE CUP PO PRN (15:28)
[2020-12-16] MEDS ORDERED: MENTHOL/PHENOL 1 EACH UD MM PRN (15:28)
[2020-12-16] MEDS ORDERED: diazePAM 5 MG TABLET PO PRN (15:28)
[2020-12-16] MEDS ORDERED: ONDANSETRON *ODT* 4 MG TABLET SL PRN (15:28)
[2020-12-16] MEDS ORDERED: BENZOCAINE/MENTH/CETYLPYRD CL 1 EACH LOZENGE MM PRN (15:37)
[2020-12-16] MEDS: ALBUTEROL SO4 HFA INHALER IH PRN (19:11)
[2020-12-16] MEDS: diazePAM 5 MG TABLET PO SCH ×2 (19:11→22:35)
[2020-12-16] MEDS: PRENATAL VITAMINS W/ FOLIC ACID TABLET (FP) PO SCH (19:13)
[2020-12-16] MEDS: hydrOXYzine PAMOATE 25 MG CAPSULE (FP) PO SCH ×2 (19:13→22:35)
[2020-12-16] MEDS: NICOTINE 7 MG/24 HOURS TOPICAL PATCH TD SCH (19:14)
[2020-12-16] MEDS: guaiFENesin 200 MG/10 ML 10 ML UNIT-DOSE CUPS PO PRN (19:52)
[2020-12-16] MEDS: METHOCARBAMOL 500 MG TABLET PO PRN (20:19)
[2020-12-16] MEDS ORDERED: DIVALPROEX SODIUM 500 MG TABLET E.C. ONE (21:29)
[2020-12-16] MEDS ORDERED: DIVALPROEX SODIUM 250 MG TABLET E.C. ONE (21:30)
[2020-12-16] MEDS ORDERED: DIVALPROEX SODIUM 500 MG TABLET E.C. PO SCH (22:00)
[2020-12-16] MEDS: BUDESONIDE/FORMETEROL FUMARATE 160/4.5 mcg INHALER IH SCH (22:33)
[2020-12-16] MEDS: MELATONIN 5 MG TABLETS PO SCH (22:34)
[2020-12-16] MEDS: DIVALPROEX 500 MG, DIVALPROEX 250 MG PO SCH (22:35)
[2020-12-16] MEDS: THIAMINE HCL 100 MG TABLET (FP) PO SCH (22:35)
[2020-12-16] MEDS: risperiDONE 1 MG TABLET PO SCH (22:35)
[2020-12-16] MEDS: traZODone HCL 100 MG TABLET (FP) PO SCH (22:35)
[2020-12-17] MEDS: hydrOXYzine PAMOATE 25 MG CAPSULE (FP) PO SCH (07:11)
[2020-12-17] MEDS: diazePAM 5 MG TABLET PO SCH ×4 (07:11→22:13)
[2020-12-17] MEDS ORDERED: DIVALPROEX SODIUM 500 MG TABLET E.C. ONE ×2 (08:41→21:05)
[2020-12-17] MEDS ORDERED: DIVALPROEX SODIUM 250 MG TABLET E.C. ONE ×2 (08:42→21:05)
[2020-12-17] MEDS ORDERED: hydrOXYzine PAMOATE 25 MG CAPSULE (FP) PO PRN (09:13)
[2020-12-17 10:10] LABS: HEMATOCRIT 44.5 % (32.4-45.2); HEMOGLOBIN 14.3 GM/dL (10.7-15.3); MCH 29.5 pg (25.7-33.7); MCHC 32.1 g/dl (32.0-36.0); MEAN CELL VOLUME 91.9 fl (80-96); MEAN PLT VOLUME 11.5 fl (7.5-11.1); PLATELET COUNT 263 10^3/uL (134-434); RBC 4.84 M/mm3 (3.60-5.2); RDW 15.2 % (11.6-15.6); WHITE BLOOD COUNT 7.7 K/mm3 (4.0-10.0)
[2020-12-17] MEDS: risperiDONE 1 MG TABLET PO SCH ×2 (10:11→22:11)
[2020-12-17] MEDS: PRENATAL VITAMINS W/ FOLIC ACID TABLET (FP) PO SCH (10:11)
[2020-12-17] MEDS: DIVALPROEX 500 MG, DIVALPROEX 250 MG PO SCH ×2 (10:11→22:12)
[2020-12-17] MEDS: diphenhydrAMINE HCL 50 MG CAPSULE PO SCH ×2 (10:11→22:10)
[2020-12-17] MEDS: BUDESONIDE/FORMETEROL FUMARATE 160/4.5 mcg INHALER IH SCH ×2 (10:13→22:14)
[2020-12-17] MEDS: ALBUTEROL SO4 HFA INHALER IH PRN (10:13)
[2020-12-17] MEDS: DOLUTEGRAVIR SODIUM 50 MG TABLET (NON-FORMULARY) PO SCH (10:15)
[2020-12-17] MEDS: NICOTINE 7 MG/24 HOURS TOPICAL PATCH TD SCH (10:16)
[2020-12-17 10:23] LABS: TOT PROT 7.5 g/dl (6.4-8.2)
[2020-12-17 10:24] LABS: ALBUMIN 3.4 g/dl (3.4-5.0); BLOOD UREA NITROGEN 10.2 mg/dL (7-18); CALCIUM 8.9 mg/dL (8.5-10.1)
[2020-12-17 10:27] LABS: CREATININE 0.9 mg/dL (0.55-1.3)
[2020-12-17 10:34] LABS: BILIRUBIN,TOTAL 0.2 mg/dL (0.2-1)
[2020-12-17] MEDS: METHOCARBAMOL 500 MG TABLET PO PRN (13:05)
[2020-12-17] MEDS: guaiFENesin 200 MG/10 ML 10 ML UNIT-DOSE CUPS PO PRN (13:05)
[2020-12-17] MEDS ORDERED: diphenhydrAMINE HCL 25 MG CAPSULE (FP) PO ONE (21:05)
[2020-12-17] MEDS: MELATONIN 5 MG TABLETS PO SCH (22:10)
[2020-12-17] MEDS: THIAMINE HCL 100 MG TABLET (FP) PO SCH (22:14)
[2020-12-17] MEDS: traZODone HCL 100 MG TABLET (FP) PO SCH (22:52)
[2020-12-18] MEDS: diazePAM 5 MG TABLET PO SCH ×3 (07:39→22:30)
[2020-12-18] MEDS ORDERED: DIVALPROEX SODIUM 250 MG TABLET E.C. ONE ×2 (09:28→21:04)
[2020-12-18] MEDS ORDERED: DIVALPROEX SODIUM 500 MG TABLET E.C. ONE ×2 (09:28→21:04)
[2020-12-18] MEDS ORDERED: diphenhydrAMINE HCL 25 MG CAPSULE (FP) PO ONE (09:28)
[2020-12-18] MEDS: BUDESONIDE/FORMETEROL FUMARATE 160/4.5 mcg INHALER IH SCH ×2 (10:07→22:33)
[2020-12-18] MEDS: PRENATAL VITAMINS W/ FOLIC ACID TABLET (FP) PO SCH (10:07)
[2020-12-18] MEDS: NICOTINE 7 MG/24 HOURS TOPICAL PATCH TD SCH (10:07)
[2020-12-18] MEDS: diphenhydrAMINE HCL 50 MG CAPSULE PO SCH ×2 (10:08→22:32)
[2020-12-18] MEDS: risperiDONE 1 MG TABLET PO SCH ×2 (10:08→22:32)
[2020-12-18] MEDS: DIVALPROEX 500 MG, DIVALPROEX 250 MG PO SCH ×2 (10:08→22:31)
[2020-12-18] MEDS: DOLUTEGRAVIR SODIUM 50 MG TABLET (NON-FORMULARY) PO SCH (10:10)
[2020-12-18] MEDS: MELATONIN 5 MG TABLETS PO SCH (22:30)
[2020-12-18] MEDS: traZODone HCL 100 MG TABLET (FP) PO SCH (22:32)
[2020-12-18] MEDS: guaiFENesin 200 MG/10 ML 10 ML UNIT-DOSE CUPS PO PRN (22:33)
[2020-12-18] MEDS: THIAMINE HCL 100 MG TABLET (FP) PO SCH (22:55)
[2020-12-19] MEDS: diazePAM 5 MG TABLET PO SCH ×2 (07:56→17:33)
[2020-12-19] MEDS: DOLUTEGRAVIR SODIUM 50 MG TABLET (NON-FORMULARY) PO SCH (07:57)
[2020-12-19] MEDS ORDERED: DIVALPROEX SODIUM 500 MG TABLET E.C. ONE ×2 (09:10→21:28)
[2020-12-19] MEDS ORDERED: DIVALPROEX SODIUM 250 MG TABLET E.C. ONE ×2 (09:11→21:28)
[2020-12-19] MEDS: PRENATAL VITAMINS W/ FOLIC ACID TABLET (FP) PO SCH (10:10)
[2020-12-19] MEDS: diphenhydrAMINE HCL 50 MG CAPSULE PO SCH ×2 (10:10→22:13)
[2020-12-19] MEDS: DIVALPROEX 500 MG, DIVALPROEX 250 MG PO SCH ×2 (10:10→22:13)
[2020-12-19] MEDS: NICOTINE 7 MG/24 HOURS TOPICAL PATCH TD SCH (10:10)
[2020-12-19] MEDS: risperiDONE 1 MG TABLET PO SCH ×2 (10:11→22:13)
[2020-12-19] MEDS: BUDESONIDE/FORMETEROL FUMARATE 160/4.5 mcg INHALER IH SCH ×2 (10:12→22:14)
[2020-12-19] MEDS: ALBUTEROL SO4 HFA INHALER IH PRN ×2 (10:12→22:14)
[2020-12-19] MEDS: METHOCARBAMOL 500 MG TABLET PO PRN (11:06)
[2020-12-19] MEDS: EMTRICITAB/RILPIVIRI/TENOF ALA (ODEFSEY) TABLET PO SCH (15:14)
[2020-12-19] MEDS: guaiFENesin 200 MG/10 ML 10 ML UNIT-DOSE CUPS PO PRN (15:16)
[2020-12-19 21:24] VITALS: TEMP 97.1
[2020-12-19] MEDS: traZODone HCL 100 MG TABLET (FP) PO SCH (22:13)
[2020-12-19] MEDS: THIAMINE HCL 100 MG TABLET (FP) PO SCH (22:13)
[2020-12-19] MEDS: MELATONIN 5 MG TABLETS PO SCH (22:13)
[2020-12-20] MEDS ORDERED: diazePAM 5 MG TABLET PO ONE (06:00)
[2020-12-20] MEDS ORDERED: DIVALPROEX SODIUM 250 MG TABLET E.C. ONE (09:03)
[2020-12-20] MEDS ORDERED: DIVALPROEX SODIUM 500 MG TABLET E.C. ONE (09:03)
[2020-12-20 09:21] VITALS: BP 93/60; PULSE 54
[2020-12-20] MEDS: EMTRICITAB/RILPIVIRI/TENOF ALA (ODEFSEY) TABLET PO SCH (09:40)
[2020-12-20] MEDS: DIVALPROEX 500 MG, DIVALPROEX 250 MG PO SCH (09:40)
[2020-12-20] MEDS: diphenhydrAMINE HCL 50 MG CAPSULE PO SCH (09:41)
[2020-12-20] MEDS: NICOTINE 7 MG/24 HOURS TOPICAL PATCH TD SCH (09:41)
[2020-12-20] MEDS: BUDESONIDE/FORMETEROL FUMARATE 160/4.5 mcg INHALER IH SCH (09:41)
[2020-12-20] MEDS: PRENATAL VITAMINS W/ FOLIC ACID TABLET (FP) PO SCH (09:41)
[2020-12-20] MEDS: DOLUTEGRAVIR SODIUM 50 MG TABLET (NON-FORMULARY) PO SCH (09:50)
[2020-12-20] MEDS ORDERED: risperiDONE 2 MG TABLET PO SCH (10:00)
== END 2020-12-20 14:17 | disposition home or self-care (01) | DRG 774 ==
LOC: YASAS 12:38 → Y3N 15:07
PROVIDERS: ADMIT Allergy & Immunology; ATTEND Allergy & Immunology
PROC: HZ2ZZZZ Detoxification Services for Substance Abuse Treatment (ICD-10-PCS; principal; 2020-12-16)
DX: F10.230 Alcohol dependence with withdrawal, uncomplicated (principal); F14.20 Cocaine dependence, uncomplicated; F17.210 Nicotine dependence, cigarettes, uncomplicated; F25.9 Schizoaffective disorder, unspecified; Z21 Asymptomatic human immunodeficiency virus [HIV] infection status; G40.909 Epilepsy, unspecified, not intractable, without status epilepticus; J43.8 Other emphysema; K21.9 Gastro-esophageal reflux disease without esophagitis; E78.5 Hyperlipidemia, unspecified; R76.11 Nonspecific reaction to tuberculin skin test without active tuberculosis; Z88.0 Allergy status to penicillin; Z88.8 Allergy status to other drugs, medicaments and biological substances
CPT/HCPCS: 36415; 71046-TC-FY; 80053; 80164; 85027; 86593; 86780; C9803; J2794; U0003; U0005

== ENCOUNTER 2020-12-28 13:58 | Inpatient (IN) | payer OTHER ==
[2020-12-28 14:41] VITALS: BMI 28.5
[2020-12-28] MEDS ORDERED: MAGNESIUM HYDROX 2400MG/30ML ORAL SUSPENSION 30 ML CUP PO PRN (17:14)
[2020-12-28] MEDS ORDERED: IBUPROFEN 400 MG TABLET (FP) PO PRN (17:14)
[2020-12-28] MEDS ORDERED: guaiFENesin 200 MG/10 ML 10 ML UNIT-DOSE CUPS PO PRN (17:14)
[2020-12-28] MEDS ORDERED: LOPERAMIDE HCL 2 MG CAPSULE PO PRN (17:14)
[2020-12-28] MEDS ORDERED: MAG HYDROX/AL HYDROX/SIMETH 30 ML UNIT-DOSE CUP PO PRN (17:14)
[2020-12-28] MEDS ORDERED: ACETAMINOPHEN 325 MG TABLET (FP) PO PRN (17:14)
[2020-12-28] MEDS ORDERED: MAGNESIUM CITRATE 300 ML BOTTLE PO PRN (17:14)
[2020-12-28] MEDS ORDERED: P-EPHED 60MG/TRIPROLIDI 2.5MG TABLET PO PRN (17:14)
[2020-12-28] MEDS ORDERED: ALBUTEROL SO4 HFA INHALER IH PRN (17:16)
[2020-12-28] MEDS ORDERED: MASKS NR ONE (22:19)
[2020-12-28] MEDS: DIVALPROEX SODIUM 250 MG TABLET E.C. PO SCH (22:20)
[2020-12-28] MEDS: THIAMINE HCL 100 MG TABLET (FP) PO SCH (22:20)
[2020-12-28] MEDS: MELATONIN 5 MG TABLETS PO SCH (22:20)
[2020-12-28] MEDS: hydrOXYzine PAMOATE 25 MG CAPSULE (FP) PO PRN (22:20)
[2020-12-28] MEDS: BUDESONIDE/FORMETEROL FUMARATE 160/4.5 mcg INHALER IH SCH (22:20)
[2020-12-28] MEDS ORDERED: traZODone HCL 100 MG TABLET (FP) PO ONE (22:45)
[2020-12-28 23:05] LABS: PH,URINE 6.5 (5.0-8.0); URINE APPEARANCE CLEAR; URINE BILIRUBIN NEGATIVE (NEGATIVE); URINE COLOR YELLOW; URINE GLUCOSE (UA) NEGATIVE (NEGATIVE); URINE KETONE NEGATIVE (NEGATIVE); URINE LEUK ESTERASE NEGATIVE (NEGATIVE); URINE NITRITE NEGATIVE (NEGATIVE); URINE PROTEIN NEGATIVE (NEGATIVE); URINE UROBILINOGEN 0.2 mg/dL (0.2-1.0)
[2020-12-29] MEDS: metFORMIN HCL 500 MG TABLET (FP) PO SCH ×2 (06:41→18:44)
[2020-12-29] MEDS ORDERED: COVID-19 VAC,AD26(JANSSEN)/PF 0.5 ML IM ONE (10:00)
[2020-12-29] MEDS: PRENATAL VITAMINS W/ FOLIC ACID TABLET (FP) PO SCH (10:35)
[2020-12-29] MEDS: DIVALPROEX SODIUM 250 MG TABLET E.C. PO SCH ×2 (10:35→22:27)
[2020-12-29] MEDS: BUDESONIDE/FORMETEROL FUMARATE 160/4.5 mcg INHALER IH SCH ×2 (10:38→22:28)
[2020-12-29] MEDS: risperiDONE 2 MG TABLET PO SCH ×2 (11:15→22:28)
[2020-12-29] MEDS: ODEFSEY PO SCH (11:16)
[2020-12-29] MEDS: PATIENT'S OWN MEDICATION (NON-FORMULARY) (Dolutegravir Sodium [Tivicay] 50 MG Tablet) PO SCH (11:17)
[2020-12-29] MEDS ORDERED: PT OWN MED DRAWER 7, Y5N ONE (20:01)
[2020-12-29] MEDS ORDERED: traZODone HCL 100 MG TABLET (FP) PO ONE (22:11)
[2020-12-29] MEDS: THIAMINE HCL 100 MG TABLET (FP) PO SCH (22:28)
[2020-12-29] MEDS: MELATONIN 5 MG TABLETS PO SCH (22:29)
[2020-12-29] MEDS: traZODone HCL 100 MG TABLET (FP) PO SCH (22:29)
[2020-12-29] MEDS: hydrOXYzine PAMOATE 25 MG CAPSULE (FP) PO PRN (22:32)
[2020-12-30] MEDS ORDERED: PT OWN MED DRAWER 7, Y5N ONE ×4 (02:39→19:31)
[2020-12-30] MEDS: metFORMIN HCL 500 MG TABLET (FP) PO SCH ×2 (06:45→17:05)
[2020-12-30] MEDS: PATIENT'S OWN MEDICATION (NON-FORMULARY) (Dolutegravir Sodium [Tivicay] 50 MG Tablet) PO SCH (07:13)
[2020-12-30] MEDS: ODEFSEY PO SCH (07:14)
[2020-12-30] MEDS: BUDESONIDE/FORMETEROL FUMARATE 160/4.5 mcg INHALER IH SCH ×2 (10:23→21:12)
[2020-12-30] MEDS: DIVALPROEX 250 MG, DIVALPROEX 500 MG PO SCH ×2 (10:23→21:12)
[2020-12-30] MEDS: risperiDONE 2 MG TABLET PO SCH ×2 (10:23→21:12)
[2020-12-30] MEDS: PRENATAL VITAMINS W/ FOLIC ACID TABLET (FP) PO SCH (10:23)
[2020-12-30] MEDS: THIAMINE HCL 100 MG TABLET (FP) PO SCH (21:11)
[2020-12-30] MEDS: hydrOXYzine PAMOATE 25 MG CAPSULE (FP) PO PRN (21:12)
[2020-12-30] MEDS: traZODone HCL 100 MG TABLET (FP) PO SCH (21:12)
[2020-12-30] MEDS: MELATONIN 5 MG TABLETS PO SCH (21:12)
[2020-12-30] MEDS ORDERED: ALBUTEROL SO4 HFA INHALER IH ONE (22:18)
[2020-12-31] MEDS ORDERED: PT OWN MED DRAWER 7, Y5N ONE (04:36)
[2020-12-31] MEDS: metFORMIN HCL 500 MG TABLET (FP) PO SCH (06:32)
[2020-12-31] MEDS: ODEFSEY PO SCH (07:08)
[2020-12-31] MEDS: PATIENT'S OWN MEDICATION (NON-FORMULARY) (Dolutegravir Sodium [Tivicay] 50 MG Tablet) PO SCH (07:08)
[2020-12-31 07:39] VITALS: BP 86/61; PULSE 97; TEMP 97.3
[2020-12-31] MEDS ORDERED: DIVALPROEX SODIUM 500 MG TABLET E.C. ONE (09:17)
[2020-12-31] MEDS ORDERED: DIVALPROEX SODIUM 250 MG TABLET E.C. ONE (09:18)
[2020-12-31] MEDS: PRENATAL VITAMINS W/ FOLIC ACID TABLET (FP) PO SCH (10:11)
[2020-12-31] MEDS: DIVALPROEX 250 MG, DIVALPROEX 500 MG PO SCH (10:11)
[2020-12-31] MEDS: BUDESONIDE/FORMETEROL FUMARATE 160/4.5 mcg INHALER IH SCH (10:12)
[2020-12-31] MEDS: risperiDONE 2 MG TABLET PO SCH (10:12)
== END 2020-12-31 13:15 | disposition home or self-care (01) | DRG 772 ==
LOC: YASAS 13:58 → Y5N 17:19
PROVIDERS: ADMIT Allergy & Immunology; ATTEND Allergy & Immunology
PROC: HZ42ZZZ Group Counseling for Substance Abuse Treatment, Cognitive-Behavioral (ICD-10-PCS; principal; 2020-12-28)
DX: F10.230 Alcohol dependence with withdrawal, uncomplicated (principal); F14.20 Cocaine dependence, uncomplicated; F17.210 Nicotine dependence, cigarettes, uncomplicated; F25.9 Schizoaffective disorder, unspecified; F19.282 Other psychoactive substance dependence with psychoactive substance-induced sleep disorder; E78.5 Hyperlipidemia, unspecified; Z21 Asymptomatic human immunodeficiency virus [HIV] infection status; J45.909 Unspecified asthma, uncomplicated; J43.8 Other emphysema; M19.90 Unspecified osteoarthritis, unspecified site; K21.9 Gastro-esophageal reflux disease without esophagitis; R01.1 Cardiac murmur, unspecified; R76.11 Nonspecific reaction to tuberculin skin test without active tuberculosis; G40.909 Epilepsy, unspecified, not intractable, without status epilepticus; Z86.19 Personal history of other infectious and parasitic diseases; Z88.0 Allergy status to penicillin; Z88.8 Allergy status to other drugs, medicaments and biological substances; Z56.0 Unemployment, unspecified
CPT/HCPCS: 0031A; 80164; 81003; 82962; 91303; C9803; U0003; U0005

== ENCOUNTER 2021-02-07 11:53 | Inpatient (IN) | payer OTHER ==
[2021-02-07 12:22] VITALS: BMI 29.2
[2021-02-07] MEDS ORDERED: METHOCARBAMOL 500 MG TABLET PO PRN (13:52)
[2021-02-07] MEDS ORDERED: MAGNESIUM HYDROX 2400MG/30ML ORAL SUSPENSION 30 ML CUP PO PRN (13:52)
[2021-02-07] MEDS ORDERED: LORazepam 1 MG TABLET PO PRN (13:52)
[2021-02-07] MEDS ORDERED: MENTHOL/PHENOL 1 EACH UD MM PRN (13:52)
[2021-02-07] MEDS ORDERED: BISMUTH SUBSALICYLATE 524 MG/30 ML PO PRN (13:52)
[2021-02-07] MEDS ORDERED: ONDANSETRON *ODT* 4 MG TABLET SL PRN (13:52)
[2021-02-07] MEDS ORDERED: IBUPROFEN 400 MG TABLET (FP) PO PRN (13:52)
[2021-02-07] MEDS ORDERED: NICOTINE 10 MG CARTRIDGE (INHALER) IH PRN (13:52)
[2021-02-07] MEDS ORDERED: MAG HYDROX/AL HYDROX/SIMETH 30 ML UNIT-DOSE CUP PO PRN (13:52)
[2021-02-07] MEDS ORDERED: MAGNESIUM CITRATE 300 ML BOTTLE PO PRN (13:52)
[2021-02-07] MEDS ORDERED: LORazepam 2 MG TABLET PO ONE (13:52)
[2021-02-07] MEDS ORDERED: ACETAMINOPHEN 325 MG TABLET (FP) PO PRN ×2 (13:52)
[2021-02-07] MEDS ORDERED: ALBUTEROL SO4 HFA INHALER IH PRN (13:54)
[2021-02-07] MEDS ORDERED: hydrOXYzine PAMOATE 25 MG CAPSULE (FP) PO SCH (14:00)
[2021-02-07] MEDS ORDERED: hydrOXYzine PAMOATE 25 MG CAPSULE (FP) PO PRN (14:19)
[2021-02-07] MEDS ORDERED: traZODone HCL 100 MG TABLET (FP) PO PRN (14:57)
[2021-02-07 15:56] LABS: ALBUMIN 3.4 g/dl (3.4-5.0); BLOOD UREA NITROGEN 14.8 mg/dL (7-18); CALCIUM 8.7 mg/dL (8.5-10.1)
[2021-02-07 15:57] LABS: HEMOGLOBIN 14.4 GM/dL (10.7-15.3); MCH 30.3 pg (25.7-33.7); MCHC 33.6 g/dl (32.0-36.0); MEAN PLT VOLUME 10.5 fl (7.5-11.1); PLATELET COUNT 209 10^3/uL (134-434); RBC 4.78 M/mm3 (3.60-5.2); RDW 16.5 % (11.6-15.6); WHITE BLOOD COUNT 6.1 K/mm3 (4.0-10.0)
[2021-02-07 15:59] LABS: CREATININE 0.9 mg/dL (0.55-1.3)
[2021-02-07 16:00] LABS: BILIRUBIN,TOTAL 0.3 mg/dL (0.2-1); TOT PROT 7.4 g/dl (6.4-8.2)
[2021-02-07] MEDS: DIVALPROEX SODIUM 250 MG TABLET E.C. PO SCH ×2 (16:05→22:59)
[2021-02-07] MEDS: EMTRICITAB/RILPIVIRI/TENOF ALA (ODEFSEY) TABLET PO SCH (16:06)
[2021-02-07] MEDS: LORazepam 2 MG TABLET PO SCH ×2 (18:08→22:58)
[2021-02-07] MEDS ORDERED: diphenhydrAMINE HCL 25 MG CAPSULE (FP) PO ONE (21:09)
[2021-02-07] MEDS: MELATONIN 5 MG TABLETS PO SCH (22:59)
[2021-02-07] MEDS: THIAMINE HCL 100 MG TABLET (FP) PO SCH (22:59)
[2021-02-07] MEDS: diphenhydrAMINE HCL 50 MG CAPSULE PO SCH (22:59)
[2021-02-07] MEDS: risperiDONE 2 MG TABLET PO SCH (22:59)
[2021-02-07] MEDS: BUDESONIDE/FORMETEROL FUMARATE 160/4.5 mcg INHALER IH SCH (23:00)
[2021-02-08] MEDS: LORazepam 2 MG TABLET PO SCH ×4 (07:08→22:29)
[2021-02-08] MEDS: DOLUTEGRAVIR SODIUM 50 MG TABLET (NON-FORMULARY) PO SCH (08:06)
[2021-02-08] MEDS: EMTRICITAB/RILPIVIRI/TENOF ALA (ODEFSEY) TABLET PO SCH (08:06)
[2021-02-08] MEDS ORDERED: diphenhydrAMINE HCL 25 MG CAPSULE (FP) PO ONE ×2 (08:46→20:44)
[2021-02-08] MEDS: diphenhydrAMINE HCL 50 MG CAPSULE PO SCH ×2 (10:15→22:28)
[2021-02-08] MEDS: risperiDONE 2 MG TABLET PO SCH ×2 (10:15→22:28)
[2021-02-08] MEDS: DIVALPROEX SODIUM 250 MG TABLET E.C. PO SCH ×2 (10:15→22:28)
[2021-02-08] MEDS: PRENATAL VITAMINS W/ FOLIC ACID TABLET (FP) PO SCH (10:15)
[2021-02-08] MEDS: ASPIRIN 81 MG CHEWABLE TABLETS PO SCH (10:15)
[2021-02-08] MEDS: BUDESONIDE/FORMETEROL FUMARATE 160/4.5 mcg INHALER IH SCH ×2 (10:16→22:30)
[2021-02-08] MEDS: THIAMINE HCL 100 MG TABLET (FP) PO SCH (22:28)
[2021-02-08] MEDS: MELATONIN 5 MG TABLETS PO SCH (22:29)
[2021-02-09] MEDS: LORazepam 1 MG TABLET PO SCH ×4 (07:05→22:27)
[2021-02-09] MEDS ORDERED: diphenhydrAMINE HCL 25 MG CAPSULE (FP) PO ONE ×2 (09:03→21:16)
[2021-02-09] MEDS: PRENATAL VITAMINS W/ FOLIC ACID TABLET (FP) PO SCH (10:05)
[2021-02-09] MEDS: DIVALPROEX SODIUM 250 MG TABLET E.C. PO SCH ×2 (10:05→22:26)
[2021-02-09] MEDS: diphenhydrAMINE HCL 50 MG CAPSULE PO SCH ×2 (10:05→22:26)
[2021-02-09] MEDS: risperiDONE 2 MG TABLET PO SCH ×2 (10:05→22:27)
[2021-02-09] MEDS: ASPIRIN 81 MG CHEWABLE TABLETS PO SCH (10:05)
[2021-02-09] MEDS: BUDESONIDE/FORMETEROL FUMARATE 160/4.5 mcg INHALER IH SCH ×2 (10:06→23:23)
[2021-02-09] MEDS: DOLUTEGRAVIR SODIUM 50 MG TABLET (NON-FORMULARY) PO SCH (11:58)
[2021-02-09] MEDS: EMTRICITAB/RILPIVIRI/TENOF ALA (ODEFSEY) TABLET PO SCH (11:58)
[2021-02-09] MEDS: MELATONIN 5 MG TABLETS PO SCH (22:28)
[2021-02-09] MEDS: THIAMINE HCL 100 MG TABLET (FP) PO SCH (22:32)
[2021-02-10] MEDS ORDERED: LORazepam 0.5 MG TABLET PO PRN
[2021-02-10] MEDS: LORazepam 0.5 MG TABLET PO SCH ×4 (06:59→22:21)
[2021-02-10] MEDS ORDERED: diphenhydrAMINE HCL 25 MG CAPSULE (FP) PO ONE ×2 (09:38→21:54)
[2021-02-10] MEDS: PRENATAL VITAMINS W/ FOLIC ACID TABLET (FP) PO SCH (10:26)
[2021-02-10] MEDS: ASPIRIN 81 MG CHEWABLE TABLETS PO SCH (10:26)
[2021-02-10] MEDS: DIVALPROEX SODIUM 250 MG TABLET E.C. PO SCH ×2 (10:26→22:20)
[2021-02-10] MEDS: diphenhydrAMINE HCL 50 MG CAPSULE PO SCH ×2 (10:26→22:21)
[2021-02-10] MEDS: risperiDONE 2 MG TABLET PO SCH ×2 (10:27→22:21)
[2021-02-10] MEDS: DOLUTEGRAVIR SODIUM 50 MG TABLET (NON-FORMULARY) PO SCH (10:28)
[2021-02-10] MEDS: EMTRICITAB/RILPIVIRI/TENOF ALA (ODEFSEY) TABLET PO SCH (10:28)
[2021-02-10] MEDS: BUDESONIDE/FORMETEROL FUMARATE 160/4.5 mcg INHALER IH SCH ×2 (10:31→23:33)
[2021-02-10] MEDS ORDERED: LOPERAMIDE HCL 2 MG CAPSULE PO PRN (15:05)
[2021-02-10] MEDS: THIAMINE HCL 100 MG TABLET (FP) PO SCH (22:20)
[2021-02-10] MEDS: MELATONIN 5 MG TABLETS PO SCH (22:21)
[2021-02-11] MEDS ORDERED: LORazepam 0.5 MG TABLET PO ONE (05:00)
[2021-02-11] MEDS: DOLUTEGRAVIR SODIUM 50 MG TABLET (NON-FORMULARY) PO SCH (07:28)
[2021-02-11] MEDS: EMTRICITAB/RILPIVIRI/TENOF ALA (ODEFSEY) TABLET PO SCH (07:29)
[2021-02-11 08:42] VITALS: BP 101/70; PULSE 68; TEMP 98.1
[2021-02-11] MEDS: DIVALPROEX SODIUM 250 MG TABLET E.C. PO SCH (09:38)
[2021-02-11] MEDS: risperiDONE 2 MG TABLET PO SCH (09:38)
[2021-02-11] MEDS: ASPIRIN 81 MG CHEWABLE TABLETS PO SCH (09:38)
[2021-02-11] MEDS: PRENATAL VITAMINS W/ FOLIC ACID TABLET (FP) PO SCH (09:38)
[2021-02-11] MEDS ORDERED: diphenhydrAMINE HCL 25 MG CAPSULE (FP) PO ONE (09:39)
[2021-02-11] MEDS: diphenhydrAMINE HCL 50 MG CAPSULE PO SCH (09:40)
[2021-02-11] MEDS: BUDESONIDE/FORMETEROL FUMARATE 160/4.5 mcg INHALER IH SCH (09:41)
[2021-02-11 16:08] LABS: SARS-CoV-2 NAA Not Detected (Not Detected)
== END 2021-02-11 10:23 | disposition other institution (70) | DRG 774 ==
LOC: YASAS 11:53 → Y3N 12:58
PROVIDERS: ADMIT Allergy & Immunology; ATTEND Allergy & Immunology
PROC: HZ2ZZZZ Detoxification Services for Substance Abuse Treatment (ICD-10-PCS; principal; 2021-02-07)
DX: F10.230 Alcohol dependence with withdrawal, uncomplicated (principal); F14.20 Cocaine dependence, uncomplicated; F17.210 Nicotine dependence, cigarettes, uncomplicated; F19.282 Other psychoactive substance dependence with psychoactive substance-induced sleep disorder; F25.9 Schizoaffective disorder, unspecified; F32.9 Major depressive disorder, single episode, unspecified; Z21 Asymptomatic human immunodeficiency virus [HIV] infection status; J43.8 Other emphysema; G40.909 Epilepsy, unspecified, not intractable, without status epilepticus; M19.90 Unspecified osteoarthritis, unspecified site; K21.9 Gastro-esophageal reflux disease without esophagitis; R01.1 Cardiac murmur, unspecified; R76.11 Nonspecific reaction to tuberculin skin test without active tuberculosis; Z86.19 Personal history of other infectious and parasitic diseases
CPT/HCPCS: 36415; 80053; 85027; 86593; 86780; C9803; Q0162; U0003; U0005

== ENCOUNTER 2022-08-16 18:50 | Inpatient (IN) | payer OTHER ==
[2022-08-16 20:16] VITALS: BMI 28.9
[2022-08-16] MEDS ORDERED: METHOCARBAMOL 500 MG TABLET PO PRN (22:57)
[2022-08-16] MEDS ORDERED: ACETAMINOPHEN 325 MG TABLET (FP) PO PRN ×2 (22:57)
[2022-08-16] MEDS ORDERED: IBUPROFEN 400 MG TABLET (FP) PO PRN (22:57)
[2022-08-16] MEDS ORDERED: IBUPROFEN 600 MG TABLET (FP) PO PRN (22:57)
[2022-08-16] MEDS ORDERED: NALOXONE HCL (KLOXXADO) 8 MG SPRAY NS PRN (22:57)
[2022-08-16] MEDS ORDERED: LOPERAMIDE HCL 2 MG CAPSULE PO PRN (22:57)
[2022-08-16] MEDS ORDERED: MAGNESIUM HYDROX 2400MG/30ML ORAL SUSPENSION 30 ML CUP PO PRN (22:57)
[2022-08-16] MEDS ORDERED: DICYCLOMINE HCL 10 MG CAPSULE PO PRN (22:57)
[2022-08-16] MEDS ORDERED: MAG HYDROX/AL HYDROX/SIMETH 30 ML UNIT-DOSE CUP PO PRN (22:57)
[2022-08-16] MEDS ORDERED: POLYETHYLENE GLYCOL (HEALTHYLAX) 3350 17 GM PACKET PO PRN (22:57)
[2022-08-16] MEDS ORDERED: NICOTINE 10 MG CARTRIDGE (INHALER) IH PRN (22:57)
[2022-08-16] MEDS ORDERED: BISMUTH SUBSALICYLATE 524 MG/30 ML PO PRN (22:57)
[2022-08-16] MEDS ORDERED: ONDANSETRON *ODT* 4 MG TABLET SL PRN (22:57)
[2022-08-16] MEDS ORDERED: BENZOCAINE/MENTHOL (CHLORASEPTIC ) LOZENGE MM PRN (22:57)
[2022-08-16] MEDS ORDERED: chlordiazePOXIDE HCL 25 MG CAPSULE PO PRN (23:04)
[2022-08-16] MEDS ORDERED: chlordiazePOXIDE HCL 25 MG CAPSULE ONE (23:49)
[2022-08-16] MEDS ORDERED: IBUPROFEN 600 MG TABLET (FP) PO ONE (23:49)
[2022-08-16] MEDS: chlordiazePOXIDE HCL 25 MG CAPSULE PO SCH (23:55)
[2022-08-17] MEDS: chlordiazePOXIDE HCL 25 MG CAPSULE PO SCH ×4 (05:38→22:32)
[2022-08-17] MEDS: NICOTINE 14 MG/24 HOURS TOPICAL PATCH TD SCH (10:25)
[2022-08-17] MEDS: PRENATAL VITAMINS W/ FOLIC ACID TABLET (FP) PO SCH (10:25)
[2022-08-17] MEDS ORDERED: ALBUTEROL SO4 HFA INHALER IH PRN (12:27)
[2022-08-17 13:13] LABS: HEMATOCRIT 39.6 % (32.4-45.2); HEMOGLOBIN 13.2 GM/dL (10.7-15.3); MCHC 33.2 g/dl (32.0-36.0); MEAN CELL VOLUME 87.2 fl (80-96); MEAN PLT VOLUME 10.6 fl (7.5-11.1); PLATELET COUNT 274 10^3/uL (134-434); RBC 4.54 M/mm3 (3.60-5.2); RDW 15.2 % (11.6-15.6); WHITE BLOOD COUNT 5.1 K/mm3 (4.0-10.0)
[2022-08-17 13:22] LABS: BLOOD UREA NITROGEN 18.2 mg/dL (7-18); CALCIUM 9.4 mg/dL (8.5-10.1)
[2022-08-17 13:24] LABS: ALBUMIN 3.2 g/dl (3.4-5.0)
[2022-08-17 13:28] LABS: BILIRUBIN,TOTAL 0.4 mg/dL (0.2-1); TOT PROT 6.8 g/dl (6.4-8.2)
[2022-08-17] MEDS: EMTRICITAB/RILPIVIRI/TENOF ALA (ODEFSEY) TABLET PO SCH (17:06)
[2022-08-17] MEDS: DOLUTEGRAVIR SODIUM 50 MG TABLET (NON-FORMULARY) PO SCH (17:06)
[2022-08-17] MEDS ORDERED: MELATONIN 5 MG TABLETS PO SCH (22:00)
[2022-08-17] MEDS ORDERED: THIAMINE HCL 100 MG TABLET (FP) PO SCH (22:00)
[2022-08-17] MEDS: BUDESONIDE/FORMETEROL FUMARATE 160/4.5 mcg INHALER IH SCH (22:33)
[2022-08-18] MEDS: chlordiazePOXIDE HCL 25 MG CAPSULE PO SCH ×3 (06:00→17:34)
[2022-08-18] MEDS: DOLUTEGRAVIR SODIUM 50 MG TABLET (NON-FORMULARY) PO SCH (07:33)
[2022-08-18] MEDS: EMTRICITAB/RILPIVIRI/TENOF ALA (ODEFSEY) TABLET PO SCH (07:33)
[2022-08-18] MEDS ORDERED: ASPIRIN 81 MG CHEWABLE TABLETS PO SCH (10:00)
[2022-08-18] MEDS: NICOTINE 14 MG/24 HOURS TOPICAL PATCH TD SCH (10:08)
[2022-08-18] MEDS: PRENATAL VITAMINS W/ FOLIC ACID TABLET (FP) PO SCH (10:08)
[2022-08-18] MEDS: BUDESONIDE/FORMETEROL FUMARATE 160/4.5 mcg INHALER IH SCH (10:10)
[2022-08-18 17:24] VITALS: BP 116/80; PULSE 96; RESP 20; TEMP 97.3
[2022-08-19] MEDS ORDERED: chlordiazePOXIDE HCL 10 MG CAPSULE PO PRN
[2022-08-19] MEDS ORDERED: chlordiazePOXIDE HCL 10 MG CAPSULE PO SCH (05:00)
[2022-08-20] MEDS ORDERED: chlordiazePOXIDE HCL 10 MG CAPSULE PO SCH (05:00)
[2022-08-21] MEDS ORDERED: chlordiazePOXIDE HCL 10 MG CAPSULE PO ONE (05:00)
== END 2022-08-18 20:00 | disposition left against medical advice (07) | DRG 770 ==
LOC: YASAS 18:50 → Y3N 23:24
PROVIDERS: ADMIT Allergy & Immunology; ATTEND Surgery
PROC: HZ2ZZZZ Detoxification Services for Substance Abuse Treatment (ICD-10-PCS; principal; 2022-08-16)
DX: F10.230 Alcohol dependence with withdrawal, uncomplicated (principal); F14.20 Cocaine dependence, uncomplicated; F17.210 Nicotine dependence, cigarettes, uncomplicated; F20.9 Schizophrenia, unspecified; F31.9 Bipolar disorder, unspecified; Z21 Asymptomatic human immunodeficiency virus [HIV] infection status; E78.5 Hyperlipidemia, unspecified; G40.909 Epilepsy, unspecified, not intractable, without status epilepticus; J43.8 Other emphysema; K21.9 Gastro-esophageal reflux disease without esophagitis; M06.9 Rheumatoid arthritis, unspecified; Z86.19 Personal history of other infectious and parasitic diseases; Z88.0 Allergy status to penicillin; Z88.8 Allergy status to other drugs, medicaments and biological substances
CPT/HCPCS: 36415; 80053; 82962; 85027; 86593; 86780; 87811; C9803-CS; U0003; U0005

== ENCOUNTER 2022-12-25 11:53 | Inpatient (IN) | payer OTHER ==
[2022-12-25 12:39] VITALS: BMI 29.7
[2022-12-25] MEDS ORDERED: MAG HYDROX/AL HYDROX/SIMETH 30 ML UNIT-DOSE CUP PO PRN (13:04)
[2022-12-25] MEDS ORDERED: BISMUTH SUBSALICYLATE 524 MG/30 ML PO PRN (13:04)
[2022-12-25] MEDS ORDERED: NALOXONE HCL 0.4 MG/ML VIAL IM PRN (13:04)
[2022-12-25] MEDS ORDERED: ACETAMINOPHEN 325 MG TABLET (FP) PO PRN (13:04)
[2022-12-25] MEDS ORDERED: LOPERAMIDE HCL 2 MG CAPSULE PO PRN (13:04)
[2022-12-25] MEDS ORDERED: IBUPROFEN 600 MG TABLET (FP) PO PRN (13:04)
[2022-12-25] MEDS ORDERED: IBUPROFEN 400 MG TABLET (FP) PO PRN (13:04)
[2022-12-25] MEDS ORDERED: COLLOIDAL OATMEAL 1 BAR EACH TP PRN (13:04)
[2022-12-25] MEDS ORDERED: BENZONATATE 200 MG CAPSULE PO PRN (13:04)
[2022-12-25] MEDS ORDERED: POLYETHYLENE GLYCOL (HEALTHYLAX) 3350 17 GM PACKET PO PRN (13:04)
[2022-12-25] MEDS ORDERED: ONDANSETRON *ODT* 4 MG TABLET SL PRN (13:04)
[2022-12-25] MEDS ORDERED: AMMONIUM LACTATE 12% LOTION 225 GM BOTTLE TP PRN (13:04)
[2022-12-25] MEDS ORDERED: METHOCARBAMOL 500 MG TABLET PO PRN (13:04)
[2022-12-25] MEDS ORDERED: DICYCLOMINE HCL 10 MG CAPSULE PO PRN (13:04)
[2022-12-25] MEDS ORDERED: guaiFENesin 600 MG TABLET.ER (FP) PO PRN (13:04)
[2022-12-25] MEDS ORDERED: NALOXONE HCL (KLOXXADO) 8 MG SPRAY NS PRN (13:04)
[2022-12-25] MEDS ORDERED: BENZOCAINE/MENTHOL (CHLORASEPTIC ) LOZENGE MM PRN (13:04)
[2022-12-25] MEDS ORDERED: MAGNESIUM HYDROX 2400MG/30ML ORAL SUSPENSION 30 ML CUP PO PRN (13:04)
[2022-12-25] MEDS ORDERED: NICOTINE 10 MG CARTRIDGE (INHALER) IH PRN (13:04)
[2022-12-25] MEDS ORDERED: DOLUTEGRAVIR SODIUM 50 MG TABLET (NON-FORMULARY) PO SCH (13:15)
[2022-12-25] MEDS ORDERED: ASPIRIN 81 MG CHEWABLE TABLETS PO SCH (13:30)
[2022-12-25] MEDS ORDERED: LORazepam 2 MG TABLET PO ONE (14:04)
[2022-12-25 14:54] LABS: HEMATOCRIT 43.8 % (32.4-45.2); MCH 28.6 pg (25.7-33.7); MEAN CELL VOLUME 89.4 fl (80-96); MEAN PLT VOLUME 10.5 fl (7.5-11.1); PLATELET COUNT 294 10^3/uL (134-434); RDW 15.5 % (11.6-15.6); WHITE BLOOD COUNT 6.1 K/mm3 (4.0-10.0)
[2022-12-25 14:59] LABS: POTASSIUM 4.3 mmol/L (3.5-5.1)
[2022-12-25 15:04] LABS: ALBUMIN 3.4 g/dl (3.4-5.0); BLOOD UREA NITROGEN 21.2 mg/dL (7-18)
[2022-12-25 15:05] LABS: CALCIUM 9.2 mg/dL (8.5-10.1)
[2022-12-25 15:06] LABS: CREATININE 0.9 mg/dL (0.55-1.3)
[2022-12-25 15:08] LABS: BILIRUBIN,TOTAL 0.2 mg/dL (0.2-1); TOT PROT 7.4 g/dl (6.4-8.2)
[2022-12-25] MEDS: DOLUTEGRAVIR SODIUM 50 MG TABLET (NON-FORMULARY) PO SCH (17:01)
[2022-12-25] MEDS: EMTRICITAB/RILPIVIRI/TENOF ALA (ODEFSEY) TABLET PO SCH (17:01)
[2022-12-25] MEDS: DIVALPROEX SODIUM 250 MG TABLET E.C. PO SCH ×2 (17:02→22:38)
[2022-12-25] MEDS: LORazepam 2 MG TABLET PO SCH ×2 (17:02→22:22)
[2022-12-25] MEDS: NICOTINE 21 MG/24 HOURS TOPICAL PATCH TD SCH (17:04)
[2022-12-25] MEDS: BUDESONIDE/FORMETEROL FUMARATE 160/4.5 mcg INHALER IH SCH ×2 (17:04→22:15)
[2022-12-25] MEDS: ASPIRIN 81 MG CHEWABLE TABLETS PO SCH (17:44)
[2022-12-25] MEDS: ALBUTEROL SO4 HFA INHALER IH PRN (19:34)
[2022-12-25] MEDS ORDERED: MELATONIN 5 MG TABLETS PO SCH (22:00)
[2022-12-25] MEDS: traZODone HCL 100 MG TABLET (FP) PO SCH (22:22)
[2022-12-25] MEDS: THIAMINE HCL 100 MG TABLET (FP) PO SCH (22:22)
[2022-12-25] MEDS: diphenhydrAMINE HCL 50 MG CAPSULE PO SCH (22:22)
[2022-12-26] MEDS: LORazepam 2 MG TABLET PO SCH ×4 (05:24→22:16)
[2022-12-26] MEDS: EMTRICITAB/RILPIVIRI/TENOF ALA (ODEFSEY) TABLET PO SCH (08:00)
[2022-12-26] MEDS: DOLUTEGRAVIR SODIUM 50 MG TABLET (NON-FORMULARY) PO SCH (08:00)
[2022-12-26] MEDS: LACTULOSE 20 GM/30 ML UDC (FOR ORAL USE ONLY) PO SCH ×4 (10:19→22:17)
[2022-12-26] MEDS: DIVALPROEX SODIUM 250 MG TABLET E.C. PO SCH ×2 (10:19→22:18)
[2022-12-26] MEDS: ASPIRIN 81 MG CHEWABLE TABLETS PO SCH (10:19)
[2022-12-26] MEDS: BUDESONIDE/FORMETEROL FUMARATE 160/4.5 mcg INHALER IH SCH ×2 (10:20→22:25)
[2022-12-26] MEDS: PRENATAL VITAMINS W/ FOLIC ACID TABLET (FP) PO SCH (10:20)
[2022-12-26] MEDS: NICOTINE 21 MG/24 HOURS TOPICAL PATCH TD SCH (10:21)
[2022-12-26] MEDS: diphenhydrAMINE HCL 50 MG CAPSULE PO SCH ×2 (10:24→22:16)
[2022-12-26] MEDS: traZODone HCL 100 MG TABLET (FP) PO SCH (22:16)
[2022-12-26] MEDS: THIAMINE HCL 100 MG TABLET (FP) PO SCH (22:17)
[2022-12-26] MEDS: ALBUTEROL SO4 HFA INHALER IH PRN (22:25)
[2022-12-27] MEDS: LORazepam 1 MG TABLET PO SCH ×4 (05:43→22:27)
[2022-12-27 09:55] VITALS: RESP 16
[2022-12-27] MEDS: BUDESONIDE/FORMETEROL FUMARATE 160/4.5 mcg INHALER IH SCH ×3 (10:10→22:34)
[2022-12-27] MEDS: NICOTINE 21 MG/24 HOURS TOPICAL PATCH TD SCH (10:10)
[2022-12-27] MEDS: LACTULOSE 20 GM/30 ML UDC (FOR ORAL USE ONLY) PO SCH ×4 (10:10→22:27)
[2022-12-27] MEDS: ALBUTEROL SO4 HFA INHALER IH PRN ×2 (10:10→22:28)
[2022-12-27] MEDS: DIVALPROEX SODIUM 250 MG TABLET E.C. PO SCH ×2 (10:11→22:27)
[2022-12-27] MEDS: DOLUTEGRAVIR SODIUM 50 MG TABLET (NON-FORMULARY) PO SCH (10:11)
[2022-12-27] MEDS: EMTRICITAB/RILPIVIRI/TENOF ALA (ODEFSEY) TABLET PO SCH (10:11)
[2022-12-27] MEDS: PRENATAL VITAMINS W/ FOLIC ACID TABLET (FP) PO SCH (10:11)
[2022-12-27] MEDS: ASPIRIN 81 MG CHEWABLE TABLETS PO SCH (10:11)
[2022-12-27] MEDS: diphenhydrAMINE HCL 50 MG CAPSULE PO SCH ×2 (10:12→22:27)
[2022-12-27] MEDS: risperiDONE 1 MG TABLET PO SCH ×2 (10:52→22:32)
[2022-12-27] MEDS: traZODone HCL 100 MG TABLET (FP) PO SCH (22:27)
[2022-12-27] MEDS: THIAMINE HCL 100 MG TABLET (FP) PO SCH (22:29)
[2022-12-28] MEDS: LORazepam 0.5 MG TABLET PO SCH ×2 (05:52→10:20)
[2022-12-28] MEDS: DOLUTEGRAVIR SODIUM 50 MG TABLET (NON-FORMULARY) PO SCH (07:58)
[2022-12-28] MEDS: EMTRICITAB/RILPIVIRI/TENOF ALA (ODEFSEY) TABLET PO SCH (07:58)
[2022-12-28 09:50] VITALS: BP 121/85; PULSE 88; TEMP 98
[2022-12-28] MEDS: diphenhydrAMINE HCL 50 MG CAPSULE PO SCH (10:16)
[2022-12-28] MEDS: DIVALPROEX SODIUM 250 MG TABLET E.C. PO SCH (10:16)
[2022-12-28] MEDS: PRENATAL VITAMINS W/ FOLIC ACID TABLET (FP) PO SCH (10:16)
[2022-12-28] MEDS: ASPIRIN 81 MG CHEWABLE TABLETS PO SCH (10:16)
[2022-12-28] MEDS: risperiDONE 1 MG TABLET PO SCH (10:17)
[2022-12-28] MEDS: LACTULOSE 20 GM/30 ML UDC (FOR ORAL USE ONLY) PO SCH (10:17)
[2022-12-28] MEDS: ALBUTEROL SO4 HFA INHALER IH PRN (10:17)
[2022-12-28] MEDS: BUDESONIDE/FORMETEROL FUMARATE 160/4.5 mcg INHALER IH SCH (10:17)
[2022-12-28] MEDS: NICOTINE 21 MG/24 HOURS TOPICAL PATCH TD SCH (10:17)
[2022-12-29] MEDS ORDERED: LORazepam 0.5 MG TABLET PO ONE (05:00)
== END 2022-12-28 12:08 | disposition home or self-care (01) | DRG 774 ==
LOC: YASAS 11:53 → Y6N 13:49
PROVIDERS: ADMIT Allergy & Immunology; ATTEND Surgery
PROC: HZ2ZZZZ Detoxification Services for Substance Abuse Treatment (ICD-10-PCS; principal; 2022-12-25)
DX: F10.230 Alcohol dependence with withdrawal, uncomplicated (principal); F14.20 Cocaine dependence, uncomplicated; F17.213 Nicotine dependence, cigarettes, with withdrawal; F25.1 Schizoaffective disorder, depressive type; F19.282 Other psychoactive substance dependence with psychoactive substance-induced sleep disorder; F43.10 Post-traumatic stress disorder, unspecified; Z21 Asymptomatic human immunodeficiency virus [HIV] infection status; J43.0 Unilateral pulmonary emphysema [MacLeod's syndrome]; G40.909 Epilepsy, unspecified, not intractable, without status epilepticus; R79.89 Other specified abnormal findings of blood chemistry; R76.11 Nonspecific reaction to tuberculin skin test without active tuberculosis; R01.1 Cardiac murmur, unspecified; Z88.0 Allergy status to penicillin; Z88.8 Allergy status to other drugs, medicaments and biological substances
CPT/HCPCS: 36415; 80053; 80164; 82140; 83036; 84520; 85027; 86593; 86780; 87635; 87811

== ENCOUNTER 2024-12-22 08:56 | Inpatient (IN) | payer OTHER ==
[2024-12-22 09:25] VITALS: BMI 31.8
[2024-12-22] MEDS ORDERED: guaiFENesin 600 MG TABLET.ER (FP) PO PRN (09:48)
[2024-12-22] MEDS ORDERED: NALOXONE (NARCAN) HCL 4 MG/0.1 ML SPRAY NS PRN (09:48)
[2024-12-22] MEDS ORDERED: METHOCARBAMOL 500 MG TABLET PO PRN (09:48)
[2024-12-22] MEDS ORDERED: hydrOXYzine PAMOATE 25 MG CAPSULE (FP) PO PRN (09:48)
[2024-12-22] MEDS ORDERED: MAGNESIUM HYDROX 2400MG/30ML ORAL SUSPENSION 30 ML CUP PO PRN (09:48)
[2024-12-22] MEDS ORDERED: BISMUTH SUBSALICYLATE 262 MG/15 ML BTL PO PRN (09:48)
[2024-12-22] MEDS ORDERED: LOPERAMIDE HCL 2 MG CAPSULE PO PRN (09:48)
[2024-12-22] MEDS ORDERED: NICOTINE POLACRILEX 2 MG GUM BUC PRN (09:48)
[2024-12-22] MEDS ORDERED: diazePAM 5 MG TABLET PO PRN (09:48)
[2024-12-22] MEDS ORDERED: BENZONATATE 200 MG CAPSULE PO PRN (09:48)
[2024-12-22] MEDS ORDERED: IBUPROFEN 400 MG TABLET (FP) PO PRN (09:48)
[2024-12-22] MEDS ORDERED: ACETAMINOPHEN 325 MG TABLET (FP) PO PRN (09:48)
[2024-12-22] MEDS ORDERED: BENZOCAINE/MENTHOL (CHLORASEPTIC ) LOZENGE MM PRN (09:48)
[2024-12-22] MEDS ORDERED: POLYETHYLENE GLYCOL (HEALTHYLAX) 3350 17 GM PACKET PO PRN (09:48)
[2024-12-22] MEDS ORDERED: IBUPROFEN 600 MG TABLET (FP) PO PRN (09:48)
[2024-12-22] MEDS ORDERED: MAG HYDROX/AL HYDROX/SIMETH 30 ML UNIT-DOSE CUP PO PRN (09:48)
[2024-12-22] MEDS: PRENATAL VITAMINS W/ FOLIC ACID TABLET (FP) PO SCH (10:41)
[2024-12-22] MEDS ORDERED: ONDANSETRON *ODT* 4 MG TABLET ONE (10:46)
[2024-12-22] MEDS ORDERED: diazePAM 5 MG TABLET ONE (10:46)
[2024-12-22] MEDS: diazePAM 5 MG TABLET PO SCH (10:47)
[2024-12-22] MEDS: ONDANSETRON *ODT* 4 MG TABLET SL PRN (10:47)
[2024-12-22] MEDS: NALTREXONE HCL 50 MG TABLET PO ONE (10:55)
[2024-12-22] MEDS ORDERED: ALBUTEROL SO4 HFA INHALER IH PRN (11:24)
[2024-12-22] MEDS ORDERED: DIVALPROEX SODIUM 500 MG TABLET E.C. PO SCH (11:30)
[2024-12-22] MEDS: DIVALPROEX 250 MG, DIVALPROEX 500 MG PO SCH (12:02)
[2024-12-22] MEDS: MELATONIN 5 MG TABLETS PO SCH (22:17)
[2024-12-22] MEDS: BUDESONIDE/FORMETEROL FUMARATE 160/4.5 mcg INHALER IH SCH (22:18)
[2024-12-22] MEDS: THIAMINE 100 MG TABLET PO SCH (22:18)
[2024-12-23] MEDS: ASPIRIN 81 MG CHEWABLE TABLETS PO SCH (10:43)
[2024-12-23] MEDS: NALTREXONE HCL 50 MG TABLET PO SCH (10:44)
[2024-12-23 11:40] LABS: HEMOGLOBIN 12.3 g/dL (11.2-15.7); MCHC 32.4 g/dl (32.2-35.5); MEAN CELL VOLUME 93.1 fl (79.4-94.8); PLATELET COUNT 136 x10^3/uL (182-369); RDW 14.8 % (12.4-16.4)
[2024-12-23 13:11] LABS: POTASSIUM 3.9 mmol/L (3.5-5.1)
[2024-12-23 13:17] LABS: ALBUMIN 2.7 g/dl (3.4-5.0); BLOOD UREA NITROGEN 9.9 mg/dL (7-18); CALCIUM 9.5 mg/dL (8.5-10.1)
[2024-12-23 13:20] LABS: CREATININE 0.9 mg/dL (0.55-1.3)
[2024-12-23 13:21] LABS: BILIRUBIN,TOTAL 0.4 mg/dL (0.2-1)
[2024-12-23 13:22] LABS: TOT PROT 6.5 g/dl (6.4-8.2)
[2024-12-24] MEDS: diazePAM 5 MG TABLET PO SCH (06:15)
[2024-12-25] MEDS: diazePAM 5 MG TABLET PO SCH (06:05)
[2024-12-26] MEDS: diazePAM 5 MG TABLET PO ONE (06:19)
[2024-12-26 08:48] VITALS: BP 116/81; PULSE 70; RESP 16; TEMP 96.9
== END 2024-12-26 11:04 | disposition home or self-care (01) | DRG 774 ==
LOC: YASAS 08:56 → Y3N 10:53
PROVIDERS: ADMIT Allergy & Immunology; ATTEND Allergy & Immunology
PROC: HZ2ZZZZ Detoxification Services for Substance Abuse Treatment (ICD-10-PCS; principal; 2024-12-22)
DX: F10.230 Alcohol dependence with withdrawal, uncomplicated (principal); F14.20 Cocaine dependence, uncomplicated; F17.210 Nicotine dependence, cigarettes, uncomplicated; F25.9 Schizoaffective disorder, unspecified; Z21 Asymptomatic human immunodeficiency virus [HIV] infection status; F31.9 Bipolar disorder, unspecified; J44.9 Chronic obstructive pulmonary disease, unspecified; E78.5 Hyperlipidemia, unspecified; K21.9 Gastro-esophageal reflux disease without esophagitis; R76.8 Other specified abnormal immunological findings in serum; Z86.19 Personal history of other infectious and parasitic diseases; Z79.899 Other long term (current) drug therapy; Z88.0 Allergy status to penicillin; Z88.8 Allergy status to other drugs, medicaments and biological substances
CPT/HCPCS: 36415; 71045-TC-FY; 71046-TC-FY; 80053; 80305; 80307; 85027; 86593; 86780; 93005; 93010; Q0162

== ENCOUNTER 2025-01-20 09:56 | Inpatient (IN) | payer OTHER ==
[2025-01-20 10:32] VITALS: BMI 32.1
[2025-01-20] MEDS ORDERED: LOPERAMIDE HCL 2 MG CAPSULE PO PRN (10:42)
[2025-01-20] MEDS ORDERED: POLYETHYLENE GLYCOL (HEALTHYLAX) 3350 17 GM PACKET PO PRN (10:42)
[2025-01-20] MEDS ORDERED: BENZOCAINE/MENTHOL (CHLORASEPTIC ) LOZENGE MM PRN (10:42)
[2025-01-20] MEDS ORDERED: NALOXONE (NARCAN) HCL 4 MG/0.1 ML SPRAY NS PRN (10:42)
[2025-01-20] MEDS ORDERED: NICOTINE POLACRILEX 2 MG LOZENGE BC PRN (10:42)
[2025-01-20] MEDS ORDERED: BENZONATATE 200 MG CAPSULE PO PRN (10:42)
[2025-01-20] MEDS ORDERED: guaiFENesin 600 MG TABLET.ER (FP) PO PRN (10:42)
[2025-01-20] MEDS ORDERED: NICOTINE POLACRILEX 2 MG GUM BUC PRN (10:42)
[2025-01-20] MEDS: DIVALPROEX SODIUM 250 MG TABLET E.C. PO SCH (13:35)
[2025-01-20] MEDS: BUDESONIDE/FORMETEROL FUMARATE 160/4.5 mcg INHALER IH SCH (13:36)
[2025-01-20] MEDS: MELATONIN 5 MG TABLETS PO SCH (21:54)
[2025-01-20] MEDS: APIXABAN 5 MG TABLET PO SCH (21:54)
[2025-01-20] MEDS: ATORVASTATIN CA 80 MG TABLET (FP) PO SCH (21:54)
[2025-01-20] MEDS: THIAMINE 100 MG TABLET PO SCH (21:55)
[2025-01-21] MEDS: PRENATAL VITAMINS W/ FOLIC ACID TABLET (FP) PO SCH (09:20)
[2025-01-21] MEDS: ASPIRIN 81 MG CHEWABLE TABLETS PO SCH (09:20)
[2025-01-21 11:42] LABS: MCHC 32.8 g/dl (32.2-35.5); MEAN CELL VOLUME 88.4 fl (79.4-94.8); RDW 14.4 % (12.4-16.4)
[2025-01-21 12:05] LABS: EPI CELLS 13 /uL (0-25.1); HYALINE CASTS 0 /uL (0-3.1); URINE APPEARANCE CLEAR; URINE BACTERIA 356 /uL (0-1359); URINE BILIRUBIN NEGATIVE (NEGATIVE); URINE COLOR YELLOW; URINE GLUCOSE (UA) NEGATIVE (NEGATIVE); URINE KETONE NEGATIVE (NEGATIVE); URINE LEUK ESTERASE TRACE (NEGATIVE); URINE NITRITE NEGATIVE (NEGATIVE); URINE PROTEIN NEGATIVE (NEGATIVE); URINE RBC 3 /uL (0-23.9); URINE UROBILINOGEN 1.0 mg/dL (0.2-1.0); URINE WBC 20 /uL (0-25.8)
[2025-01-21 12:21] LABS: CO2 32.0 mmol/L (21-32); GLUCOSE,RANDOM 71.0 mg/dL (74-106)
[2025-01-21 12:23] LABS: SGOT/AST 18.0 U/L (15-37); SGPT/ALT 14.0 U/L (13-61)
[2025-01-21 12:24] LABS: CREATININE 0.7 mg/dL (0.55-1.3)
[2025-01-21 12:25] LABS: TOT PROT 7.3 g/dl (6.4-8.2)
[2025-01-21 12:26] LABS: ALK PHOS 80.0 U/L (45-117)
[2025-01-21] MEDS: ACETAMINOPHEN 325 MG TABLET (FP) PO PRN (15:22)
[2025-01-23] MEDS ORDERED: ATORVASTATIN CA 40 MG TABLET (FP) ONE (20:18)
[2025-01-24] MEDS ORDERED: ATORVASTATIN CA 40 MG TABLET (FP) ONE (20:25)
[2025-01-24] MEDS: hydrOXYzine PAMOATE 25 MG CAPSULE (FP) PO PRN (21:09)
[2025-01-25] MEDS: MAG HYDROX/AL HYDROX/SIMETH 30 ML UNIT-DOSE CUP PO PRN (17:51)
[2025-01-25] MEDS ORDERED: ATORVASTATIN CA 40 MG TABLET (FP) ONE (19:56)
[2025-01-25] MEDS: MAGNESIUM HYDROX 2400MG/30ML ORAL SUSPENSION 30 ML CUP PO PRN (20:13)
[2025-01-26] MEDS: ALBUTEROL SO4 HFA INHALER IH PRN (09:27)
[2025-01-26] MEDS: ACETAMINOPHEN 500 MG TABLET (FP) PO PRN (13:38)
[2025-01-26] MEDS ORDERED: ATORVASTATIN CA 40 MG TABLET (FP) ONE (19:56)
[2025-01-27 07:29] VITALS: BP 129/81; PULSE 106; RESP 18; TEMP 98.4
[2025-01-27] MEDS: LIDOCAINE 5% TOPICAL PATCH TP SCH (11:36)
[2025-01-27] MEDS ORDERED: LIDOCAINE PATCH REMOVAL MC SCH (22:00)
[2025-01-27] MEDS ORDERED: MIRTAZAPINE 15 MG TABLET (FP) PO SCH (22:00)
== END 2025-01-27 17:23 | disposition home or self-care (01) | DRG 772 ==
LOC: YASAS 09:56 → Y3NR 11:39 → Y5N 01-23 12:33
PROVIDERS: ADMIT Neuromusculoskeletal Medicine & OMM; ATTEND Psychiatry & Neurology Pain Medicine
PROC: HZ42ZZZ Group Counseling for Substance Abuse Treatment, Cognitive-Behavioral (ICD-10-PCS; principal; 2025-01-20)
DX: F10.20 Alcohol dependence, uncomplicated (principal); F14.20 Cocaine dependence, uncomplicated; F17.210 Nicotine dependence, cigarettes, uncomplicated; F31.9 Bipolar disorder, unspecified; F25.9 Schizoaffective disorder, unspecified; F19.282 Other psychoactive substance dependence with psychoactive substance-induced sleep disorder; Z21 Asymptomatic human immunodeficiency virus [HIV] infection status; E78.5 Hyperlipidemia, unspecified; J43.0 Unilateral pulmonary emphysema [MacLeod's syndrome]; M06.9 Rheumatoid arthritis, unspecified; M54.40 Lumbago with sciatica, unspecified side; G89.29 Other chronic pain; R73.03 Prediabetes; Z86.718 Personal history of other venous thrombosis and embolism; Z79.01 Long term (current) use of anticoagulants; Z88.0 Allergy status to penicillin; Z88.8 Allergy status to other drugs, medicaments and biological substances
CPT/HCPCS: 36415; 80053; 80305; 80307; 81003; 85027; 86593; 86780; 87811